=== PATIENT | male | born 1965 | race Caucasian/White ===

== ENCOUNTER 2024-11-25 12:43 | Inpatient (IN) ==
--- NOTE | 2024-11-25 13:18 | ED Triage Note ---
Date of Service November 25, 2024 Provider in Triage Author: Boni Holden History of Present Illness This patient was briefly evaluated while in triage. An abbreviated physical exam was performed. This patient is a 58-year-old Male who presents to the ED for evaluation of live r problems. The patient has had months of lower abdominal pain and leg swelling. Symptoms started 3 months ago, but getting worse. The patient is now yellow. Has not had previous workup per patient. PCP sent him for further workup. No known liver problems. Drinks 2-3 glasses of wine a day. States that he drank 3 glasses of wine today. Physical Exam GENERAL: Non-toxic and in no acute distress. SKIN: Jaundice present HEENT: Pupils equal. Positive scleral icterus. HEART: Regular rate and rhythm. LUNGS: Clear to auscultation. No accessory muscle use. ABDOMEN: Abdomen significantly distended. NEURO: Alert and oriented. No obvious neurological deficits on quick neuro exam. MUSCULOSKELETAL: 3+ pitting edema of lower extremities. Initial orders for labs and / or imaging were placed and patient was placed in the waiting area until a bed is available. Please see further documentation for the full ED course. MDM / Impression Impression Impression: Cirrhosis, Abdominal ascites, Total bilirubin, elevated, Edema, peripheral, Hyponatremia Impression: Cirrhosis Qualifiers: Hepatic cirrhosis type: alcoholic cirrhosis Ascites presence: with ascites Qualified Code(s): K70.31 - Alcoholic cirrhosis of liver with ascites
--- NOTE | 2024-11-25 14:03 | Emergency Department Note ---
Impression & Plan Cirrhosis, Abdominal ascites, Total bilirubin, elevated, Edema, peripheral, Hyponatremia ED Provider Note Provider: Boni Holden MD CHIEF COMPLAINT: Abdominal and leg swelling, referred from office HISTORY OF PRESENT ILLNESS: Patient is a 58-year-old gentleman history of hyperlipidemia hypertension, as well as neuropathy referred from primary care today due to over the past 2 to 3 months developing increasing abdominal swelling and leg swelling. Has had to get new jeans and feels significant abdominal pressure but not pain. No fevers. This is worsened his underlying hiatal hernia and dyspepsia related to this. Is a daily drinker. No significant use of [id number] Motrin or Tylenol reported. Patient states he did not really realize that he seemed a little jaundiced or yellow but primary care commented on it. Given these changes he was sent here for further evaluation today and workup. States he gets some dyspnea with exertion prickly stairs or walking more than 50 or 100 feet. No shortness of breath at rest. Last drink of alcohol earlier today. PAST MEDICAL HISTORY: As noted above MEDICATIONS: Reviewed home medications SOCIAL HISTORY: Daily drinker PHYSICAL EXAM: GENERAL: alert and oriented in no acute distress on stretcher Head: normocephalic and atraumatic EYES: No injection or discharge with mild icterus noted. NECK: Trachea midline. ENT: Mucous membranes pink and moist. LUNGS: Airway patent. No retractions or tachypnea HEART: Regular rate and rhythm. ABDOMEN: Firm moderately distended. Patient is not on tender and no guarding appreciable. SKIN: Acyanotic but mildly jaundice, warm, dry, without rashes EXTREMITIES: Without drainage but 3-4+ edema of the bilateral lower extremities. NEUROLOGICAL: Moving all extremities. No aphasia. No facial droop or slurred speech. Ambulatory. EK bpm normal sinus rhythm. No PVC or PAC. No acute ST segment elevation or depression with QTc 454. CONTINUOUS CARDIAC MONITORING: was ordered and showed a heart rate of 70s-90s bpm in normal sinus rhythm Patient's laboratory studies and imaging reviewed. Differential includes liver failure, cirrhosis, appendicitis, infections, diverticulitis, UTI, obstruction, mesenteric ischemia, aortic pathology/CHF, inflammatory bowel disease, renal colic, PUD, pancreatitis, biliary pathology, hernia, volvulus, constipation, as well as other pathologies. IMPRESSION/MEDICAL DECISION MAKING: Patient with fairly significant abdominal and lower extremity swelling. No evidence significant cellulitis. The abdominal swelling with this does make the question either liver or heart pathology. Patient is a daily drinker. EKG obtained as well as troponin and chest x-ray but LFTs INR and ammonia sent as well as alcohol level. Does not appear to be hypoxic at this time and not having significant abdominal pain or fevers and doubt SBP or infection. With the patient's regular alcohol use this may be causing an alcoholic cirrhosis to develop. Certainly any hiatal hernia he has will be exacerbated by the increased abdominal pressure and this likely causes some dyspnea on exertion. Blood work here today with mild anemia 10.6. No leukocytosis. INR mildly elevated 1.5. Significant hyponatremia 126 appears new compared to blood work from 9 months ago. Creatinine normal. Bilirubin elevated at 9 with a direct of 3.4. AST slightly but at 81. Troponin normal with BNP of 200. Alcohol level 157. CT with abdominal ascites as well as the ultrasound confirms this and cirrhotic liver changes. Will bring in for optimization given his decompensating what appears to be alcohol induced cirrhosis. Patient is amenable to working on stopping drinking. Has not had seizures or hallucinations before but some mild tremors. Does not appear in withdrawal at this time. He is agreeable to stay in the hospitalist team was contacted for further care here. Do not see evidence of active GI bleed or infection at this time. Does not seem to be significantly symptomatic from the hyponatremia like this is more chronic. Will defer any acute correction at this time. Given somewhat borderline blood pressures will leave choice of diuretics to hospitalist team and likely GI consultation. DIAGNOSIS: Alcoholic liver cirrhosis, hyponatremia DISPOSITION: Hospitalist will evaluate Patient was agreeable with this plan. Past Med/Surg History Problem List (Updated 11/25/24 @ 19:12 by Boni Holden M.D.) Hyponatremia (Acute) Edema, peripheral (Acute) Total bilirubin, elevated (Acute) Abdominal ascites (Acute) Alcohol withdrawal Alcoholic hepatitis with ascites Cirrhosis (Acute) HLD (hyperlipidemia) Hypertension Medical History (Updated 11/25/24 @ 19:12 by Boni Holden M.D.) Mild acid reflux Anxiety Surgical History (Updated 03/08/24 @ 11:07 by Reny Robles MD) H/O umbilical hernia repair [place] teeth extracted H/O oral surgery H/O inguinal hernia repair Family History (Updated 03/08/24 @ 10:32 by Tonya Rowell) Mother Alcohol abuse Depression Father Alcohol abuse Heart disease Kidney disease Myocardial infarction Uncle Myocardial infarction Denies family history of Ovarian cancer Prostate cancer Breast cancer Colorectal cancer Social History (Updated 03/08/24 @ 10:34 by Tonya Rowell) Smoking Status: Never smoker Do You Dip or Chew Tobacco: No; Hx Alcohol Use: Yes Alcohol type: beer Alcohol Intake Frequency: 4 or More x per/Week Alcohol Intake Frequency Comment: 8-15 Hx Substance Use: No marital status: Single Current Living Situation: Family Feels Safe at Home: Hesitant to [facility], Regularly: No Physical Activity Frequency: Daily Seatbelt Use: always Sunscreen Use: Yes Assistive Devices: Glasses Allergies Allergies Allergy/AdvReac Type Severity Reaction Status Date / Time No Known Allergies Allergy Verified 11/25/24 09:19 Home Meds Home Medications Medication Instructions Recorded Confirmed metoprolol tartrate 25 mg tablet 25 mg PO Q OTHER DAY 03/08/24 11/25/24 nifedipine 30 mg tablet,extended 30 mg PO Q OTHER DAY 03/08/24 11/25/24 release ibuprofen 200 mg tablet 200 mg PO Q6H PRN Pain 11/25/24 11/25/24 Previous Rx's Medication Instructions Recorded atorvastatin 40 mg tablet 40 mg PO DAILY 90 days #90 tabs 03/08/24 Results & Data (ED) Vital Signs Vital Signs - 24 hr 11/25/24 13:17 11/25/24 14:05 11/25/24 15:15 Temperature 36.6 C Temperature Source Temporal Artery Scan Pulse Rate 90 85 Pulse Rate [Apical] 87 Respiratory Rate 18 18 Respiratory Effort / Characteristics Non-Labored Spontaneous Non-Labored Spontaneous Respiratory Depth Normal Normal Respiratory Pattern Regular Regular Blood Pressure 100/64 Blood Pressure [Right Arm] 106/71 Blood Pressure Mean 76 Blood Pressure Mean [Right Arm] 82 Pulse Oximetry 99 98 Oxygen Delivery Method Room Air Room Air Sepsis Recent Fever Within 48 Hours No Sepsis New/Unexplained Change in Mental Status N/A Sepsis Action Taken by Nursing No Action Required 11/25/24 16:57 11/25/24 17:58 11/25/24 18:49 Temperature Temperature Source Pulse Rate 85 90 Pulse Rate [Apical] 93 H Respiratory Rate 20 21 Respiratory Effort / Characteristics Respiratory Depth Respiratory Pattern Blood Pressure Blood Pressure [Right Arm] 112/68 Blood Pressure Mean Blood Pressure Mean [Right Arm] 82 Pulse Oximetry 98 99 Oxygen Delivery Method Room Air Room Air Sepsis Recent Fever Within 48 Hours Sepsis New/Unexplained Change in Mental Status Sepsis Action Taken by Nursing 11/25/24 18:49 Temperature Temperature Source Pulse Rate 92 H Pulse Rate [Apical] Respiratory Rate 20 Respiratory Effort / Characteristics Respiratory Depth Respiratory Pattern Blood Pressure Blood Pressure [Right Arm] Blood Pressure Mean Blood Pressure Mean [Right Arm] Pulse Oximetry 99 Oxygen Delivery Method Room Air Sepsis Recent Fever Within 48 Hours Sepsis New/Unexplained Change in Mental Status Sepsis Action Taken by Nursing Laboratory Data 11/25/24 13:27 11/25/24 13:27 Lab Results 11/25/24 11/25/24 Range/Units 13:27 15:40 WBC 8.54 (4.8-10.8) K/ul RBC 2.84 L (4.70-6.10) M/uL Hgb 10.6 L (14.0-18.0) g/dl Hct 29.5 L (42.0-52.0) % MCV 103.9 H (80.0-100.0) fL MCH 37.3 H (25.0-34.0) pg MCHC 35.9 (32.0-36.0) g/dL RDW Std Deviation 48.6 H (36.4-46.3) fL RDW Coeff of Kylee 12.7 (11.5-14.5) % Plt Count 147 (130-400) K/uL MPV 9.4 (9.4-12.4) fL Immature Gran % (Auto) 0.4 % Neut % (Auto) 67.9 % Lymph % (Auto) 17.3 % [place] % (Auto) 11.9 % Eos % (Auto) 1.9 % Baso % (Auto) 0.6 % Neut # (Auto) 5.80 (1.40-6.50) K/uL Lymph # (Auto) 1.48 (1.20-3.40) K/uL [place] # (Auto) 1.02 H (0.11-0.59) K/uL Eos # (Auto) 0.16 (0.00-0.50) K/uL Baso # (Auto) 0.05 (0.00-0.20) K/uL Immature Gran # (Auto) 0.03 (0.01-0.20) K/uL PT 15.5 H (9.0-12.0) Seconds INR 1.5 H (0.9-1.1) APTT 30 (21-31) Seconds PTT Ratio 1.1 Sodium 126 L (136-145) mmol/L Potassium 3.7 (3.5-5.1) mmol/L Chloride 95 L (98-107) mmol/L Carbon Dioxide 24 (21-32) mmol/L Anion Gap 7 (3-11) BUN 5 L (6-23) mg/dl Creatinine 0.59 L (0.6-1.4) mg/dl Est Cr Clr Drug Dosing 147.1 ml/min eGFR 113.16 BUN/Creatinine Ratio 8.5 L (10-20) Glucose 103 H (70-99(Fasting)) mg/dl Calcium 8.5 L (8.6-10.3) mg/dl Magnesium 1.7 (1.7-2.4) mg/dl Total Bilirubin 9.0 H (0.2-1.0) mg/dl Direct Bilirubin 3.4 H (0-0.2) mg/dl AST 81 H (13-39) U/L ALT 27 (7-52) U/L Alkaline Phosphatase 84 (34-104) U/L Ammonia 53.0 (18-72) umol/L Troponin I High Sens 7.5 (0-20) pg/ml B-Natriuretic Peptide 200 H (0-100) pg/ml Total Protein 7.4 (6.0-8.3) gm/dl Albumin 3.1 L (3.4-5.0) gm/dl Globulin 4.3 H (2.5-4.0) gm/dl Albumin/Globulin Ratio 0.7 L (0.9-2) Lipase 114 H (11-82) U/L TSH 2.117 (0.300-4.500) uIu/ml Urine Color Yellow Urine Appearance Clear (Clear) Urine pH 7.5 (4.5-7.5) Ur Specific [place] 1.036 H (1.000-1.030) Urine Protein Negative (Negative) Urine Glucose (UA) Negative (Negative) Urine Ketones Negative (Negative) Urine Blood Negative (Negative) Urine Nitrite Negative (Negative) Urine Bilirubin Negative (Negative) Urine Urobilinogen Negative (Negative) Ur Leukocyte Esterase Negative (Negative) Ethyl Alcohol mg/dL 157.6 H (<10.0) mg/dl Hep Bs Antigen Negative (Negative) Hepatitis C Antibody Negative (Negative) Administered Medications Discontinued Medications Furosemide (Furosemide Inj 20 Mg/2 Ml Vial) 20 mg IV ONE STA Stop: 11/25/24 17:40 Last Admin: 11/25/24 18:52 Dose: 20 mg Documented By: AVDarcy Ioversol (Optiray 320 100ml) 94 ml IV ONCE ONE Stop: 11/25/24 14:31 Last Admin: 11/25/24 14:31 Dose: 94 ml Documented By: EDK Imaging Data Radiologist's Impression: Abdomen/Pelvis CT 11/25/24 13:20 CT OF THE ABDOMEN AND PELVIS WITH CONTRAST CLINICAL HISTORY: Abdominal distention, jaundice. COMPARISON STUDY: None. TECHNIQUE: Following IV administration of 94 mL of Optiray, axial images of the abdomen and pelvis were obtained from the lung bases to the proximal femurs. Images were reviewed in the axial, sagittal, and coronal planes. IV contrast was administered without complication. Automated exposure control was utilized for the study. A dose lowering technique was utilized adhering to the principles of ALARA. CT DOSE: 1387.88 mGy.cm FINDINGS: A moderate to large left pleural effusion is partially imaged. There is associated left lower lobe collapse. A large hiatal hernia contains ascites. Large volume abdominal and pelvic ascites is present. There is no pneumatosis, free air or portal venous gas. The major hepatic vessels are patent. The liver is cirrhotic. Several hypodense hepatic lesions measure up to 6 mm. These are indeterminate. There are gallstones within the gallbladder. The gallbladder is mildly distended. Spleen is mildly enlarged. Abdominal and pelvic varices are present. There is no evidence for a bowel obstruction. The adrenal glands, kidneys and pancreas are unremarkable. No biliary or pancreatic ductal dilatation is present. The caliber and wall thickness of small and large bowel are normal with the exception of mild right colon wall thickening. The appendix is normal. No fluid collections are present. There is ascites within the left inguinal hernia. There is no abdominal or pelvic lymphadenopathy. IMPRESSION: 1. Cirrhotic liver with manifestations of portal hypertension including large volume ascites, small varices and splenomegaly. A few subcentimeter hepatic lesions which are probably benign but indeterminate and should be assessed on follow-up exams to ensure stability. 2. Moderate to large left pleural effusion partially imaged on this exam. This is suggestive of a left-sided hepatic hydrothorax. 3. Large hiatal hernia which contains ascites. 4. No bowel obstruction. Right colon wall thickening. Although nonspecific, this may be related to portal hypertension. 5. Cholelithiasis. ACT 112: Negative or not required by law. Electronically signed by: Charan Lubin M.D. 11/25/2024 3:33 PM Liver Ultrasound 11/25/24 13:20 US liver CLINICAL HISTORY: Jaundice. Abdominal distention. COMPARISON STUDY: CT of the abdomen and pelvis performed earlier today. FINDINGS: There is coarsening of hepatic echotexture liver and nodularity of the liver surface. No hepatic lesions are identified. Large volume upper abdominal ascites is present. The pancreas is obscured. Common bile duct is partially obscured but likely normal in caliber. There are gallstones within the gallbladder. No sonographic Lopez sign was elicited. No gallbladder wall thickening. There is no right hydronephrosis. IMPRESSION: 1. Cholelithiasis. No sonographic evidence for acute cholecystitis. 2. Cirrhotic liver. Large volume ascites. ACT 112: Negative or not required by law. Electronically signed by: Charan Lubin M.D. 11/25/2024 3:49 PM Chest X-Ray 11/25/24 13:24 XR chest 1V portable CLINICAL HISTORY: Leg and abd swelling. COMPARISON STUDY: Chest radiograph March 19, 2024. FINDINGS: There is no pneumothorax. A moderate left pleural effusion is present. There is no evidence for overt pulmonary edema. A hiatal hernia is present. Cardiac size is normal. IMPRESSION: 1. Moderate left pleural effusion. Associated left basilar opacity favors atelectasis. 2. Hiatal hernia. 3. No radiographic evidence for pulmonary edema. ACT 112: Negative or not required by law. Electronically signed by: Charan Lubin M.D. 11/25/2024 2:45 PM Discharge Plan Visit Data Chief Complaint: Referred by Doctor Stated Complaint: DOC REF, LIVER ISSUE ED Provider: Boni Holden Discharge Problem: Cirrhosis, Abdominal ascites, Total bilirubin, elevated, Edema, peripheral, Hyponatremia Patient Disposition: Admitted As Inpatient Forms [facility] Prescriptions Prescriptions: No Action nifedipine 30 mg tablet extended release 30 mg PO Q OTHER DAY Rx Instructions: Pt alternates w/ Metoprolol. States that taking them both in the same day causes his BP to drop too low. metoprolol tartrate 25 mg tablet 25 mg PO Q OTHER DAY Rx Instructions: Pt alternates w/ Nifedipine. States that taking them both in the same day causes his BP to drop too low. atorvastatin 40 mg tablet 40 mg PO DAILY 90 Days Qty: 90 4RF ibuprofen 200 mg Tablet 200 mg PO Q6H PRN (Reason: Pain) Referrals Referrals: Reny Robles MD [Primary Care Provider] - Discharge Problem: Cirrhosis Qualifiers: Hepatic cirrhosis type: alcoholic cirrhosis Ascites presence: with ascites Q ualified Code(s): K70.31 - Alcoholic cirrhosis of liver with ascites
[2024-11-25 14:08] LABS: Basophils # (auto) 0.05 K/uL (0.00-0.20); Basophils % (auto) 0.6 %; Eosinophils # (auto) 0.16 K/uL (0.00-0.50); Eosinophils % (auto) 1.9 %; Hematocrit (blood only) 29.5 % (42.0-52.0); Hemoglobin 10.6 g/dl (14.0-18.0); Immature Granulocytes # (auto) 0.03 K/uL (0.01-0.20); Immature Granulocytes % (auto) 0.4 %; Lymphocytes # (auto) 1.48 K/uL (1.20-3.40); Lymphocytes % (auto) 17.3 %; Mean Corpuscular Hemoglobin 37.3 pg (25.0-34.0); Mean Corpuscular Hgb Conc 35.9 g/dL (32.0-36.0); Mean Corpuscular Volume 103.9 fL (80.0-100.0); Mean Platelet Volume 9.4 fL (9.4-12.4); Monocytes # (auto) 1.02 K/uL (0.11-0.59); Monocytes % (auto) 11.9 %; Neutrophils % (auto) 67.9 %; Platelet Count 147 K/uL (130-400); RDW Coefficient of Variation 12.7 % (11.5-14.5); RDW Standard Deviation 48.6 fL (36.4-46.3); Red Blood Count 2.84 M/uL (4.70-6.10); White Blood Count 8.54 K/ul (4.8-10.8)
[2024-11-25 14:10] LABS: Albumin Globulin Ratio 0.7 (0.9-2); Albumin Level 3.1 gm/dl (3.4-5.0); BUN Creatinine Ratio 8.5 (10-20); Bilirubin Direct 3.4 mg/dl (0-0.2); Calcium 8.5 mg/dl (8.6-10.3); Creatinine Clr Calc Pharmacy 147.1 ml/min; Globulin 4.3 gm/dl (2.5-4.0); Magnesium 1.7 mg/dl (1.7-2.4); Potassium 3.7 mmol/L (3.5-5.1); Total Protein 7.4 gm/dl (6.0-8.3)
[2024-11-25 14:15] LABS: Troponin I High Sensitivity 7.5 pg/ml (0-20)
[2024-11-25 14:17] LABS: INR 1.5 (0.9-1.1); Partial Thromboplastin Ratio 1.1; Partial Thromboplastin Time 30 Seconds (21-31); Prothrombin Time 15.5 Seconds (9.0-12.0)
[2024-11-25 14:24] LABS: Thyroid Stimulating Hormone 2.117 uIu/ml (0.300-4.500)
[2024-11-25] MEDS: OPTIRAY 320 100ml IV ONE (14:31)
[2024-11-25 14:43] LABS: Hep B Surface Ag with confirm Negative (Negative)
--- NOTE | 2024-11-25 14:46 | XRay Report ---
XR chest 1V portable CLINICAL HISTORY: Leg and abd swelling. COMPARISON STUDY: Chest radiograph March 19, 2024. FINDINGS: There is no pneumothorax. A moderate left pleural effusion is present. There is no evidence for overt pulmonary edema. A hiatal hernia is present. Cardiac size is normal. IMPRESSION: 1. Moderate left pleural effusion. Associated left basilar opacity favors atelectasis. 2. Hiatal hernia. 3. No radiographic evidence for pulmonary edema. ACT 112: Negative or not required by law. Electronically signed by: Charan Lubin M.D. 11/25/2024 2:45 PM
[2024-11-25 14:48] LABS: Hep C Ab Rflx HepCQuant RNA Negative (Negative)
--- NOTE | 2024-11-25 15:35 | CT Scan Report ---
CT OF THE ABDOMEN AND PELVIS WITH CONTRAST CLINICAL HISTORY: Abdominal distention, jaundice. COMPARISON STUDY: None. TECHNIQUE: Following IV administration of 94 mL of Optiray, axial images of the abdomen and pelvis we re obtained from the lung bases to the proximal femurs. Images were reviewed in the axial, sagittal, and coronal planes. IV contrast was administered without complication. Automated exposure control wa s utilized for the study. A dose lowering technique was utilized adhering to the principles of ALARA . CT DOSE: 1387.88 mGy.cm FINDINGS: A moderate to large left pleural effusion is partially imaged. There is associated left low er lobe collapse. A large hiatal hernia contains ascites. Large volume abdominal and pelvic ascites i s present. There is no pneumatosis, free air or portal venous gas. The major hepatic vessels are amado nt. The liver is cirrhotic. Several hypodense hepatic lesions measure up to 6 mm. These are indetermi melissa. There are gallstones within the gallbladder. The gallbladder is mildly distended. Spleen is mil dly enlarged. Abdominal and pelvic varices are present. There is no evidence for a bowel obstruction. The adrenal glands, kidneys and pancreas are unremarkable. No biliary or pancreatic ductal dilatatio n is present. The caliber and wall thickness of small and large bowel are normal with the exception o f mild right colon wall thickening. The appendix is normal. No fluid collections are present. There i s ascites within the left inguinal hernia. There is no abdominal or pelvic lymphadenopathy. IMPRESSION: 1. Cirrhotic liver with manifestations of portal hypertension including large volume ascites, small v arices and splenomegaly. A few subcentimeter hepatic lesions which are probably benign but indetermin ate and should be assessed on follow-up exams to ensure stability. 2. Moderate to large left pleural effusion partially imaged on this exam. This is suggestive of a lef t-sided hepatic hydrothorax. 3. Large hiatal hernia which contains ascites. 4. No bowel obstruction. Right colon wall thickening. Although nonspecific, this may be related to po rtal hypertension. 5. Cholelithiasis. ACT 112: Negative or not required by law. Electronically signed by: Charan Lubin M.D. 11/25/2024 3:33 PM
[2024-11-25 15:49] LABS: Appearance Urine Clear (Clear); Bilirubin Urine Negative (Negative); Blood Urine Negative (Negative); Color Urine Yellow; Glucose Urine UA Negative (Negative); Ketones Urine Negative (Negative); Leukocyte Esterase Urine Negative (Negative); Nitrite Urine Negative (Negative); Protein Urine Negative (Negative); Specific Gravity Urine 1.036 (1.000-1.030); Urobilinogen Urine Negative (Negative); pH Urine 7.5 (4.5-7.5)
--- NOTE | 2024-11-25 15:50 | Ultrasound Report ---
US liver CLINICAL HISTORY: Jaundice. Abdominal distention. COMPARISON STUDY: CT of the abdomen and pelvis performed earlier today. FINDINGS: There is coarsening of hepatic echotexture liver and nodularity of the liver surface. No he patic lesions are identified. Large volume upper abdominal ascites is present. The pancreas is obscur ed. Common bile duct is partially obscured but likely normal in caliber. There are gallstones within the gallbladder. No sonographic Lopez sign was elicited. No gallbladder wall thickening. There is no right hydronephrosis. IMPRESSION: 1. Cholelithiasis. No sonographic evidence for acute cholecystitis. 2. Cirrhotic liver. Large volume ascites. ACT 112: Negative or not required by law. Electronically signed by: Charan Lubin M.D. 11/25/2024 3:49 PM
[2024-11-25] MEDS ORDERED: LORazepam 2 MG/1 ML VIAL IV PRN ×3 (17:42)
[2024-11-25] MEDS ORDERED: Ativan IV Alcohol Withdrawal--Active Protocol IV PRN (17:42)
--- NOTE | 2024-11-25 18:08 | Electrocardiogram Report ---
Test Reason : Blood Pressure : */* mmHG Vent. Rate : 87 BPM Atrial Rate : 87 BPM P-R Int : 112 ms QRS Dur : 88 ms QT Int : 378 ms P-R-T Axes : -1 -9 40 degrees QTcB Int : 454 ms Normal sinus rhythm Normal ECG No previous ECGs available Confirmed by Jevon Yoo ([id number]) on 11/25/2024 6:08:15 PM Referred By: Reny Robles Confirmed By: Jevon Yoo
--- NOTE | 2024-11-25 18:13 | History & Physical Report ---
Date of Service November 25, 2024 Assessment & Plan (1) Cirrhosis: (2) Alcoholic hepatitis with ascites: (3) Alcohol withdrawal: (4) Hyponatremia: (5) Macrocytic anemia: Plan This is a 58 year old gentleman with past medical history hypertension and hyperlipidemia who presented to the ER for concerns of abdominal swelling and leg edema. #Cirrhosis/Alcoholic Hepatitis MELD: 27, TB 9, INR 1.5, Na 126, Creat 0.59 DF: 32.9 BNP 200, likely secondary to volume overload from liver source. CTAP: Cirrhotic liver w/ manifestations of portal HTN including lg volume ascites, small varices & splenomegaly. Few subcm hepatic lesions which are probably benign but indeterminate & should be assessed on follow up exam. Moderate to large left pleural effusion. Left sided hepatic hydrothorax. Large hiatal hernia which contains ascites. No bowel obstruction. right colon wall thickening. Cholelithiasis. Liver US: cholelithiasis. no sonographic evidence for acute cholecystitis. cirrhotic liver. lg volume ascites. Reached out to GI rehabilitation services aide on admission - deferred steroid decision to hospitalist team due to conflicting medical research on whether or not steroids are helpful w/ alcoholic hepatitis. Defer at this time given new onset of ascites and needing to rule out SBP prior to initiating. s/p 20mg IV Lasix given, await patient response and reassess BP prior to further doses. If BP stable, start Spironolactone in AM. Patient will require paracentesis, likely can't be performed until 11/28 Low concern for SBP at this time, defer abx for now. GI consulted, appreciate recommendations AM CBC, CMP, PT/INR, Folic acid, and thiamine #Alcohol use disorder Last drink 11/25 AM - averages about a bottle of wine daily. High risk for alcohol withdrawal, no signs of withdrawal thus far. Protocol ordered w/ AWSS & Ativan prn Thiamin, Folic acid supplements daily Chronic conditions: HTN: Hold Nifedipine, Continue Metoprolol HLD: statin DVT prophylaxis: encourage ambulation. hold chemical for now given low normal plt count. Code: full Case discussed w/ Dr. Koo at time of admission. History of Present Illness Primary Care Provider: Reny Robles MD This is a 58 year old gentleman with past medical history hypertension and hyperlipidemia who presented to the ER for concerns of abdominal swelling and leg edema. Patient was seen and examined at bedside. He reports that for about the last 3 months he has been experiencing worsening abdominal bloating and lower extremity edema. States he has not been seen by this in the past. He is a daily drink and has been doing this for quite some time. He reports he drinks 3-7 glasses of wine per day and he averages ~ 1 bottle of wine per day. He reports he has been working with [facility] for a referral for outpatient rehab but this has been complicated by his lack of insurance. He reports he does have social support at home. He also reports that he does want to stop drinking and is prepared to go through withdrawal. His last drink was today in which he had about ~ 1 bottle of wine. Patient also reports SOB w/ exertion but denies at rest. He reports decreased appetite because he feels full after a few bites of food. He attributes this to his hiatal hernia. While in the ED patient was found to have large volume ascites and a hepatic hydrothorax. Findings also + for cirrhosis. His TB was 9. MELD score 27 and DF 32.9. GI consulted on admission who deferred steroids for alcoholic hepatitis to the hospitalist team. Allergies Allergy/AdvReac Type Severity Reaction Status Date / Time No Known Allergies Allergy Verified 11/25/24 09:19 Home Medications Medication Instructions Recorded Confirmed Type atorvastatin 40 mg tablet 40 mg PO DAILY 90 days #90 tabs 03/08/24 11/25/24 Rx metoprolol tartrate 25 mg tablet 25 mg PO Q OTHER DAY 03/08/24 11/25/24 History nifedipine 30 mg tablet,extended 30 mg PO Q OTHER DAY 03/08/24 11/25/24 History release ibuprofen 200 mg tablet 200 mg PO Q6H PRN Pain 11/25/24 11/25/24 History Past Med/Surg History Problem List (Updated 11/26/24 @ 03:25 by Eliud Koo MD) Macrocytic anemia Hyponatremia (Acute) Edema, peripheral (Acute) Total bilirubin, elevated (Acute) Abdominal ascites (Acute) Alcohol withdrawal Alcoholic hepatitis with ascites Cirrhosis (Acute) HLD (hyperlipidemia) Hypertension Medical History (Updated 11/26/24 @ 03:25 by Eliud Koo MD) Mild acid reflux Anxiety Surgical History (Updated 03/08/24 @ 11:07 by Reny Robles MD) H/O umbilical hernia repair [place] teeth extracted H/O oral surgery H/O inguinal hernia repair Family History (Updated 03/08/24 @ 10:32 by Tonya Rowell) Mother Alcohol abuse Depression Father Alcohol abuse Heart disease Kidney disease Myocardial infarction Uncle Myocardial infarction Denies family history of Ovarian cancer Prostate cancer Breast cancer Colorectal cancer Social History (Updated 03/08/24 @ 10:34 by Tonya Rowell) Smoking Status: Never smoker Second Hand Exposure: Yes (parents growing up); Do You Dip or Chew Tobacco: No; Tobacco Cessation Education Requested by Patient: No Hx Alcohol Use: Yes Alcohol type: wine Alcohol Intake Frequency: 4 or More x per/Week Alcohol Intake Frequency Comment: 8-15 Hx Substance Use: No Preferred Language: Maori Communication Ability: Effective 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 +3 pitting edema Gastrointestinal (Abdomen): +BS, +Fluid wave. No tenderness to palpa tion Musculoskeletal: moves all extremities Psychiatric: A+Ox3, euthymic affect Results & Data Results & Data Vital Signs (Past 12 Hours) Vital Signs Temp Pulse Pulse Resp BP BP Pulse Ox 11/25/24 16:57 85 20 98 11/25/24 15:15 87 18 106/71 98 11/25/24 14:05 85 11/25/24 13:17 36.6 C 90 18 100/64 99 O2 Del Method 11/25/24 16:57 Room Air 11/25/24 15:15 Room Air 11/25/24 14:05 11/25/24 13:17 Room Air Supervising Physician Co-Signing Physician Notes I personally saw and examined the patient. I independently reviewed the labs, EKG, imaging, problem list, medication list, past medical history and family history. I verified all levy points and agree with Kia Dwyer PA-C with the following exceptions and/or additions: 58-year-old male presents to the ER on advice of his PCP due to jaundice and distended abdomen. Noted to have liver cirrhosis with significant ascites on CT. Drinks 1 bottle of wine per day with last drink today. Prior episodes of alcohol withdrawal but no prior seizures. O/E HS RRR, no murmurs, Chest CTAB, Abdo distended, very mild tenderness over left side, pedal edema 2+ equal b/l to abdomen A/P Liver cirrhosis with alcoholic hepatitis and ascites - patient is significantly volume overloaded on exam, agree with Lasix, add spironolactone tomorrow as long as blood pressure is stable and able to with electrolytes. Significant diuresis with just 20 mg IV in the emergency room. No significant abdominal pain to suggest SBP. Plan for paracentesis with IR on Thursday. Recommend holding statin for now. I am not even clear that he takes this as it is noted on external pharmacy med list. The same goes for the metoprolol which is listed as a very unusual dosing and I think he would be better off with higher doses of diuresis rather than staying on this. Agree with holding nifedipine. Agree holding steroids especially with borderline discriminant function Alcohol use disorder - anticipate withdrawal within the next 24-48 hours with lorazepam 1 to 3 mg per AWSS Elevated INR - reversed any nutritional deficit with vitamin K 10 mg IV and repeat INR with a.m. labs Hyponatremia - secondary to hypervolemic state with liver cirrhosis, should improve with diuresis Macrocytic anemia - suspected secondary to alcohol use but will get B12 and folate levels in the morning to see if it is reversible with supplementation VTE prophylaxis - platelets relatively normal, will start on Lovenox tomorrow PG Care Time/CCT Total # of Minutes Spent Total Time Spent with Patient: Total time spent is greater than 50% in coordination of care (as documented) at patient's floor/unit and/or counseling patient: Coding Level of Care Code 65883 INT INP/OBS CARE MIN Diagnoses Alcoholic cirrhosis of liver with ascites K70.31 Ascites presence: with ascites Hepatic cirrhosis type: alcoholic cirrhosis Alcoholic hepatitis with ascites K70.11 Alcohol withdrawal syndrome without complication F10.930 Complication of substance-induced condition: uncomplicated Hyponatremia E87.1 Macrocytic anemia D53.9 (1) Cirrhosis Ascites presence: with ascites Hepatic cirrhosis type: alcoholic cirrhosis Qualified Code(s): K70.31 - Alcoholic cirrhosis of liver with ascites (3) Alcohol withdrawal Complication of substance-induced condition: uncomplicated Qualified Code(s): F10.930 - Alcohol use, unspecified with withdrawal, uncomplicated
[2024-11-25] MEDS ORDERED: cefTRIAXone SODIUM 2,000 MG/50 ML BAG IV SCH (18:15)
[2024-11-25] MEDS: FUROSEMIDE INJ 20 MG/2 ML VIAL IV STA (18:52)
[2024-11-25] MEDS: PHYTONADIONE 10 MG in DEXTROSE 5% 50 ML IV ONE (23:13)
[2024-11-26] MEDS: MULTIVITAMIN TAB PO SCH (08:10)
[2024-11-26] MEDS: FOLIC ACID 1 MG TAB PO SCH (08:10)
[2024-11-26] MEDS: FUROSEMIDE INJ 20 MG/2 ML VIAL IV SCH (08:10)
[2024-11-26] MEDS: THIAMINE HCL 100 MG TAB PO SCH (08:10)
[2024-11-26] MEDS ORDERED: ATORVASTATIN 40 MG TAB PO SCH (09:00)
[2024-11-26] MEDS ORDERED: ENOXAPARIN INJ 40 MG/0.4 ML SYR SQ SCH ×2 (09:00→21:00)
[2024-11-26 09:18] LABS: Hematocrit (blood only) 25.8 % (42.0-52.0); Hemoglobin 9.2 g/dl (14.0-18.0); Mean Corpuscular Hemoglobin 36.2 pg (25.0-34.0); Mean Corpuscular Hgb Conc 35.7 g/dL (32.0-36.0); Mean Corpuscular Volume 101.6 fL (80.0-100.0); Mean Platelet Volume 9.6 fL (9.4-12.4); Platelet Count 108 K/uL (130-400); RDW Coefficient of Variation 12.9 % (11.5-14.5); Red Blood Count 2.54 M/uL (4.70-6.10); White Blood Count 6.18 K/ul (4.8-10.8)
[2024-11-26] MEDS: METOPROLOL SUCC 25MG EXT REL TAB PO SCH (09:27)
[2024-11-26 09:42] LABS: Albumin Globulin Ratio 0.7 (0.9-2); Albumin Level 2.7 gm/dl (3.4-5.0); BUN Creatinine Ratio 11.7 (10-20); Bilirubin,Total 8.7 mg/dl (0.2-1.0); Calcium 8.1 mg/dl (8.6-10.3); Creatinine Clr Calc Pharmacy 144.7 ml/min; Globulin 3.8 gm/dl (2.5-4.0); Potassium 3.7 mmol/L (3.5-5.1); Total Protein 6.5 gm/dl (6.0-8.3)
[2024-11-26 10:05] LABS: Folate (Folic Acid),Ser orPlas 9.32 ng/ml (>5.38)
--- NOTE | 2024-11-26 10:30 | Gastrointestinal Consultation ---
Date of Consultation November 26, 2024 Assessment & Plan (1) Alcoholic hepatitis with ascites: Pleasant man with alcoholic hepatitis, ascites, peripheral edema and evidence of cirrhosis. Agree that paracentesis is warranted since this is initial presentation although suspicion for SBP not very high and its fairly obvious the cause for his liver disease. I have never been one to use steroids in acute alcoholic hepatitis because the evidence in the literature has vacillated so much through the years and is not super strong to support it, however it likely won't hurt him. I think there is a good chance he will withdraw during this hospitalization. I would get him on a loop diuretic as well as spironolactone to start getting his fluids under control. 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 History of Present Illness Reason for Consultation: alcoholic hepatitis Attending Physician: Jhonatan Garber MD History of Present Illness 58 year old man who says his legs have been swelling for about three months. He has also noted abdominal swelling during that time. He was instructed to come to the hospital when he finally called his primary care physician. He was admitted with signs and symptoms of alcoholic liver disease. He admits to drinking "one bottle of wine per day" for the last six months and "about half that" prior. He does have an alcohol level on computer of over 350 last year. He has contacted a treatment center and is working on getting involved with them regarding his drinking issues. Allergies Allergy/AdvReac Type Severity Reaction Status Date / Time No Known Allergies Allergy Verified 11/25/24 09:19 Home Medications Medication Instructions Recorded Confirmed Type atorvastatin 40 mg tablet 40 mg PO DAILY 90 days #90 tabs 03/08/24 11/25/24 Rx metoprolol tartrate 25 mg tablet 25 mg PO Q OTHER DAY 03/08/24 11/25/24 History nifedipine 30 mg tablet,extended 30 mg PO Q OTHER DAY 03/08/24 11/25/24 History release ibuprofen 200 mg tablet 200 mg PO Q6H PRN Pain 11/25/24 11/25/24 History Patient History Medical History Mild acid reflux Anxiety Surgical History H/O umbilical hernia repair [place] teeth extracted H/O oral surgery H/O inguinal hernia repair Family History Mother Alcohol abuse Depression Father Alcohol abuse Heart disease Kidney disease Myocardial infarction Uncle Myocardial infarction Denies family history of Ovarian cancer Prostate cancer Breast cancer Colorectal cancer Social History Smoking Status: Never smoker Second Hand Exposure: Yes (parents growing up); Do You Dip or Chew Tobacco: No; Tobacco Cessation Education Requested by Patient: No Hx Alcohol Use: Yes Alcohol type: wine Alcohol Intake Frequency: 4 or More x per/Week Alcohol Intake Frequency Comment: 8-15 Hx Substance Use: No Preferred Language: Malay Communication Ability: Effective Family Life Counselor Required: No Beliefs That Will Affect Care: None marital status: Single Current Living Situation: Family Other Information That Helps Us Care for You: No Feels Safe at Home: Yes Safety Concerns: Feels Safe At This Time Dental Care, Regularly: No Physical Activity Frequency: Daily Seatbelt Use: always Sunscreen Use: Yes Assistive Devices: Glasses Review of Systems Review of Systems: All systems reviewed & are unremarkable except as noted in HPI & below Physical Exam Physical Exam: Ill appearing with marked jaundice Constitutional: + ill appearing Eyes: sclerae not anicteric Neck: trachea midline, no thyromegaly Respiratory: normal respiratory effort, lungs clear to auscultation Cardiovascular: RRR, no murmur, no edema Gastrointestinal (Abdomen): Inspection/Auscultation: + abdomen distended and normal bowel sounds Percussion/Palpation: + ascites; abdomen nontender Musculoskeletal: marked lower extremity edema Results & Data Vital Signs (Past 12 Hours) Vital Signs Temp Pulse Resp BP Pulse Ox O2 Del Method 11/26/24 08:45 37.3 C 108 H 18 154/79 H 96 Room Air 11/26/24 04:06 36.9 C 104 H 18 102/64 93 Room Air Laboratory Results 11/26/24 11/26/24 11/25/24 Range/Units 08:30 08:28 15:40 WBC 6.18 (4.8-10.8) K/ul RBC 2.54 L (4.70-6.10) M/uL Hgb 9.2 L (14.0-18.0) g/dl Hct 25.8 L (42.0-52.0) % MCV 101.6 H (80.0-100.0) fL MCH 36.2 H (25.0-34.0) pg MCHC 35.7 (32.0-36.0) g/dL RDW Std Deviation 48.0 H (36.4-46.3) fL RDW Coeff of Kylee 12.9 (11.5-14.5) % Plt Count 108 L (130-400) K/uL MPV 9.6 (9.4-12.4) fL Immature Gran % (Auto) % Neut % (Auto) % Lymph % (Auto) % [place] % (Auto) % Eos % (Auto) % Baso % (Auto) % Neut # (Auto) (1.40-6.50) K/uL Lymph # (Auto) (1.20-3.40) K/uL [place] # (Auto) (0.11-0.59) K/uL Eos # (Auto) (0.00-0.50) K/uL Baso # (Auto) (0.00-0.20) K/uL Immature Gran # (Auto) (0.01-0.20) K/uL PT (9.0-12.0) Seconds INR (0.9-1.1) APTT (21-31) Seconds PTT Ratio Sodium 127 L (136-145) mmol/L Potassium 3.7 (3.5-5.1) mmol/L Chloride 96 L (98-107) mmol/L Carbon Dioxide 25 (21-32) mmol/L Anion Gap 6 (3-11) BUN 7 (6-23) mg/dl Creatinine 0.60 (0.6-1.4) mg/dl Est Cr Clr Drug Dosing 144.7 ml/min eGFR 112.59 BUN/Creatinine Ratio 11.7 (10-20) Glucose 121 H (70-99(Fasting)) mg/dl Osmolality 266 L (280-300) mOsm/kg Calcium 8.1 L (8.6-10.3) mg/dl Magnesium (1.7-2.4) mg/dl Total Bilirubin 8.7 H (0.2-1.0) mg/dl Direct Bilirubin (0-0.2) mg/dl AST 67 H (13-39) U/L ALT 21 (7-52) U/L Alkaline Phosphatase 69 (34-104) U/L Ammonia (18-72) umol/L Troponin I High Sens (0-20) pg/ml B-Natriuretic Peptide (0-100) pg/ml Total Protein 6.5 (6.0-8.3) gm/dl Albumin 2.7 L (3.4-5.0) gm/dl Globulin 3.8 (2.5-4.0) gm/dl Albumin/Globulin Ratio 0.7 L (0.9-2) Lipase (11-82) U/L Whole Bld Vitamin B1 Pending Vitamin B12 1322 H (180-914) pg/ml Folate 9.32 (>5.38) ng/ml TSH (0.300-4.500) uIu/ml Urine Color Yellow Urine Appearance Clear (Clear) Urine pH 7.5 (4.5-7.5) Ur Specific [place] 1.036 H (1.000-1.030) Urine Protein Negative (Negative) Urine Glucose (UA) Negative (Negative) Urine Ketones Negative (Negative) Urine Blood Negative (Negative) Urine Nitrite Negative (Negative) Urine Bilirubin Negative (Negative) Urine Urobilinogen Negative (Negative) Ur Leukocyte Esterase Negative (Negative) Ethyl Alcohol mg/dL (<10.0) mg/dl Hepatitis A IgM Ab Hep Bs Antigen (Negative) Hep B Core IgM Ab Hepatitis C Antibody (Negative) 11/25/24 Range/Units 13:27 WBC 8.54 (4.8-10.8) K/ul RBC 2.84 L (4.70-6.10) M/uL Hgb 10.6 L (14.0-18.0) g/dl Hct 29.5 L (42.0-52.0) % MCV 103.9 H (80.0-100.0) fL MCH 37.3 H (25.0-34.0) pg MCHC 35.9 (32.0-36.0) g/dL RDW Std Deviation 48.6 H (36.4-46.3) fL RDW Coeff of Kylee 12.7 (11.5-14.5) % Plt Count 147 (130-400) K/uL MPV 9.4 (9.4-12.4) fL Immature Gran % (Auto) 0.4 % Neut % (Auto) 67.9 % Lymph % (Auto) 17.3 % [place] % (Auto) 11.9 % Eos % (Auto) 1.9 % Baso % (Auto) 0.6 % Neut # (Auto) 5.80 (1.40-6.50) K/uL Lymph # (Auto) 1.48 (1.20-3.40) K/uL [place] # (Auto) 1.02 H (0.11-0.59) K/uL Eos # (Auto) 0.16 (0.00-0.50) K/uL Baso # (Auto) 0.05 (0.00-0.20) K/uL Immature Gran # (Auto) 0.03 (0.01-0.20) K/uL PT 15.5 H (9.0-12.0) Seconds INR 1.5 H (0.9-1.1) APTT 30 (21-31) Seconds PTT Ratio 1.1 Sodium 126 L (136-145) mmol/L Potassium 3.7 (3.5-5.1) mmol/L Chloride 95 L (98-107) mmol/L Carbon Dioxide 24 (21-32) mmol/L Anion Gap 7 (3-11) BUN 5 L (6-23) mg/dl Creatinine 0.59 L (0.6-1.4) mg/dl Est Cr Clr Drug Dosing 147.1 ml/min eGFR 113.16 BUN/Creatinine Ratio 8.5 L (10-20) Glucose 103 H (70-99(Fasting)) mg/dl Osmolality (280-300) mOsm/kg Calcium 8.5 L (8.6-10.3) mg/dl Magnesium 1.7 (1.7-2.4) mg/dl Total Bilirubin 9.0 H (0.2-1.0) mg/dl Direct Bilirubin 3.4 H (0-0.2) mg/dl AST 81 H (13-39) U/L ALT 27 (7-52) U/L Alkaline Phosphatase 84 (34-104) U/L Ammonia 53.0 (18-72) umol/L Troponin I High Sens 7.5 (0-20) pg/ml B-Natriuretic Peptide 200 H (0-100) pg/ml Total Protein 7.4 (6.0-8.3) gm/dl Albumin 3.1 L (3.4-5.0) gm/dl Globulin 4.3 H (2.5-4.0) gm/dl Albumin/Globulin Ratio 0.7 L (0.9-2) Lipase 114 H (11-82) U/L Whole Bld Vitamin B1 Vitamin B12 (180-914) pg/ml Folate (>5.38) ng/ml TSH 2.117 (0.300-4.500) uIu/ml Urine Color Urine Appearance (Clear) Urine pH (4.5-7.5) Ur Specific [place] (1.000-1.030) Urine Protein (Negative) Urine Glucose (UA) (Negative) Urine Ketones (Negative) Urine Blood (Negative) Urine Nitrite (Negative) Urine Bilirubin (Negative) Urine Urobilinogen (Negative) Ur Leukocyte Esterase (Negative) Ethyl Alcohol mg/dL 157.6 H (<10.0) mg/dl Hepatitis A IgM Ab Pending Hep Bs Antigen Negative (Negative) Hep B Core IgM Ab Pending Hepatitis C Antibody Negative (Negative) Diagnostic Findings Abdomen/Pelvis CT 11/25/24 13:20 CT OF THE ABDOMEN AND PELVIS WITH CONTRAST CLINICAL HISTORY: Abdominal distention, jaundice. COMPARISON STUDY: None. TECHNIQUE: Following IV administration of 94 mL of Optiray, axial images of the abdomen and pelvis were obtained from the lung bases to the proximal femurs. Images were reviewed in the axial, sagittal, and coronal planes. IV contrast was administered without complication. Automated exposure control was utilized for the study. A dose lowering technique was utilized adhering to the principles of ALARA. CT DOSE: 1387.88 mGy.cm FINDINGS: A moderate to large left pleural effusion is partially imaged. There is associated left lower lobe collapse. A large hiatal hernia contains ascites. Large volume abdominal and pelvic ascites is present. There is no pneumatosis, free air or portal venous gas. The major hepatic vessels are patent. The liver is cirrhotic. Several hypodense hepatic lesions measure up to 6 mm. These are indeterminate. There are gallstones within the gallbladder. The gallbladder is mildly distended. Spleen is mildly enlarged. Abdominal and pelvic varices are present. There is no evidence for a bowel obstruction. The adrenal glands, kidneys and pancreas are unremarkable. No biliary or pancreatic ductal dilatation is present. The caliber and wall thickness of small and large bowel are normal with the exception of mild right colon wall thickening. The appendix is normal. No fluid collections are present. There is ascites within the left inguinal hernia. There is no abdominal or pelvic lymphadenopathy. IMPRESSION: 1. Cirrhotic liver with manifestations of portal hypertension including large volume ascites, small varices and splenomegaly. A few subcentimeter hepatic lesions which are probably benign but indeterminate and should be assessed on follow-up exams to ensure stability. 2. Moderate to large left pleural effusion partially imaged on this exam. This is suggestive of a left-sided hepatic hydrothorax. 3. Large hiatal hernia which contains ascites. 4. No bowel obstruction. Right colon wall thickening. Although nonspecific, this may be related to portal hypertension. 5. Cholelithiasis. ACT 112: Negative or not required by law. Electronically signed by: Charan Lubin M.D. 11/25/2024 3:33 PM Liver Ultrasound 11/25/24 13:20 US liver CLINICAL HISTORY: Jaundice. Abdominal distention. COMPARISON STUDY: CT of the abdomen and pelvis performed earlier today. FINDINGS: There is coarsening of hepatic echotexture liver and nodularity of the liver surface. No hepatic lesions are identified. Large volume upper abdominal ascites is present. The pancreas is obscured. Common bile duct is partially obscured but likely normal in caliber. There are gallstones within the gallbladder. No sonographic Lopez sign was elicited. No gallbladder wall thickening. There is no right hydronephrosis. IMPRESSION: 1. Cholelithiasis. No sonographic evidence for acute cholecystitis. 2. Cirrhotic liver. Large volume ascites. ACT 112: Negative or not required by law. Electronically signed by: Charan Lubin M.D. 11/25/2024 3:49 PM Chest X-Ray 11/25/24 13:24 XR chest 1V portable CLINICAL HISTORY: Leg and abd swelling. COMPARISON STUDY: Chest radiograph March 19, 2024. FINDINGS: There is no pneumothorax. A moderate left pleural effusion is present. There is no evidence for overt pulmonary edema. A hiatal hernia is present. Cardiac size is normal. IMPRESSION: 1. Moderate left pleural effusion. Associated left basilar opacity favors atelectasis. 2. Hiatal hernia. 3. No radiographic evidence for pulmonary edema. ACT 112: Negative or not required by law. Electronically signed by: Charan Lubin M.D. 11/25/2024 2:45 PM
--- NOTE | 2024-11-26 12:11 | XCELERA ---
[id number] \\[id number]
[2024-11-26] MEDS: SPIRONOLACTONE 25 MG TAB PO SCH (13:05)
--- NOTE | 2024-11-26 13:24 | Hospitalist Progress Note ---
Date of Service November 26, 2024 Assessment & Plan (1) Cirrhosis: Plan: This appears to be due to alcohol intake. There may be an element of acute alcoholic hepatitis. GI consult and recommendations noted. Statin therapy has been discontinued. He is now on spironolactone and oral Lasix. (2) Alcoholic hepatitis with ascites: Plan: Appreciate gastroenterology consultation and recommendations. Parenteral steroid therapy started (3) Alcohol withdrawal: Plan: Possibility of alcohol withdrawal symptoms developing. COLLEEN S protocol ordered (4) Hyponatremia: Plan: Mild on admission. Will follow. Serial labs (5) Macrocytic anemia: Plan: Apparently due to underlying liver disease. Serial labs (6) Hypertension: Plan: Nifedipine has been discontinued. Continue metoprolol. Plan Anticipate eventual discharge back to his home early next week. Admission and Anticipated Discharge Date Admission Date: November 25, 2024 Subjective Alert and oriented. No distress. Unfortunately it appears the paracentesis cannot be accomplished until November 28. Gastroenterology consultation noted. Spironolactone has been started. Statin has been discontinued. Cardiac echo reveals normal left ventricular ejection fraction. Review of Systems 2 Review of Systems: Constitutionalno fever or chills ENTno blurred vision, no double vision, no epistaxis, no sore throat Respiratoryno cough, no wheezing, no shortness of breath Cardiacno palpitations, no chest pain, no syncope Nikhil nausea, vomiting, diarrhea, melena, hematochezia. Gradual onset of abdominal distention over the past several weeks GUno urinary retention, no urinary incontinence, no dysuria, no hematuria Musculoskeletalno joint pain, no muscle tenderness. Gradual onset of bilateral lower extremity edema over the past several weeks Skinno bruising, no rashes, no pruritus Neurono isolated weakness, no paresthesia Psychno depression, no anxiety Physical Exam 2 Physical Exam: General-alert and oriented x3, no fever, no chills HEENT-head atraumatic and normocephalic, pupils equal and reactive to light, extraocular muscles intact Neck-no lymphadenopathy or thyromegaly, trachea midline Chest-clear to auscultation. No rales, wheezing or rhonchi Cardiac-regular rate and rhythm, normal S1 and S2 Abdomen-normal bowel sounds, no hepatosplenomegaly. Distended and somewhat firm Extremities-no cyanosis, clubbing. 1-2+ pitting edema bilateral lower extremities below the knees Neuro-cranial nerves II through XII intact, motor and sensory function within normal limits, strength symmetrical, no focal deficits Psych-normal affect, normal mood Results & Data Results & Data Vital Signs (Past 12 Hours) Vital Signs Temp Pulse Pulse Resp BP Pulse Ox Pulse Ox 11/26/24 11:56 37.3 C 96 H 16 115/70 96 11/26/24 08:45 37.3 C 108 H 18 154/79 H 96 11/26/24 08:30 104 H 11/26/24 08:00 95 11/26/24 04:06 36.9 C 104 H 18 102/64 93 O2 Del Method O2 Del Method 11/26/24 11:56 Room Air 11/26/24 08:45 Room Air 11/26/24 08:30 11/26/24 08:00 Room Air 11/26/24 04:06 Room Air Laboratory Results 11/26/24 08:28 11/26/24 08:28 PG Care Time/CCT Total # of Minutes Spent Total Time Spent with Patient: Total time spent is greater than 50% in coordination of care (as documented) at patient's floor/unit and/or counseling patient: Coding Level of Care Code 49543 SUB INP/OBS CARE 3/50MIN Diagnoses Alcoholic cirrhosis of liver with ascites K70.31 Hepatic cirrhosis type: alcoholic cirrhosis Ascites presence: with ascites Alcoholic hepatitis with ascites K70.11 Alcohol withdrawal syndrome without complication F10.930 Complication of substance-induced condition: uncomplicated Hyponatremia E87.1 Macrocytic anemia D53.9 Hypertension I10 (1) Cirrhosis Hepatic cirrhosis type: alcoholic cirrhosis Ascites presence: with ascites Qualified Code(s): K70.31 - Alcoholic cirrhosis of liver with ascites (3) Alcohol withdrawal Complication of substance-induced condition: uncomplicated Qualified Code(s): F10.930 - Alcohol use, unspecified with withdrawal, uncomplicated
[2024-11-26] MEDS ORDERED: ALUMINUM/MAGNESIUM SUSP 30 ML UDC PO PRN (15:13)
[2024-11-26] MEDS: PANTOprazole 40 MG TAB PO SCH (15:49)
[2024-11-27 06:29] LABS: Basophils # (auto) 0.03 K/uL (0.00-0.20); Basophils % (auto) 0.7 %; Eosinophils # (auto) 0.12 K/uL (0.00-0.50); Eosinophils % (auto) 2.6 %; Hematocrit (blood only) 23.3 % (42.0-52.0); Hemoglobin 8.7 g/dl (14.0-18.0); Immature Granulocytes # (auto) 0.01 K/uL (0.01-0.20); Immature Granulocytes % (auto) 0.2 %; Lymphocytes # (auto) 1.04 K/uL (1.20-3.40); Lymphocytes % (auto) 22.6 %; Mean Corpuscular Hemoglobin 37.7 pg (25.0-34.0); Mean Corpuscular Hgb Conc 37.3 g/dL (32.0-36.0); Mean Corpuscular Volume 100.9 fL (80.0-100.0); Mean Platelet Volume 9.5 fL (9.4-12.4); Monocytes # (auto) 0.76 K/uL (0.11-0.59); Monocytes % (auto) 16.5 %; Neutrophils # (auto) 2.65 K/uL (1.40-6.50); Neutrophils % (auto) 57.4 %; Platelet Count 101 K/uL (130-400); RDW Coefficient of Variation 12.8 % (11.5-14.5); RDW Standard Deviation 47.6 fL (36.4-46.3); Red Blood Count 2.31 M/uL (4.70-6.10); White Blood Count 4.61 K/ul (4.8-10.8)
[2024-11-27 06:54] LABS: Albumin Globulin Ratio 0.7 (0.9-2); Albumin Level 2.4 gm/dl (3.4-5.0); BUN Creatinine Ratio 15.7 (10-20); Bilirubin,Total 8.7 mg/dl (0.2-1.0); Calcium 7.8 mg/dl (8.6-10.3); Creatinine Clr Calc Pharmacy 170.2 ml/min; Globulin 3.5 gm/dl (2.5-4.0); Potassium 3.5 mmol/L (3.5-5.1); Total Protein 5.9 gm/dl (6.0-8.3)
[2024-11-27] MEDS: FUROSEMIDE 40 MG TAB PO SCH (08:19)
[2024-11-27] MEDS ORDERED: METOPROLOL TARTRATE 25 MG TAB PO SCH (09:00)
[2024-11-27 09:12] LABS: Hepatitis A Antibody IgM NON-REACTIVE (NON-REACTIVE); Hepatitis B Core Antibody IgM NON-REACTIVE (NON-REACTIVE)
--- NOTE | 2024-11-27 10:23 | Gastroenterology Progress Note ---
Date of Service November 27, 2024 Assessment & Plan (1) Alcoholic hepatitis with ascites: Plan: Seems to be doing well. Suspect hyperbilirubinemia related to alcoholic hepatitis. Getting paracentesis tomorrow Admission and Anticipated Discharge Date Admission Date: November 25, 2024 Subjective Seems a little slower to respond today although he says he feels well. Having MRCP today for hyperbilirubinemia Physical Exam Physical Exam: no complaints Constitutional: + ill appearing Results & Data Vital Signs (Past 12 Hours) Vital Signs Temp Pulse Pulse Resp BP Pulse Ox O2 Del Method 11/27/24 07:51 36.7 C 89 20 103/63 95 Room Air 11/27/24 04:00 36.9 C 86 18 111/68 94 Room Air 11/27/24 00:00 37.0 C 90 18 121/72 94 Room Air 11/26/24 23:00 101 H
--- NOTE | 2024-11-27 13:03 | Hospitalist Progress Note ---
Date of Service November 27, 2024 Assessment & Plan (1) Cirrhosis: Plan: This appears to be due to alcohol intake. There may be an element of acute alcoholic hepatitis. GI consult and recommendations noted. Statin therapy has been discontinued. He is now on spironolactone and oral Lasix. (2) Alcoholic hepatitis with ascites: Plan: Appreciate gastroenterology consultation and recommendations. Markedly elevated total bilirubin level may be out of proportion to remainder of abnormal liver enzymes. He does have cholelithiasis. MRCP ordered and pending to rule out obstructive choledocholithiasis although this was not seen on admission CT scan. (3) Alcohol withdrawal: Plan: Possibility of alcohol withdrawal symptoms developing. AWSS protocol ordered. Currently no withdrawal (4) Hyponatremia: Plan: Mild on admission. Stable and appears chronic. Asymptomatic. Will follow. Serial labs (5) Macrocytic anemia: Plan: Apparently due to underlying liver disease. Serial labs (6) Hypertension: Plan: Nifedipine has been discontinued. Continue metoprolol. Plan Anticipate eventual discharge back to his home early next week. Admission and Anticipated Discharge Date Admission Date: November 25, 2024 Subjective Alert and oriented. No new problems. GI entry noted. Statin has been discontinued. Metoprolol tartrate has been switched to metoprolol succinate. Elevated total bilirubin appears to be out of proportion to remainder of liver enzymes. He does have cholelithiasis. MRCP ordered and pending to rule out obstructive choledocholithiasis although this was not seen on CT scan on admission. No current evidence of alcohol withdrawal. Sodium remains chronically low Review of Systems 2 Review of Systems: Constitutionalno fever or chills ENTno blurred vision, no double vision, no epistaxis, no sore throat Respiratoryno cough, no wheezing, no shortness of breath Cardiacno palpitations, no chest pain, no syncope Nikhil nausea, vomiting, diarrhea, melena, hematochezia. Gradual onset of abdominal distention over the past several weeks GUno urinary retention, no urinary incontinence, no dysuria, no hematuria Musculoskeletalno joint pain, no muscle tenderness. Gradual onset of bilateral lower extremity edema over the past several weeks Skinno bruising, no rashes, no pruritus Neurono isolated weakness, no paresthesia Psychno depression, no anxiety Physical Exam 2 Physical Exam: General-alert and oriented x3, no fever, no chills HEENT-head atraumatic and normocephalic, pupils equal and reactive to light, extraocular muscles intact Neck-no lymphadenopathy or thyromegaly, trachea midline Chest-clear to auscultation. No rales, wheezing or rhonchi Cardiac-regular rate and rhythm, normal S1 and S2 Abdomen-normal bowel sounds, no hepatosplenomegaly. Distended and somewhat firm Extremities-no cyanosis, clubbing. 1-2+ pitting edema bilateral lower extremities below the knees Neuro-cranial nerves II through XII intact, motor and sensory function within normal limits, strength symmetrical, no focal deficits Psych-normal affect, normal mood Results & Data Results & Data Vital Signs (Past 12 Hours) Vital Signs Temp Pulse Resp BP Pulse Ox O2 Del Method 11/27/24 07:51 36.7 C 89 20 103/63 95 Room Air 11/27/24 04:00 36.9 C 86 18 111/68 94 Room Air Laboratory Results 11/27/24 05:51 11/27/24 05:51 PG Care Time/CCT Total # of Minutes Spent Total Time Spent with Patient: Total time spent is greater than 50% in coordination of care (as documented) at patient's floor/unit and/or counseling patient: Coding Level of Care Code 40900 SUB INP/OBS CARE 2/35MIN Diagnoses Alcoholic cirrhosis of liver with ascites K70.31 Hepatic cirrhosis type: alcoholic cirrhosis Ascites presence: with ascites Alcoholic hepatitis with ascites K70.11 Alcohol withdrawal syndrome without complication F10.930 Complication of substance-induced condition: uncomplicated Hyponatremia E87.1 Macrocytic anemia D53.9 Hypertension I10 (1) Cirrhosis Hepatic cirrhosis type: alcoholic cirrhosis Ascites presence: with ascites Qualified Code(s): K70.31 - Alcoholic cirrhosis of liver with ascites (3) Alcohol withdrawal Complication of substance-induced condition: uncomplicated Qualified Code(s): F10.930 - Alcohol use, unspecified with withdrawal, uncomplicated
--- NOTE | 2024-11-27 14:35 | Magnetic Resonance Report ---
MRCP Without Contrast CLINICAL HISTORY: Cirrhosis. Jaundice TECHNIQUE: Images were acquired without intravenous gadolinium contrast through the upper abdomen. The following MR images were acquired without intravenous contrast: TrueFISP, multiplanar T2-weighted, axial T1 in/out of phase, T2-weighted MRCP images, axial diffusion-weighted and axial apparent diffusion coefficient. T1-weighted images were obtained without contrast. Comparison study: CT and ultrasound from 11/25/2024 FINDINGS: Biliary Tree: No biliary ductal dilatation. Pancreas: No pancreatic duct dilatation. No visualized cyst. Liver: Nodular contour due to cirrhosis, and mildly enlarged measuring 18 cm craniocaudal. No obvious mass, considering noncontrast technique. Gallbladder: Small volume tiny gallstones seen near the gallbladder neck. The gallbladder is distended, having a transverse diameter of up to 4.0 cm near the fundus. No significant wall thickening appreciated. Spleen: Enlarged due to portal hypertension measuring 15.4 cm Kidneys: Normal Adrenal glands: Normal Bowel: No normally dilated bowel. Lymph nodes: No pathologic lymph adenopathy. Blood vessels: No aortic aneurysm. Lung bases: Left pleural effusion appears moderate or large. Trace right pleural effusion. Hiatal hernia appears moderate in size. Bones and soft tissues: Unremarkable Mesentery and abdominal wall: Unremarkable Ascites: Large volume IMPRESSION: Cirrhotic morphology of the liver, with evidence of portal hypertension, including large volume ascites, pleural effusions, and splenomegaly. No biliary ductal dilatation. Cholelithiasis. Electronically signed by Jevon Vargas 11-27-2024 2:35 PM
[2024-11-28 08:09] LABS: Basophils # (auto) 0.02 K/uL (0.00-0.20); Basophils % (auto) 0.4 %; Eosinophils # (auto) 0.05 K/uL (0.00-0.50); Eosinophils % (auto) 0.9 %; Hematocrit (blood only) 24.7 % (42.0-52.0); Hemoglobin 8.7 g/dl (14.0-18.0); Immature Granulocytes # (auto) 0.01 K/uL (0.01-0.20); Immature Granulocytes % (auto) 0.2 %; Lymphocytes # (auto) 0.88 K/uL (1.20-3.40); Lymphocytes % (auto) 16.1 %; Mean Corpuscular Hemoglobin 36.3 pg (25.0-34.0); Mean Corpuscular Hgb Conc 35.2 g/dL (32.0-36.0); Mean Corpuscular Volume 102.9 fL (80.0-100.0); Mean Platelet Volume 9.7 fL (9.4-12.4); Monocytes # (auto) 0.76 K/uL (0.11-0.59); Monocytes % (auto) 13.9 %; Neutrophils # (auto) 3.73 K/uL (1.40-6.50); Neutrophils % (auto) 68.5 %; Platelet Count 102 K/uL (130-400); RDW Coefficient of Variation 12.7 % (11.5-14.5); RDW Standard Deviation 48.2 fL (36.4-46.3); White Blood Count 5.45 K/ul (4.8-10.8)
[2024-11-28 09:17] LABS: Albumin Globulin Ratio 0.7 (0.9-2); Albumin Level 2.5 gm/dl (3.4-5.0); BUN Creatinine Ratio 14.1 (10-20); Bilirubin,Total 8.6 mg/dl (0.2-1.0); Creatinine Clr Calc Pharmacy 122.3 ml/min; Globulin 3.7 gm/dl (2.5-4.0); Potassium 3.6 mmol/L (3.5-5.1); Total Protein 6.2 gm/dl (6.0-8.3)
--- NOTE | 2024-11-28 12:08 | Hospitalist Progress Note ---
Date of Service November 28, 2024 Assessment & Plan (1) Cirrhosis: (2) Alcoholic hepatitis with ascites: (3) Total bilirubin, elevated: (4) Alcohol withdrawal: (5) Hyponatremia: (6) Macrocytic anemia: (7) Hypertension: (8) HLD (hyperlipidemia): Plan Patient is a 58 year old male with PMHx significant for HTN and hyperlipidemia presented to ED on 11/25/24 after being referred from PCP for jaundice and increasing abdominal and leg swelling over the past 2-3 months. He is a daily drinker, about 1 bottle of wine daily. Patient was found to have large volume ascites and a hepatic hydrothorax, along with evidence of cirrhosis upon admission. Cirrhosis -His TB was 9. MELD score 27 and DF 32.9. -MRCP showing cirrhosis with evidence of portal HTN, ascites, pleural effusions, splenomegaly, along with cholelithiasis. No biliary duct dilation. - paracentesis performed 11/28/24. 3L drained and 1L sent to lab for analysis - continue spironolactone and lasix Alcohol induced hepatitis/Alcohol use disorder - thought to be cause for hyperbilirubinemia - parenteral steroids - continue to monitor for signs of withdrawal. Elevated bilirubin - 8.6 today from 9/0 on admission -continue to monitor Macrocytic anemia - malnutrition vs portal HTN/splenomegaly -continue to monitor Hyponatremia - likely from liver disease - sodium level 128 - moderate -continue to monitor Hypertension - nifedipine discontinued - metoprolol tartrate has been switched to metoprolol succinate Hyperlipidemia - statin discontinued Paracentesis labs ordered. Anticipate eventual discharge back to his home early next week. Admission and Anticipated Discharge Date Admission Date: November 25, 2024 Subjective Patient states he is feeling okay, has no complaints. He had paracentesis performed today, reports that 3L of fluid was drained. He states that he feels like there is less pressure in abdomen and is able to take deeper breaths since procedure. He reports that his appetite has improved since starting PPI therapy for hiatal hernia, and that he is able to eat more solid food at a time, where previously he was only able to consume a few bites of food at a time. He states Lasix is causing him to have urge to urinate, but not urinating much at a time. He states abdomen feels somewhat sore when he is getting out of bed, otherwise no abdominal pain, N/V/D/C, hematocheizia, melena, hematemesis, hematuria. He reports chronic fatigue, bilateral LE edema, SOB with exertion, weakness. He denies headache, vision changes, chest pain, cough, sob at rest, numbness/tingling, tremor, anxiety, dizziness. He is ambulating with walker for support. He denies any questions/concerns at this time. Review of Systems Review of Systems: as noted in subjective Physical Exam Constitutional: Pleasant, cooperative (+) ill appearing. Respiratory: diminished breath sounds left lower lung base. no wheezing, rales, rhonchi present. Cardiovascular: RRR without murmur, rub, gallop. Gastrointestinal (Abdomen): Distention present. Umbilical hernia present. Bowel sounds present in all four quadrants. Nontender to palpation. Skin: bilateral 2+ pitting edema of lower extremities Neurologic: Normal speech. No tremor noted. Psychiatric: A&O x 3. Normal mood/affect. Results & Data Results & Data Vital Signs (Past 12 Hours) Vital Signs Temp Pulse Pulse Pulse Resp BP BP 11/28/24 11:20 36.7 C 90 20 95/57 L 11/28/24 11:13 36.9 C 89 17 99/70 L 11/28/24 09:58 36.2 C L 90 18 98/62 L 11/28/24 08:00 11/28/24 07:27 36.9 C 93 H 20 102/65 11/28/24 07:00 91 H 11/28/24 03:48 37.2 C 93 H 18 106/66 11/28/24 00:00 91 H Pulse Ox Pulse Ox O2 Del Method O2 Del Method 11/28/24 11:20 95 Room Air 11/28/24 11:13 96 Room Air 11/28/24 09:58 95 Room Air 11/28/24 08:00 95 Room Air 11/28/24 07:27 97 Room Air 11/28/24 07:00 11/28/24 03:48 95 Room Air 11/28/24 00:00 Laboratory Results Lab results remaining relatively unchanged since admission. Bilirubin at 8.6. Diagnostic Findings Diagnostics reviewed. MRCP showing cirrhosis with evidence of portal HTN, ascites, pleural effusions, splenomegaly. Cholelithiasis noted. Echocardiogram showing hyperdynamic left ventricle with EF >70% ECG Additional Comments: NSR PG Care Time/CCT Total # of Minutes Spent Total Time Spent with Patient: Total time spent is greater than 50% in coordination of care (as documented) at patient's floor/unit and/or counseling patient: Coding Level of Care Code None Diagnoses Alcoholic cirrhosis of liver with ascites K70.31 Ascites presence: with ascites Hepatic cirrhosis type: alcoholic cirrhosis Alcoholic hepatitis with ascites K70.11 Total bilirubin, elevated R17 Alcohol withdrawal syndrome without complication F10.930 Complication of substance-induced condition: uncomplicated Hyponatremia E87.1 Macrocytic anemia D53.9 Hypertension I10 HLD (hyperlipidemia) E78.5 (1) Cirrhosis Ascites presence: with ascites Hepatic cirrhosis type: alcoholic cirrhosis Qualified Code(s): K70.31 - Alcoholic cirrhosis of liver with ascites (4) Alcohol withdrawal Complication of substance-induced condition: uncomplicated Qualified Code(s): F10.930 - Alcohol use, unspecified with withdrawal, uncomplicated
--- NOTE | 2024-11-28 14:44 | Ultrasound Report ---
ULTRASOUND-GUIDED PARACENTESIS CLINICAL HISTORY: Ascites PROCEDURE: Procedure and risks were explained. Informed consent was obtained. A final timeout was com pleted. The abdomen was prepped and draped in sterile fashion. 1% lidocaine was utilized for skin ane sthesia. Utilizing ultrasound guidance, a 5 [place]ian safety centesis catheter was advanced into the left lower q uadrant pocket of ascites. Ultrasound images were obtained. A total of 3 L of ascites fluid was remov ed with 1 L sent to lab for analysis. The catheter was removed and Band-Aid applied. The patient ileana rated the procedure well. Vital signs will be monitored postprocedure. IMPRESSION: Ultrasound-guided paracentesis as above. Performed, dictated, and signed by Manolo Srinivasan PA-C; to be co-signed by Dr. Nawaf Kay. Electronically signed by: Nawaf Kay M.D. 11/28/2024 4:02 PM
--- NOTE | 2024-11-28 18:46 | Billing Data ---
Date of Service November 28, 2024 Coding Level of Care Code 75097 SUB INP/OBS CARE MIN
[2024-11-29 06:45] LABS: Basophils # (auto) 0.02 K/uL (0.00-0.20); Basophils % (auto) 0.5 %; Eosinophils # (auto) 0.07 K/uL (0.00-0.50); Eosinophils % (auto) 1.8 %; Hematocrit (blood only) 24.8 % (42.0-52.0); Immature Granulocytes # (auto) 0.05 K/uL (0.01-0.20); Immature Granulocytes % (auto) 1.3 %; Lymphocytes # (auto) 0.78 K/uL (1.20-3.40); Lymphocytes % (auto) 19.7 %; Mean Corpuscular Hemoglobin 37.2 pg (25.0-34.0); Mean Corpuscular Hgb Conc 36.3 g/dL (32.0-36.0); Mean Corpuscular Volume 102.5 fL (80.0-100.0); Mean Platelet Volume 9.8 fL (9.4-12.4); Monocytes # (auto) 0.58 K/uL (0.11-0.59); Monocytes % (auto) 14.6 %; Neutrophils # (auto) 2.46 K/uL (1.40-6.50); Neutrophils % (auto) 62.1 %; Platelet Count 105 K/uL (130-400); RDW Coefficient of Variation 12.4 % (11.5-14.5); RDW Standard Deviation 47.2 fL (36.4-46.3); Red Blood Count 2.42 M/uL (4.70-6.10); White Blood Count 3.96 K/ul (4.8-10.8)
[2024-11-29 06:56] LABS: Albumin Globulin Ratio 0.6 (0.9-2); Albumin Level 2.4 gm/dl (3.4-5.0); BUN Creatinine Ratio 17.7 (10-20); Bilirubin,Total 8.1 mg/dl (0.2-1.0); Calcium 7.7 mg/dl (8.6-10.3); Globulin 3.7 gm/dl (2.5-4.0); Potassium 3.6 mmol/L (3.5-5.1); Total Protein 6.1 gm/dl (6.0-8.3)
--- NOTE | 2024-11-29 13:14 | Hospitalist Progress Note ---
Date of Service November 29, 2024 Assessment & Plan (1) Cirrhosis: (2) Alcoholic hepatitis with ascites: (3) Total bilirubin, elevated: (4) Alcohol withdrawal: (5) Hyponatremia: (6) Macrocytic anemia: (7) Hypertension: (8) HLD (hyperlipidemia): Plan Patient is a 58 year old male with PMHx significant for HTN and hyperlipidemia presented to ED on 11/25/24 after being referred from PCP for jaundice and increasing abdominal and leg swelling over the past 2-3 months. He is a daily drinker, about 1 bottle of wine daily. Patient was found to have large volume ascites and a hepatic hydrothorax, along with evidence of cirrhosis upon admission. Cirrhosis -His TB was 9. MELD score 27 and DF 32.9. -MRCP showing cirrhosis with evidence of portal HTN, ascites, pleural effusions, splenomegaly, along with cholelithiasis. No biliary duct dilation. - paracentesis performed 11/28/24. 3L drained and 1L sent to lab for analysis, orders placed. - continue spironolactone and lasix Alcohol induced hepatitis/Alcohol use disorder - thought to be cause for hyperbilirubinemia - parenteral steroids were not ordered - has not required treatment for withdrawal. - had plans to follow up with [facility] outpatient for alcohol rehabilitation/counseling Elevated bilirubin - 8.1 today from 9.0 on admission Macrocytic anemia - malnutrition vs portal HTN/splenomegaly Hyponatremia - likely from liver disease - sodium level 130 - mild Hypertension - nifedipine discontinued - metoprolol tartrate has been switched to metoprolol succinate Hyperlipidemia - statin discontinued Patient will need close follow up with PCP/GI/Rehabilitation services following discharge. He is currently without insurance, case management has made referral to [facility]. Patient was also given information for [facility]. At this time, patient is medically stable for discharge. Plan for early discharge tomorrow. Admission and Anticipated Discharge Date Admission Date: November 25, 2024 Supervising Physician Co-Signing Physician Notes Patient was seen and examined independently I discussed the case with Radha DAI I reviewed pertinent past medical social family history and also the plan of care and agree with the plan of care Patient has persistent jaundice has improved abdominal pain but still distended need education once again about dietary striction's alcohol cessation Examination shows abdomen to be protuberant but nontender Acute alcoholic hepatitis patient did not receive steroid therapy during his hospital stay is on diuretic therapy and had improvement in his hyponatremia we will continue to follow. 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 Patient is eating and drinking well. Patient continues to report that breathing is better since paracentesis. He he is ambulating independently, wishes to do some walking today. He does report some abdominal soreness that is unchanged. He denies fever/chills, headache, chest pain, shortness of breath at rest, nausea, vomiting, diarrhea, constipation. He is motivated to stop drinking. He is previously established with [facility] outpatient for alcohol rehabilitation, counseling. He has been unable to attend prior to admission due to lack of insurance. He is retired, lives with his brother and [id number]. He states he has strong support system at home. He has PCP, not established with GI. He wishes to go home sometime tomorrow. Review of Systems Review of Systems: As noted in subjective. Physical Exam Physical Exam: Resting comfortably, eating lunch. Patient's general appearance has improved, less pallor. Results & Data Results & Data Vital Signs (Past 12 Hours) Vital Signs Temp Pulse Pulse Resp BP BP Pulse Ox 11/29/24 11:30 98.2 F 82 18 96/60 L 95 11/29/24 08:16 84 104/67 11/29/24 07:22 11/29/24 07:19 98.4 F 79 18 98/60 L 94 11/29/24 06:02 82 11/29/24 03:50 98.4 F 79 20 101/63 95 O2 Del Method 11/29/24 11:30 Room Air 11/29/24 08:16 11/29/24 07:22 Room Air 11/29/24 07:19 Room Air 11/29/24 06:02 11/29/24 03:50 Room Air PG Care Time/CCT Total # of Minutes Spent Total Time Spent with Patient: Total time spent is greater than 50% in coordination of care (as documented) at patient's floor/unit and/or counseling patient: Coding Level of Care Code None Diagnoses Alcoholic cirrhosis of liver with ascites K70.31 Ascites presence: with ascites Hepatic cirrhosis type: alcoholic cirrhosis Alcoholic hepatitis with ascites K70.11 Total bilirubin, elevated R17 Alcohol withdrawal syndrome without complication F10.930 Complication of substance-induced condition: uncomplicated Hyponatremia E87.1 Macrocytic anemia D53.9 Hypertension I10 HLD (hyperlipidemia) E78.5 (1) Cirrhosis Ascites presence: with ascites Hepatic cirrhosis type: alcoholic cirrhosis Qualified Code(s): K70.31 - Alcoholic cirrhosis of liver with ascites (4) Alcohol withdrawal Complication of substance-induced condition: uncomplicated Qualified Code(s): F10.930 - Alcohol use, unspecified with withdrawal, uncomplicated
[2024-11-30 10:09] LABS: Basophils # (auto) 0.04 K/uL (0.00-0.20); Basophils % (auto) 0.8 %; Eosinophils # (auto) 0.08 K/uL (0.00-0.50); Eosinophils % (auto) 1.6 %; Hematocrit (blood only) 26.5 % (42.0-52.0); Hemoglobin 9.5 g/dl (14.0-18.0); Immature Granulocytes # (auto) 0.02 K/uL (0.01-0.20); Immature Granulocytes % (auto) 0.4 %; Lymphocytes % (auto) 17.9 %; Mean Corpuscular Hemoglobin 36.8 pg (25.0-34.0); Mean Corpuscular Hgb Conc 35.8 g/dL (32.0-36.0); Mean Corpuscular Volume 102.7 fL (80.0-100.0); Mean Platelet Volume 9.9 fL (9.4-12.4); Monocytes # (auto) 0.65 K/uL (0.11-0.59); Monocytes % (auto) 12.9 %; Neutrophils # (auto) 3.35 K/uL (1.40-6.50); Neutrophils % (auto) 66.4 %; Platelet Count 107 K/uL (130-400); RDW Coefficient of Variation 12.8 % (11.5-14.5); Red Blood Count 2.58 M/uL (4.70-6.10); White Blood Count 5.04 K/ul (4.8-10.8)
[2024-11-30 10:26] LABS: Albumin Globulin Ratio 0.8 (0.9-2); Albumin Level 2.7 gm/dl (3.4-5.0); BUN Creatinine Ratio 18.5 (10-20); Bilirubin,Total 7.9 mg/dl (0.2-1.0); Calcium 7.9 mg/dl (8.6-10.3); Creatinine Clr Calc Pharmacy 133.5 ml/min; Globulin 3.6 gm/dl (2.5-4.0); Potassium 3.2 mmol/L (3.5-5.1); Total Protein 6.3 gm/dl (6.0-8.3)
[2024-11-30] MEDS: POTASSIUM CHLORIDE CRTAB 20 MEQ TABCR PO STA (12:13)
--- NOTE | 2024-11-30 12:56 | Hospitalist Progress Note ---
Date of Service November 30, 2024 Assessment & Plan (1) Cirrhosis: (2) Alcoholic hepatitis with ascites: (3) Alcohol withdrawal: (4) Hypokalemia: (5) Hyponatremia: (6) Total bilirubin, elevated: (7) Macrocytic anemia: (8) Hypertension: (9) HLD (hyperlipidemia): Plan Patient is a 58 year old male with PMHx significant for HTN and hyperlipidemia presented to ED on 11/25/24 after being referred from PCP for jaundice and increasing abdominal and leg swelling over the past 2-3 months. He is a daily drinker, about 1 bottle of wine daily. Patient was found to have large volume ascites and a hepatic hydrothorax, along with evidence of cirrhosis upon admission. Cirrhosis -His TB was 9. MELD score 27 and DF 32.9. -MRCP showing cirrhosis with evidence of portal HTN, ascites, pleural effusions, splenomegaly, along with cholelithiasis. No biliary duct dilation. -paracentesis performed 11/28/24. 3L drained and 1L sent to lab for analysis. Orders were not placed at time of paracentesis, so orders were placed the following day. Called lab to discuss order collection. IR believed fluid removal was for therapeutic reasons and the sample was discarded. Repeat analysis not needed at this time due to improving liver function and no concern for active infection. No suggestion of masses on imaging. - continue spironolactone and lasix Alcohol induced hepatitis/Alcohol use disorder - thought to be cause for hyperbilirubinemia - parenteral steroids were not ordered - has not required treatment for withdrawal. - had plans to follow up with [facility] outpatient for alcohol rehabilitation/counseling Hyponatremia stuborn issue -Sodium level 128 today from 130 yesterday -Fluid restrictions in place at 1500 mL -Goal of sodium level above 130 for discharge Hypokalemia -Potassium chloride 40 MEQ given Elevated bilirubin improving - 7.9 today from 9.0 on admission Macrocytic anemia - malnutrition vs portal HTN/splenomegaly - Hemoglobin at 9.5 today Hypertension - nifedipine discontinued - metoprolol tartrate has been switched to metoprolol succinate Hyperlipidemia - statin discontinued Plan for discharge tomorrow pending AM labs. Admission and Anticipated Discharge Date Admission Date: November 25, 2024 Supervising Physician Co-Signing Physician Notes Patient was seen and examined independently I discussed the case with Radha DAI I reviewed pertinent past medical social family history and also the plan of care and agree with the plan of care Patient has persistent jaundice has improved abdominal pain but still distended need education once again about dietary striction's alcohol cessation Examination shows abdomen to be protuberant but nontender Acute alcoholic hepatitis patient did not receive steroid therapy during his hospital stay is on diuretic therapy and had improvement in his hyponatremia we will continue to follow. Patient retained an additional day due to hyponatremia Any exceptions will be noted below Subjective Patient patient reports that he is feeling well, no complaints or concerns today. Patient is attempting to schedule his appointments for outpatient care with information that was given to him by case management. He reports mild soreness in the abdomen that is unchanged. He is ambulating on his own without assistance. He is eating well, states he has been trying to restrict his fluids. He specifically denies any fevers/chills, headache, dizziness, vision change, chest pain, shortness of breath at rest, nausea, vomiting, diarrhea, constipation, blood in stool or urine, increased urinary frequency. He reports chronic leg edema that is unchanged. He is prepared to go home. He is willing to stop drinking alcohol, planning to [facility]-up [facility] for [facility]/rehabilitation. He also lives with his brother and [id number], also reports that he has many friends for support. Review of Systems Review of Systems: As noted in subjective Physical Exam Physical Exam: General: no acute distress; cooperative HEENT: normocephalic, atraumatic; no scleral icterus; PERRLA w/ EOMs intact; vision and hearing grossly intact Neck: supple; no lymphadenopathy; trachea midline Skin: warm, dry without signs of tenting; no cyanosis; no rashes, bruising, l esions, or erythema noted CV: chest wall NTP; RRR; S1/S2 normal; no murmurs/rubs/gallops; pulses intact and symmetric at radial, DP, and PT Lungs: no acute respiratory distress; symmetrical chest wall expansion; clear breath sounds across all lung escobar w/o adventitious sounds; no wheezing ABD: Abdomen distended; umbilical hernia present; normoactive bowel sounds present in all 4 quadrants; abdomen nontender to palpation in all 4 quadrants; no fluid wave present. MSK: no tics or fasciculations; nonerythematous; 2+ bilateral pitting edema Neuro: A&Ox3; normal mood and affect; fluent speech; no focal deficits; sensation grossly intact in the LEs b/l Results & Data Results & Data Vital Signs (Past 12 Hours) Vital Signs Temp Pulse Pulse Resp BP Pulse Ox O2 Del Method 11/30/24 11:38 98.1 F 86 18 102/67 100 Room Air 11/30/24 08:00 83 11/30/24 07:52 98.1 F 82 18 105/63 97 Room Air 11/30/24 04:15 98.2 F 87 20 103/64 95 Room Air Laboratory Results Labs reviewed Blood counts have been steadily improving; hemoglobin currently at 9.5, platelets at 107. Sodium level has dropped to 128 from 130, potassium level low at 3.2 Urine random sodium drawn yesterday was less than 10 Bilirubin has continued to trend down currently at 7.9, was 9.0 on admission PG Care Time/CCT Total # of Minutes Spent Total Time Spent with Patient: Total time spent is greater than 50% in coordination of care (as documented) at patient's floor/unit and/or counseling patient: Coding Level of Care Code None Diagnoses Alcoholic cirrhosis of liver with ascites K70.31 Ascites presence: with ascites Hepatic cirrhosis type: alcoholic cirrhosis Alcoholic hepatitis with ascites K70.11 Alcohol withdrawal syndrome without complication F10.930 Complication of substance-induced condition: uncomplicated Hypokalemia E87.6 Hyponatremia E87.1 Total bilirubin, elevated R17 Macrocytic anemia D53.9 Hypertension I10 HLD (hyperlipidemia) E78.5 (1) Cirrhosis Ascites presence: with ascites Hepatic cirrhosis type: alcoholic cirrhosis Qualified Code(s): K70.31 - Alcoholic cirrhosis of liver with ascites (3) Alcohol withdrawal Complication of substance-induced condition: uncomplicated Qualified Code(s): F10.930 - Alcohol use, unspecified with withdrawal, uncomplicated
--- NOTE | 2024-11-30 20:30 | Billing Data ---
Date of Service November 30, 2024 Coding Level of Care Code 13538 SUB INP/OBS CARE MIN
[2024-12-01 03:43] VITALS: TEMP 98.1
[2024-12-01 06:59] LABS: Albumin Level 2.2 gm/dl (3.4-5.0); Bilirubin,Total 6.4 mg/dl (0.2-1.0); Calcium 7.5 mg/dl (8.6-10.3); Potassium 3.8 mmol/L (3.5-5.1)
[2024-12-01 07:05] LABS: Albumin Globulin Ratio 0.6 (0.9-2); BUN Creatinine Ratio 18.2 (10-20); Creatinine Clr Calc Pharmacy 131.5 ml/min; Globulin 3.7 gm/dl (2.5-4.0); Total Protein 5.9 gm/dl (6.0-8.3)
[2024-12-01 07:28] LABS: Hematocrit (blood only) 24.8 % (42.0-52.0); Hemoglobin 8.8 g/dl (14.0-18.0); Mean Corpuscular Hemoglobin 36.1 pg (25.0-34.0); Mean Corpuscular Hgb Conc 35.5 g/dL (32.0-36.0); Mean Corpuscular Volume 101.6 fL (80.0-100.0); Platelet Count 97 K/uL (130-400); RDW Coefficient of Variation 12.7 % (11.5-14.5); Red Blood Count 2.44 M/uL (4.70-6.10); White Blood Count 4.97 K/ul (4.8-10.8)
[2024-12-01 07:29] LABS: Basophils # (auto) 0.03 K/uL (0.00-0.20); Basophils % (auto) 0.6 %; Eosinophils # (auto) 0.11 K/uL (0.00-0.50); Eosinophils % (auto) 2.2 %; Immature Granulocytes # (auto) 0.01 K/uL (0.01-0.20); Immature Granulocytes % (auto) 0.2 %; Lymphocytes # (auto) 1.06 K/uL (1.20-3.40); Lymphocytes % (auto) 21.3 %; Monocytes # (auto) 0.79 K/uL (0.11-0.59); Monocytes % (auto) 15.9 %; Neutrophils # (auto) 2.97 K/uL (1.40-6.50); Neutrophils % (auto) 59.8 %; Platelet Estimate Decreased (Normal)
[2024-12-01 07:59] VITALS: RESP 19; O2SAT 97
[2024-12-01 09:49] LABS: INR 1.5 (0.9-1.1); Prothrombin Time 15.7 Seconds (9.0-12.0)
--- NOTE | 2024-12-01 11:25 | Discharge Summary ---
Discharge Summary Date of Service December 01, 2024 Principal Dx & Hospital Course #1 = Principal Diagnosis (1) Cirrhosis: (2) Alcoholic hepatitis with ascites: (3) Alcohol withdrawal: (4) Hyponatremia: (5) Total bilirubin, elevated: (6) Macrocytic anemia: (7) Hypertension: (8) HLD (hyperlipidemia): Plan Patient is a 58 year old male with PMHx significant for HTN and hyperlipidemia presented to ED on 11/25/24 after being referred from PCP for jaundice and increasing abdominal and leg swelling over the past 2-3 months. He is a daily drinker, about 1 bottle of wine daily. Patient was found to have large volume ascites and a hepatic hydrothorax, along with evidence of cirrhosis upon admission. Cirrhosis -His TB was 9. MELD score 27 and DF 32.9. -MRCP showing cirrhosis with evidence of portal HTN, ascites, pleural effusions, splenomegaly, along with cholelithiasis. No biliary duct dilation. -paracentesis performed 11/28/24. 3L drained and 1L sent to lab for analysis. Orders were not placed at time of paracentesis, so orders were placed the following day. Called lab to discuss order collection. IR believed fluid removal was for therapeutic reasons and the sample was discarded. Repeat analysis not needed at this time due to improving liver function and no concern for active infection. No suggestion of masses on imaging. - continue spironolactone and lasix Alcohol induced hepatitis/Alcohol use disorder - thought to be cause for hyperbilirubinemia - parenteral steroids were not ordered - has not required treatment for withdrawal. - has plans to follow up with [facility] outpatient for alcohol anuradha abilitation/counseling - continue multivitamin, thiamine, folic acid Hyponatremia -Sodium level improved to 130 today Hypokalemia -resolved -Potassium level 3.8 today Elevated bilirubin improving - 6.4 today from 9.0 on admission Macrocytic anemia - malnutrition vs portal HTN/splenomegaly - Hemoglobin at 8.8 today Hypertension - nifedipine discontinued - metoprolol tartrate has been switched to metoprolol succinate Hyperlipidemia - resume lipitor Follow up with PCP within 1 week. Recommend recheck CBC/CMP within 1 week. Notes For Next Care Provider Would recommend repeat CBC/CMP Medication Changes From Visit Nifedipine and Metoprolol Tartrate discontinued. Metoprolol succinate, Furosemide, and Sprinolactone started during admission. Multivitamin, Thiamine, Folic Acid started during admission. Admission HPI Per Admitting Provider This is a 58 year old gentleman with past medical history hypertension and hyperlipidemia who presented to the ER for concerns of abdominal swelling and leg edema. Patient was seen and examined at bedside. He reports that for about the last 3 months he has been experiencing worsening abdominal bloating and lower extremity edema. States he has not been seen by this in the past. He is a daily drink and has been doing this for quite some time. He reports he drinks 3-7 glasses of wine per day and he averages ~ 1 bottle of wine per day. He reports he has been working with [email or web address] outpatient for a referral for outpatient rehab but this has been complicated by his lack of insurance. He reports he does have social support at home. He also reports that he does want to stop drinking and is prepared to go through withdrawal. His last drink was today in which he had about ~ 1 bottle of wine. Patient also reports SOB w/ exertion but denies at rest. He reports decreased appetite because he feels full after a few bites of food. He attributes this to his hiatal hernia. While in the ED patient was found to have large volume ascites and a hepatic hy drothorax. Findings also + for cirrhosis. His TB was 9. MELD score 27 and DF 32.9. GI consulted on admission who deferred steroids for alcoholic hepatitis to the hospitalist team. Discharge Exam General: no acute distress; cooperative HEENT: normocephalic, atraumatic; no scleral icterus; PERRLA w/ EOMs intact; vision and hearing grossly intact Neck: supple; no lymphadenopathy; trachea midline Skin: warm, dry without signs of tenting; no cyanosis; no rashes, bruising, lesions, or erythema noted CV: chest wall NTP; RRR; S1/S2 normal; no murmurs/rubs/gallops; pulses intact and symmetric at radial, DP, and PT Lungs: no acute respiratory distress; symmetrical chest wall expansion; clear breath sounds across all lung escobar w/o adventitious sounds; no wheezing ABD: Abdomen distended; umbilical hernia present; normoactive bowel sounds present in all 4 quadrants; abdomen nontender to palpation in all 4 quadrants; no fluid wave present. MSK: no tics or fasciculations; nonerythematous; 2+ bilateral pitting edema Neuro: A&Ox3; normal mood and affect; fluent speech; no focal deficits; sensation grossly intact in the LEs b/l Discharge Plan Discharge Items Patient Disposition: Home - Self-Care Reason For Visit: ABDOMINAL PAIN, LEG EDEMA Discharge Diagnosis: Cirrhosis, Alcoholic hepatitis with ascites, Hyponatremia, Elevated bilirubin, Macrocytic anemia Activity: Resume your previous activity Non-emergency contact: Primary Care Provider Call non-emergency contact if: you have any medication questions, your symptoms worsen and your rectal temperature is above 100.4 Follow-up/Referrals: Reny Robles MD [Primary Care Provider] - 12/09/24 1:00 pm Diet: Heart Healthy Addtl Attending Provider Instructions: Follow up with PCP within 1 week. Recommend having repeat blood work in 1 week. Pending Studies at Discharge: No Stand-Alone Forms: My [facility] Medications and DC Order Prescriptions: New furosemide 40 mg Tablet 40 mg PO QAM 30 Days Qty: 30 0RF thiamine HCl (vitamin B1) 100 mg Tablet 100 mg PO QAM 30 Days Qty: 30 0RF spironolactone 25 mg Tablet 25 mg PO QAM 30 Days Qty: 30 0RF pantoprazole 40 mg Tablet,Delayed Release (Dr/Ec) 40 mg PO QAM 30 Days Qty: 30 0RF folic acid 1 mg Tablet 1 mg PO QAM 30 Days Qty: 30 0RF metoprolol succinate 25 mg Tablet Extended Release 24 Hr 25 mg PO QAM 30 Days Qty: 30 0RF multivitamin with folic acid [Daily-Shannon (with folic acid)] 400 mcg Tablet 1 tab PO QAM 30 Days Qty: 30 0RF Continued atorvastatin 40 mg tablet 40 mg PO DAILY 90 Days Qty: 90 4RF Discontinued nifedipine 30 mg tablet extended release 30 mg PO Q OTHER DAY Rx Instructions: Pt alternates w/ Metoprolol. States that taking them both in the same day causes his BP to drop too low. metoprolol tartrate 25 mg tablet 25 mg PO Q OTHER DAY Rx Instructions: Pt alternates w/ Nifedipine. States that taking them both in the same day causes his BP to drop too low. ibuprofen 200 mg Tablet 200 mg PO Q6H PRN (Reason: Pain) Discharge Orders: Discharge Order (Routine); Ordered 12/01/24 Ordered By: Radha Velásquez/Other Patient Handouts: Journaling for Emotional Wellness, Treating Cirrhosis, Understanding Cirrhosis, Stress Relief: Activities, Hyponatremia Dc Admission Data Admit Date/Time: 11/25/24 17:40 Attending Provider: Galo Holder Admit Provider: Eliud Koo Primary Care Provider: Reny Robles Other Providers: Eliud Koo; Troy Aguirre Jr Other Interventions: Discharge Summary Assessment (RN) Last Done: 12/01/24 11:28 Hospital Stay Data Consultations 11/25/24 16:50 ED Decision to Admit Stat 11/25/24 17:40 Consult Gastroenterology Routine Diagnostic Imagining Performed 11/25/24 13:20 CT abd pelvis IV con only Stat US liver Stat 11/27/24 08:56 MR MRCP Urgent 11/28/24 11:54 IR paracentesis abd w/img US Urgent Pending Results Patient Have Any Pending Studies at Discharge: No Discharge Instructions Given to Patient (Per Discharging Provider) Follow up with PCP within 1 week. Recommend having repeat blood work in 1 week. Supervising Physician Co-Signing Physician Notes I personally examined the patient and verified all levy points of history and exam, discussed case, and agree with decision making with Joe Olmstead PA-C eating ok feels up to going home discussed follw up vitals noted nad heent nc at mmm breathing unlabored no accessory muscles good effort labs noted and bili improving Acute alcoholic hepatitis patient did not receive steroid therapy during his hospital stay is on diuretic therapy and had improvement in his hyponatremia -set up for assistive services -case management trying to help w insurance coverage -should have close and ongoing PCP f/u -safe/stable for home Total Time Total Time Spent Total Time Spent (In Minutes): >30 Coding Level of Care Code None Diagnoses Alcoholic cirrhosis of liver with ascites K70.31 Ascites presence: with ascites Hepatic cirrhosis type: alcoholic cirrhosis Alcoholic hepatitis with ascites K70.11 Alcohol withdrawal syndrome without complication F10.930 Complication of substance-induced condition: uncomplicated Hyponatremia E87.1 Total bilirubin, elevated R17 Macrocytic anemia D53.9 Hypertension I10 HLD (hyperlipidemia) E78.5
[2024-12-01 11:30] VITALS: PULSE 85
[2024-12-01 11:31] VITALS: BP 96/60
--- NOTE | 2024-12-01 18:27 | Billing Data ---
Date of Service December 01, 2024 Coding Level of Care Code 88394 INP/OBS DISCH >30 MIN
[2024-12-02 08:49] LABS: Hypersegmented Neutrophils 1+
== END 2024-12-01 14:39 | disposition home or self-care (01) | DRG 433 ==
LOC: ED 12:43 → SUATTDRO 17:40 → EDINP 17:40 → 2W 20:29

== ENCOUNTER 2024-12-15 08:42 | Inpatient (IN) ==
[2024-12-15 09:39] LABS: Basophils # (auto) 0.03 K/uL (0.00-0.20); Basophils % (auto) 0.7 %; Eosinophils # (auto) 0.01 K/uL (0.00-0.50); Eosinophils % (auto) 0.2 %; Hematocrit (blood only) 30.1 % (42.0-52.0); Hemoglobin 10.7 g/dl (14.0-18.0); Immature Granulocytes # (auto) 0.01 K/uL (0.01-0.20); Immature Granulocytes % (auto) 0.2 %; Lymphocytes # (auto) 0.78 K/uL (1.20-3.40); Lymphocytes % (auto) 18.1 %; Mean Corpuscular Hemoglobin 36.5 pg (25.0-34.0); Mean Corpuscular Hgb Conc 35.5 g/dL (32.0-36.0); Mean Corpuscular Volume 102.7 fL (80.0-100.0); Mean Platelet Volume 9.7 fL (9.4-12.4); Monocytes # (auto) 0.78 K/uL (0.11-0.59); Monocytes % (auto) 18.1 %; Neutrophils # (auto) 2.71 K/uL (1.40-6.50); Neutrophils % (auto) 62.7 %; Platelet Count 106 K/uL (130-400); RDW Coefficient of Variation 12.2 % (11.5-14.5); RDW Standard Deviation 46.1 fL (36.4-46.3); Red Blood Count 2.93 M/uL (4.70-6.10); White Blood Count 4.32 K/ul (4.8-10.8)
[2024-12-15 09:56] LABS: Albumin Globulin Ratio 0.7 (0.9-2); BUN Creatinine Ratio 14.9 (10-20); Calcium 8.5 mg/dl (8.6-10.3); Creatinine Clr Calc Pharmacy 133.5 ml/min; Globulin 4.3 gm/dl (2.5-4.0); Magnesium 1.5 mg/dl (1.7-2.4); Potassium 3.5 mmol/L (3.5-5.1); Total Protein 7.3 gm/dl (6.0-8.3)
[2024-12-15 10:02] LABS: INR 1.5 (0.9-1.1); Partial Thromboplastin Ratio 1.2; Partial Thromboplastin Time 31 Seconds (21-31); Prothrombin Time 16.1 Seconds (9.0-12.0); Troponin I High Sensitivity 4.3 pg/ml (0-20)
--- NOTE | 2024-12-15 10:26 | XRay Report ---
XR chest 1V portable CLINICAL HISTORY: Dyspnea COMPARISON STUDY: 11/25/2024 and 03/19/2024 FINDINGS: There is been no significant interval change since the most recent study. There continues t o be a left pleural effusion and left basilar infiltrate/atelectasis. Considering the chronicity of t hese findings and the lack of right-sided involvement, it may be advisable to consider a chest CT to further evaluate the chronic left basilar findings. No new lesions have developed elsewhere. The right lung remains clear. There is no pneumothorax. The heart and pulmonary vascularity are unremarkable. IMPRESSION: Persisting unilateral left basilar pleural effusion and adjacent airspace opacity. While this may be associated with the patient's liver disease, I would consider a chest CT with contrast e nhancement to evaluate the radiographic findings. ACT 112: Negative or not required by law. Electronically signed by: Isatu Hernandez M.D. 12/15/2024 10:23 AM
--- NOTE | 2024-12-15 11:12 | Emergency Department Note ---
Impression & Plan Cirrhosis, Edema, peripheral, Hyponatremia, Influenza A ED Provider Note Provider: Boni Holden MD CHIEF COMPLAINT: Swelling, breathing issues, cirrhosis HISTORY OF PRESENT ILLNESS: Patient is a 58-year-old gentleman history of alcoholic cirrhosis recently hospitalized here presenting today stating over the last 2 days his significant recent swelling of his legs abdomen and now having difficulty ambulating due to swelling as well as some shortness of breath with exertion. Bit of a cough occasionally productive. No significant abdominal pain. Not having severe pain in the legs. No falls but has been try to take care as he is unsteady on his feet. States has been compliant with his home medication including recently had potassium on top of his diuretics. Has not yet taken his medicines today however. No fevers reported. No redness of alcohol. Has been eating and drinking and try to watch fluid restrictions and salt restriction. PAST MEDICAL HISTORY: As noted above MEDICATIONS: Reviewed home medications SOCIAL HISTORY: History of alcohol abuse PHYSICAL EXAM: GENERAL: alert and oriented in no acute distress on stretcher Head: normocephalic and atraumatic EYES: No injection or discharge with some mild icterus appreciable. NECK: Trachea midline. Supple. ENT: Mucous membranes pink and moist. LUNGS: Airway patent. No retractions. Breath sounds diminished left greater than right with fine crackles in the bases. HEART: Regular rate and rhythm. No chest wall tenderness ABDOMEN: Soft nontender but moderately distended. No guarding. SKIN: Acyanotic, warm, dry, without rashes EXTREMITIES: Without tenderness with 3-4+ edema of the lower extremities. No weeping noted. NEUROLOGICAL: No focal deficits. No aphasia. No facial droop or slurred speech. EK bpm. Normal sinus rhythm. No PVC or PAC. Some nonspecific T wave flattening with QTc of 469. CONTINUOUS CARDIAC MONITORING: was ordered and showed a heart rate of 60s-90s bpm in normal sinus rhythm Patient's laboratory studies and imaging reviewed. Differential includes Reactive airway disease, pneumonia, pneumothorax, COPD, CHF, infections, cardiac ischemia, pulmonary embolism, musculoskeletal, gastrointestinal, cirrhosis, fluid overload, sepsis, SBP, DVT, PE, as well as other pathologies. IMPRESSION/MEDICAL DECISION MAKING: Patient with significant liver dysfunction due to significant swelling of the lower extremities. States compliant his home diuretics. Has had potassium out of the outpatient send this is improving his hyponatremia for outpatient labs last week. Stable mild anemia. Not significant elevated with stable MELD score today 23 compared to MELD at beginning of last admission was 29. Denies any recent alcohol use. No fevers reported. Some generalized weakness and shortness of breath. Some component of this particularly from the fluid swelling and abdominal ascites. Not in respiratory stress however. Does incidentally test positive for influenza A that may be contributing. Some hyponatremia but states he has been compliant with his diet. Likely a mix of his liver disease with his diuretics. Given additional IV Lasix today try to affect some diuresis with findings of fluid overload. Do not believe he is suffering from sepsis or SBP at this time. In no distress at this time but states he cannot function at home with significant swelling and ambulatory dysfunction he has.. Will bring in for further care and optimization of the hospitalist team was consulted. Patient agreeable with this plan. DIAGNOSIS: Alcoholic cirrhosis with ascites, peripheral edema, influenza A, hyponatremia DISPOSITION: Hospitalist will evaluate Patient was agreeable with this plan. Past Med/Surg History Problem List (Updated 12/15/24 @ 13:37 by Boni Holden M.D.) Influenza A (Acute) Hypokalemia Macrocytic anemia Hyponatremia (Acute) Edema, peripheral (Acute) Total bilirubin, elevated (Acute) Abdominal ascites (Acute) Alcohol withdrawal Alcoholic hepatitis with ascites Cirrhosis (Acute) HLD (hyperlipidemia) Hypertension Medical History Mild acid reflux Anxiety Surgical History H/O umbilical hernia repair [place] teeth extracted H/O oral surgery H/O inguinal hernia repair Family History Mother Alcohol abuse Depression Father Alcohol abuse Heart disease Kidney disease Myocardial infarction Uncle Myocardial infarction Denies family history of Ovarian cancer Prostate cancer Breast cancer Colorectal cancer Social History (Updated 12/09/24 @ 13:12 by SAMI Barboza) Smoking Status: Never smoker Second Hand Exposure: Yes (parents growing up); Do You Dip or Chew Tobacco: No; Hx Alcohol Use: Yes Alcohol type: wine Alcohol Intake Frequency: 4 or More x per/Week Alcohol Intake Frequency Comment: 8-15 Hx Substance Use: No Preferred Language: Nigerien Communication Ability: Effective 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 Required: No Beliefs That Will Affect Care: None marital status: Single Current Living Situation: Family Feels Safe at Home: Yes Dental Care, Regularly: No Physical Activity Frequency: Daily Seatbelt Use: always Sunscreen Use: Yes Assistive Devices: Glasses Allergies Allergies Allergy/AdvReac Type Severity Reaction Status Date / Time No Known Allergies Allergy Verified 12/09/24 13:09 Home Meds Previous Rx's Medication Instructions Recorded folic acid 1 mg tablet 1 mg PO QAM #30 tabs 12/09/24 furosemide 40 mg tablet 40 mg PO QAM #30 tabs 12/09/24 metoprolol succinate 25 mg 25 mg PO QAM #30 tabs 12/09/24 tablet,extended release 24 hr multivitamin with folic acid 400 1 tab PO QAM #30 tabs 12/09/24 mcg tablet (Daily-Shannon (with folic acid)) pantoprazole 40 mg tablet,delayed 40 mg PO QAM 30 days #30 tabs 12/09/24 release potassium chloride 20 mEq 20 meq PO DAILY #30 tabs 12/09/24 tablet,extended release spironolactone 25 mg tablet 25 mg PO QAM #30 tabs 12/09/24 thiamine HCl (vitamin B1) 100 mg 100 mg PO QAM #30 tabs 12/09/24 tablet Results & Data (ED) Vital Signs Vital Signs - 24 hr 12/15/24 09:00 12/15/24 09:12 12/15/24 09:14 Temperature 36.5 C Temperature Source Skin Pulse Rate 95 H 90 90 Pulse Rate from SpO2 Sensor Respiratory Rate 17 16 Respiratory Effort / Characteristics Non-Labored Spontaneous Respiratory Depth Normal Respiratory Pattern Regular Blood Pressure 123/77 127/83 Blood Pressure Mean 92 97 Pulse Oximetry 97 97 Oxygen Delivery Method Room Air Room Air Sepsis Recent Fever Within 48 Hours No Sepsis New/Unexplained Change in Mental Status N/A Sepsis Action Taken by Nursing No Action Required 12/15/24 09:54 12/15/24 10:36 12/15/24 10:42 Temperature Temperature Source Pulse Rate 85 84 Pulse Rate from SpO2 Sensor 85 84 84 Respiratory Rate 20 20 19 Respiratory Effort / Characteristics Respiratory Depth Respiratory Pattern Blood Pressure 123/73 132/80 134/86 Blood Pressure Mean 89 97 102 Pulse Oximetry 98 96 97 Oxygen Delivery Method Room Air Room Air Room Air Sepsis Recent Fever Within 48 Hours Sepsis New/Unexplained Change in Mental Status Sepsis Action Taken by Nursing 12/15/24 11:21 12/15/24 11:54 12/15/24 12:21 Temperature Temperature Source Pulse Rate 86 68 Pulse Rate from SpO2 Sensor 86 93 H Respiratory Rate 19 19 22 Respiratory Effort / Characteristics Respiratory Depth Respiratory Pattern Blood Pressure 115/80 134/89 126/94 Blood Pressure Mean 91 104 104 Pulse Oximetry 96 95 95 Oxygen Delivery Method Room Air Room Air Sepsis Recent Fever Within 48 Hours Sepsis New/Unexplained Change in Mental Status Sepsis Action Taken by Nursing Laboratory Data 12/15/24 09:10 12/15/24 09:10 Lab Results 12/15/24 12/15/24 12/15/24 Range/Units 09:10 09:27 09:54 WBC 4.32 L (4.8-10.8) K/ul RBC 2.93 L (4.70-6.10) M/uL Hgb 10.7 L (14.0-18.0) g/dl Hct 30.1 L (42.0-52.0) % MCV 102.7 H (80.0-100.0) fL MCH 36.5 H (25.0-34.0) pg MCHC 35.5 (32.0-36.0) g/dL RDW Std Deviation 46.1 (36.4-46.3) fL RDW Coeff of Kylee 12.2 (11.5-14.5) % Plt Count 106 L (130-400) K/uL MPV 9.7 (9.4-12.4) fL Immature Gran % (Auto) 0.2 % Neut % (Auto) 62.7 % Lymph % (Auto) 18.1 % Bertie % (Auto) 18.1 % Eos % (Auto) 0.2 % Baso % (Auto) 0.7 % Neut # (Auto) 2.71 (1.40-6.50) K/uL Lymph # (Auto) 0.78 L (1.20-3.40) K/uL Bertie # (Auto) 0.78 H (0.11-0.59) K/uL Eos # (Auto) 0.01 (0.00-0.50) K/uL Baso # (Auto) 0.03 (0.00-0.20) K/uL Immature Gran # (Auto) 0.01 (0.01-0.20) K/uL PT 16.1 H (9.0-12.0) Seconds INR 1.5 H (0.9-1.1) APTT 31 (21-31) Seconds PTT Ratio 1.2 Sodium 126 L (136-145) mmol/L Potassium 3.5 (3.5-5.1) mmol/L Chloride 94 L (98-107) mmol/L Carbon Dioxide 26 (21-32) mmol/L Anion Gap 6 (3-11) BUN 10 (6-23) mg/dl Creatinine 0.67 (0.6-1.4) mg/dl Est Cr Clr Drug Dosing 133.5 ml/min eGFR 108.90 BUN/Creatinine Ratio 14.9 (10-20) Glucose 111 H (70-99(Fasting)) mg/dl Osmolality 267 L (280-300) mOsm/kg Calcium 8.5 L (8.6-10.3) mg/dl Magnesium 1.5 L (1.7-2.4) mg/dl Total Bilirubin 7.0 H (0.2-1.0) mg/dl AST 105 H (13-39) U/L ALT 35 (7-52) U/L Alkaline Phosphatase 58 (34-104) U/L Ammonia 26.0 (18-72) umol/L Troponin I High Sens 4.3 (0-20) pg/ml B-Natriuretic Peptide 205 H (0-100) pg/ml Total Protein 7.3 (6.0-8.3) gm/dl Albumin 3.0 L (3.4-5.0) gm/dl Globulin 4.3 H (2.5-4.0) gm/dl Albumin/Globulin Ratio 0.7 L (0.9-2) Urine Color Urine Appearance (Clear) Urine pH (4.5-7.5) Ur Specific Gregory (1.000-1.030) Urine Protein (Negative) Urine Glucose (UA) (Negative) Urine Ketones (Negative) Urine Blood (Negative) Urine Nitrite (Negative) Urine Bilirubin (Negative) Urine Urobilinogen (Negative) Ur Leukocyte Esterase (Negative) Urine WBC (Auto) (0-5) /hpf Urine RBC (Auto) (0-2) /hpf U Hyaline Cast (Auto) (0-2) /lpf U Epithel Cells (Auto) (0-2) /hpf Urine Bacteria (Auto) (None Seen) Urine Mucus (None Prsent) Urine Osmolality (500-800) mOsm/kg Adenovirus (PCR) Not Detected (NotDetected) B. pertussis DNA (PCR) Not Detected (NotDetected) B.parapertussis DNA PCR Not Detected (NotDetected) C. pneumoniae DNA (PCR) Not Detected (NotDetected) Coronavirus OC43 (PCR) Not Detected (NotDetected) Coronavirus HKU1 (PCR) Not Detected (NotDetected) Coronavirus 229E (PCR) Not Detected (NotDetected) SARS-CoV-2 (PCR) Not Detected (NotDetected) Coronavirus NL63 (PCR) Not Detected (NotDetected) Human Metapneumovir PCR Not Detected (NotDetected) Influenza A (H3) PCR DETECTED A (NotDetected) Influenza Type B (PCR) Not Detected (NotDetected) M. pneumoniae (PCR) Not Detected (NotDetected) Parainfluenza 1 (PCR) Not Detected (NotDetected) Parainfluenza 2 (PCR) Not Detected (NotDetected) Parainfluenza 3 (PCR) Not Detected (NotDetected) Parainfluenza 4 (PCR) Not Detected (NotDetected) RSV (PCR) Not Detected (NotDetected) Entero/Rhino (PCR) Not Detected (NotDetected) 12/15/24 Range/Units 11:45 WBC (4.8-10.8) K/ul RBC (4.70-6.10) M/uL Hgb (14.0-18.0) g/dl Hct (42.0-52.0) % MCV (80.0-100.0) fL MCH (25.0-34.0) pg MCHC (32.0-36.0) g/dL RDW Std Deviation (36.4-46.3) fL RDW Coeff of Kylee (11.5-14.5) % Plt Count (130-400) K/uL MPV (9.4-12.4) fL Immature Gran % (Auto) % Neut % (Auto) % Lymph % (Auto) % Bertie % (Auto) % Eos % (Auto) % Baso % (Auto) % Neut # (Auto) (1.40-6.50) K/uL Lymph # (Auto) (1.20-3.40) K/uL Bertie # (Auto) (0.11-0.59) K/uL Eos # (Auto) (0.00-0.50) K/uL Baso # (Auto) (0.00-0.20) K/uL Immature Gran # (Auto) (0.01-0.20) K/uL PT (9.0-12.0) Seconds INR (0.9-1.1) APTT (21-31) Seconds PTT Ratio Sodium (136-145) mmol/L Potassium (3.5-5.1) mmol/L Chloride (98-107) mmol/L Carbon Dioxide (21-32) mmol/L Anion Gap (3-11) BUN (6-23) mg/dl Creatinine (0.6-1.4) mg/dl Est Cr Clr Drug Dosing ml/min eGFR BUN/Creatinine Ratio (10-20) Glucose (70-99(Fasting)) mg/dl Osmolality (280-300) mOsm/kg Calcium (8.6-10.3) mg/dl Magnesium (1.7-2.4) mg/dl Total Bilirubin (0.2-1.0) mg/dl AST (13-39) U/L ALT (7-52) U/L Alkaline Phosphatase (34-104) U/L Ammonia (18-72) umol/L Troponin I High Sens (0-20) pg/ml B-Natriuretic Peptide (0-100) pg/ml Total Protein (6.0-8.3) gm/dl Albumin (3.4-5.0) gm/dl Globulin (2.5-4.0) gm/dl Albumin/Globulin Ratio (0.9-2) Urine Color Dark Yellow Urine Appearance Cloudy A (Clear) Urine pH 6.0 (4.5-7.5) Ur Specific Gregory 1.027 (1.000-1.030) Urine Protein Negative (Negative) Urine Glucose (UA) Negative (Negative) Urine Ketones Trace H (Negative) Urine Blood Negative (Negative) Urine Nitrite Positive A (Negative) Urine Bilirubin 1+ H (Negative) Urine Urobilinogen Positive H (Negative) Ur Leukocyte Esterase Trace H (Negative) Urine WBC (Auto) 0-5 (0-5) /hpf Urine RBC (Auto) 0-2 (0-2) /hpf U Hyaline Cast (Auto) 3-5 H (0-2) /lpf U Epithel Cells (Auto) 0-2 (0-2) /hpf Urine Bacteria (Auto) None Seen (None Seen) Urine Mucus Present A (None Prsent) Urine Osmolality 779 (500-800) mOsm/kg Adenovirus (PCR) (NotDetected) B. pertussis DNA (PCR) (NotDetected) B.parapertussis DNA PCR (NotDetected) C. pneumoniae DNA (PCR) (NotDetected) Coronavirus OC43 (PCR) (NotDetected) Coronavirus HKU1 (PCR) (NotDetected) Coronavirus 229E (PCR) (NotDetected) SARS-CoV-2 (PCR) (NotDetected) Coronavirus NL63 (PCR) (NotDetected) Human Metapneumovir PCR (NotDetected) Influenza A (H3) PCR (NotDetected) Influenza Type B (PCR) (NotDetected) M. pneumoniae (PCR) (NotDetected) Parainfluenza 1 (PCR) (NotDetected) Parainfluenza 2 (PCR) (NotDetected) Parainfluenza 3 (PCR) (NotDetected) Parainfluenza 4 (PCR) (NotDetected) RSV (PCR) (NotDetected) Entero/Rhino (PCR) (NotDetected) Administered Medications Discontinued Medications Furosemide (Furosemide 40 Mg/4 Ml Vial) 40 mg IV ONE ONE Stop: 12/15/24 11:01 Last Admin: 12/15/24 11:27 Dose: 40 mg Documented By: KM Ioversol (Optiray 320 100ml) 94 ml IV ONCE ONE Stop: 12/15/24 13:22 Last Admin: 12/15/24 13:22 Dose: 94 ml Documented By: VALERY Imaging Data Radiologist's Impression: Chest X-Ray 12/15/24 09:21 XR chest 1V portable CLINICAL HISTORY: Dyspnea COMPARISON STUDY: 11/25/2024 and 03/19/2024 FINDINGS: There is been no significant interval change since the most recent study. There continues to be a left pleural effusion and left basilar infiltrate/atelectasis. Considering the chronicity of these findings and the lack of right-sided involvement, it may be advisable to consider a chest CT to further evaluate the chronic left basilar findings. No new lesions have developed elsewhere. The right lung remains clear. There is no pneumothorax. The heart and pulmonary vascularity are unremarkable. IMPRESSION: Persisting unilateral left basilar pleural effusion and adjacent airspace opacity. While this may be associated with the patient's liver disease, I would consider a chest CT with contrast enhancement to evaluate the radiographic findings. ACT 112: Negative or not required by law. Electronically signed by: Isatu Hernandez M.D. 12/15/2024 10:23 AM Paracentesis Ultrasound 12/15/24 11:25 ULTRASOUND-GUIDED PARACENTESIS CLINICAL HISTORY: Ascites PROCEDURE: Procedure and risks were explained. Informed consent was obtained. A final timeout was completed. The abdomen was prepped and draped in sterile fashion. 1% lidocaine was utilized for skin anesthesia. Utilizing ultrasound guidance, a 5 Faroese safety centesis catheter was advanced into the left lower quadrant pocket of ascites. Ultrasound images were obtained. A total of 5.1 L of ascites fluid was removed with 1 L sent to lab for analysis. The catheter was removed and Band-Aid applied. The patient tolerated the procedure well. Vital signs will be monitored postprocedure. IMPRESSION: Ultrasound-guided paracentesis as above. Performed, dictated, and signed by Manolo Srinivasan PA-C; to be co-signed by Dr. Charan Lubin. Discharge Plan Visit Data Chief Complaint: Swelling/Edema to Extremity Stated Complaint: SWOLLEN ABD, EDEMA ED Provider: Boni Holden Discharge Problem: Cirrhosis, Edema, peripheral, Hyponatremia, Influenza A Patient Disposition: Being Evaluated by Hospitalist Discharge Instructions Interventions: ED Discharge Assessment Last Done: 12/15/24 12:57 Forms Stand Alone Forms: My [employer] Prescriptions Prescriptions: No Action potassium chloride 20 mEq tablet extended release 20 meq PO DAILY Qty: 30 3RF pantoprazole 40 mg tablet,delayed release (DR/EC) 40 mg PO QAM 30 Days Qty: 30 3RF multivitamin with folic acid [Daily-Shannon (with folic acid)] 400 mcg tablet 1 tab PO QAM Qty: 30 3RF furosemide 40 mg tablet 40 mg PO QAM Qty: 30 3RF folic acid 1 mg tablet 1 mg PO QAM Qty: 30 3RF metoprolol succinate 25 mg tablet extended release 24 hr 25 mg PO QAM Qty: 30 3RF spironolactone 25 mg tablet 25 mg PO QAM Qty: 30 3RF thiamine HCl (vitamin B1) 100 mg tablet 100 mg PO QAM Qty: 30 3RF Referrals Referrals: Reny Robles MD [Primary Care Provider] -
[2024-12-15 11:15] LABS: Adenovirus PCR Not Detected (NotDetected); Bordetella parapertussis PCR Not Detected (NotDetected); Bordetella pertussis PCR Not Detected (NotDetected); Chlamydia pneumoniae PCR Not Detected (NotDetected); Coronavirus 229E PCR Not Detected (NotDetected); Coronavirus CoV-2 (COVID19)PCR Not Detected (NotDetected); Coronavirus HKU1 PCR Not Detected (NotDetected); Coronavirus NL63 PCR Not Detected (NotDetected); Coronavirus OC43PCR Not Detected (NotDetected); Human Metapneumovirus PCR Not Detected (NotDetected); Influenza A (H3) PCR DETECTED (NotDetected); Influenza B PCR Not Detected (NotDetected); Mycoplasma pneumoniae PCR Not Detected (NotDetected); Parainfluenza Virus 1 PCR Not Detected (NotDetected); Parainfluenza Virus 2 PCR Not Detected (NotDetected); Parainfluenza Virus 3 PCR Not Detected (NotDetected); Parainfluenza Virus 4 PCR Not Detected (NotDetected); Respiratory Syncytial VirusPCR Not Detected (NotDetected); Rhinovirus/Enterovirus PCR Not Detected (NotDetected)
[2024-12-15] MEDS: FUROSEMIDE 40 MG/4 ML VIAL IV ONE (11:27)
[2024-12-15] MEDS ORDERED: ONDANSETRON INJ 2 MG/ML 2 ML VIAL IV PRN (11:30)
--- NOTE | 2024-12-15 11:40 | History & Physical Report ---
Date of Service December 15, 2024 Assessment & Plan (1) Abdominal ascites: Plan: Assessment: 1. Taunt abdominal ascites. IR consulted for therapeutic paracentesis. 2. Peripheral lower extremity edema. 3-4+. As described above. Lasix 40 mg IV twice daily. Fluid restriction. 3. Alcoholic cirrhosis. His laboratory indices are stable with pancytopenia as well as hyperbilirubinemia as well as auto coagulopathy with an INR of 1.5. Troll monitor labs. 4. History of injuries to this alcoholism. He has not had any alcohol/regurgitation of IV iron, 25 admission 1. Continue vitamin replacement folic acid/thiamine. 5. Borderline hyponatremia. Increase baseline potassium from 20 mEq daily to 20 meq BID 6. Hypomagnesemia. Will replace orally and recheck 400 BID x 2 doses. 7. GERD. Continue PPI. 8. Hyponatremia. Chronic. Mild acute on chronic 126. Baseline is 1 29-1 30. Diurese and monitor. 9. Influenza A. The patient is relatively asymptomatic. His shortness of breath has been progressive over the last 2 weeks associated with his edema and ascites. He is on room air 96%. Supportive care at this time. Isolate appropriately. With a left-sided pleural effusion we will obtain a sputum culture. If positive for bacteria we will treat. However my clinical suspicion of an occult bacterial pneumonia is extraordinarily low. 10. Left-sided pleural effusion. Radiology recommending CT of the chest with contrast to further characterize. Discussed CAT scan department we will do this after the abdominal paracentesis to offload the diaphragm. Plan: As described above. Please refer to orders for further planning. History of Present Illness Chief Complaint: Increasing lower extremity edema and abdominal ascites. Primary Care Provider: Reny Robles MD Pleasant 58-year-old male with a history of alcoholism. He was admitted in November 2024 with volume overload with significant ascites and peripheral edema. The patient received a therapeutic paracentesis at that time was IV diuresed. He has been following his fluid restriction and he has been following his diuretic regimen. He has had no alcohol since his prior admission in November. Despite this, he has had increasing lower extremity edema and abdominal ascites to the point where he cannot bend over to tie his shoes in fact he cannot even get his shoes on due to the pedal edema he presented to the ER today for further evaluation and treatment of his decompensated liver cirrhosis, peripheral edema and ascites. Laboratory studies in the ER demonstrated his baseline cirrhosis with pancytopenia but stable, hyper bilirubinemia but is stable. Transaminitis stable. Mild hypomagnesemia at 1.5. Auto coagulopathy with a baseline INR 1.5- stable. Hyponatremia at 126 with a baseline of approximately 130. Potassium low normal at 3.5. Patient had a BioFire done which did come back positive for influenza A. The patient's shortness of breath has been ongoing for a couple weeks. There has been no change in this except the progression associated with his increasing ascites/abdominal girth and peripheral edema. The patient is on room air therefore we will just do supportive care at this point. CT of the chest showed a persistent left radiology is recommended an enhanced CT of the chest for further delineation. I suspect this is secondary to the patient's decompensated cirrhosis and significant ascites. Will do a CT of the chest after abdominal paracentesis for further evaluation. Allergies Allergy/AdvReac Type Severity Reaction Status Date / Time No Known Allergies Allergy Verified 12/09/24 13:09 Home Medications Medication Instructions Recorded Confirmed Type folic acid 1 mg tablet 1 mg PO QAM #30 tabs 12/09/24 12/15/24 Rx furosemide 40 mg tablet 40 mg PO QAM #30 tabs 12/09/24 12/15/24 Rx metoprolol succinate 25 mg 25 mg PO QAM #30 tabs 12/09/24 12/15/24 Rx tablet,extended release 24 hr multivitamin with folic acid 400 1 tab PO QAM #30 tabs 12/09/24 12/15/24 Rx mcg tablet (Daily-Shannon (with folic acid)) pantoprazole 40 mg tablet,delayed 40 mg PO QAM 30 days #30 tabs 12/09/24 12/15/24 Rx release potassium chloride 20 mEq 20 meq PO DAILY #30 tabs 12/09/24 12/15/24 Rx tablet,extended release spironolactone 25 mg tablet 25 mg PO QAM #30 tabs 12/09/24 12/15/24 Rx thiamine HCl (vitamin B1) 100 mg 100 mg PO QAM #30 tabs 12/09/24 12/15/24 Rx tablet Past Med/Surg History Problem List (Updated 11/30/24 @ 14:52 by Radha Olmstead PA-C) Hypokalemia Macrocytic anemia Hyponatremia (Acute) Edema, peripheral (Acute) Total bilirubin, elevated (Acute) Abdominal ascites (Acute) Alcohol withdrawal Alcoholic hepatitis with ascites Cirrhosis (Acute) HLD (hyperlipidemia) Hypertension Medical History Mild acid reflux Anxiety Surgical History H/O umbilical hernia repair [place] teeth extracted H/O oral surgery H/O inguinal hernia repair Family History Mother Alcohol abuse Depression Father Alcohol abuse Heart disease Kidney disease Myocardial infarction Uncle Myocardial infarction Denies family history of Ovarian cancer Prostate cancer Breast cancer Colorectal cancer Social History (Updated 12/09/24 @ 13:12 by SAMI Barboza) Smoking Status: Never smoker Second Hand Exposure: Yes (parents growing up); Do You Dip or Chew Tobacco: No; Hx Alcohol Use: Yes Alcohol type: wine Alcohol Intake Frequency: 4 or More x per/Week Alcohol Intake Frequency Comment: 8-15 Hx Substance Use: No Preferred Language: Panamanian Communication Ability: Effective 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 Physical Exam Physical Exam: In General: In general very pleasant 58-year-old male who is alert and oriented x 3 at the time of my exam. He is in no acute respiratory distress whatsoever at rest. But he does say he gets fairly short of breath with exertion given his edema and abdominal girth/ascites. HEENT: Normocephalic atraumatic pupils are equal round and reactive to light bilaterally. No scleral icterus no conjunctival injection external auditory canals are patent septum is in the midline nose is without discharge oral mucosa is pink and moist without lesion. NECK: Supple no rigidity no lymphadenopathy no thyromegaly no carotid bruits no JVD no masses. HEART: Regular rate and rhythm I do not appreciate any ectopy or rub. No murmur. LUNGS: Diminished bilaterally. No wheezes rales or rhonchi. ABDOMEN: Taut abdominal ascites. Nontender. No rebound. No peritoneal sign. Remaining abdominal exam equivocal due to his taut ascites. EXTREMITIES: Intact, no peripheral cyanosis, clubbing. The patient has 3-4+ pitting edema pretibial and a significant edema extending into the thighs as well. With significant pedal edema as well. Strength is 5 out of 5 in extremities x4, no pathological reflexes. NEUROLOGICAL: Cranial nerves II through XII are grossly intact with no focal deficit elicited upon examination. Results & Data Results & Data Vital Signs (Past 12 Hours) Vital Signs Temp Pulse Resp BP Pulse Ox O2 Del Method 12/15/24 10:36 20 132/80 96 Room Air 12/15/24 09:54 85 20 123/73 98 Room Air 12/15/24 09:14 90 12/15/24 09:12 90 16 127/83 97 Room Air 12/15/24 09:00 36.5 C 95 H 17 123/77 97 Room Air Code Status & VTE Plan Code Status CODE STATUS: Full code. I personally discussed with patient at bedside today. VTE Prophylaxis Plan VTE Prophylaxis will be ordered: Yes PG Care Time/CCT Total # of Minutes Spent Total Time Spent with Patient: Total time spent is greater than 50% in coordination of care (as documented) at patient's floor/unit and/or counseling patient: Coding Level of Care Code 89870 INT INP/OBS CARE 3/75MIN Diagnoses Abdominal ascites R18.8
[2024-12-15 12:19] LABS: Appearance Urine Cloudy (Clear); Bacteria Urine Automated None Seen (None Seen); Bilirubin Urine 1+ (Negative); Blood Urine Negative (Negative); Color Urine Dark Yellow; Epithelial Cell Urine Auto 0-2 /hpf (0-2); Glucose Urine UA Negative (Negative); Ketones Urine Trace (Negative); Leukocyte Esterase Urine Trace (Negative); Mucus Urine Present (None Prsent); Nitrite Urine Positive (Negative); Protein Urine Negative (Negative); RBC Urine Automated 0-2 /hpf (0-2); Specific Gravity Urine 1.027 (1.000-1.030); Urobilinogen Urine Positive (Negative); WBC Urine Automated 0-5 /hpf (0-5)
--- NOTE | 2024-12-15 13:16 | Ultrasound Report ---
ULTRASOUND-GUIDED PARACENTESIS CLINICAL HISTORY: Ascites PROCEDURE: Procedure and risks were explained. Informed consent was obtained. A final timeout was com pleted. The abdomen was prepped and draped in sterile fashion. 1% lidocaine was utilized for skin ane sthesia. Utilizing ultrasound guidance, a 5 [place] safety centesis catheter was advanced into the left lower q uadrant pocket of ascites. Ultrasound images were obtained. A total of 5.1 L of ascites fluid was rem yovany with 1 L sent to lab for analysis. The catheter was removed and Band-Aid applied. The patient to lerated the procedure well. Vital signs will be monitored postprocedure. IMPRESSION: Ultrasound-guided paracentesis as above. Performed, dictated, and signed by Manolo Srinivasan PA-C; to be co-signed by Dr. Charan Lubin. Electronically signed by: Charan Lubin M.D. 12/15/2024 1:31 PM
[2024-12-15] MEDS: OPTIRAY 320 100ml IV ONE (13:22)
--- NOTE | 2024-12-15 13:47 | CT Scan Report ---
CHEST CT WITH CONTRAST CT DOSE: 665.36 mGy.cm HISTORY: Persistent left pleural effusion and left basilar atelectasis DO NOT DO TILL AFTER abdomina l paracenteses. TECHNIQUE: Multiaxial CT images of the chest were performed following the IV administration of 94 cc of Optiray. Sagittal and coronal reconstructions were done. A dose lowering technique was utilized a dhering to the principles of ALARA. COMPARISON STUDY: None FINDINGS: There is no evidence of an underlying mass or endobronchial obstruction in the left lung ba se. There is a large left pleural effusion resulting in compressive atelectasis of the left lower lob e. There is a large hiatal hernia containing a folded loop of the gastric fundus and body as well as intraperitoneal fat. 2 small fluid collections are also identified in a right paraesophageal region. There are some gastric varices identified surrounding the herniated portion of the stomach. The lung escobar are otherwise clear. There is no adenopathy identified. No aortic aneurysm. There is no pericardial effusion. The upper abdominal images demonstrate ascites and cirrhosis. IMPRESSION: Large left pleural effusion and left lung basilar opacity best explained on the basis of a large hiatal hernia and a sympathetic left effusion associated with the patient's ascites and liver disease. No evidence of an underlying malignancy. ACT 112: Negative or not required by law. Electronically signed by: Isatu Hernandez M.D. 12/15/2024 1:46 PM
[2024-12-15] MEDS ORDERED: Nursing to Pharmacy Communication SCH (14:45)
[2024-12-15] MEDS: FOLIC ACID 1 MG TAB PO ONE (15:10)
[2024-12-15] MEDS: PANTOprazole 40 MG TAB PO ONE (15:11)
[2024-12-15] MEDS: MULTIVITAMIN TAB PO ONE (15:11)
[2024-12-15] MEDS: THIAMINE HCL 100 MG TAB PO ONE (15:11)
[2024-12-15] MEDS: METOPROLOL SUCC 25MG EXT REL TAB PO ONE (15:11)
[2024-12-15] MEDS: MAGNESIUM OXIDE 400 MG TAB PO ONE (15:11)
[2024-12-15] MEDS: SPIRONOLACTONE 25 MG TAB PO ONE (15:11)
[2024-12-15] MEDS: POTASSIUM CHLORIDE CRTAB 20 MEQ TABCR PO ONE (15:14)
[2024-12-15] MEDS: FUROSEMIDE 40 MG/4 ML VIAL IV SCH (17:13)
[2024-12-15] MEDS: POTASSIUM CHLORIDE CRTAB 20 MEQ TABCR PO SCH (20:22)
[2024-12-15] MEDS: MAGNESIUM OXIDE 400 MG TAB PO SCH (20:22)
--- NOTE | 2024-12-15 22:51 | Electrocardiogram Report ---
Test Reason : Blood Pressure : */* mmHG Vent. Rate : 89 BPM Atrial Rate : 89 BPM P-R Int : 138 ms QRS Dur : 80 ms QT Int : 386 ms P-R-T Axes : 90 -7 28 degrees QTcB Int : 469 ms Normal sinus rhythm Possible Anterior infarct , age undetermined Nonspecific T wave abnormality Abnormal ECG When compared with ECG of 25-Nov-2024 13:30, Borderline criteria for Anterior infarct are now Present Confirmed by Tristian Clark ([id number]) on 12/15/2024 10:51:21 PM Referred By: Confirmed By: Tristian Clark
[2024-12-16] MEDS: ACETAMINOPHEN 325 MG TAB PO PRN (02:55)
[2024-12-16 06:19] LABS: Basophils # (auto) 0.02 K/uL (0.00-0.20); Basophils % (auto) 0.7 %; Eosinophils # (auto) 0.01 K/uL (0.00-0.50); Eosinophils % (auto) 0.3 %; Hematocrit (blood only) 25.2 % (42.0-52.0); Hemoglobin 9.1 g/dl (14.0-18.0); Immature Granulocytes # (auto) 0.01 K/uL (0.01-0.20); Immature Granulocytes % (auto) 0.3 %; Lymphocytes # (auto) 0.71 K/uL (1.20-3.40); Lymphocytes % (auto) 23.4 %; Mean Corpuscular Hemoglobin 36.1 pg (25.0-34.0); Mean Corpuscular Hgb Conc 36.1 g/dL (32.0-36.0); Mean Platelet Volume 9.7 fL (9.4-12.4); Monocytes # (auto) 0.57 K/uL (0.11-0.59); Monocytes % (auto) 18.8 %; Neutrophils # (auto) 1.72 K/uL (1.40-6.50); Neutrophils % (auto) 56.5 %; Platelet Count 79 K/uL (130-400); RDW Coefficient of Variation 11.8 % (11.5-14.5); RDW Standard Deviation 43.5 fL (36.4-46.3); Red Blood Count 2.52 M/uL (4.70-6.10); White Blood Count 3.04 K/ul (4.8-10.8)
[2024-12-16 06:41] LABS: INR 1.7 (0.9-1.1); Prothrombin Time 17.2 Seconds (9.0-12.0)
[2024-12-16 06:57] LABS: Albumin Globulin Ratio 0.7 (0.9-2); Albumin Level 2.4 gm/dl (3.4-5.0); BUN Creatinine Ratio 18.6 (10-20); Bilirubin,Total 5.3 mg/dl (0.2-1.0); Calcium 7.8 mg/dl (8.6-10.3); Chol HDL Ratio 5.2 (0-5); Creatinine Clr Calc Pharmacy 127.8 ml/min; Globulin 3.4 gm/dl (2.5-4.0); Magnesium 1.5 mg/dl (1.7-2.4); Potassium 3.4 mmol/L (3.5-5.1); Total Protein 5.8 gm/dl (6.0-8.3)
[2024-12-16 06:59] LABS: Thyroid Stimulating Hormone 1.001 uIu/ml (0.300-4.500)
--- NOTE | 2024-12-16 07:19 | Hospitalist Progress Note ---
Date of Service December 16, 2024 Assessment & Plan (1) Abdominal ascites: (2) Hyponatremia: (3) Macrocytic anemia: (4) Influenza A: (5) Alcoholic hepatitis with ascites: Plan Momo, 58yo M w/PMH of cirrhosis secondary to alcohol use disorder, hypertension, anemia, GERD, and refractory ascites. Last drink prior to admission was 11/24/2024. He is presenting with ascites and left sided pleural effusion. He is s/p thoracentesis (1L removed) and paracentesis (1.5L removed). He is feeling better today with less SOB, pain, and functional impairment due to fluid buildup #Alcohol-Associated Cirrhosis with ascites - s/p paracentesis 12/15 removed 5.1L - His laboratory indices are stable with pancytopenia as well as hyperbilirubinemia as well as auto coagulopathy with an INR of 1.5. [facility] monitor labs. - Changing home medications to spironolactone 100mg and furosemide 40mg due to spironolactone providing better therapeutic management for ascites - Maddrey score is 29; <32, so no indication for steroid treatment at this time #Spontaneous bacterial peritonitis - Concern for spontaneous bacterial peritonitis due to tenderness with palpitation and risk from ascites, unable to get fluid analysis so nonconfirmatory lab results, but due to symptoms of abdominal tender and being febrile start IV ceftriaxone - also possible symptoms could be flu related- so likely not chronic suppression for SBP- but will continue to monitor #Peripheral lower extremity edema - Lasix 40 mg IV twice daily-> held due to hypotension post paracentesis, BP currently in the 100s/60s, start spironolactone- increase to 50mg daily - Fluid restriction. #Left-sided pleural effusion - Pulm recs appreciated - Sputum cultures and pleural sample cultures sent, awaiting results - Thoracentesis done by pulm, removed 1L #Influenza A - 98% O2 on room air - Supportive care and droplet precautions Continue: - vitamin replacement folic acid/thiamine - potassium 20 meq BID - still has low Mg, continue replacing magnesium orally 400 BID x 2 doses Chronic conditions: - GERD - continue PPI Admission and Anticipated Discharge Date Admission Date: December 15, 2024 Supervising Physician Co-Signing Physician Notes I personally examined the patient and verified all levy points of history and exam, discussed case, and agree with decision making with Dr Leblanc and Joe Bryant MS2 feeling better since para, thora. wants to walk around more. feels like he tolerates diuretics well vitals noted nad heent nc at mmm breathing unlabored no acccessory muscles good effort skin no rashes no pallor or icterus cirrhosis/ascites - s/p para and thora. suspect fever from flu but can't r/o SBP - para was therapeutic but tried to add studies - unable to - rocephin empirically but also since not clearly SBP would hold on proph after for now until/unless situation proves to be SBP. sober - applauded. will need hepatology. otherwise as above Subjective Patient reports feeling significantly better today s/p paracentesis. He still endorses feeling short of breath and having a lot of edema in his feet. He also mentions increase in productive coughing over the last two weeks with clear/yellow sputum. He does endorse his sputum being pink once over this time course. He does not endorse any fevers, chills, night sweats. He mentions abdominal pain right above his umbilicus, but no nausea/vomiting. He says he's had a better appetite here in the hospital than he has had in the past few weeks. He does endorse feeling more fatigued today. He's had bowel movements that have been more watery recently, but he mentions this has been getting better, no melena or anatoliy-colored stools. No issues with urinary frequency or urgency, hasn't noticed urine being darker than usual. No unusual bruising or bleeding. Review of Systems 2 Review of Systems: as per HPI Physical Exam Constitutional: WD/WN, vitals as above conversational and attentive Eyes: PERRLA, conjuctiva normal, mild icterus Respiratory: normal respiratory effort Auscultation: + diminished lung sounds (more pronounced on left side than right side ) no crackles, rales, or rhonchi Cardiovascular: Rate/Rhythm: regular rate and regular rhythm Extremities: + edema (+3-4) Musculoskeletal: no cyanosis or clubbing, extremities motor strength 5/5 Neurologic: AO x 3, normal speech. cognition intact, no asterixis Psychiatric: Appropriate mood and affect Results & Data Results & Data Vital Signs (Past 12 Hours) Vital Signs Temp Pulse Pulse Resp BP BP Pulse Ox 12/16/24 03:04 100/62 12/16/24 02:45 37.8 C H 90 17 92/57 L 94 12/16/24 00:00 87 12/15/24 22:39 37.6 C H 85 17 92/49 L 95 12/15/24 20:33 12/15/24 20:08 37.3 C 90 18 104/65 97 O2 Del Method 12/16/24 03:04 12/16/24 02:45 Room Air 12/16/24 00:00 12/15/24 22:39 Room Air 12/15/24 20:33 Room Air 12/15/24 20:08 Room Air Laboratory Results Laboratory Results - last 24 hr 12/15/24 12/15/24 12/15/24 09:10 09:27 09:54 WBC RBC Hgb Hct MCV MCH MCHC RDW Std Deviation RDW Coeff of Kylee Plt Count MPV Immature Gran % (Auto) Neut % (Auto) Lymph % (Auto) Schoolcraft % (Auto) Eos % (Auto) Baso % (Auto) Neut # (Auto) Lymph # (Auto) School[place] # (Auto) Eos # (Auto) Baso # (Auto) Immature Gran # (Auto) PT 16.1 H INR 1.5 H APTT 31 PTT Ratio 1.2 Sodium 126 L Potassium 3.5 Chloride 94 L Carbon Dioxide 26 Anion Gap 6 BUN 10 Creatinine 0.67 Est Cr Clr Drug Dosing 133.5 eGFR 108.90 BUN/Creatinine Ratio 14.9 Glucose 111 H Osmolality 267 L Calcium 8.5 L Magnesium 1.5 L Total Bilirubin 7.0 H AST 105 H ALT 35 Alkaline Phosphatase 58 Ammonia 26.0 Troponin I High Sens 4.3 B-Natriuretic Peptide 205 H Total Protein 7.3 Albumin 3.0 L Globulin 4.3 H Albumin/Globulin Ratio 0.7 L Triglycerides Cholesterol LDL Cholesterol, Calc VLDL Cholesterol, Calc HDL Cholesterol Cholesterol/HDL Ratio TSH Urine Color Urine Appearance Urine pH Ur Specific Clyde Urine Protein Urine Glucose (UA) Urine Ketones Urine Blood Urine Nitrite Urine Bilirubin Urine Urobilinogen Ur Leukocyte Esterase Urine WBC (Auto) Urine RBC (Auto) U Hyaline Cast (Auto) U Epithel Cells (Auto) Urine Bacteria (Auto) Urine Mucus Urine Osmolality Adenovirus (PCR) Not Detected B. pertussis DNA (PCR) Not Detected B.parapertussis DNA PCR Not Detected C. pneumoniae DNA (PCR) Not Detected Coronavirus OC43 (PCR) Not Detected Coronavirus HKU1 (PCR) Not Detected Coronavirus 229E (PCR) Not Detected SARS-CoV-2 (PCR) Not Detected Coronavirus NL63 (PCR) Not Detected Human Metapneumovir PCR Not Detected Influenza A (H3) PCR DETECTED A Influenza Type B (PCR) Not Detected M. pneumoniae (PCR) Not Detected Parainfluenza 1 (PCR) Not Detected Parainfluenza 2 (PCR) Not Detected Parainfluenza 3 (PCR) Not Detected Parainfluenza 4 (PCR) Not Detected RSV (PCR) Not Detected Entero/Rhino (PCR) Not Detected 12/15/24 12/16/24 11:45 05:53 WBC 3.04 L RBC 2.52 L Hgb 9.1 L Hct 25.2 L MCV 100.0 MCH 36.1 H MCHC 36.1 H RDW Std Deviation 43.5 RDW Coeff of Kylee 11.8 Plt Count 79 L MPV 9.7 Immature Gran % (Auto) 0.3 Neut % (Auto) 56.5 Lymph % (Auto) 23.4 Schoolcraft % (Auto) 18.8 Eos % (Auto) 0.3 Baso % (Auto) 0.7 Neut # (Auto) 1.72 Lymph # (Auto) 0.71 L Schoolcraft # (Auto) 0.57 Eos # (Auto) 0.01 Baso # (Auto) 0.02 Immature Gran # (Auto) 0.01 PT 17.2 H INR 1.7 H APTT PTT Ratio Sodium 127 L Potassium 3.4 L Chloride 96 L Carbon Dioxide 25 Anion Gap 6 BUN 13 Creatinine 0.70 Est Cr Clr Drug Dosing 127.8 eGFR 107.47 BUN/Creatinine Ratio 18.6 Glucose 105 H Osmolality Calcium 7.8 L Magnesium 1.5 L Total Bilirubin 5.3 H AST 80 H ALT 26 Alkaline Phosphatase 55 Ammonia Troponin I High Sens B-Natriuretic Peptide Total Protein 5.8 L D Albumin 2.4 L Globulin 3.4 Albumin/Globulin Ratio 0.7 L Triglycerides 84 Cholesterol 135 LDL Cholesterol, Calc 92 VLDL Cholesterol, Calc 17 HDL Cholesterol 26 Cholesterol/HDL Ratio 5.2 H TSH 1.001 Urine Color Dark Yellow Urine Appearance Cloudy A Urine pH 6.0 Ur Specific Clyde 1.027 Urine Protein Negative Urine Glucose (UA) Negative Urine Ketones Trace H Urine Blood Negative Urine Nitrite Positive A Urine Bilirubin 1+ H Urine Urobilinogen Positive H Ur Leukocyte Esterase Trace H Urine WBC (Auto) 0-5 Urine RBC (Auto) 0-2 U Hyaline Cast (Auto) 3-5 H U Epithel Cells (Auto) 0-2 Urine Bacteria (Auto) None Seen Urine Mucus Present A Urine Osmolality 779 Adenovirus (PCR) B. pertussis DNA (PCR) B.parapertussis DNA PCR C. pneumoniae DNA (PCR) Coronavirus OC43 (PCR) Coronavirus HKU1 (PCR) Coronavirus 229E (PCR) SARS-CoV-2 (PCR) Coronavirus NL63 (PCR) Human Metapneumovir PCR Influenza A (H3) PCR Influenza Type B (PCR) M. pneumoniae (PCR) Parainfluenza 1 (PCR) Parainfluenza 2 (PCR) Parainfluenza 3 (PCR) Parainfluenza 4 (PCR) RSV (PCR) Entero/Rhino (PCR) Diagnostic Findings MELD: 26 Maddrey: 29.2 Chest X-Ray 12/15/24 09:21 XR chest 1V portable CLINICAL HISTORY: Dyspnea COMPARISON STUDY: 11/25/2024 and 03/19/2024 FINDINGS: There is been no significant interval change since the most recent study. There continues to be a left pleural effusion and left basilar infiltrate/atelectasis. Considering the chronicity of these findings and the lack of right-sided involvement, it may be advisable to consider a chest CT to further evaluate the chronic left basilar findings. No new lesions have developed elsewhere. The right lung remains clear. There is no pneumothorax. The heart and pulmonary vascularity are unremarkable. IMPRESSION: Persisting unilateral left basilar pleural effusion and adjacent airspace opacity. While this may be associated with the patient's liver disease, I would consider a chest CT with contrast enhancement to evaluate the radiographic findings. ACT 112: Negative or not required by law. Electronically signed by: Isatu Hernandez M.D. 12/15/2024 10:23 AM Paracentesis Ultrasound 12/15/24 11:25 ULTRASOUND-GUIDED PARACENTESIS CLINICAL HISTORY: Ascites PROCEDURE: Procedure and risks were explained. Informed consent was obtained. A final timeout was completed. The abdomen was prepped and draped in sterile fashion. 1% lidocaine was utilized for skin anesthesia. Utilizing ultrasound guidance, a 5 Ivorian safety centesis catheter was advanced into the left lower quadrant pocket of ascites. Ultrasound images were obtained. A total of 5.1 L of ascites fluid was removed with 1 L sent to lab for analysis. The catheter was removed and Band-Aid applied. The patient tolerated the procedure well. Vital signs will be monitored postprocedure. IMPRESSION: Ultrasound-guided paracentesis as above. Performed, dictated, and signed by Manolo Srinivasan PA-C; to be co-signed by Dr. Charan Lubin. Electronically signed by: Charan Lubin M.D. 12/15/2024 1:[address] 12/15/24 11:[address] WITH CONTRAST CT DOSE: 665.36 mGy.cm HISTORY: Persistent left pleural effusion and left basilar atelectasis DO NOT DO TILL AFTER abdominal paracenteses. TECHNIQUE: Multiaxial CT images of the chest were performed following the IV administration of 94 cc of Optiray. Sagittal and coronal reconstructions were done. A dose lowering technique was utilized adhering to the principles of ALARA. COMPARISON STUDY: None FINDINGS: There is no evidence of an underlying mass or endobronchial obstruction in the left lung base. There is a large left pleural effusion resulting in compressive atelectasis of the left lower lobe. There is a large hiatal hernia containing a folded loop of the gastric fundus and body as well as intraperitoneal fat. 2 small fluid collections are also identified in a right paraesophageal region. There are some gastric varices identified surrounding the herniated portion of the stomach. The lung escobar are otherwise clear. There is no adenopathy identified. No aortic aneurysm. There is no pericardial effusion. The upper abdominal images demonstrate ascites and cirrhosis. IMPRESSION: Large left pleural effusion and left lung basilar opacity best explained on the basis of a large hiatal hernia and a sympathetic left effusion associated with the patient's ascites and liver disease. No evidence of an underlying malignancy. ACT 112: Negative or not required by law. Electronically signed by: Isatu Hernandez M.D. 12/15/2024 1:46 PM Thoracentesis/Paracentesis US 12/16/24 00:00 ULTRASOUND-GUIDED LEFT THORACENTESIS CLINICAL HISTORY: Left pleural effusion PROCEDURE: Procedure and risks were explained. Informed consent was obtained. A final timeout was completed. The left posterior thorax was prepped and draped in sterile fashion. 1% lidocaine was utilized for skin anesthesia. Utilizing ultrasound guidance, a 5 Ivorian safety centesis catheter was advanced into the left pleural effusion. Ultrasound images were obtained. A total of 1150 mL of angelic-colored pleural fluid was removed and sent to the lab. The catheter was removed and Band-Aid applied. The patient tolerated the procedure well. A chest x-ray will be obtained post procedure. Vital signs will be monitored on the floor. IMPRESSION: Ultrasound-guided left thoracentesis as above. Performed, dictated, and signed by Manolo Srinivasan PA-C; to be co-signed by Dr. Charan Lubin. Electronically signed by: Charan Lubin M.D. 12/16/2024 12:08 PM Chest X-Ray 12/16/24 10:48 XR chest 1V not portable CLINICAL HISTORY: Status post left thoracentesis COMPARISON STUDY: Chest CT dated 12/15/2024 FINDINGS: Single view chest demonstrates the virtually all of the left pleural fluid has been removed. There is no pneumothorax. Large hiatal hernia is present. The lung escobar are clear. IMPRESSION: No pneumothorax ACT 112: Negative or not required by law. Electronically signed by: Isatu Hernandez M.D. 12/16/2024 11:24 AM
[2024-12-16] MEDS: MULTIVITAMIN TAB PO SCH (08:20)
[2024-12-16] MEDS: PANTOprazole 40 MG TAB PO SCH (08:20)
[2024-12-16] MEDS: FOLIC ACID 1 MG TAB PO SCH (08:20)
[2024-12-16] MEDS: THIAMINE HCL 100 MG TAB PO SCH (08:20)
[2024-12-16] MEDS: METOPROLOL SUCC 25MG EXT REL TAB PO SCH (08:21)
[2024-12-16] MEDS: PHYTONADIONE 5 MG TAB PO STA (08:52)
[2024-12-16] MEDS ORDERED: SPIRONOLACTONE 25 MG TAB PO SCH (09:00)
--- NOTE | 2024-12-16 10:21 | Pulmonary Consultation ---
Date of Consultation December 16, 2024 Assessment & Plan (1) Pleural effusion: LEFT-sided effusion appreciated on CT imaging. Likely second to the patient's underlying cirrhosis with large volume abdominal ascites. Underwent successful thoracentesis with 1 L removal. Fluid sent for evaluation. Continue with m anagement of his ascites with hopes for preventing reaccumulation. (2) Influenza A: Symptomatic management as you are. (3) Alcoholic hepatitis with ascites: Per service and GI management. Plan Thank you for allowing us participate in the care of this pleasant patient. History of Present Illness Reason for Consultation: Left-sided pleural effusion Requesting Physician: Dr. Pacheco, PhD, DO Attending Physician: Galo Holder DO History of Present Illness Patient is a 58-year-old male with a significant past medical history of cirrhosis secondary to alcoholism, hyperlipidemia, hypertension, anemia, GERD, and refractory ascites who presented in the setting of ascites with dyspnea. He underwent paracentesis yesterday with 1.[address] demonstrated moderate LEFT- sided effusion with recommendation for dedicated CT. CT demonstrates effusion. Pulmonary medicine consulted for thoracentesis for characterization of fluid. I had attempted to see the patient earlier in the morning, however he was being rounded on by resident service. Eventually, after he had undergone thoracentesis, I was able to speak to the patient. He has mild discomfort at the site of insertion. Otherwise, he does feel as though he can take a deeper breath. He has no chest pain or palpitations. No hemoptysis. He denies any past medical history of pulmonary disease. He is a lifelong non-smoker. 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 Allergies Allergy/AdvReac Type Severity Reaction Status Date / Time No Known Allergies Allergy Verified 12/09/24 13:09 Home Medications Medication Instructions Recorded Confirmed Type folic acid 1 mg tablet 1 mg PO QAM #30 tabs 12/09/24 12/15/24 Rx furosemide 40 mg tablet 40 mg PO QAM #30 tabs 12/09/24 12/15/24 Rx metoprolol succinate 25 mg 25 mg PO QAM #30 tabs 12/09/24 12/15/24 Rx tablet,extended release 24 hr multivitamin with folic acid 400 1 tab PO QAM #30 tabs 12/09/24 12/15/24 Rx mcg tablet (Daily-Shannon (with folic acid)) pantoprazole 40 mg tablet,delayed 40 mg PO QAM 30 days #30 tabs 12/09/24 12/15/24 Rx release potassium chloride 20 mEq 20 meq PO DAILY #30 tabs 12/09/24 12/15/24 Rx tablet,extended release spironolactone 25 mg tablet 25 mg PO QAM #30 tabs 12/09/24 12/15/24 Rx thiamine HCl (vitamin B1) 100 mg 100 mg PO QAM #30 tabs 12/09/24 12/15/24 Rx tablet Patient History Medical History Mild acid reflux Anxiety Surgical History H/O umbilical hernia repair [place] teeth extracted H/O oral surgery H/O inguinal hernia repair Family History Mother Alcohol abuse Depression Father Alcohol abuse Heart disease Kidney disease Myocardial infarction Uncle Myocardial infarction Denies family history of Ovarian cancer Prostate cancer Breast cancer Colorectal cancer Social History (Updated 12/09/24 @ 13:12 by SAMI Barboza) Smoking Status: Never smoker Second Hand Exposure: Yes (parents growing up); Do You Dip or Chew Tobacco: No; Hx Alcohol Use: Yes Alcohol type: wine Alcohol Intake Frequency: 4 or More x per/Week Alcohol Intake Frequency Comment: 8-15 Hx Substance Use: No Preferred Language: Kosovan Communication Ability: Effective Ethylbenzene Converter Helper Required: No Beliefs That Will Affect Care: None marital status: Single Current Living Situation: Family Feels Safe at Home: Yes Dental Care, Regularly: No Physical Activity Frequency: Daily Seatbelt Use: always Sunscreen Use: Yes Assistive Devices: Glasses Review of Systems Review of Systems: A complete 10 point review of systems was reviewed with the patient with pertinent positives and negatives as per history of present illness. All else were negative. Physical Exam Physical Exam: VITAL SIGNS Vital signs and nursing notes were reviewed. GENERAL 58-year-old male appearing his stated age who is in no acute distress. Communicates well with provider and answers questions appropriately. SKIN Without rashes or lesions. NOSE Midline and without cyanosis. MOUTH/OROPHARYNX Without perioral cyanosis. NECK Neck with FROM. LUNGS Chest wall evaluation demonstrates a normal chest wall A:P diameter. Auscultation reveals clear breath sounds bilaterally. CARDIAC RRR with S1/S2. No murmur, rubs, or gallops appreciated. ABDOMEN Abdominal inspection demonstrates a protuberant abdomen. No TTP. EXTREMITIES Nail clubbing not present. No peripheral cyanosis. No pretibial edema present. +3/5 radial palpated throughout. PSYCH A&Ox3 and cooperates fully with examiner. Pt is very pleasant and interacts well with examiner. Results & Data Results & Data Vital Signs (Past 12 Hours) Vital Signs Temp Pulse Pulse Resp BP BP Pulse Ox 12/16/24 07:12 36.4 C L 80 18 89/46 L 98 12/16/24 03:04 100/62 12/16/24 02:45 37.8 C H 90 17 92/57 L 94 12/16/24 00:00 87 12/15/24 22:39 37.6 C H 85 17 92/49 L 95 O2 Del Method 12/16/24 07:12 Room Air 12/16/24 03:04 12/16/24 02:45 Room Air 12/16/24 00:00 12/15/24 22:39 Room Air PG Care Time/CCT Total # of Minutes Spent Total Time Spent with Patient: Total time spent is greater than 50% in coordination of care (as documented) at patient's floor/unit and/or counseling patient: Coding Level of Care Code 42000 IN/OBS CONSULT LVL 3,45M Diagnoses Pleural effusion J90 Influenza A J10.1 Alcoholic hepatitis with ascites K70.11
--- NOTE | 2024-12-16 11:25 | XRay Report ---
XR chest 1V not portable CLINICAL HISTORY: Status post left thoracentesis COMPARISON STUDY: Chest CT dated 12/15/2024 FINDINGS: Single view chest demonstrates the virtually all of the left pleural fluid has been removed . There is no pneumothorax. Large hiatal hernia is present. The lung escobar are clear. IMPRESSION: No pneumothorax ACT 112: Negative or not required by law. Electronically signed by: Isatu Hernandez M.D. 12/16/2024 11:24 AM
--- NOTE | 2024-12-16 11:53 | Ultrasound Report ---
ULTRASOUND-GUIDED LEFT THORACENTESIS CLINICAL HISTORY: Left pleural effusion PROCEDURE: Procedure and risks were explained. Informed consent was obtained. A final timeout was com pleted. The left posterior thorax was prepped and draped in sterile fashion. 1% lidocaine was utilize d for skin anesthesia. Utilizing ultrasound guidance, a 5 Maltese safety centesis catheter was advanced into the left pleural effusion. Ultrasound images were obtained. A total of 1150 mL of angelic-colored pleural fluid was rem yovany and sent to the lab. The catheter was removed and Band-Aid applied. The patient tolerated the pr ocedure well. A chest x-ray will be obtained post procedure. Vital signs will be monitored on the zelalem or. IMPRESSION: Ultrasound-guided left thoracentesis as above. Performed, dictated, and signed by Manolo Srinivasan PA-C; to be co-signed by Dr. Charan Lubin. Electronically signed by: Charan Lubin M.D. 12/16/2024 12:08 PM
[2024-12-16 12:00] LABS: Amylase Pleural Fluid 27 U/L; Glucose Pleural Fluid 120 mg/dl; LDH Pleural Fluid 73 U/L; Total Protein Pleural Fluid < 3.0 gm/dl
[2024-12-16 12:35] LABS: Appearance Pleural Fluid Bloody; Color Pleural Fluid Amber; Lymphocytes, Fluid 11 %; Mono,Macrophage,Mesothelial 86 %; Neutrophils, Fluid 3 %; RBC Pleural Fluid Auto 31000 /uL; Source Pleural Fluid Left Lung; WBC Pleural Fluid Auto 598 /uL
[2024-12-16] MEDS: SPIRONOLACTONE 25 MG TAB PO SCH (15:29)
[2024-12-16] MEDS: cefTRIAXone SODIUM 2,000 MG/50 ML BAG IV SCH (15:29)
--- NOTE | 2024-12-16 18:29 | Billing Data ---
Date of Service December 16, 2024 Coding Level of Care Code 87636 SUB INP/OBS CARE MIN
[2024-12-17 05:56] LABS: Basophils # (auto) 0.01 K/uL (0.00-0.20); Basophils % (auto) 0.4 %; Eosinophils # (auto) 0.02 K/uL (0.00-0.50); Eosinophils % (auto) 0.7 %; Hematocrit (blood only) 25.9 % (42.0-52.0); Hemoglobin 9.1 g/dl (14.0-18.0); Lymphocytes # (auto) 0.95 K/uL (1.20-3.40); Lymphocytes % (auto) 34.8 %; Mean Corpuscular Hemoglobin 35.1 pg (25.0-34.0); Mean Corpuscular Hgb Conc 35.1 g/dL (32.0-36.0); Mean Platelet Volume 10.1 fL (9.4-12.4); Monocytes # (auto) 0.52 K/uL (0.11-0.59); Neutrophils # (auto) 1.23 K/uL (1.40-6.50); Neutrophils % (auto) 45.1 %; Platelet Count 70 K/uL (130-400); RDW Coefficient of Variation 11.9 % (11.5-14.5); RDW Standard Deviation 43.5 fL (36.4-46.3); Red Blood Count 2.59 M/uL (4.70-6.10); White Blood Count 2.73 K/ul (4.8-10.8)
[2024-12-17 06:12] LABS: Albumin Globulin Ratio 0.7 (0.9-2); Albumin Level 2.3 gm/dl (3.4-5.0); BUN Creatinine Ratio 16.9 (10-20); Bilirubin,Total 5.1 mg/dl (0.2-1.0); Calcium 7.7 mg/dl (8.6-10.3); Globulin 3.4 gm/dl (2.5-4.0); Potassium 3.6 mmol/L (3.5-5.1); Total Protein 5.7 gm/dl (6.0-8.3)
[2024-12-17 06:21] LABS: INR 1.5 (0.9-1.1); Prothrombin Time 15.7 Seconds (9.0-12.0)
--- NOTE | 2024-12-17 09:01 | Hospitalist Progress Note ---
Date of Service December 17, 2024 Assessment & Plan (1) Abdominal ascites: (2) Hyponatremia: (3) Macrocytic anemia: (4) Influenza A: (5) Alcoholic hepatitis with ascites: Plan Momo, 58 y/o with a PMHx of alcoholic cirrhosis c/b ascites/pleural effusion, anemia, GERD, HTN presented with worsening ascites and BLE swelling admitting for management of decompensated cirrhosis. #Decompensated alcoholic cirrhosis with ascites and pleural effusion Paracentesis 5.1L - therapeutic only. Thoracentesis 1L. MELD 25. Maddrey 29, no steroids indicated. On CTX as there was c/f SBP and fluid studies unavailable. Light's criteria transudative process. continue CTX continue spironolactone 50 mg - increase as BP tolerates, resume Lasix at 20 mg daily MELD labs f/u sputum culture continue folic acid/thiamine, replete K/Mg as indicated #Alcohol use disorder Commend sobriety. Last drink prior to admission 11/24/2024. If difficulty with cravings could add naltrexone. #Influenza A Relatively asymptomatic. Droplet precautions Chronic conditions: GERD - continue PPI Code status: full DVT ppx: SCDs FENGI: HH, fluid restriction 1500 mL Dispo: PCU/Tele, needs hepatology follow up outpatient Admission and Anticipated Discharge Date Admission Date: December 15, 2024 Supervising Physician Co-Signing Physician Notes I personally examined the patient and verified all levy points of history and exam, discussed case, and agree with decision making with Dr Bauman seen multiple times today - sleeping each time. in d/w dr bauman pt stable/overall better but doesn't quite feel up to going home yet - because of this allowed pt to rest vitals noted nad heent nc at mmm breathing unlabored no accessory muscles good effort skin no rashes no pallor or icterus cirrhosis/ascites - s/p para and thora. suspect fever from flu but can't r/o SBP - para was therapeutic but tried to add studies - unable to -using rocephin empirically but also since not clearly SBP would hold on prophylaxis after for now until/unless situation proves to be SBP. currently sober x almost a month. will need hepatology as outpt. titrate diuretics, hopefully home tomorrow otherwise as above Subjective Patient doing well today. Has some pain at the needle sites otherwise breathing and abdominal pain much better. No fevers or chills. Does not feel up to going home today. Review of Systems 2 Review of Systems: See HPI Physical Exam 2 Physical Exam: Gen: older than stated age, NAD HEENT: AT NC MMM Resp: CTAB no wheezing no increased work of breathing CV: RRR no m/r/g clinically well perfused Abd: +BS soft, non-tender, distended MSK: no obvious deformities Skin: no rashes or bruising Neuro: alert and oriented Psych: appropriate mood and affect Results & Data Results & Data Vital Signs (Past 12 Hours) Vital Signs Temp Pulse Pulse Resp BP Pulse Ox O2 Del Method 12/17/24 07:29 37.2 C 83 19 111/70 95 Room Air 12/17/24 03:15 36.7 C 88 17 104/71 98 Room Air 12/16/24 22:56 36.9 C 72 17 108/66 95 Room Air 12/16/24 21:58 82 Laboratory Results 12/17/24 05:30 12/17/24 05:30 Resident Activity Tracking Resident Involvement: Resident Care Provided Care Provided: Adult Hospital Medicine
[2024-12-17] MEDS: FUROSEMIDE 20 MG TAB PO ONE (12:08)
--- NOTE | 2024-12-17 14:48 | Billing Data ---
Date of Service December 17, 2024 Coding Level of Care Code 41960 SUB INP/OBS CARE
[2024-12-18 07:20] LABS: Hematocrit (blood only) 27.2 % (42.0-52.0); Hemoglobin 9.9 g/dl (14.0-18.0); Mean Corpuscular Hemoglobin 36.5 pg (25.0-34.0); Mean Corpuscular Hgb Conc 36.4 g/dL (32.0-36.0); Mean Corpuscular Volume 100.4 fL (80.0-100.0); Mean Platelet Volume 10.4 fL (9.4-12.4); Platelet Count 78 K/uL (130-400); RDW Coefficient of Variation 11.8 % (11.5-14.5); Red Blood Count 2.71 M/uL (4.70-6.10); White Blood Count 3.46 K/ul (4.8-10.8)
[2024-12-18 07:36] LABS: Albumin Globulin Ratio 0.6 (0.9-2); Albumin Level 2.4 gm/dl (3.4-5.0); BUN Creatinine Ratio 19.6 (10-20); Bilirubin,Total 4.5 mg/dl (0.2-1.0); Calcium 7.8 mg/dl (8.6-10.3); Creatinine Clr Calc Pharmacy 157.8 ml/min; Globulin 3.7 gm/dl (2.5-4.0); Potassium 3.6 mmol/L (3.5-5.1); Total Protein 6.1 gm/dl (6.0-8.3)
[2024-12-18 07:42] LABS: INR 1.4 (0.9-1.1); Prothrombin Time 14.9 Seconds (9.0-12.0)
[2024-12-18] MEDS: FUROSEMIDE 20 MG TAB PO SCH (08:33)
--- NOTE | 2024-12-18 12:26 | Hospitalist Progress Note ---
Date of Service December 18, 2024 Assessment & Plan (1) Abdominal ascites: (2) Hyponatremia: (3) Macrocytic anemia: (4) Influenza A: (5) Alcoholic hepatitis with ascites: Plan Momo, 58 y/o with a PMHx of alcoholic cirrhosis c/b ascites/pleural effusion, anemia, GERD, HTN presented with worsening ascites and BLE swelling admitting for management of decompensated cirrhosis. #Decompensated alcoholic cirrhosis with pancytopenia, ascites, and transudative pleural effusion Paracentesis 5.1L - therapeutic only. Thoracentesis 1L - Sputum culture - normal patricia. Pleural fluid - NGTD. MELD 26. Maddrey 29, no steroids indicated. On CTX as there was c/f SBP and fluid studies unavailable - will switch to PO abx and complete 5 day course. I do not think this was truly SBP as fever explainable by positive flu test. Subsequently, I do not think requires detention ppx. Up- titrate spironolactone-Lasix as BP tolerates: 25mg / 0mg --> 50mg /20mg --> 100mg / 40mg. Currently on spironolactone 50 mg/Lasix 20mg. Would not do salt tabs as it can lead to fluid retention. H&H stable. Recheck CBC/CMP outpatient. #Alcohol use disorder Commend sobriety. Last drink prior to admission 11/24/2024. If difficulty with cravings could add naltrexone. #Influenza A Relatively asymptomatic. Droplet precautions Chronic conditions: GERD - continue PPI Code status: full DVT ppx: SCDs FENGI: HH, fluid restriction 1500 mL Dispo: PCU/Tele, needs hepatology follow up outpatient Admission and Anticipated Discharge Date Admission Date: December 15, 2024 Supervising Physician Co-Signing Physician Notes I personally examined the patient and verified all levy points of history and exam, discussed case, and agree with decision making with Dr Bauman feeling better walking well discussed Na being more of a water retention issue discussed spironolactone discussed not adding salt. support better for him starting tomorrow. vitals noted nad heent nc at mmm breathing unlabored no accessory muscles good effort skin no rashes no pallor or icterus cirrhosis/ascites - s/p para and thora. suspect fever from flu but can't r/o SBP - para was therapeutic but tried to add studies - unable to -using rocephin empirically but also since not clearly SBP would hold on prophylaxis after for now until/unless situation proves to be SBP. currently sober x almost a month. will need hepatology as outpt. titrate diuretics, hopefully home tomorrow (thought today - but family support better tomorrow) otherwise as above Subjective Patient doing well today. Has a few questions - wondering about salt tabs, pleural fluid results. Can have family pick him up tomorrow morning. Review of Systems 2 Review of Systems: See HPI Physical Exam 2 Physical Exam: Gen: older than stated age, NAD HEENT: AT NC MMM Resp: CTAB no wheezing no increased work of breathing CV: RRR no m/r/g clinically well perfused Abd: +BS soft, non-tender, distended MSK: no obvious deformities Skin: no rashes or bruising Neuro: alert and oriented Psych: appropriate mood and affect Results & Data Results & Data Laboratory Results 12/18/24 06:06 12/18/24 06:06 Resident Activity Tracking Resident Involvement: Resident Care Provided Care Provided: Adult Hospital Medicine
--- NOTE | 2024-12-18 18:19 | Billing Data ---
Date of Service December 18, 2024 Coding Level of Care Code 81989 SUB INP/OBS CARE
--- NOTE | 2024-12-19 09:51 | Discharge Summary ---
Date of Service December 19, 2024 Admission HPI Per Admitting Provider Pleasant 58-year-old male with a history of alcoholism. He was admitted in November 2024 with volume overload with significant ascites and peripheral edema. The patient received a therapeutic paracentesis at that time was IV diuresed. He has been following his fluid restriction and he has been following his diuretic regimen. He has had no alcohol since his prior admission in November. Despite this, he has had increasing lower extremity edema and abdominal ascites to the point where he cannot bend over to tie his shoes in fact he cannot even get his shoes on due to the pedal edema he presented to the ER today for further evaluation and treatment of his decompensated liver cirrhosis, peripheral edema and ascites. Laboratory studies in the ER demonstrated his baseline cirrhosis with pancytopenia but stable, hyper bilirubinemia but is stable. Transaminitis stable. Mild hypomagnesemia at 1.5. Auto coagulopathy with a baseline INR 1.5- stable. Hyponatremia at 126 with a baseline of approximately 130. Potassium low normal at 3.5. Patient had a BioFire done which did come back positive for influenza A. The patient's shortness of breath has been ongoing for a couple weeks. There has been no change in this except the progression associated with his increasing ascites/abdominal girth and peripheral edema. The patient is on room air therefore we will just do supportive care at this point. CT of the chest showed a persistent left radiology is recommended an enhanced CT of the chest for further delineation. I suspect this is secondary to the patient's decompensated cirrhosis and significant ascites. Will do a CT of the chest after abdominal paracentesis for further evaluation. Admission Exam Per Admitting Provider In General: In general very pleasant 58-year-old male who is alert and oriented x 3 at the time of my exam. He is in no acute respiratory distress whatsoever at rest. But he does say he gets fairly short of breath with exertion given his edema and abdominal girth/ascites. HEENT: Normocephalic atraumatic pupils are equal round and reactive to light bilaterally. No scleral icterus no conjunctival injection external auditory canals are patent septum is in the midline nose is without discharge oral mucosa is pink and moist without lesion. NECK: Supple no rigidity no lymphadenopathy no thyromegaly no carotid bruits no JVD no masses. HEART: Regular rate and rhythm I do not appreciate any ectopy or rub. No murmur. LUNGS: Diminished bilaterally. No wheezes rales or rhonchi. ABDOMEN: Taut abdominal ascites. Nontender. No rebound. No peritoneal sign. Remaining abdominal exam equivocal due to his taut ascites. EXTREMITIES: Intact, no peripheral cyanosis, clubbing. The patient has 3-4+ pitting edema pretibial and a significant edema extending into the thighs as well. With significant pedal edema as well. Strength is 5 out of 5 in extremities x4, no pathological reflexes. NEUROLOGICAL: Cranial nerves II through XII are grossly intact with no focal deficit elicited upon examination. Principal Diagnosis Decompensated alcoholic cirrhosis with pancytopenia, ascites, and transudative pleural effusion Discharge Exam Gen: older than stated age, NAD HEENT: AT NC MMM Resp: CTAB no wheezing no increased work of breathing CV: RRR no m/r/g clinically well perfused Abd: +BS soft, non-tender, distended MSK: no obvious deformities Skin: no rashes or bruising Neuro: alert and oriented Psych: appropriate mood and affect Discharge Data Allergies Allergy/AdvReac Type Severity Reaction Status Date / Time No Known Allergies Allergy Verified 12/09/24 13:09 Consultations 12/15/24 11:11 ED Decision to Admit Stat 12/15/24 16:25 Consult Pulmonology Routine Ordered Studies 12/15/24 11:25 IR paracentesis abd w/img US Urgent 12/15/24 11:38 CT chest diagnostic w con Routine 12/16/24 00:00 IR thoracentesis wo tube US Routine Hospital Course (1) Abdominal ascites: (2) Hyponatremia: (3) Macrocytic anemia: (4) Influenza A: (5) Alcoholic hepatitis with ascites: Plan Momo, 58 y/o with a PMHx of alcoholic cirrhosis c/b ascites/pleural effusion, anemia, GERD, HTN presented with worsening ascites and BLE swelling admitting for management of decompensated cirrhosis. #Decompensated alcoholic cirrhosis with pancytopenia, ascites, and transudative pleural effusion Paracentesis 5.1L - therapeutic only. Thoracentesis 1L - Sputum culture - normal patricia. Pleural fluid - NGTD. MELD 26. Maddrey 29, no steroids indicated. On CTX as there was c/f SBP and fluid studies unavailable - will switch to PO Cefpodoxime and complete 5 day course. I do not think this was truly SBP as fever explainable by positive flu test. Subsequently, I do not think requires termite treater helper ppx. Up-titrate spironolactone-Lasix as BP tolerates. Currently on spironolactone 50 mg/Lasix 20mg due to soft BP noted on VS. Would not do salt tabs as it can lead to fluid retention. H&H stable. Advised outpatient f/u with unix architect given risk of fluid reaccumulation, and with PCP. Recheck CBC/CMP outpatient. #Alcohol use disorder Commend sobriety. Last drink prior to admission 11/24/2024. If difficulty with cravings could add naltrexone. #Influenza A Relatively asymptomatic. Supportive treatment Chronic conditions: GERD - continue PPI Will discharge home today. Total Time Total Time Spent Total Time Spent (In Minutes): Alphonse Garcia DO, attending physician, spent 25 minutes myself seeing the patient, reviewing the chart, and documenting today. Discharge Plan Discharge Items Patient Disposition: Home - Self-Care Reason For Visit: ASCITES Discharge Diagnosis: decompensated cirrhosis with ascites and pleural effusion Activity: Per Instructions section Non-emergency contact: Primary Care Provider and Engine Buildup Mechanic Call non-emergency contact if: your pain is not controlled and your temperature is above 101 Follow-up/Referrals: Reny Robles MD [Primary Care Provider] - (Follow up within 1 week) Diet: Heart Healthy Fluids: 1500ml (6 cups) Addtl Attending Provider Instructions: You were seen in the hospital for symptomatic ascites. This can happen when your liver is not functioning properly. We removed the fluid from your abdomen and from your lungs. This helped with your breathing as well as your pain. The fluid may build up again over time. You will need to establish with a unix architect (liver doctor) to come up with a plan for if the fluid reaccumulates. You have significant liver disease and may end up needing a liver transplant. It will be important to set up with a transplant team as well. I would recommend discussing the timing of this with your unix architect. We will be discharging you today with an increased dose of your Spironolactone (take 50 mg daily) and Lasix (Furosemide) 20 mg daily. It is important to also follow up with your primary care provider within 1 week from time of discharge. When you have fluid sitting it can grow bacteria. This is called spontaneous bacterial peritonitis (SBP) and it can happen in patients with ascites. This typically presents with fever, chills, abdominal pain, and abdominal tenderness. You did have a fever while you were here, which was likely from the flu. Out of an abundance of caution we did elect to treat empirically with antibiotics. We will be sending a script for an antibiotic called Cefpodoxime 200 mg, which you should take by mouth two times a day (morning and night) for 3 more days to complete a total of 5 days of therapy. We advise you to take this with food and water to try and limit the potential gastrointestinal side effects. A discharge summary will be sent to your primary care physician to ensure continuity of care. Please bring this discharge summary with you to your next office appointment so that your provider can review it at that time. Medications: Your medication list has been reviewed and reconciled upon discharge to ensure accuracy and continuity of care. An updated list of all your medications is included with your hospital discharge paperwork. Please review this list closely, and make note of any changes. CONTACT YOUR PRIMARY CARE PROVIDER if you experience any of the following: Worsening of symptoms Fever, chills, or fatigue Difficulty following your treatment plan, or difficulty taking medications CALL 911 OR GO TO THE EMERGENCY DEPARTMENT if you experience any of the following: Sudden, severe abdominal pain or nausea/vomiting Severe chest pain, or chest pain that radiates (moves) to your jaw or arm Sudden, severe shortness of breath or difficulty breathing Thank you for allowing us to participate in your care. Pending Studies at Discharge: Yes Studies:: sputum culture Stand-Alone Forms: My [facility], Smoking Cessation Medications and DC Order Prescriptions: New spironolactone 25 mg Tablet 50 mg PO QAM Qty: 30 0RF furosemide 20 mg Tablet 20 mg PO QAM Qty: 30 0RF cefpodoxime 200 mg tablet 200 mg PO Q12H 3 Days Qty: 6 0RF Rx Instructions: must administer with a meal/food Continued potassium chloride 20 mEq tablet extended release 20 meq PO DAILY Qty: 30 3RF pantoprazole 40 mg tablet,delayed release (DR/EC) 40 mg PO QAM 30 Days Qty: 30 3RF multivitamin with folic acid [Daily-Shannon (with folic acid)] 400 mcg tablet 1 tab PO QAM Qty: 30 3RF folic acid 1 mg tablet 1 mg PO QAM Qty: 30 3RF metoprolol succinate 25 mg tablet extended release 24 hr 25 mg PO QAM Qty: 30 3RF thiamine HCl (vitamin B1) 100 mg tablet 100 mg PO QAM Qty: 30 3RF Discontinued furosemide 40 mg tablet 40 mg PO QAM Qty: 30 3RF spironolactone 25 mg tablet 25 mg PO QAM Qty: 30 3RF Discharge Orders: Discharge Order (Routine); Ordered 12/19/24 Ordered By: Hedy Duvall Admission Data Admit Date/Time: 12/15/24 11:31 Attending Provider: Alphonse Mora Admit Provider: Delio Pacheco Primary Care Provider: Reny Robles Other Providers: Delio Pacheco; Tung Butler Other Interventions: Discharge Summary Assessment (RN) Last Done: 12/19/24 12:54 Supervising Physician Co-Signing Physician Notes ATTESTATION I also saw the patient and confirmed levy portions of the history and exam. I agree with the impression and plan in the resident documentation, and as summarized below. Patient without new complaints this morning. He is hoping for discharge. EXAM 98/62, 83, 20, 36.8, 93% room air alert and oriented. No distress appreciated. Heart regular rate and rhythm lungs clear with nonlabored respirations abdomen is distended but nontender DATA Labs no new lab work on day of discharge Micro pleural fluid collected 12/16/2024 acid-fast bacilli smear negative, culture pending pleural fluid collected 12/16/2024 Gram stain negative, culture showing no growth to date. Sputum collected 12/15/2024 Gram stain negative, culture demonstrating heavy normal patricia growth. IMPRESSION & PLAN Decompensated alcoholic cirrhosis with pancytopenia, ascites, and transudative pleural effusion alcohol use disorder influenza A patient has support needed help for discharge today titration of diuretics limited due to relatively low blood pressures; may be able to increase as outpatient discussed need for continued outpatient follow-up and alcohol abstinence Additional per resident documentation Resident Activity Tracking Resident Involvement: Resident Care Provided Care Provided: Adult Hospital Medicine
[2024-12-19 10:40] VITALS: RESP 20; TEMP 98.2; O2SAT 93
[2024-12-19 12:55] VITALS: BP 92/57; PULSE 83
--- NOTE | 2024-12-20 08:45 | Coding Query ---
To promote full compliance with coding requirements relating to patient care, provider participation is requested in all cases of group captain uncertainty. Please assist us with the question(s) below: Coding Question(s): The diagnosis below was documented in the hospitalist progress note from 12/16/24 then subsequently fell off all further documentation. Please indicate if it is still a possible diagnosis or ruled out. Physician's Response(s): Spontaneous Bacterial Peritonitis ( ) Diagnosed and POA ( ) Diagnosed and not POA ( X ) Ruled out ( ) Other (please specify) MTDD
== END 2024-12-19 14:15 | disposition home or self-care (01) | DRG 433 ==
LOC: ED 08:42 → SUATTDRO 11:31 → 2S 11:31

== ENCOUNTER 2025-01-17 14:38 | Inpatient (IN) ==
[2025-01-17 15:23] LABS: Basophils # (auto) 0.02 K/uL (0.00-0.20); Basophils % (auto) 0.2 %; Eosinophils # (auto) 0.03 K/uL (0.00-0.50); Eosinophils % (auto) 0.3 %; Hematocrit (blood only) 28.4 % (42.0-52.0); Hemoglobin 10.1 g/dl (14.0-18.0); Immature Granulocytes # (auto) 0.04 K/uL (0.01-0.20); Immature Granulocytes % (auto) 0.4 %; Lymphocytes # (auto) 0.81 K/uL (1.20-3.40); Lymphocytes % (auto) 8.1 %; Mean Corpuscular Hemoglobin 35.4 pg (25.0-34.0); Mean Corpuscular Hgb Conc 35.6 g/dL (32.0-36.0); Mean Corpuscular Volume 99.6 fL (80.0-100.0); Mean Platelet Volume 8.9 fL (9.4-12.4); Monocytes # (auto) 1.21 K/uL (0.11-0.59); Monocytes % (auto) 12.1 %; Neutrophils # (auto) 7.91 K/uL (1.40-6.50); Neutrophils % (auto) 78.9 %; Platelet Count 167 K/uL (130-400); RDW Coefficient of Variation 13.2 % (11.5-14.5); RDW Standard Deviation 48.5 fL (36.4-46.3); Red Blood Count 2.85 M/uL (4.70-6.10); White Blood Count 10.02 K/ul (4.8-10.8)
[2025-01-17 15:42] LABS: Albumin Level 3.1 gm/dl (3.4-5.0); Anion Gap 7 (3-11); Bilirubin,Total 9.8 mg/dl (0.2-1.0); Carbon Dioxide 24 mmol/L (21-32); Chloride 92 mmol/L (98-107); Potassium 4.7 mmol/L (3.5-5.1); Sodium 123 mmol/L (136-145)
[2025-01-17 15:48] LABS: Alanine Aminotransferase 30 U/L (7-52); Albumin Globulin Ratio 0.6 (0.9-2); Alkaline Phosphatase 66 U/L (34-104); Aspartate Aminotransferase 87 U/L (13-39); BUN Creatinine Ratio 19.5 (10-20); Blood Urea Nitrogen 15 mg/dl (6-23); Glucose 114 mg/dl (70-99(Fasting)); Lipase 87 U/L (11-82); Total Protein 8.1 gm/dl (6.0-8.3)
[2025-01-17 15:53] LABS: Appearance Urine Clear (Clear); Bacteria Urine Automated None Seen (None Seen); Bilirubin Urine 1+ (Negative); Blood Urine Negative (Negative); Color Urine Dark Yellow; Epithelial Cell Urine Auto 0-2 /hpf (0-2); Glucose Urine UA Negative (Negative); Ketones Urine Trace (Negative); Leukocyte Esterase Urine Trace (Negative); Nitrite Urine Negative (Negative); Protein Urine Negative (Negative); RBC Urine Automated 0-2 /hpf (0-2); Specific Gravity Urine 1.015 (1.000-1.030); Urobilinogen Urine Positive (Negative); WBC Urine Automated 0-5 /hpf (0-5)
[2025-01-17] MEDS: OPTIRAY 320 100ml IV ONE (17:21)
--- NOTE | 2025-01-17 17:30 | Emergency Department Note ---
Impression & Plan Acute liver failure, Alcoholic hepatitis with ascites, Ascites, Jaundice, Edema, Anemia ED Provider Note NAME: MICHAEL DE LA CRUZ AGE: 59 SEX: M : 1965 ARRIVES VIA: Ambulance INFORMANT: [Patient] ED PROVIDER(S): [Meir Mendes MD] CHIEF COMPLAINT: Abdominal pain HISTORY OF PRESENT ILLNESS: The patient is a 59-year-old male who was sent by the GI clinic to our ER for admission. He had presented to their facility and was found to be quite jaundiced with a bilirubin around 10. He was suffering from ascites with a distended abdomen. He had edema of his lower extremities. He seemed weak and washed out and they felt hospitalization, workup and paracentesis would be warranted. The patient states he is unsure the last time he did have a paracentesis. He does have alcoholic liver disease but has not had any alcohol for a few months. He complains of diffuse abdominal pain, no fever, no cough or cold. No urinary complaints. He does have pedal edema right now and it is above his typical baseline. PMHx/PSHx/Social Hx: See Below PHYSICAL EXAM: GENERAL: Patient is in no acute distress. Thin and frail appearing. HEENT: No acute trauma, normocephalic atraumatic, mucous membranes moist, no nasal congestion. NECK: No stridor, no adenopathy, no meningismus, trachea is midline. LUNGS: Clear to auscultation bilaterally, no wheeze, no rhonchi, breath sounds equal. HEART: Mildly tachycardic with a regular rhythm. No murmurs. ABDOMEN: Firm, quite distended. No real discomfort with palpation. EXTREMITIES: No cyanosis, full range of motion of all the joints without pain or difficulty. Significant bilateral pedal edema. NEUROLOGIC: Oriented x 3, no acute motor or sensory deficits, no focal weakness. SKIN: Moderate jaundice, no diaphoresis. DIFFERENTIAL DIAGNOSIS: Ascites, liver or renal failure, electrolyte imbalance, UTI, among others. EMERGENCY DEPARTMENT PROCEDURES: MEDICAL DECISION MAKING: There is no leukocytosis. The patient is anemic however, this appears to be a chronic issue. There is a normal platelet count. INR was elevated, likely from his liver disease. The patient's sodium was low at 123 however, this is a chronic issue. There was no renal failure. Lactic acid level was elevated, likely consistent with dehydration and his liver disease, I doubt the lactate was elevated due to sepsis. Bilirubin was quite high at nearly 10. Lipase was mildly elevated but not high enough to diagnose pancreatitis. Urinalysis did not show infection. Alcohol level was undetectable. Abdominal and pelvis CT shows ascites, no bowel obstruction. On exam, the patient was jaundiced, thin and frail, he had obvious ascites as well as pedal edema. The patient was given a 500 cc saline bolus. He received IV morphine for pain as needed. I did speak with GI. The patient is to be hospitalized. He will likely undergo paracentesis tomorrow. The patient's presentation is multifactorial. He has known alcoholic liver disease, his liver disease is worsening, his ascites and pedal edema are worsening, he is more frail and fatigued. I spoke with case management, the on-call hospitalist was consulted. Prior/Outside records/notes reviewed: Today's EMS notes describing his presentation and transport to this hospital. Imaging/x-ray results per my interpretation: Chronic Medical/Social conditions affecting care: Known alcoholic liver disease. Care/Management discussed with: Case management and the on-call hospitalist. GI-Dr. Recinos Level of care consideration(s): After review of the information above and other included data: --I believe the patient requires escalation of care to admission DISPOSITION: Admission Past Med/Surg History Problem List (Updated 01/18/25 @ 13:32 by Meir Mendes MD) Anemia (Acute) Edema (Acute) Jaundice (Acute) Ascites (Acute) Acute liver failure (Acute) Alcoholic cirrhosis of liver with ascites Macrocytic anemia Hyponatremia (Acute) Edema, peripheral (Acute) Total bilirubin, elevated (Acute) Abdominal ascites (Acute) Alcoholic hepatitis with ascites (Acute) Cirrhosis (Acute) HLD (hyperlipidemia) Hypertension Medical History Pleural effusion Influenza A Hypokalemia Alcohol withdrawal Mild acid reflux Anxiety Surgical History H/O umbilical hernia repair [place] teeth extracted H/O oral surgery H/O inguinal hernia repair Family History Mother Alcohol abuse Depression Father Alcohol abuse Heart disease Kidney disease Myocardial infarction Uncle Myocardial infarction Denies family history of Ovarian cancer Prostate cancer Breast cancer Colorectal cancer Social History Smoking Status: Never smoker Second Hand Exposure: Yes (parents growing up); Do You Dip or Chew Tobacco: No; Hx Alcohol Use: No Hx Substance Use: No Preferred Language: Latvian Communication Ability: Effective Black Pickler Required: No Beliefs That Will Affect Care: None marital status: Single Current Living Situation: Family Feels Safe at Home: Yes Dental Care, Regularly: No Physical Activity Frequency: Daily Seatbelt Use: always Sunscreen Use: Yes Assistive Devices: Glasses Allergies Allergies Allergy/AdvReac Type Severity Reaction Status Date / Time No Known Allergies Allergy Verified 01/17/25 17:07 Home Meds Previous Rx's Medication Instructions Recorded folic acid 1 mg tablet 1 mg PO QAM #30 tabs 12/09/24 metoprolol succinate 25 mg 25 mg PO QAM #30 tabs 12/09/24 tablet,extended release 24 hr multivitamin with folic acid 400 1 tab PO QAM #30 tabs 12/09/24 mcg tablet (Daily-Shannon (with folic acid)) pantoprazole 40 mg tablet,delayed 40 mg PO QAM 30 days #30 tabs 12/09/24 release potassium chloride 20 mEq 20 meq PO DAILY #30 tabs 12/09/24 tablet,extended release thiamine HCl (vitamin B1) 100 mg 100 mg PO QAM #30 tabs 12/09/24 tablet spironolactone 25 mg tablet 50 mg (2 x 25 mg) PO QAM #30 tabs 12/19/24 furosemide 20 mg tablet 20 mg PO QAM 30 days #30 tabs 01/13/25 Results & Data (ED) Vital Signs Vital Signs - 24 hr 01/17/25 14:43 01/17/25 17:40 01/17/25 17:48 Temperature 36.7 C Temperature Source Temporal Artery Scan Pulse Rate 109 H 106 H Pulse Rate [Apical] 115 H Pulse Rate from SpO2 Sensor 104 H Respiratory Rate 18 32 H 24 Respiratory Effort / Characteristics Non-Labored Spontaneous Labored Respiratory Depth Normal Normal Blood Pressure 118/77 125/85 Blood Pressure [Left Arm] 125/85 Blood Pressure Mean 90 98 Blood Pressure Mean [Left Arm] 98 Blood Pressure Position [Left Arm] Lying Pulse Oximetry 99 98 100 Oxygen Delivery Method Room Air Room Air Sepsis Recent Fever Within 48 Hours No Sepsis New/Unexplained Change in Mental Status N/A Sepsis Action Taken by Nursing No Action Required 01/17/25 17:58 01/17/25 18:03 Temperature Temperature Source Pulse Rate 105 H 103 H Pulse Rate [Apical] Pulse Rate from SpO2 Sensor 103 H Respiratory Rate 27 H Respiratory Effort / Characteristics Respiratory Depth Blood Pressure 125/85 Blood Pressure [Left Arm] Blood Pressure Mean 98 Blood Pressure Mean [Left Arm] Blood Pressure Position [Left Arm] Pulse Oximetry 98 Oxygen Delivery Method Sepsis Recent Fever Within 48 Hours Sepsis New/Unexplained Change in Mental Status Sepsis Action Taken by Skilled Nursing Medications Current Medication List: was personally reviewed by me Laboratory Data Attestation: I reviewed the patient's lab results. 01/17/25 15:09 01/17/25 15:09 Lab Results 01/17/25 01/17/25 01/17/25 Range/Units 15:09 15:21 16:31 WBC 10.02 (4.8-10.8) K/ul RBC 2.85 L (4.70-6.10) M/uL Hgb 10.1 L (14.0-18.0) g/dl Hct 28.4 L (42.0-52.0) % MCV 99.6 (80.0-100.0) fL MCH 35.4 H (25.0-34.0) pg MCHC 35.6 (32.0-36.0) g/dL RDW Std Deviation 48.5 H (36.4-46.3) fL RDW Coeff of Kylee 13.2 (11.5-14.5) % Plt Count 167 (130-400) K/uL MPV 8.9 L (9.4-12.4) fL Immature Gran % (Auto) 0.4 % Neut % (Auto) 78.9 % Lymph % (Auto) 8.1 % [place] % (Auto) 12.1 % Eos % (Auto) 0.3 % Baso % (Auto) 0.2 % Neut # (Auto) 7.91 H (1.40-6.50) K/uL Lymph # (Auto) 0.81 L (1.20-3.40) K/uL [place] # (Auto) 1.21 H (0.11-0.59) K/uL Eos # (Auto) 0.03 (0.00-0.50) K/uL Baso # (Auto) 0.02 (0.00-0.20) K/uL Immature Gran # (Auto) 0.04 (0.01-0.20) K/uL PT 15.8 H (9.0-12.0) Seconds INR 1.5 H (0.9-1.1) APTT 30 (21-31) Seconds PTT Ratio 1.1 Sodium 123 L (136-145) mmol/L Potassium 4.7 (3.5-5.1) mmol/L Chloride 92 L (98-107) mmol/L Carbon Dioxide 24 (21-32) mmol/L Anion Gap 7 (3-11) BUN 15 (6-23) mg/dl Creatinine 0.77 (0.6-1.4) mg/dl Est Cr Clr Drug Dosing Not Reportable eGFR 103.77 BUN/Creatinine Ratio 19.5 (10-20) Glucose 114 H (70-99(Fasting)) mg/dl Lactate 2.6 H* (0.4-2.0) mmol/L Calcium 9.0 (8.6-10.3) mg/dl Total Bilirubin 9.8 H (0.2-1.0) mg/dl AST 87 H (13-39) U/L ALT 30 (7-52) U/L Alkaline Phosphatase 66 (34-104) U/L Ammonia 26.0 (18-72) umol/L Total Protein 8.1 (6.0-8.3) gm/dl Albumin 3.1 L (3.4-5.0) gm/dl Globulin 5.0 H (2.5-4.0) gm/dl Albumin/Globulin Ratio 0.6 L (0.9-2) Lipase 87 H (11-82) U/L Urine Color Dark Yellow Urine Appearance Clear (Clear) Urine pH 6.0 (4.5-7.5) Ur Specific [place] 1.015 (1.000-1.030) Urine Protein Negative (Negative) Urine Glucose (UA) Negative (Negative) Urine Ketones Trace H (Negative) Urine Blood Negative (Negative) Urine Nitrite Negative (Negative) Urine Bilirubin 1+ H (Negative) Urine Urobilinogen Positive H (Negative) Ur Leukocyte Esterase Trace H (Negative) Urine WBC (Auto) 0-5 (0-5) /hpf Urine RBC (Auto) 0-2 (0-2) /hpf U Hyaline Cast (Auto) 6-10 H (0-2) /lpf U Epithel Cells (Auto) 0-2 (0-2) /hpf Urine Bacteria (Auto) None Seen (None Seen) Ethyl Alcohol mg/dL < 10.0 (<10.0) mg/dl Administered Medications Folic Acid (Folic Acid 1 Mg Tab) 1 mg PO QAM [facility] Stop: 02/16/25 18:14 Last Admin: 01/18/25 09:33 Dose: 1 mg Documented By: Admin: 01/17/25 20:47 Dose: 1 mg Documented By: JOSE Heparin Sodium (Porcine) (Heparin Sod 5,000 Unit/0.5 Ml Vial) 5,000 units SQ Q8 [facility] Stop: 02/16/25 21:59 Last Admin: 01/18/25 05:46 Dose: 5,000 units Documented By: Admin: 01/17/25 22:44 Dose: 5,000 units Documented By: JOSE Metoprolol Succinate (Metoprolol Succ 25mg Ext Rel Tab) [facility] [place] Stop: 02/17/25 08:59 Last Admin: 01/18/25 09:33 Dose: 25 mg Documented By: HELLEN Morphine Sulfate (Morphine Sulfate 2 Mg/Ml Carp) 2 mg IV Q4 PRN PRN Reason: Pain Stop: 01/31/25 21:28 Last Admin: 01/18/25 00:01 Dose: 2 mg Documented By: HUONG Multivitamins (Multivitamin Tab) 1 tab PO QAM [facility] Stop: 02/17/25 08:59 Last Admin: 01/18/25 09:33 Dose: 1 tab Documented By: HELLEN Pantoprazole Sodium (Pantoprazole 40 Mg Tab) 40 mg PO QAM [facility] Stop: 02/17/25 08:59 Last Admin: 01/18/25 09:33 Dose: 40 mg Documented By: HELLEN Potassium Chloride (Potassium Chloride Crtab 20 Meq Tabcr) 20 meq PO DAILY [facility] Stop: 02/17/25 08:59 Last Admin: 01/18/25 09:33 Dose: 20 meq Documented By: HELLEN Thiamine HCl (Thiamine Hcl 100 Mg Tab) 100 mg PO QAM [facility] Stop: 02/17/25 08:59 Last Admin: 01/18/25 09:33 Dose: 100 mg Documented By: HELLEN Discontinued Medications Furosemide (Furosemide 20 Mg Tab) [facility] [place] Stop: 02/16/25 18:14 Last Admin: 01/18/25 09:33 Dose: 20 mg Documented By: Admin: 01/17/25 20:47 Dose: 20 mg Documented By: JOSE Sodium Chloride (Nss) 500 mls @ 999 mls/hr IV .Q31M ONE Stop: 01/17/25 17:48 Last Infusion: 01/17/25 20:45 Dose: Infused Documented By: Admin: 01/17/25 17:38 Dose: 999 mls/hr Documented By: JOSE Ioversol (Optiray 320 100ml) 94 ml IV ONCE ONE Stop: 01/17/25 17:22 Last Admin: 01/17/25 17:21 Dose: 94 ml Documented By: RACHEL Spironolactone (Spironolactone 25 Mg Tab) [facility] [place] Stop: 02/17/25 08:59 Last Admin: 01/18/25 09:33 Dose: 50 mg Documented By: HELLEN Discharge Plan Visit Data Chief Complaint: Abdominal Pain Stated Complaint: AB PAIN ED Provider: Meir Mendes Discharge Problem: Acute liver failure, Alcoholic hepatitis with ascites, Ascites, Jaundice, Edema, Anemia Patient Disposition: Admitted As Inpatient Condition: Fair Discharge Instructions Interventions: ED Discharge Assessment Last Done: 01/17/25 22:58 Discharge Problem: Acute liver failure Qualifiers: Hepatic coma status: without hepatic coma Qualified Code(s): K72.00 - Acute and subacute hepatic failure without coma Ascites Qualifiers: Ascites type: due to alcoholic hepatitis Qualified Code(s): K70.11 - Alcoholic hepatitis with ascites Edema Qualifiers: Edema type: unspecified Qualified Code(s): R60.9 - Edema, unspecified Anemia Qualifiers: Anemia type: unspecified type Qualified Code(s): D64.9 - Anemia, unspecified
[2025-01-17] MEDS: SODIUM CHLORIDE 0.9% 500 ML IV ONE (17:38)
[2025-01-17 17:41] LABS: INR 1.5 (0.9-1.1); Partial Thromboplastin Ratio 1.1; Partial Thromboplastin Time 30 Seconds (21-31); Prothrombin Time 15.8 Seconds (9.0-12.0)
--- NOTE | 2025-01-17 18:31 | History & Physical Report ---
Date of Service January 17, 2025 Assessment & Plan (1) Alcoholic cirrhosis of liver with ascites: Plan: paracentesis ordered elevated bilirubin of 9.8 GI consulted lasix spironolactone thiamine multivitamin folic acid (2) Hyponatremia: Plan: Na+ 123 likely 2nd to volume overload receiving lasix spironolactone Nephrology consulted (3) Hypertension: Plan: Metoprolol Plan Heparin SQ for DVT px History of Present Illness Chief Complaint: jaundiced Primary Care Provider: Reny Robles MD Pt is a 59 y/o male with pmh of etoh cirrhosis who presents from GI clinic after being found to be jaundiced with elevated bilirubin of 9.8 along with distended abdomen 2nd to ascites. Pt has had increasing edema to his lower extremities and has been weak and fatigued. His Na+ was 123. Pt states he has not had etoh in a few months. He is being admitted for paracentesis and further evaluation by GI for hyperbilirubinemia an nephrology for hyponatremia. Allergies Allergy/AdvReac Type Severity Reaction Status Date / Time No Known Allergies Allergy Verified 01/17/25 17:07 Home Medications Medication Instructions Recorded Confirmed Type folic acid 1 mg tablet 1 mg PO QAM #30 tabs 12/09/24 01/17/25 Rx metoprolol succinate 25 mg 25 mg PO QAM #30 tabs 12/09/24 01/17/25 Rx tablet,extended release 24 hr multivitamin with folic acid 400 1 tab PO QAM #30 tabs 12/09/24 01/17/25 Rx mcg tablet (Daily-Shannon (with folic acid)) pantoprazole 40 mg tablet,delayed 40 mg PO QAM 30 days #30 tabs 12/09/24 01/17/25 Rx release potassium chloride 20 mEq 20 meq PO DAILY #30 tabs 12/09/24 01/17/25 Rx tablet,extended release thiamine HCl (vitamin B1) 100 mg 100 mg PO QAM #30 tabs 12/09/24 01/17/25 Rx tablet spironolactone 25 mg tablet 50 mg (2 x 25 mg) PO QAM #30 tabs 12/19/24 01/17/25 Rx furosemide 20 mg tablet 20 mg PO QAM 30 days #30 tabs 01/13/25 01/17/25 Rx Past Med/Surg History Problem List (Updated 01/15/25 @ 16:08 by Reyn Robles MD) Alcoholic cirrhosis of liver with ascites Macrocytic anemia Hyponatremia (Acute) Edema, peripheral (Acute) Total bilirubin, elevated (Acute) Abdominal ascites (Acute) Alcoholic hepatitis with ascites Cirrhosis (Acute) HLD (hyperlipidemia) Hypertension Medical History (Updated 01/15/25 @ 16:08 by Reny Robles MD) Pleural effusion Influenza A Hypokalemia Alcohol withdrawal Mild acid reflux Anxiety Surgical History H/O umbilical hernia repair [place] teeth extracted H/O oral surgery H/O inguinal hernia repair Family History Mother Alcohol abuse Depression Father Alcohol abuse Heart disease Kidney disease Myocardial infarction Uncle Myocardial infarction Denies family history of Ovarian cancer Prostate cancer Breast cancer Colorectal cancer Social History Smoking Status: Never smoker Second Hand Exposure: Yes (parents growing up); Do You Dip or Chew Tobacco: No; Hx Alcohol Use: Yes Alcohol type: wine Alcohol Intake Frequency: 4 or More x per/Week Alcohol Intake Frequency Comment: 8-15 Hx Substance Use: No Preferred Language: Ivorian Communication Ability: Effective Lining Mechanic Required: No Beliefs That Will Affect Care: None marital status: Single Current Living Situation: Family Feels Safe at Home: Yes Dental Care, Regularly: No Physical Activity Frequency: Daily Seatbelt Use: always Sunscreen Use: Yes Assistive Devices: None Review of Systems Review of Systems: jaundice, distended abdomen CONST: Negative for fever, body aches and chills. HENT: Negative for neck pain/stiffness, headache, congestion, sore throat, swelling. EYES: Negative for discharge/pain or vision changes. RESP: Negative for cough/hemoptysis and shortness of breath. CV: Negative chest pain, difficulty breathing, palpitations. ABD: Negative pain, nausea, vomiting. : Negative increase frequency, dysuria, blood in urine or stool. MUSC: Negative for muscle aches, edema. SKIN: Negative rash, lesions/sores. NEURO: Negative headache, dizziness, weakness. Physical Exam Physical Exam: GENERAL APPEARANCE NAD, activity normal for age, well developed/ well nourished, no cyanosis, pallor, or diaphoresis. EYES lids/conjunctiva normal. EARS/NOSE/THROAT Mucous membranes moist, nares normal, lips/teeth normal uvula midline without oral pharyngeal erythema, exudate or swelling TMs normal bilaterally. No lymphangitis/lymphedema. HEAD/NECK normocephalic atraumatic, no facial trauma, neck is supple. RESPIRATORY respiratory effort normal, speaks in full sentences, no tripod position, no accessory muscle use. Lungs clear to auscultation without rhonchi, wheezes, rales CARDIAC Regular rate and rhythm, no edema. ABDOMINAL Distended, No evidence of fluid wave. No pulsatile masses on exam, rebound tenderness, Lopez sign or pain over Mcburney's point. MUSCLES/EXTREMITIES No abnormal range of motion, no swelling. SKIN Jaundice, Warm, pink and dry. No rashes, dermatoses, petechiae or lesions. NEUROLOGICAL Speech is clear and appropriate. Normal level of consciousness. Gait and coordination are normal. 5/5 strength in all extremities. PSYCH Normal mood and affect. Judgement/competence is appropriate Results & Data Results & Data Vital Signs (Past 12 Hours) Vital Signs Temp Pulse Pulse Resp BP BP Pulse Ox 01/17/25 17:58 105 H 01/17/25 17:40 115 H 32 H 125/85 98 01/17/25 14:43 36.7 C 109 H 18 118/77 99 O2 Del Method 01/17/25 17:58 01/17/25 17:40 Room Air 01/17/25 14:43 Room Air PG Care Time/CCT Total # of Minutes Spent Total Time Spent with Patient: Total time spent is greater than 50% in coordination of care (as documented) at patient's floor/unit and/or counseling patient: Coding Level of Care Code 29035 INT INP/OBS CARE 2/55MIN Diagnoses Alcoholic cirrhosis of liver with ascites K70.31 Hyponatremia E87.1 Hypertension I10
--- NOTE | 2025-01-17 19:14 | CT Scan Report ---
EXAM: CT abd pelvis IV con only CLINICAL HISTORY: Pain, liver dz. hx of alcohol cirrhosis, increased fatigue, distended abdomen making breathing difficult, on lasix and fluid retention meds. pt reports has had abdomen tapped previously 4 times, TECHNIQUE: Contrast-enhanced CT of the abdomen and pelvis was performed, with the following protocol: axial images with, reconstructed coronal and sagittal images. 94 ml of Optiray was administered. One of the following dose reduction techniques was utilized for this exam: Automated exposure control, adjustment of the mA and/or kV according to patient size, and use of iterative reconstruction. DLP: 1342.83 mGy-cm, CTDI: 35.7 mGy. COMPARISON: 11/25/2024 CT. FINDINGS: Abdomen: Liver: Showed irregular wavy outline with heterogenous CT density Prominent portal vein , multiple shoshana systemic collaterals noted Tiny hypo dense cyst seen at liver dom possibly tiny cys/ chirrotic nodule. Hepatic vasculature and biliary ducts are unremarkable. Gallbladder and Biliary System: Distended with intraluminal calcfic stones The common bile duct is normal in caliber without dilation. Pancreas: The pancreatic head, body, and tail are visualized and appear normal in size and density. No pancreatic masses or calcifications were noted. The pancreatic duct is not dilated. Spleen: Mildly enlarged in size, measured about 16.5 cm Prominent splenic vein No splenic lesions or masses were identified. Appendix: Not well appreciated Kidneys and Adrenal Glands: Both kidneys are normal in size, shape, and position. Cortical thickness is within normal limits. No renal calculi or hydronephrosis. Bulky left adrenal gland Pelvis: Urinary Bladder: not full Prostate: Unremarkable, US study is suggested if warranted clinically. Seminal Vesicles: Normal in size and appearance. No abnormalities noted. Rectum and Sigmoid Colon: Normal wall thickness and no evidence of mass. Peritoneal and Retroperitoneal Structures: Marked ascites is noted , smudging of mesnetric fat planes with prominent mesnetric vessels No lymphadenopathy was noted. Bowel: Long segmental submucosal edema noted at the ascending colon could be reactive colitis. No evidence of bowel obstruction or wall thickening. Uncmplicated colonic diverticulae [place] left inguinal fluid filled hernia sac noted Bones and Soft Tissues: Pelvic bones and soft tissues are unremarkable. No fractures or abnormal masses were identified. Lower chest cuts showed mild left pleural effusion with left basal subsegmental atelectasis Large hiatus hernia with ascitic fluid seen in the hernia sac IMPRESSION: 1. New Long segmental submucosal edema noted at the ascending colon could be reactive colitis clinical correlation is advised 2. Stable Chronic parenchymatous liver disease and mild splenomegaly with portosystmic collaterals 3. Stable Marked ascites 4. Stable Calcular gall bladder. 5. Stable [place] hiatus hernia as described , large left inguinal fluid filled hernia sac. 6. Stable Mild left pleural effusion with left basal sub-segmental atelectasis. 7. No other interval significant changes. Electronically signed by Jayy Castorena 01-17-2025 7:14 PM
[2025-01-17] MEDS: FUROSEMIDE 20 MG TAB PO SCH (20:47)
[2025-01-17] MEDS: FOLIC ACID 1 MG TAB PO SCH (20:47)
[2025-01-17] MEDS ORDERED: MoRPHine SULFATE 4 MG/ML 1 ML CARP\\VIAL IV PRN (21:29)
[2025-01-17] MEDS: HEPARIN SOD 5,000 UNIT/0.5 ML VIAL SQ SCH (22:44)
[2025-01-18] MEDS: MoRPHine SULFATE 2 MG/ML CARP IV PRN (00:01)
[2025-01-18 06:10] LABS: Albumin Level 2.5 gm/dl (3.4-5.0); Bilirubin Direct 3.5 mg/dl (0-0.2); Bilirubin,Total 7.8 mg/dl (0.2-1.0)
[2025-01-18 06:16] LABS: Total Protein 6.6 gm/dl (6.0-8.3)
[2025-01-18] MEDS: SPIRONOLACTONE 25 MG TAB PO SCH (09:33)
[2025-01-18] MEDS: POTASSIUM CHLORIDE CRTAB 20 MEQ TABCR PO SCH (09:33)
[2025-01-18] MEDS: MULTIVITAMIN TAB PO SCH (09:33)
[2025-01-18] MEDS: METOPROLOL SUCC 25MG EXT REL TAB PO SCH (09:33)
[2025-01-18] MEDS: PANTOprazole 40 MG TAB PO SCH (09:33)
[2025-01-18] MEDS: THIAMINE HCL 100 MG TAB PO SCH (09:33)
--- NOTE | 2025-01-18 11:21 | Hospitalist Progress Note ---
Date of Service January 18, 2025 Assessment & Plan (1) Alcoholic cirrhosis of liver with ascites: Plan: paracentesis ordered elevated bilirubin of 9.8 on admission, now 7.8 GI consulted lasix spironolactone thiamine multivitamin folic acid (2) Hyponatremia: Plan: Na+ 123 likely 2nd to volume overload receiving lasix spironolactone Nephrology consulted (3) Hypertension: Plan: Metoprolol Plan Heparin SQ for DVT px Admission and Anticipated Discharge Date Admission Date: January 17, 2025 Subjective No events overnight. Pt resting comfortably in bed. Review of Systems Review of Systems: jaundice, distended abdomen CONST: Negative for fever, body aches and chills. HENT: Negative for neck pain/stiffness, headache, congestion, sore throat, swelling. EYES: Negative for discharge/pain or vision changes. RESP: Negative for cough/hemoptysis and shortness of breath. CV: Negative chest pain, difficulty breathing, palpitations. ABD: Negative pain, nausea, vomiting. : Negative increase frequency, dysuria, blood in urine or stool. MUSC: Negative for muscle aches, edema. SKIN: Negative rash, lesions/sores. NEURO: Negative headache, dizziness, weakness. Physical Exam Physical Exam: GENERAL APPEARANCE NAD, activity normal for age, well developed/ well nourished, no cyanosis, pallor, or diaphoresis. EYES lids/conjunctiva normal. EARS/NOSE/THROAT Mucous membranes moist, nares normal, lips/teeth normal uvula midline without oral pharyngeal erythema, exudate or swelling TMs normal bilaterally. No lymphangitis/lymphedema. HEAD/NECK normocephalic atraumatic, no facial trauma, neck is supple. RESPIRATORY respiratory effort normal, speaks in full sentences, no tripod position, no accessory muscle use. Lungs clear to auscultation without rhonchi, wheezes, rales CARDIAC Regular rate and rhythm, no edema. ABDOMINAL Distended, No evidence of fluid wave. No pulsatile masses on exam, rebound tenderness, Lopez sign or pain over Mcburney's point. MUSCLES/EXTREMITIES No abnormal range of motion, no swelling. SKIN Jaundice, Warm, pink and dry. No rashes, dermatoses, petechiae or lesions. NEUROLOGICAL Speech is clear and appropriate. Normal level of consciousness. Gait and coordination are normal. 5/5 strength in all extremities. PSYCH Normal mood and affect. Judgement/competence is appropriate Results & Data Results & Data Vital Signs (Past 12 Hours) Vital Signs Temp Pulse Resp BP Pulse Ox O2 Del Method 01/18/25 07:52 36.7 C 110 H 13 138/72 96 Room Air 01/18/25 04:15 111 H 100 Room Air PG Care Time/CCT Total # of Minutes Spent Total Time Spent with Patient: Total time spent is greater than 50% in coordination of care (as documented) at patient's floor/unit and/or counseling patient: Coding Level of Care Code 09132 SUB INP/OBS CARE 2/35MIN Diagnoses Alcoholic cirrhosis of liver with ascites K70.31 Hyponatremia E87.1 Hypertension I10
--- NOTE | 2025-01-18 11:26 | Nephrology Consultation ---
Date of Consultation January 18, 2025 Assessment & Plan (1) Hyponatremia: * Chronic hyponatremia on the basis of cirrhosis, 3rd spacing of volume and intravascular volume depletion. Patient is currently asymptomatic * Baseline Na has been 125-130 mmol/L * Will increase spironolactone to 100 mg and furosemide to 40 mg daily * Albumin 25g IV q8 hrs x3 has been ordered * Agree w/ plans for paracentesis today * Monitor daily BMP (2) Alcoholic hepatitis with ascites: * Paracentesis today (3) Edema, peripheral: * Diuretics have been adjusted as outlined above History of Present Illness Reason for Consultation: Hyponatremia Attending Physician: Mervin Pope MD History of Present Illness Mr. Estevez is a 59 year old white male who is seen at the request of the [facility] hospitalist service for evaluation of hyponatremia. Information for the HPI is obtained from direct patient interview and review of the EMR. HPI is summarized as follows: Mr. Estevez has not undergone nephrology evaluation in the past. His baseline Cr is 0.7. He has chronic hyponatremia w/ baseline sodium of 125- 130 mmol/L. Mr. Estevez suffers from alcoholism (drinking one bottle of wine/day over the last 6 months), alcoholic cirrhosis, ascites and anxiety. He has required paracentesis once in the past. Yesterday Mr. Estevez was evaluated by his saw cleaner due to worsening ascites, LE swelling and ZHAO. Admission was advised for paracentesis. Admission labs reveal Na 123, Cr 0.7, T. Bili 7.8, INR 1.5. Home medical regimen included spironolactone 25 mg and furosemide 20 mg daily. Allergies Allergy/AdvReac Type Severity Reaction Status Date / Time No Known Allergies Allergy Verified 01/17/25 17:07 Home Medications Medication Instructions Recorded Confirmed Type folic acid 1 mg tablet 1 mg PO QAM #30 tabs 12/09/24 01/17/25 Rx metoprolol succinate 25 mg 25 mg PO QAM #30 tabs 12/09/24 01/17/25 Rx tablet,extended release 24 hr multivitamin with folic acid 400 1 tab PO QAM #30 tabs 12/09/24 01/17/25 Rx mcg tablet (Daily-Shannon (with folic acid)) pantoprazole 40 mg tablet,delayed 40 mg PO QAM 30 days #30 tabs 12/09/24 01/17/25 Rx release potassium chloride 20 mEq 20 meq PO DAILY #30 tabs 12/09/24 01/17/25 Rx tablet,extended release thiamine HCl (vitamin B1) 100 mg 100 mg PO QAM #30 tabs 12/09/24 01/17/25 Rx tablet spironolactone 25 mg tablet 50 mg (2 x 25 mg) PO QAM #30 tabs 12/19/24 01/17/25 Rx furosemide 20 mg tablet 20 mg PO QAM 30 days #30 tabs 01/13/25 01/17/25 Rx Patient History Medical History Pleural effusion Influenza A Hypokalemia Alcohol withdrawal Mild acid reflux Anxiety Surgical History H/O umbilical hernia repair [place] teeth extracted H/O oral surgery H/O inguinal hernia repair Family History Mother Alcohol abuse Depression Father Alcohol abuse Heart disease Kidney disease Myocardial infarction Uncle Myocardial infarction Denies family history of Ovarian cancer Prostate cancer Breast cancer Colorectal cancer Social History Smoking Status: Never smoker Second Hand Exposure: Yes (parents growing up); Do You Dip or Chew Tobacco: No; Hx Alcohol Use: No Hx Substance Use: No Preferred Language: Micronesian Communication Ability: Effective Cipher Expert Required: No Beliefs That Will Affect Care: None marital status: Single Current Living Situation: Family Feels Safe at Home: Yes Dental Care, Regularly: No Physical Activity Frequency: Daily Seatbelt Use: always Sunscreen Use: Yes Assistive Devices: Glasses Review of Systems Constitutional: + fatigue and + weakness; no fever Eyes: no problem reported Ear, Nose, Mouth, Throat: no problem reported Respiratory: no cough and no dyspnea Cardiovascular: no chest pain Gastrointestinal: + bloating Genitourinary: no dysuria or no urinary hesitancy Integumentary: + yellowing of the skin Neurologic: no problem reported Physical Exam Constitutional: + frail appearing; not in distress Eyes: sclerae not anicteric ENMT: external ear and nose normal, oropharynx normal Neck: trachea midline, no thyromegaly Respiratory: normal respiratory effort, lungs clear to auscultation Cardiovascular: Rate/Rhythm: regular rate and regular rhythm Extremities: + edema (2+ LE edema) Gastrointestinal (Abdomen): Inspection/Auscultation: + abdomen distended and + hypoactive bowel sounds Percussion/Palpation: + ascites and + fluid wave; no guarding Skin: + jaundice Neurologic: Speech / Cognition: normal speech and normal cognition Psychiatric: Orientation: alert and oriented x 3 Affect: + anxious affect Results & Data Vital Signs (Past 12 Hours) Vital Signs Temp Pulse Resp BP Pulse Ox O2 Del Method 01/18/25 07:52 36.7 C 110 H 13 138/72 96 Room Air 01/18/25 04:15 111 H 100 Room Air Laboratory Results Laboratory Results WBC 10.02 K/ul (4.8-10.8) 01/17/25 15:09 RBC 2.85 M/uL (4.70-6.10) L 01/17/25 15:09 Hgb 10.1 g/dl (14.0-18.0) L 01/17/25 15:09 Hct 28.4 % (42.0-52.0) L 01/17/25 15:09 MCV 99.6 fL (80.0-100.0) 01/17/25 15:09 MCH 35.4 pg (25.0-34.0) H 01/17/25 15:09 MCHC 35.6 g/dL (32.0-36.0) 01/17/25 15:09 RDW Std Deviation 48.5 fL (36.4-46.3) H 01/17/25 15:09 RDW Coeff of Kylee 13.2 % (11.5-14.5) 01/17/25 15:09 Plt Count 167 K/uL (130-400) 01/17/25 15:09 MPV 8.9 fL (9.4-12.4) L 01/17/25 15:09 Immature Gran % (Auto) 0.4 % 01/17/25 15:09 Neut % (Auto) 78.9 % 01/17/25 15: Lymph % (Auto) 8.1 % 01/17/25 15: [place] % (Auto) 12.1 % 01/17/25 15: Eos % (Auto) 0.3 % 01/17/25 15:09 Baso % (Auto) 0.2 % 01/17/25 15:09 Neut # (Auto) 7.91 K/uL (1.40-6.50) H 01/17/25 15:09 Lymph # (Auto) 0.81 K/uL (1.20-3.40) L 01/17/25 15:09 [place] # (Auto) 1.21 K/uL (0.11-0.59) H 01/17/25 15:09 Eos # (Auto) 0.03 K/uL (0.00-0.50) 01/17/25 15:09 Baso # (Auto) 0.02 K/uL (0.00-0.20) 01/17/25 15:09 Immature Gran # (Auto) 0.04 K/uL (0.01-0.20) 01/17/25 15:09 PT 15.8 Seconds (9.0-12.0) H 01/17/25 15:09 INR 1.5 (0.9-1.1) H 01/17/25 15:09 APTT 30 Seconds (21-31) 01/17/25 15:09 PTT Ratio 1.1 01/17/25 15:09 Sodium 123 mmol/L (136-145) L 01/17/25 15:09 Potassium 4.7 mmol/L (3.5-5.1) 01/17/25 15:09 Chloride 92 mmol/L (98-107) L 01/17/25 15:09 Carbon Dioxide 24 mmol/L (21-32) 01/17/25 15:09 Anion Gap 7 (3-11) 01/17/25 15:09 BUN 15 mg/dl (6-23) 01/17/25 15:09 Creatinine 0.77 mg/dl (0.6-1.4) 01/17/25 15:09 Est Cr Clr Drug Dosing Not Reportable 01/17/25 15:09 eGFR 103.77 01/17/25 15:09 BUN/Creatinine Ratio 19.5 (10-20) 01/17/25 15:09 Glucose 114 mg/dl (70-99(Fasting)) H 01/17/25 15:09 Lactate 1.6 mmol/L (0.4-2.0) 01/17/25 18:53 Calcium 9.0 mg/dl (8.6-10.3) 01/17/25 15:09 Total Bilirubin 7.8 mg/dl (0.2-1.0) H 01/18/25 05:21 Direct Bilirubin 3.5 mg/dl (0-0.2) H 01/18/25 05:21 AST 68 U/L (13-39) H 01/18/25 05:21 ALT 23 U/L (7-52) 01/18/25 05:21 Alkaline Phosphatase 54 U/L (34-104) 01/18/25 05:21 Ammonia 26.0 umol/L (18-72) 01/17/25 15:09 Total Protein 6.6 gm/dl (6.0-8.3) 01/18/25 05:21 Albumin 2.5 gm/dl (3.4-5.0) L 01/18/25 05:21 Globulin 5.0 gm/dl (2.5-4.0) H 01/17/25 15:09 Albumin/Globulin Ratio 0.6 (0.9-2) L 01/17/25 15:09 Lipase 87 U/L (11-82) H 01/17/25 15:09 Urine Color Dark Yellow 01/17/25 15:21 Urine Appearance Clear (Clear) 01/17/25 15:21 Urine pH 6.0 (4.5-7.5) 01/17/25 15:21 Ur Specific [place] 1.015 (1.000-1.030) 01/17/25 15:21 Urine Protein Negative (Negative) 01/17/25 15:21 Urine Glucose (UA) Negative (Negative) 01/17/25 15:21 Urine Ketones Trace (Negative) H 01/17/25 15:21 Urine Blood Negative (Negative) 01/17/25: Urine Nitrite Negative (Negative) 01/17/25:21 Urine Bilirubin 1+ (Negative) H 01/17/25 15:21 Urine Urobilinogen Positive (Negative) H 01/17/25 15:21 Ur Leukocyte Esterase Trace (Negative) H 01/17/25 15:21 Urine WBC (Auto) 0-5 /hpf (0-5) 01/17/25 15:21 Urine RBC (Auto) 0-2 /hpf (0-2) 01/17/25 15:21 U Hyaline Cast (Auto) 6-10 /lpf (0-2) H 01/17/25 15:21 U Epithel Cells (Auto) 0-2 /hpf (0-2) 01/17/25 15:21 Urine Bacteria (Auto) None Seen (None Seen) 01/17/25 15:21 Ethyl Alcohol mg/dL < 10.0 mg/dl (<10.0) 01/17/25 15:09 Impressions Abdomen/Pelvis CT 01/17/25 17:04 EXAM: CT abd pelvis IV con only CLINICAL HISTORY: Pain, liver dz. hx of alcohol cirrhosis, increased fatigue, distended abdomen making breathing difficult, on lasix and fluid retention meds. pt reports has had abdomen tapped previously 4 times, TECHNIQUE: Contrast-enhanced CT of the abdomen and pelvis was performed, with the following protocol: axial images with, reconstructed coronal and sagittal images. 94 ml of Optiray was administered. One of the following dose reduction techniques was utilized for this exam: Automated exposure control, adjustment of the mA and/or kV according to patient size, and use of iterative reconstruction. DLP: 1342.83 mGy-cm, CTDI: 35.7 mGy. COMPARISON: 11/25/2024 CT. FINDINGS: Abdomen: Liver: Showed irregular wavy outline with heterogenous CT density Prominent portal vein , multiple shoshana systemic collaterals noted Tiny hypo dense cyst seen at liver dom possibly tiny cys/ chirrotic nodule. Hepatic vasculature and biliary ducts are unremarkable. Gallbladder and Biliary System: Distended with intraluminal calcfic stones The common bile duct is normal in caliber without dilation. Pancreas: The pancreatic head, body, and tail are visualized and appear normal in size and density. No pancreatic masses or calcifications were noted. The pancreatic duct is not dilated. Spleen: Mildly enlarged in size, measured about 16.5 cm Prominent splenic vein No splenic lesions or masses were identified. Appendix: Not well appreciated Kidneys and Adrenal Glands: Both kidneys are normal in size, shape, and position. Cortical thickness is within normal limits. No renal calculi or hydronephrosis. Bulky left adrenal gland Pelvis: Urinary Bladder: not full Prostate: Unremarkable, US study is suggested if warranted clinically. Seminal Vesicles: Normal in size and appearance. No abnormalities noted. Rectum and Sigmoid Colon: Normal wall thickness and no evidence of mass. Peritoneal and Retroperitoneal Structures: Marked ascites is noted , smudging of mesnetric fat planes with prominent mesnetric vessels No lymphadenopathy was noted. Bowel: Long segmental submucosal edema noted at the ascending colon could be reactive colitis. No evidence of bowel obstruction or wall thickening. Uncmplicated colonic diverticulae [place] left inguinal fluid filled hernia sac noted Bones and Soft Tissues: Pelvic bones and soft tissues are unremarkable. No fractures or abnormal masses were identified. Lower chest cuts showed mild left pleural effusion with left basal subsegmental atelectasis Large hiatus hernia with ascitic fluid seen in the hernia sac IMPRESSION: 1. New Long segmental submucosal edema noted at the ascending colon could be reactive colitis clinical correlation is advised 2. Stable Chronic parenchymatous liver disease and mild splenomegaly with portosystmic collaterals 3. Stable Marked ascites 4. Stable Calcular gall bladder. 5. Stable [place] hiatus hernia as described , large left inguinal fluid filled hernia sac. 6. Stable Mild left pleural effusion with left basal sub-segmental atelectasis. 7. No other interval significant changes. Electronically signed by Jayy Castorena 01-17-2025 7:14 PM PG Care Time/CCT Total # of Minutes Spent Total Time Spent with Patient: Total time spent is greater than 50% in coordination of care (as documented) at patient's floor/unit and/or counseling patient: Coding Level of Care Code 02764 IN/OBS CONSULT LVL 5,80M Diagnoses Hyponatremia E87.1 Alcoholic hepatitis with ascites K70.11 Edema, peripheral R60.0
--- NOTE | 2025-01-18 12:26 | Gastrointestinal Consultation ---
Date of Consultation January 18, 2025 Assessment & Plan (1) Alcoholic cirrhosis of liver with ascites: -Paracentesis with fluid studies ordered -Continue to monitor/trend MELD labs and metabolic panel -Diuretics to be adjusted per nephrology guidance -Continue alcohol avoidance -Outpatient office currently working to facilitate hepatology evaluation when he is discharged -Avoid NSAIDs -Tyelnol to be limited to <2000 mg daily (in divided prn doses) -Will need outpatient HCC surveiallance, variceal surveillance, & age appropriate screenings including colonoscopy if not recently performed Supervising Physician Co-Signing Physician Notes I reviewed patient's chart , laboratory data and imaging studies. I agree with with assessment and plan of care as suggested by advanced practice provider. The patient is undergoing paracentesis. Continue diuretics, consider increase Lasix to 80 mg a day, continue spironolactone 100 mg a day. Continue with IV albumin after paracentesis. Consider referral for TIPS for recurrent ascites. However with MELD score of 19 the patient is at high risk for procedure related complications. History of Present Illness Attending Physician: Mervin Pope MD History of Present Illness Patient is a 59 yo male who presented to outpatient GI on 01/17/25 for follow-up of alcoholic hepatitis, cirrhosis, & ascites. He was previously seen by [facility] in November 2024 while admitted to the hospital. During that stay, he was experiencing ascites and volume overload. He got readmitted in December 2024 for similar issues. He had a paracentesis at that time as well. He recently had his Lasix increased to 40 mg daily. He was taking Spironolactone 50 mg daily as well. He was finding this was helpful, but still had a significant amount of fluid retention to the point where he is experiencing dyspnea. He was sent from the outpatient office to the hospital for evaluation for paracentesis. Current MELD score 19. He is awaiting nephrology consultation for assistance with diuretic dosing and management. He notes he is restricting sodium at home. He denies alcohol use. No fevers, chills, or confusion. CT imaging upon presentation to the hospital: New Long segmental submucosal edema noted at the ascending colon could be reactive colitis clinical correlation is advised 2. Stable Chronic parenchymatous liver disease and mild splenomegaly with portosystemic collaterals 3. Stable Marked ascites 4. Stable Calcular gallbladder. 5. Stable Large hiatus hernia as described , large left inguinal fluid filled hernia sac. 6. Stable Mild left pleural effusion with left basal sub-segmental atelectasis. 7. No other interval significant changes. No recent EGD/colonoscopy. Allergies Allergy/AdvReac Type Severity Reaction Status Date / Time No Known Allergies Allergy Verified 01/17/25 17:07 Home Medications Medication Instructions Recorded Confirmed Type folic acid 1 mg tablet 1 mg PO QAM #30 tabs 12/09/24 01/17/25 Rx metoprolol succinate 25 mg 25 mg PO QAM #30 tabs 12/09/24 01/17/25 Rx tablet,extended release 24 hr multivitamin with folic acid 400 1 tab PO QAM #30 tabs 12/09/24 01/17/25 Rx mcg tablet (Daily-Shannon (with folic acid)) pantoprazole 40 mg tablet,delayed 40 mg PO QAM 30 days #30 tabs 12/09/24 01/17/25 Rx release potassium chloride 20 mEq 20 meq PO DAILY #30 tabs 12/09/24 01/17/25 Rx tablet,extended release thiamine HCl (vitamin B1) 100 mg 100 mg PO QAM #30 tabs 12/09/24 01/17/25 Rx tablet spironolactone 25 mg tablet 50 mg (2 x 25 mg) PO QAM #30 tabs 12/19/24 01/17/25 Rx furosemide 20 mg tablet 20 mg PO QAM 30 days #30 tabs 01/13/25 01/17/25 Rx Patient History Medical History Pleural effusion Influenza A Hypokalemia Alcohol withdrawal Mild acid reflux Anxiety Surgical History H/O umbilical hernia repair [place] teeth extracted H/O oral surgery H/O inguinal hernia repair Family History Mother Alcohol abuse Depression Father Alcohol abuse Heart disease Kidney disease Myocardial infarction Uncle Myocardial infarction Denies family history of Ovarian cancer Prostate cancer Breast cancer Colorectal cancer Social History Smoking Status: Never smoker Second Hand Exposure: Yes (parents growing up); Do You Dip or Chew Tobacco: No; Hx Alcohol Use: No Hx Substance Use: No Preferred Language: Sami Communication Ability: Effective Tar Kettle Runner Required: No Beliefs That Will Affect Care: None marital status: Single Current Living Situation: Family Feels Safe at Home: Yes Dental Care, Regularly: No Physical Activity Frequency: Daily Seatbelt Use: always Sunscreen Use: Yes Assistive Devices: Glasses Review of Systems Constitutional: no fever and no chills Respiratory: + dyspnea on exertion Gastrointestinal: + bloating Psychiatric: no problem reported Physical Exam Constitutional: well developed Respiratory: normal respiratory effort Cardiovascular: Rate/Rhythm: regular rate Gastrointestinal (Abdomen): Percussion/Palpation: + ascites; abdomen nontender Psychiatric: Orientation: alert and oriented x 3 Results & Data Vital Signs (Past 12 Hours) Vital Signs Temp Pulse Resp BP Pulse Ox O2 Del Method 01/18/25 12:12 37.0 C 83 15 136/70 97 Room Air 01/18/25 07:52 36.7 C 110 H 13 138/72 96 Room Air 01/18/25 04:15 111 H 100 Room Air PG Care Time/CCT Total # of Minutes Spent Total Time Spent with Patient: Total time spent is greater than 50% in coordination of care (as documented) at patient's floor/unit and/or counseling patient: Coding Level of Care Code 09886 IN/OBS CONSULT LVL 4,60M Diagnoses Alcoholic cirrhosis of liver with ascites K70.31
[2025-01-18] MEDS: ALBUMIN 25% 25 GM/100 ML VIAL IV SCH (13:21)
[2025-01-18 17:36] LABS: Appearance Peritoneal Fluid Slightly Hazy; Color Peritoneal Fluid Yellow; RBC Peritoneal Fluid Auto < 2000 /uL; WBC Peritoneal Fluid Auto 2735 /ul (0-300)
[2025-01-19] MEDS: ACETAMINOPHEN 325 MG TAB PO PRN (02:49)
[2025-01-19 04:15] LABS: Hematocrit (blood only) 22.7 % (42.0-52.0); Mean Corpuscular Hemoglobin 35.4 pg (25.0-34.0); Mean Corpuscular Hgb Conc 35.2 g/dL (32.0-36.0); Mean Corpuscular Volume 100.4 fL (80.0-100.0); Mean Platelet Volume 9.2 fL (9.4-12.4); Platelet Count 129 K/uL (130-400); RDW Coefficient of Variation 13.1 % (11.5-14.5); RDW Standard Deviation 47.2 fL (36.4-46.3); Red Blood Count 2.26 M/uL (4.70-6.10); White Blood Count 7.16 K/ul (4.8-10.8)
[2025-01-19 04:33] LABS: Albumin Level 2.9 gm/dl (3.4-5.0); Calcium 8.3 mg/dl (8.6-10.3); Potassium 4.4 mmol/L (3.5-5.1)
[2025-01-19 04:39] LABS: Albumin Globulin Ratio 0.8 (0.9-2); BUN Creatinine Ratio 21.4 (10-20); Creatinine Clr Calc Pharmacy 157.8 ml/min; Globulin 3.7 gm/dl (2.5-4.0); Total Protein 6.6 gm/dl (6.0-8.3)
[2025-01-19 07:02] LABS: Lymphocytes, Fluid 10 %; Mono,Macrophage,Mesothelial 19 %; Neutrophils, Fluid 71 %
[2025-01-19] MEDS: FUROSEMIDE 40 MG TAB PO SCH (08:40)
[2025-01-19] MEDS: SPIRONOLACTONE 100 MG TAB PO SCH (08:40)
--- NOTE | 2025-01-19 09:00 | Nephrology Progress Note ---
Date of Service January 19, 2025 Assessment & Plan (1) Hyponatremia: Plan: * Chronic hyponatremia on the basis of cirrhosis, 3rd spacing of volume and intravascular volume depletion. Patient is currently asymptomatic * Baseline Na has been 125-130 mmol/L * Will increase spironolactone to 200 mg and furosemide to 80 mg daily * If paracentesis is again planned, please order albumin 25g IV q8 hrs x3 * Monitor daily BMP (2) Alcoholic hepatitis with ascites: Plan: * 5 L paracentesis completed 01/18/25 (3) Edema, peripheral: Plan: * Diuretics have been adjusted as outlined above Admission and Anticipated Discharge Date Admission Date: January 17, 2025 Subjective Mr. Estevez was evaluated in his hospital room this morning. Although he underwent 5 L paracentesis yesterday, his abdomen is again distended and becoming uncomfortable Review of Systems Constitutional: + fatigue and + weakness; no fever Eyes: no problem reported Ear, Nose, Mouth, Throat: no problem reported Respiratory: no cough and no dyspnea Cardiovascular: no chest pain Gastrointestinal: + bloating Genitourinary: no dysuria or no urinary hesitancy Integumentary: + yellowing of the skin Neurologic: no problem reported Physical Exam Constitutional: + frail appearing; not in distress Eyes: sclerae not anicteric ENMT: external ear and nose normal, oropharynx normal Neck: trachea midline, no thyromegaly Respiratory: normal respiratory effort, lungs clear to auscultation Cardiovascular: Rate/Rhythm: regular rate and regular rhythm Extremities: + edema (2+ LE edema) Gastrointestinal (Abdomen): Inspection/Auscultation: + abdomen distended and + hypoactive bowel sounds Percussion/Palpation: + ascites and + fluid wave; no guarding Skin: + jaundice Neurologic: Speech / Cognition: normal speech and normal cognition Psychiatric: Orientation: alert and oriented x 3 Affect: + anxious affect Results & Data Vital Signs (Past 12 Hours) Vital Signs Temp Pulse Pulse Resp BP BP Pulse Ox 01/19/25 07:13 36.4 C L 99 H 14 103/61 99 01/19/25 06:47 36.7 C 01/19/25 05:06 36.9 C 103 H 110/66 96 01/19/25 02:30 38.1 C H 115 H 18 120/65 95 01/18/25 21:05 O2 Del Method 01/19/25 07:13 Room Air 01/19/25 06:47 01/19/25 05:06 Room Air 01/19/25 02:30 Room Air 01/18/25 21:05 Room Air Laboratory Results Laboratory Results - last 24 hr 01/18/25 01/18/25 01/19/25 16:25 Unknown 03:15 WBC 7.16 RBC 2.26 L Hgb 8.0 L Hct 22.7 L MCV 100.4 H MCH 35.4 H MCHC 35.2 RDW Std Deviation 47.2 H RDW Coeff of Kylee 13.1 Plt Count 129 L MPV 9.2 L Sodium 123 L Potassium 4.4 Chloride 94 L Carbon Dioxide 23 Anion Gap 6 BUN 12 Creatinine 0.56 L Est Cr Clr Drug Dosing 157.8 eGFR 114.25 BUN/Creatinine Ratio 21.4 H Glucose 119 H Calcium 8.3 L Total Bilirubin 7.0 H AST 66 H ALT 22 Alkaline Phosphatase 52 Total Protein 6.6 Albumin 2.9 L Globulin 3.7 Albumin/Globulin Ratio 0.8 L Ur Random Sodium 10 Fluid Neutrophils % 71 Fluid Lymphocytes % 10 Fluid Meso/Macro/Apache % 19 Fluid Comment Peritoneal Color Yellow Peritoneal Appearance Slightly Hazy Peritoneal WBC (Auto) 2735 H Peritoneal RBC (Auto) < 2000 Peritoneal Albumin < 1.5 PG Care Time/CCT Total # of Minutes Spent Total Time Spent with Patient: Total time spent is greater than 50% in coordination of care (as documented) at patient's floor/unit and/or counseling patient: Coding Level of Care Code 68808 SUB INP/OBS CARE 3/50MIN Diagnoses Hyponatremia E87.1 Alcoholic hepatitis with ascites K70.11 Edema, peripheral R60.0
--- NOTE | 2025-01-19 09:10 | Hospitalist Progress Note ---
Date of Service January 19, 2025 Assessment & Plan (1) Alcoholic cirrhosis of liver with ascites: Plan: paracentesis completed-5L removed elevated bilirubin of 9.8 on admission, now 7.0 GI consult appreciated lasix spironolactone thiamine multivitamin folic acid (2) Hyponatremia: Plan: Na+ 123 likely 2nd to volume overload receiving lasix spironolactone Nephrology consult appreciated albumin given (3) Hypertension: Plan: Metoprolol Plan Heparin SQ for DVT px Admission and Anticipated Discharge Date Admission Date: January 17, 2025 Subjective No events overnight. Pt resting comfortably in bed. Review of Systems Review of Systems: jaundice, distended abdomen CONST: Negative for fever, body aches and chills. HENT: Negative for neck pain/stiffness, headache, congestion, sore throat, swelling. EYES: Negative for discharge/pain or vision changes. RESP: Negative for cough/hemoptysis and shortness of breath. CV: Negative chest pain, difficulty breathing, palpitations. ABD: Negative pain, nausea, vomiting. : Negative increase frequency, dysuria, blood in urine or stool. MUSC: Negative for muscle aches, edema. SKIN: Negative rash, lesions/sores. NEURO: Negative headache, dizziness, weakness. Physical Exam Physical Exam: GENERAL APPEARANCE NAD, activity normal for age, well developed/ well nourished, no cyanosis, pallor, or diaphoresis. EYES lids/conjunctiva normal. EARS/NOSE/THROAT Mucous membranes moist, nares normal, lips/teeth normal uvula midline without oral pharyngeal erythema, exudate or swelling TMs normal bilaterally. No lymphangitis/lymphedema. HEAD/NECK normocephalic atraumatic, no facial trauma, neck is supple. RESPIRATORY respiratory effort normal, speaks in full sentences, no tripod position, no accessory muscle use. Lungs clear to auscultation without rhonchi, wheezes, rales CARDIAC Regular rate and rhythm, no edema. ABDOMINAL Distended, No evidence of fluid wave. No pulsatile masses on exam, rebound tenderness, Lopez sign or pain over Mcburney's point. MUSCLES/EXTREMITIES No abnormal range of motion, no swelling. SKIN Jaundice, Warm, pink and dry. No rashes, dermatoses, petechiae or lesions. NEUROLOGICAL Speech is clear and appropriate. Normal level of consciousness. Gait and coordination are normal. 5/5 strength in all extremities. PSYCH Normal mood and affect. Judgement/competence is appropriate Results & Data Results & Data Vital Signs (Past 12 Hours) Vital Signs Temp Pulse Pulse Resp BP BP Pulse Ox 01/19/25 07:13 36.4 C L 99 H 14 103/61 99 01/19/25 06:47 36.7 C 01/19/25 05:06 36.9 C 103 H 110/66 96 01/19/25 02:30 38.1 C H 115 H 18 120/65 95 O2 Del Method 01/19/25 07:13 Room Air 01/19/25 06:47 01/19/25 05:06 Room Air 01/19/25 02:30 Room Air PG Care Time/CCT Total # of Minutes Spent Total Time Spent with Patient: Total time spent is greater than 50% in coordination of care (as documented) at patient's floor/unit and/or counseling patient: Coding Level of Care Code 29531 SUB INP/OBS CARE 2/35MIN Diagnoses Alcoholic cirrhosis of liver with ascites K70.31 Hyponatremia E87.1 Hypertension I10
[2025-01-19] MEDS: SPIRONOLACTONE 100 MG TAB PO ONE (11:42)
[2025-01-19] MEDS: FUROSEMIDE 40 MG TAB PO ONE (11:42)
--- NOTE | 2025-01-19 14:10 | Gastroenterology Progress Note ---
Date of Service January 19, 2025 Assessment & Plan Admission and Anticipated Discharge Date Admission Date: January 17, 2025 Subjective Patient is a 59 yo male who Results & Data Results & Data Vital Signs (Past 12 Hours) Vital Signs Temp Pulse Pulse Resp BP BP Pulse Ox 01/19/25 07:45 01/19/25 07:13 36.4 C L 99 H 14 103/61 99 01/19/25 06:47 36.7 C 01/19/25 05:06 36.9 C 103 H 110/66 96 01/19/25 02:30 38.1 C H 115 H 18 120/65 95 O2 Del Method 01/19/25 07:45 Room Air 01/19/25 07:13 Room Air 01/19/25 06:47 01/19/25 05:06 Room Air 01/19/25 02:30 Room Air PG Care Time/CCT Total # of Minutes Spent Total Time Spent with Patient: Total time spent is greater than 50% in coordination of care (as documented) at patient's floor/unit and/or counseling patient: Coding
--- NOTE | 2025-01-19 14:21 | Gastroenterology Progress Note ---
Date of Service January 19, 2025 Assessment & Plan (1) Acute liver failure: (2) Alcoholic cirrhosis of liver with ascites: (3) Spontaneous bacterial peritonitis: Plan: Worsening liver function, worsening ascites, worsening jaundice. Spontaneous peritonitis. Begin ceftriaxone 2 g IV every 24 hours. Albumin 50 g x 2 doses ordered. Awaiting culture of peritoneal fluid. Possibly repeat paracentesis tomorrow for comfort. Continue Lasix 80 mg a day and spironolactone which was increased to 200 mg a day. Admission and Anticipated Discharge Date Admission Date: January 17, 2025 Subjective Complains of reaccumulation of ascites, very uncomfortable, complains of abdominal pain. Status post 5 L paracentesis yesterday. 2735 WBCs with 71% neutrophils in the peritoneal fluid consistent with SBP. Review of Systems Review of Systems: Constitutional: Appears chronically ill, jaundiced, uncomfortable, denies chills, fever, Respiratory: Complains of shortness of breath. Cardiovascular: Denies chest pain and palpitations. Gastrointestinal: As per history of present illness Physical Exam Physical Exam: Constitutional: Appears chronically ill, vitals as above Respiratory: normal respiratory effort, lungs clear to auscultation Cardiovascular: RRR, no murmur, no edema Gastrointestinal (Abdomen): Tense ascites, normal bowel sounds. Musculoskeletal: Bilateral edema. Neurological: Oriented x 3, grossly no focal abnormalities, speech is intact. No asterixis. Results & Data Results & Data Vital Signs (Past 12 Hours) Vital Signs Temp Pulse Pulse Resp BP BP Pulse Ox 01/19/25 07:45 01/19/25 07:13 36.4 C L 99 H 14 103/61 99 01/19/25 06:47 36.7 C 01/19/25 05:06 36.9 C 103 H 110/66 96 01/19/25 02:30 38.1 C H 115 H 18 120/65 95 O2 Del Method 01/19/25 07:45 Room Air 01/19/25 07:13 Room Air 01/19/25 06:47 01/19/25 05:06 Room Air 01/19/25 02:30 Room Air PG Care Time/CCT Total # of Minutes Spent Total Time Spent with Patient: Total time spent is greater than 50% in coordination of care (as documented) at patient's floor/unit and/or counseling patient: Coding Level of Care Code 20189 SUB INP/OBS CARE 50MIN Diagnoses Acute liver failure K72.00 Hepatic coma status: without hepatic coma Alcoholic cirrhosis of liver with ascites K70.31 Spontaneous bacterial peritonitis K65.2 (1) Acute liver failure Hepatic coma status: without hepatic coma Qualified Code(s): K72.00 - Acute and subacute hepatic failure without coma
[2025-01-19] MEDS: cefTRIAXone SODIUM 2,000 MG/50 ML BAG IV SCH (15:15)
[2025-01-19] MEDS: ALBUMIN 25% 25 GM/100 ML VIAL IV SCH ×2 (15:50→19:16)
[2025-01-19] MEDS: MIDODRINE HCL 2.5 MG TAB PO SCH (17:09)
[2025-01-20] MEDS: FUROSEMIDE 80 MG TAB PO SCH (08:01)
[2025-01-20] MEDS: SPIRONOLACTONE 100 MG TAB PO SCH (08:01)
--- NOTE | 2025-01-20 08:54 | Hospitalist Progress Note ---
Date of Service January 20, 2025 Assessment & Plan (1) Alcoholic cirrhosis of liver with ascites: Plan: paracentesis completed-5L removed elevated bilirubin of 9.8 on admission, now 7.0 GI consult appreciated lasix 80 spironolactone 200 thiamine multivitamin folic acid SBP on ceftriaxone (2) Hyponatremia: Plan: Na+ 123 likely 2nd to volume overload receiving lasix spironolactone Nephrology consult appreciated albumin given (3) Hypertension: Plan: Metoprolol Plan Heparin SQ for DVT px Admission and Anticipated Discharge Date Admission Date: January 17, 2025 Subjective No events overnight. Pt denies any abdominal pain. States his appetite is still diminished. Review of Systems Review of Systems: jaundice, distended abdomen CONST: Negative for fever, body aches and chills. HENT: Negative for neck pain/stiffness, headache, congestion, sore throat, swelling. EYES: Negative for discharge/pain or vision changes. RESP: Negative for cough/hemoptysis and shortness of breath. CV: Negative chest pain, difficulty breathing, palpitations. ABD: Negative pain, nausea, vomiting. : Negative increase frequency, dysuria, blood in urine or stool. MUSC: Negative for muscle aches, edema. SKIN: Negative rash, lesions/sores. NEURO: Negative headache, dizziness, weakness. Physical Exam Physical Exam: GENERAL APPEARANCE NAD, activity normal for age, well developed/ well nourished, no cyanosis, pallor, or diaphoresis. EYES lids/conjunctiva normal. EARS/NOSE/THROAT Mucous membranes moist, nares normal, lips/teeth normal uvula midline without oral pharyngeal erythema, exudate or swelling TMs normal bilaterally. No lymphangitis/lymphedema. HEAD/NECK normocephalic atraumatic, no facial trauma, neck is supple. RESPIRATORY respiratory effort normal, speaks in full sentences, no tripod position, no accessory muscle use. Lungs clear to auscultation without rhonchi, wheezes, rales CARDIAC Regular rate and rhythm, no edema. ABDOMINAL Distended, No evidence of fluid wave. No pulsatile masses on exam, rebound tenderness, Lopez sign or pain over Mcburney's point. MUSCLES/EXTREMITIES No abnormal range of motion, no swelling. SKIN Jaundice, Warm, pink and dry. No rashes, dermatoses, petechiae or lesions. NEUROLOGICAL Speech is clear and appropriate. Normal level of consciousness. Gait and coordination are normal. 5/5 strength in all extremities. PSYCH Normal mood and affect. Judgement/competence is appropriate Results & Data Results & Data Vital Signs (Past 12 Hours) Vital Signs Temp Pulse Resp BP Pulse Ox O2 Del Method 01/20/25 08:49 36.6 C 92 H 18 110/68 99 Room Air PG Care Time/CCT Total # of Minutes Spent Total Time Spent with Patient: Total time spent is greater than 50% in coordination of care (as documented) at patient's floor/unit and/or counseling patient: Coding Level of Care Code 43461 SUB INP/OBS CARE 2/35MIN Diagnoses Alcoholic cirrhosis of liver with ascites K70.31 Hyponatremia E87.1 Hypertension I10
--- NOTE | 2025-01-20 09:12 | Nephrology Progress Note ---
Date of Service January 20, 2025 Assessment & Plan (1) Hyponatremia: Plan: * Chronic hyponatremia on the basis of cirrhosis, 3rd spacing of volume and intravascular volume depletion. Patient is currently asymptomatic * Baseline Na has been 125-130 mmol/L * UO 1150 cc last shift * Continue spironolactone 200 mg and furosemide 80 mg po daily * Continue midodrine 5 mg po TID * When paracentesis is again planned, please order albumin 25g IV q8 hrs x3 * Monitor daily BMP, I&O (2) Alcoholic hepatitis with ascites: Plan: * 5 L paracentesis completed 01/18/25 (3) Edema, peripheral: Plan: * Diuretics have been adjusted as outlined above Admission and Anticipated Discharge Date Admission Date: January 17, 2025 Subjective Mr. Estevez was evaluated in his hospital room this morning. His abdomen is again distended and becoming uncomfortable. He is now on antibiotic therapy due to SBP. He expects to undergo paracentesis in am. Mr. Estevez reports improved UO in response to titrating spironolactone, furosemide and adding midodrine Review of Systems Constitutional: + fatigue and + weakness; no fever Eyes: no problem reported Ear, Nose, Mouth, Throat: no problem reported Respiratory: no cough and no dyspnea Cardiovascular: no chest pain Gastrointestinal: + bloating Genitourinary: no dysuria or no urinary hesitancy Integumentary: + yellowing of the skin Neurologic: no problem reported Physical Exam Constitutional: + frail appearing; not in distress Eyes: sclerae not anicteric ENMT: external ear and nose normal, oropharynx normal Neck: trachea midline, no thyromegaly Respiratory: normal respiratory effort, lungs clear to auscultation Cardiovascular: Rate/Rhythm: regular rate and regular rhythm Extremities: + edema (2+ LE edema) Gastrointestinal (Abdomen): Inspection/Auscultation: + abdomen distended and + hypoactive bowel sounds Percussion/Palpation: + ascites and + fluid wave; no guarding Skin: + jaundice Neurologic: Speech / Cognition: normal speech and normal cognition Psychiatric: Orientation: alert and oriented x 3 Affect: + anxious affect Results & Data Vital Signs (Past 12 Hours) Vital Signs Temp Pulse Resp BP Pulse Ox O2 Del Method 01/20/25 08:49 36.6 C 92 H 18 110/68 99 Room Air Laboratory Results 01/20/25 5am labs - pending PG Care Time/CCT Total # of Minutes Spent Total Time Spent with Patient: Total time spent is greater than 50% in coordination of care (as documented) at patient's floor/unit and/or counseling patient: Coding Level of Care Code 74532 SUB INP/OBS CARE 3/50MIN Diagnoses Hyponatremia E87.1 Alcoholic hepatitis with ascites K70.11 Edema, peripheral R60.0
[2025-01-20] MEDS: CIPROFLOXACIN / D5W 400 MG/200 ML BAG IV SCH (11:10)
--- NOTE | 2025-01-20 12:53 | Gastroenterology Progress Note ---
Date of Service January 20, 2025 Assessment & Plan (1) Ascites: (2) Alcoholic cirrhosis of liver with ascites: (3) Spontaneous bacterial peritonitis: Plan -Continue Aldactone 200 mg daily & Lasix 80 mg daily per nephrology recommendations -Patient continues with IV Ceftriaxone -He is awaiting repeat paracentesis -Continue to monitor MELD labs & kidney function -Monitor CBC -Will need outpatient hepatology evaluation Admission and Anticipated Discharge Date Admission Date: January 17, 2025 Supervising Physician Co-Signing Physician Notes I examined the patient and reviewed patient's chart , laboratory data and imaging studies. I agree with with assessment and plan of care as suggested by advanced practice provider. SBP, Serratia marcescens is growing from peritoneal fluid. Antibiotics changed to ciprofloxacin as per susceptibility. Continue same doses of diuretics. Possibly repeat paracentesis on January 23. Subjective Patient is a 59 yo male with alcoholic cirrhosis. He is currently being treated for ascites and concern for SBP. Nephrology following to adjust dosages of his meds. Aldactone currently 200 mg daily and Furosemide 80 mg daily. He is on IV Ceftriaxone. He is scheduled for a repeat paracentesis for further volume management. He notes he is feeling somewhat better. Review of Systems Constitutional: no fever and no chills Respiratory: no cough and no dyspnea Gastrointestinal: no abdominal pain, no blood in stools and no melena Psychiatric: no problem reported Physical Exam Constitutional: well developed Respiratory: normal respiratory effort Cardiovascular: Extremities: + edema Gastrointestinal (Abdomen): ascites Results & Data Results & Data Vital Signs (Past 12 Hours) Vital Signs Temp Pulse Resp BP Pulse Ox O2 Del Method 01/20/25 08:49 36.6 C 92 H 18 110/68 99 Room Air PG Care Time/CCT Total # of Minutes Spent Total Time Spent with Patient: Total time spent is greater than 50% in coordination of care (as documented) at patient's floor/unit and/or counseling patient: Coding Level of Care Code 02836 SUB INP/OBS CARE 2/35MIN Diagnoses Ascites K70.11 Ascites type: due to alcoholic hepatitis Alcoholic cirrhosis of liver with ascites K70.31 Spontaneous bacterial peritonitis K65.2 (1) Ascites Ascites type: due to alcoholic hepatitis Qualified Code(s): K70.11 - Alcoholic hepatitis with ascites
[2025-01-20] MEDS ORDERED: ALBUMIN 25% 25 GM/100 ML VIAL IV SCH (16:15)
[2025-01-20] MEDS ORDERED: Nursing to Pharmacy Communication SCH (16:15)
[2025-01-20] MEDS: ALBUMIN 25% 25 GM/100 ML VIAL IV SCH (16:45)
[2025-01-20] MEDS: COUGH DROP (SUGAR FREE) LOZ 24 LOZ/1 BOX BUCCAL STA ×2 (22:11→22:23)
[2025-01-21] MEDS: OXYMETAZOLINE 0.05% 30 ML BTL ONE (02:08)
[2025-01-21 02:47] LABS: Albumin Level 3.3 gm/dl (3.4-5.0); BUN Creatinine Ratio 19.4 (10-20); Bilirubin Direct 2.7 mg/dl (0-0.2); Bilirubin,Total 6.8 mg/dl (0.2-1.0); Calcium 8.3 mg/dl (8.6-10.3); Creatinine Clr Calc Pharmacy 142.5 ml/min; Total Protein 6.8 gm/dl (6.0-8.3)
[2025-01-21 03:06] LABS: Hematocrit (blood only) 23.1 % (42.0-52.0); Hemoglobin 8.2 g/dl (14.0-18.0); Mean Corpuscular Hemoglobin 35.3 pg (25.0-34.0); Mean Corpuscular Hgb Conc 35.5 g/dL (32.0-36.0); Mean Corpuscular Volume 99.6 fL (80.0-100.0); Platelet Count 164 K/uL (130-400); RDW Standard Deviation 46.7 fL (36.4-46.3); Red Blood Count 2.32 M/uL (4.70-6.10); White Blood Count 9.23 K/ul (4.8-10.8)
[2025-01-21 03:13] LABS: INR 1.6 (0.9-1.1); Prothrombin Time 16.8 Seconds (9.0-12.0)
--- NOTE | 2025-01-21 09:19 | Hospitalist Progress Note ---
Date of Service January 21, 2025 Assessment & Plan (1) Alcoholic cirrhosis of liver with ascites: Plan: paracentesis completed-5L removed elevated bilirubin of 9.8 on admission, now 6.8 GI consult appreciated lasix 80 spironolactone 200 thiamine multivitamin folic acid SBP on cipro repeat paracentesis on 01/23 (2) Hyponatremia: Plan: Na+ 121 likely 2nd to volume overload receiving lasix 80mg daily spironolactone 200mg daily Nephrology consult appreciated albumin given (3) Hypertension: Plan: Metoprolol Plan Heparin SQ for DVT px Admission and Anticipated Discharge Date Admission Date: January 17, 2025 Subjective No events overnight. Pt resting in bed, tolerating diet. Review of Systems Review of Systems: jaundice, distended abdomen CONST: Negative for fever, body aches and chills. HENT: Negative for neck pain/stiffness, headache, congestion, sore throat, swelling. EYES: Negative for discharge/pain or vision changes. RESP: Negative for cough/hemoptysis and shortness of breath. CV: Negative chest pain, difficulty breathing, palpitations. ABD: Negative pain, nausea, vomiting. : Negative increase frequency, dysuria, blood in urine or stool. MUSC: Negative for muscle aches, edema. SKIN: Negative rash, lesions/sores. NEURO: Negative headache, dizziness, weakness. Physical Exam Physical Exam: GENERAL APPEARANCE NAD, activity normal for age, well developed/ well nourished, no cyanosis, pallor, or diaphoresis. EYES lids/conjunctiva normal. EARS/NOSE/THROAT Mucous membranes moist, nares normal, lips/teeth normal uvula midline without oral pharyngeal erythema, exudate or swelling TMs normal bilaterally. No lymphangitis/lymphedema. HEAD/NECK normocephalic atraumatic, no facial trauma, neck is supple. RESPIRATORY respiratory effort normal, speaks in full sentences, no tripod position, no accessory muscle use. Lungs clear to auscultation without rhonchi, wheezes, rales CARDIAC Regular rate and rhythm, no edema. ABDOMINAL Distended, No evidence of fluid wave. No pulsatile masses on exam, rebound tenderness, Lopez sign or pain over Mcburney's point. MUSCLES/EXTREMITIES No abnormal range of motion, no swelling. SKIN Jaundice, Warm, pink and dry. No rashes, dermatoses, petechiae or lesions. NEUROLOGICAL Speech is clear and appropriate. Normal level of consciousness. Gait and coordination are normal. 5/5 strength in all extremities. PSYCH Normal mood and affect. Judgement/competence is appropriate Results & Data Results & Data Vital Signs (Past 12 Hours) Vital Signs Temp Pulse Resp BP BP Pulse Ox O2 Del Method 01/21/25 09:00 37.4 C 91 H 15 115/73 99 Room Air 01/21/25 08:09 36.9 C 92 H 18 128/68 98 Room Air 01/20/25 21:55 Room Air PG Care Time/CCT Total # of Minutes Spent Total Time Spent with Patient: Total time spent is greater than 50% in coordination of care (as documented) at patient's floor/unit and/or counseling patient: Coding Level of Care Code 79425 SUB INP/OBS CARE 2/35MIN Diagnoses Alcoholic cirrhosis of liver with ascites K70.31 Hyponatremia E87.1 Hypertension I10
--- NOTE | 2025-01-21 09:33 | Gastroenterology Progress Note ---
Date of Service January 21, 2025 Assessment & Plan (1) Ascites: Plan: Resolving SBP. Continuing to hernández ascites. Daily weights is one of the best ways to follow ascites treatment and whether it is working. Awaiting repeat paracentesis on Thursday Admission and Anticipated Discharge Date Admission Date: January 17, 2025 Subjective Feeling okay. Belly feels "about the same" Physical Exam Constitutional: + ill appearing Results & Data Vital Signs (Past 12 Hours) Vital Signs Temp Pulse Resp BP BP Pulse Ox O2 Del Method 01/21/25 09:00 37.4 C 91 H 15 115/73 99 Room Air 01/21/25 08:09 36.9 C 92 H 18 128/68 98 Room Air 01/20/25 21:55 Room Air (1) Ascites Ascites type: due to alcoholic hepatitis Qualified Code(s): K70.11 - Alcoholic hepatitis with ascites
--- NOTE | 2025-01-21 11:55 | Nephrology Progress Note ---
Date of Service January 21, 2025 Assessment & Plan (1) Hyponatremia: (2) Ascites: (3) Spontaneous bacterial peritonitis: (4) Anemia: Plan 59 year old gentleman with past medical history significant for alcoholic cirrhosis, ascites and chronic hyponatremia with serum sodium 125-130. He was admitted to the hospital after he was noted to have worsening ascites and need for paracentesis. On admission his serum sodium was 123 which stayed relatively stable without further improvement despite increasing dose of Lasix and spironolactone. Has normal kidney function, baseline creatinine 0.7 mg/dl. Also noted to have bacterial peritonitis, on ciprofloxacin. Sodium dropped further to 121 this morning. Urine output improved on high-dose of diuretics net negative however abdominal ascites continues to worsen. Current plan is to do paracentesis Thursday. -- Change diet to regular diet without salt restriction -- Continue on Lasix 80 mg and spironolactone 20 mg daily. -- Clinically he is since quite uncomfortable with significant ascites, further drop in serum sodium, if possible would recommend to arrange for paracentesis today -- Start on salt tablet 1 g twice a day Admission and Anticipated Discharge Date Admission Date: January 17, 2025 Subjective Momo was seen and evaluated this morning. He was overall feeling poorly with abdominal distention and discomfort, has been having conversational dyspnea. Reports appetite decent but has been eating less due to significant abdominal ascites and distention. Denies confusion, headache, nausea or vomiting. Sodium remained low and in fact dropped further again to 121. Decent urine output net negative more than 600 mL while on Lasix 80 mg and spironolactone 20 mg daily. Review of Systems Review of Systems: All systems reviewed & are unremarkable except as noted in Subjective Physical Exam Constitutional: WD/WN, vitals as above + ill appearing Neck: normal visual inspection Respiratory: + respiratory distress Auscultation: + diminished lung sounds; no crackles Cardiovascular: Rate/Rhythm: regular rate and regular rhythm Heart Sounds: normal S1 and normal S2 Gastrointestinal (Abdomen): Inspection/Auscultation: + abdomen distended Percussion/Palpation: + ascites Skin: no rashes Neurologic: no focal motor deficits and not confused Psychiatric: Orientation: alert and oriented x 3 Results & Data Vital Signs (Past 12 Hours) Vital Signs Temp Pulse Resp BP BP Pulse Ox O2 Del Method 01/21/25 09:00 37.4 C 91 H 15 115/73 99 Room Air 01/21/25 08:09 36.9 C 92 H 18 128/68 98 Room Air 01/21/25 07:35 Room Air PG Care Time/CCT Total # of Minutes Spent Total Time Spent with Patient: Total time spent is greater than 50% in coordination of care (as documented) at patient's floor/unit and/or counseling patient: Coding Level of Care Code 51361 SUB INP/OBS CARE 2/35MIN Diagnoses Hyponatremia E87.1 Ascites K70.11 Ascites type: due to alcoholic hepatitis Spontaneous bacterial peritonitis K65.2 Anemia D64.9 Anemia type: unspecified type (2) Ascites Ascites type: due to alcoholic hepatitis Qualified Code(s): K70.11 - Alcoholic hepatitis with ascites (4) Anemia Anemia type: unspecified type Qualified Code(s): D64.9 - Anemia, unspecified
[2025-01-21] MEDS: SODIUM CHLORIDE 1 GM TABLET PO SCH (20:56)
[2025-01-22 06:26] LABS: Hematocrit (blood only) 23.6 % (42.0-52.0); Hemoglobin 8.3 g/dl (14.0-18.0); Mean Corpuscular Hgb Conc 35.2 g/dL (32.0-36.0); Mean Corpuscular Volume 99.6 fL (80.0-100.0); Mean Platelet Volume 8.6 fL (9.4-12.4); Platelet Count 155 K/uL (130-400); RDW Coefficient of Variation 12.9 % (11.5-14.5); RDW Standard Deviation 46.5 fL (36.4-46.3); Red Blood Count 2.37 M/uL (4.70-6.10); White Blood Count 6.85 K/ul (4.8-10.8)
[2025-01-22 06:29] LABS: Albumin Level 3.2 gm/dl (3.4-5.0); BUN Creatinine Ratio 19.3 (10-20); Bilirubin Direct 2.7 mg/dl (0-0.2); Bilirubin,Total 6.5 mg/dl (0.2-1.0); Calcium 8.5 mg/dl (8.6-10.3); Potassium 4.2 mmol/L (3.5-5.1); Total Protein 6.4 gm/dl (6.0-8.3)
--- NOTE | 2025-01-22 09:55 | Hospitalist Progress Note ---
Date of Service January 22, 2025 Assessment & Plan (1) Alcoholic cirrhosis of liver with ascites: Plan: paracentesis completed-5L removed elevated bilirubin of 9.8 on admission, now 6.5 GI consult appreciated lasix 80 spironolactone 200 thiamine multivitamin folic acid SBP on cipro repeat paracentesis on 01/23 (2) Hyponatremia: Plan: Na+ 122 likely 2nd to volume overload receiving lasix 80mg daily spironolactone 200mg daily Nephrology consult appreciated albumin given fluid restriction unable to tolerate salt tabs at this time (3) Hypertension: Plan: Metoprolol Plan Heparin SQ for DVT px Pt with severe etoh cirrhosis with ascites and worsening LFTs with SBP, requiring paracentesis on cipro, awaiting 2nd paracentesis on 01/23, awaiting further GI recommendations prior to d/c. Admission and Anticipated Discharge Date Admission Date: January 17, 2025 Subjective Pt unable to tolerate salt tab. He states he cannot "hold it down." Decreased po intake 2nd to abdominal swelling. Review of Systems Review of Systems: jaundice, distended abdomen CONST: Negative for fever, body aches and chills. HENT: Negative for neck pain/stiffness, headache, congestion, sore throat, swelling. EYES: Negative for discharge/pain or vision changes. RESP: Negative for cough/hemoptysis and shortness of breath. CV: Negative chest pain, difficulty breathing, palpitations. ABD: Negative pain, nausea, vomiting. : Negative increase frequency, dysuria, blood in urine or stool. MUSC: Negative for muscle aches, edema. SKIN: Negative rash, lesions/sores. NEURO: Negative headache, dizziness, weakness. Physical Exam Physical Exam: GENERAL APPEARANCE NAD, activity normal for age, well developed/ well nourished, no cyanosis, pallor, or diaphoresis. EYES lids/conjunctiva normal. EARS/NOSE/THROAT Mucous membranes moist, nares normal, lips/teeth normal uvula midline without oral pharyngeal erythema, exudate or swelling TMs normal bilaterally. No lymphangitis/lymphedema. HEAD/NECK normocephalic atraumatic, no facial trauma, neck is supple. RESPIRATORY respiratory effort normal, speaks in full sentences, no tripod position, no accessory muscle use. Lungs clear to auscultation without rhonchi, wheezes, rales CARDIAC Regular rate and rhythm, no edema. ABDOMINAL Distended, No evidence of fluid wave. No pulsatile masses on exam, rebound tenderness, Lopez sign or pain over Mcburney's point. MUSCLES/EXTREMITIES No abnormal range of motion, no swelling. SKIN Jaundice, Warm, pink and dry. No rashes, dermatoses, petechiae or lesions. NEUROLOGICAL Speech is clear and appropriate. Normal level of consciousness. Gait and coordination are normal. 5/5 strength in all extremities. PSYCH Normal mood and affect. Judgement/competence is appropriate Results & Data Results & Data Vital Signs (Past 12 Hours) Vital Signs Temp Pulse Resp BP Pulse Ox O2 Del Method 01/22/25 08:26 36.4 C L 87 18 114/70 100 Room Air 01/22/25 08:21 Room Air PG Care Time/CCT Total # of Minutes Spent Total Time Spent with Patient: Total time spent is greater than 50% in coordination of care (as documented) at patient's floor/unit and/or counseling patient: Coding Level of Care Code 49980 SUB INP/OBS CARE 2/35MIN Diagnoses Alcoholic cirrhosis of liver with ascites K70.31 Hyponatremia E87.1 Hypertension I10
--- NOTE | 2025-01-22 11:41 | Nephrology Progress Note ---
Date of Service January 22, 2025 Assessment & Plan (1) Hyponatremia: (2) Ascites: (3) Spontaneous bacterial peritonitis: (4) Anemia: Plan 59 year old gentleman with past medical history significant for alcoholic cirrhosis, ascites and chronic hyponatremia with serum sodium 125-130. He was admitted to the hospital after he was noted to have worsening ascites and need for paracentesis. On admission his serum sodium was 123 which stayed relatively stable without further improvement despite increasing dose of Lasix and spironolactone. Has normal kidney function, baseline creatinine 0.7 mg/dl. Also noted to have bacterial peritonitis, on ciprofloxacin. Sodium stable at 122 this morning asymptomatic. Urine output decent on high- dose of diuretics net negative however abdominal ascites continues to worsen. Current plan is to do paracentesis Thursday. -- Continue on Lasix 80 mg and spironolactone 20 mg daily. Will discontinue salt tablet as he could not tolerate, liberalize salt intake with diet. --IV albumin with paracentesis tomorrow. Admission and Anticipated Discharge Date Admission Date: January 17, 2025 Giana Barr was seen and evaluated this morning. He has been feeling about the same with abdominal distention and discomfort. Was able to have some breakfast this morning. Could not tolerate salt tablet. Sodium remained low at 122. Denies headache, confusion. Decent urine output on Lasix 80 mg and spironolactone 20 mg daily. Review of Systems Review of Systems: All systems reviewed & are unremarkable except as noted in Subjective Physical Exam Constitutional: WD/WN, vitals as above + ill appearing Respiratory: + respiratory distress Auscultation: + diminished lung sounds; no crackles Cardiovascular: Rate/Rhythm: regular rate and regular rhythm Heart Sounds: normal S1 and normal S2 Gastrointestinal (Abdomen): Inspection/Auscultation: + abdomen distended Percussion/Palpation: + ascites Skin: no rashes Neurologic: no focal motor deficits and not confused Psychiatric: Orientation: alert and oriented x 3 Results & Data Vital Signs (Past 12 Hours) Vital Signs Temp Pulse Resp BP Pulse Ox O2 Del Method 01/22/25 08:26 36.4 C L 87 18 114/70 100 Room Air 01/22/25 08:21 Room Air PG Care Time/CCT Total # of Minutes Spent Total Time Spent with Patient: Total time spent is greater than 50% in coordination of care (as documented) at patient's floor/unit and/or counseling patient: Coding Level of Care Code 74484 SUB INP/OBS CARE Diagnoses Hyponatremia E87.1 Ascites K70.11 Ascites type: due to alcoholic hepatitis Spontaneous bacterial peritonitis K65.2 Anemia D64.9 Anemia type: unspecified type (2) Ascites Ascites type: due to alcoholic hepatitis Qualified Code(s): K70.11 - Alcoholic hepatitis with ascites (4) Anemia Anemia type: unspecified type Qualified Code(s): D64.9 - Anemia, unspecified
[2025-01-22] MEDS: DOCUSATE SODIUM 100 MG CAP PO ONE (21:05)
[2025-01-23 07:00] LABS: Hemoglobin 8.4 g/dl (14.0-18.0); Mean Corpuscular Hemoglobin 36.1 pg (25.0-34.0); Mean Corpuscular Hgb Conc 36.5 g/dL (32.0-36.0); Mean Corpuscular Volume 98.7 fL (80.0-100.0); Mean Platelet Volume 8.6 fL (9.4-12.4); Platelet Count 137 K/uL (130-400); RDW Standard Deviation 46.8 fL (36.4-46.3); Red Blood Count 2.33 M/uL (4.70-6.10); White Blood Count 8.47 K/ul (4.8-10.8)
[2025-01-23 07:19] LABS: BUN Creatinine Ratio 21.3 (10-20); Calcium 8.4 mg/dl (8.6-10.3); Creatinine Clr Calc Pharmacy 144.9 ml/min; Potassium 4.3 mmol/L (3.5-5.1)
--- NOTE | 2025-01-23 08:41 | Hospitalist Progress Note ---
Date of Service January 23, 2025 Assessment & Plan (1) Alcoholic cirrhosis of liver with ascites: (2) Hyponatremia: (3) Hypertension: Plan #Alcoholic cirrhosis of liver with ascites NEW THIS YEAR, 2nd to alcohol, last drank per patient in November. Recent admission 12/15-12/19 for ascites and had thoracentesis during that admission as well. Admitted for alcoholic cirrhosis of liver w/ ascites and significant volume overload despite diuretics outpatient w/ new lasix 20mg/spironolactone 50mg at time of dc in December and NEW SBP TB was 9.8 on admission, repeat down to 6.5 GI, nephrology consulted (nephrology for hyponatremia, likely 2nd to cirrhosis) s/p paracentesis completed 01/18 for removal of 5L. Was provided Albumin 50g x 2 Started on Ceftriaxone 2gm q24h on 01/19 for SBP->converted to Cipro IV and continues on such for SBP and should complete course abx for SBP. ->Cx from paracentesis w/ serratia RESISTANT to ceftriaxone but sensitive to Ciprofloxacin and has been continued Continue INCREASED diuretics per nephrology -- Lasix 80mg, spironolactone 200mg - On midodrine 5mg TID for BP support, metoprolol for HR control Repeat paracentesis for today (01/23) planned, INR added to labs and 1.6, ok per IR provider for para -> Plan albumin 25gm IV x 1 w/ paracentesis -> will order additional 3 bags 25gm given removal of 8 L w/ paracentesis this afternoon and prior 50gm x 2 for 5L on 01/18 Midodrine 5mg TID for BP support, metoprolol for HR control (consider nadolol or other BB for cirrhosis) Suspect benefit from rifaximin and will touch base w/ CM about sending for nassar check. SHOULD HAVE GI f/u AT [facility] (prior lost as re-admitted in same time) #Hyponatremia: suspected 2nd to above, on lasix 80mg/spironolactone 200mg. Prior salt tablets not tolerated but also would avoid for prevention overload. Continue fluid restriction, albumin w/ paracentesis above and Lasix/spironolactone per nephrology Na remains LOW 121, monitor BMP in AM #Hypertension: Metoprolol continued for HR control as above and remains on midodrine TID however as above consider alternative BB for cirrhosis such as nadolol. DVT Proph: Heparin SQ ordered Dispo: continued inpatient stay, for paracentesis today and continues on Cipro IV for SBP. Lactulose added for constipation and checking ammonia as reporting no BM since 01/19 but mentation stable and no asterixis on exam New rx for midodrine as well as increased diuretics and consideration for daily lactulose/start rifaximin. Will need f/u GI, nephro at [facility]. Admission and Anticipated Discharge Date Admission Date: January 17, 2025 Supervising Physician Co-Signing Physician Notes FABY Supervision Note: I did not personally see or examine the patient today, but I verified all levy points of FABY Pierre's assessment and plan with the following exceptions/additions: None Subjective Eval this morning, resting in bed. For paracentesis this afternoon, plan for albumin IV as discussed. Discussed will need ongoing GI follow up at [facility] and likely benefit from Rifaximin, currently has diuretics increased, stable renal function and BP tolerating on midodrine for BP support. Abdomen is distended, less tenderness on continued abx. Passing gas but no BM in couple days, lactulose to be ordered per discussion w/ nursing. Will check ammonia but note was not elevated on 01/17 but no BM since 01/19 and given ongoing suspect may need increased lactulose but no asterixis at this time and remains alert/oriented.Last drink in Nov reported No CP/SOB on room air at present. Questions/concerns addressed at this time. Physical Exam 2 Physical Exam: General 59 yo male laying in bed, lights off, hat on, NAD but depressed appearing, slight jaundiced appearance to skin HEENT: head atraumatic, +facial hair, mmm, trachea midline Resp: even/unlabored ,slightly diminished in the bases but no wheezing/rales, on ROOM AIR CV: regular, rates 90s, no significant m/r/g, 3+ b/l LE edema, pulses present but diminished 2nd to edema, cap refill wnl GI: +BS, +DISTENSION, +ASCITES, +FLUID WAVE, decreased tenderness reported, no overt guarding, no rigidity MSK/Neuro: generalized weakness but nonfocal, not confused, ambulates to bathroom by himself Psych: AOx3 Results & Data Results & Data Vital Signs (Past 12 Hours) Vital Signs Temp Pulse Pulse Resp BP Pulse Ox O2 Del Method 01/23/25 08:25 98 H 124/74 01/23/25 07:21 36.7 C 92 H 18 109/69 100 Room Air Laboratory Results 01/23/25 06:42 01/23/25 06:42 INR 1.6 Mag 1.7 PG Care Time/CCT Total # of Minutes Spent Total Time Spent with Patient: Total time spent is greater than 50% in coordination of care (as documented) at patient's floor/unit and/or counseling patient: Coding Level of Care Code 05988 SUB INP/OBS CARE 3/50MIN Diagnoses Alcoholic cirrhosis of liver with ascites K70.31 Hyponatremia E87.1 Hypertension I10
[2025-01-23 09:39] LABS: INR 1.6 (0.9-1.1); Prothrombin Time 16.7 Seconds (9.0-12.0)
--- NOTE | 2025-01-23 09:41 | Nephrology Progress Note ---
Date of Service January 23, 2025 Assessment & Plan (1) Hyponatremia: (2) Ascites: (3) Spontaneous bacterial peritonitis: (4) Anemia: Plan 59 year old gentleman with past medical history significant for alcoholic cirrhosis, ascites and chronic hyponatremia with serum sodium 125-130. He was admitted to the hospital after he was noted to have worsening ascites and need for paracentesis. On admission his serum sodium was 123 which stayed relatively stable without further improvement despite increasing dose of Lasix and spironolactone. Has normal kidney function, baseline creatinine 0.7 mg/dl. Also noted to have bacterial peritonitis, on ciprofloxacin. Sodium stable but remain low around 121-123, on lasix 80 mg/d, paracentesis today. --Continue on Lasix 80 mg and spironolactone 20 mg daily, liberalize salt intake with diet. --IV albumin 25 gm with paracentesis --he should have regularly scheduled paracentesis as an out patient to avoid repeated hospitalization. Admission and Anticipated Discharge Date Admission Date: January 17, 2025 Subjective Momo was seen and evaluated this morning. He has been feeling uncomfortable with abdominal distention and discomfort, waiting for paracentesis. Sodium remained low at 121 to 123. Denies headache, confusion. Decent urine output on Lasix 80 mg and spironolactone 20 mg daily. Review of Systems Review of Systems: All systems reviewed & are unremarkable except as noted in Subjective Physical Exam Constitutional: WD/WN, vitals as above + ill appearing Gastrointestinal (Abdomen): Inspection/Auscultation: + abdomen distended Percussion/Palpation: + ascites Neurologic: no focal motor deficits and not confused Psychiatric: Orientation: alert and oriented x 3 Results & Data Vital Signs (Past 12 Hours) Vital Signs Temp Pulse Pulse Resp BP Pulse Ox O2 Del Method 01/23/25 08:25 98 H 124/74 01/23/25 07:21 36.7 C 92 H 18 109/69 100 Room Air PG Care Time/CCT Total # of Minutes Spent Total Time Spent with Patient: Total time spent is greater than 50% in coordination of care (as documented) at patient's floor/unit and/or counseling patient: Coding Level of Care Code 57813 SUB INP/OBS CARE 2/35MIN Diagnoses Hyponatremia E87.1 Ascites K70.11 Ascites type: due to alcoholic hepatitis Spontaneous bacterial peritonitis K65.2 Anemia D64.9 Anemia type: unspecified type (2) Ascites Ascites type: due to alcoholic hepatitis Qualified Code(s): K70.11 - Alcoholic hepatitis with ascites (4) Anemia Anemia type: unspecified type Qualified Code(s): D64.9 - Anemia, unspecified
[2025-01-23] MEDS: MAGNESIUM SULFATE / D5W 1 GM/100 ML BAG IV ONE (11:21)
--- NOTE | 2025-01-23 12:45 | Gastroenterology Progress Note ---
<Statement entered by Eliud Clark MD - 01/23/25 16:38> I have reviewed the history, physical exam, lab and imaging findings as dictated by the mid-level provider, made any necessary modifications, and agree with the stated assessment and recommendations. A total of 40minutes was spent in the chart/data review, direct observation, decision making and discussion of this case with the mid level provider, patient/family and other providers. Date of Service January 23, 2025 Assessment & Plan (1) Spontaneous bacterial peritonitis: (2) Alcoholic cirrhosis of liver with ascites: Plan -Continue Cipro -Awaiting paracentesis today; Patient currently off the floor for this--will return after paracentesis with Dr. Clark -Continue diuretics as advised by nephrology with Lasix 80 mg daily and Aldactone 200 mg daily -Patient needs to see a bark tanner in the outpatient setting, particularly in the setting of refractory ascites as well as need for ongoing HCC surveillance -Continue to trend MELD labs while inpatient -No s/s of HE this admission -Continue alcohol avoidance Admission and Anticipated Discharge Date Admission Date: January 17, 2025 Subjective Patient is a 59 yo male with cirrhosis, SBP, and significant hyponatremia. He continues on Cipro for his SBP based on sensitivities from ascitic fluid culture. He is awaiting repeat paracentesis. MELD 27. Review of Systems Review of Systems: patient off floor for paracentesis Results & Data Results & Data Vital Signs (Past 12 Hours) Vital Signs Temp Pulse Pulse Resp BP Pulse Ox O2 Del Method 01/23/25 08:25 98 H 124/74 01/23/25 08:15 Room Air 01/23/25 07:21 36.7 C 92 H 18 109/69 100 Room Air PG Care Time/CCT Total # of Minutes Spent Total Time Spent with Patient: Total time spent is greater than 50% in coordination of care (as documented) at patient's floor/unit and/or counseling patient: Coding Level of Care Code 93760 SUB INP/OBS CARE 3/50MIN Diagnoses Spontaneous bacterial peritonitis K65.2 Alcoholic cirrhosis of liver with ascites K70.31
[2025-01-23] MEDS: ALBUMIN 25% 25 GM/100 ML VIAL IV ONE (14:15)
[2025-01-23 15:03] LABS: Appearance Peritoneal Fluid Slightly Hazy; Color Peritoneal Fluid Yellow; RBC Peritoneal Fluid Auto < 2000 /uL; WBC Peritoneal Fluid Auto 1156 /ul (0-300)
--- NOTE | 2025-01-23 15:12 | Ultrasound Report ---
ULTRASOUND-GUIDED PARACENTESIS CLINICAL HISTORY: Ascites PROCEDURE: Procedure and risks were explained. Informed consent was obtained. A final timeout was com pleted. The abdomen was prepped and draped in sterile fashion. 1% lidocaine was utilized for skin ane sthesia. Utilizing ultrasound guidance, a 5 Amharic safety centesis catheter was advanced into the left lower q uadrant pocket of ascites. Ultrasound images were obtained. 8 L of yellow-colored ascites fluid was r emoved with 1 L sent to lab for analysis. The catheter was removed and Band-Aid applied. The patient tolerated the procedure well. Vital signs will be monitored postprocedure. IMPRESSION: Ultrasound-guided paracentesis as above. Performed, dictated, and signed by Manolo Srinivasan PA-C; to be co-signed by Dr. Lewis Gibson. Electronically signed by: Lewis Gibson M.D. 01/23/2025 4:09 PM
[2025-01-23 15:18] LABS: Albumin Peritoneal Fluid < 1.5 gm/dl; Total Protein Peritoneal Fluid < 3.0 gm/dl
[2025-01-23 15:31] LABS: Bilirubin Direct 2.7 mg/dl (0-0.2); Bilirubin,Total 6.6 mg/dl (0.2-1.0); Magnesium 1.8 mg/dl (1.7-2.4); Total Protein 6.2 gm/dl (6.0-8.3)
[2025-01-23] MEDS: LACTULOSE SYRUP 20 GM/30 ML UDC PO ONE (16:13)
[2025-01-23] MEDS: ALBUMIN 25% 25 GM/100 ML VIAL IV SCH (16:16)
[2025-01-23] MEDS: CIPROFLOXACIN 500 MG TAB PO SCH (21:09)
[2025-01-24 07:03] LABS: Hematocrit (blood only) 22.9 % (42.0-52.0); Hemoglobin 8.2 g/dl (14.0-18.0); Mean Corpuscular Hemoglobin 35.5 pg (25.0-34.0); Mean Corpuscular Hgb Conc 35.8 g/dL (32.0-36.0); Mean Corpuscular Volume 99.1 fL (80.0-100.0); Mean Platelet Volume 8.9 fL (9.4-12.4); Platelet Count 143 K/uL (130-400); RDW Coefficient of Variation 12.6 % (11.5-14.5); RDW Standard Deviation 45.4 fL (36.4-46.3); Red Blood Count 2.31 M/uL (4.70-6.10); White Blood Count 8.37 K/ul (4.8-10.8)
[2025-01-24 07:04] LABS: Lymphocytes, Fluid 19 %; Mono,Macrophage,Mesothelial 15 %; Neutrophils, Fluid 67 %
[2025-01-24 07:30] LABS: Albumin Level 3.4 gm/dl (3.4-5.0); BUN Creatinine Ratio 21.3 (10-20); Bilirubin Direct 2.4 mg/dl (0-0.2); Bilirubin,Total 5.7 mg/dl (0.2-1.0); Calcium 8.4 mg/dl (8.6-10.3); Creatinine Clr Calc Pharmacy 144.5 ml/min; Magnesium 1.8 mg/dl (1.7-2.4); Potassium 4.1 mmol/L (3.5-5.1); Total Protein 6.2 gm/dl (6.0-8.3)
[2025-01-24] MEDS: LACTULOSE SYRUP 20 GM/30 ML UDC PO SCH (07:34)
[2025-01-24 08:42] LABS: INR 1.6 (0.9-1.1); Prothrombin Time 16.5 Seconds (9.0-12.0)
--- NOTE | 2025-01-24 09:59 | Nephrology Progress Note ---
Date of Service January 24, 2025 Assessment & Plan (1) Hyponatremia: (2) Ascites: (3) Spontaneous bacterial peritonitis: (4) Anemia: Plan 59 year old gentleman with past medical history significant for alcoholic cirrhosis, ascites and chronic hyponatremia with serum sodium 125-130. He was admitted to the hospital after he was noted to have worsening ascites and need for paracentesis. On admission his serum sodium was 123 which stayed relatively stable without further improvement despite increasing dose of Lasix and spironolactone. Has normal kidney function, baseline creatinine 0.7 mg/dl. Also noted to have bacterial peritonitis, on ciprofloxacin. Had 8 L paracentesis on 01/23/2025. Sodium stable but remain low around 122-123, on Lasix 80 mg/d. --Continue on Lasix 80 mg and spironolactone 20 mg daily, liberalize salt intake with diet. Was not able to tolerate salt tablet. If sodium drops below 120, recommend 3% saline bolus Will sign off, no other recommendation from nephrology at this point, please contact if further assistance needed. Thank you for the consult. Admission and Anticipated Discharge Date Admission Date: January 17, 2025 Giana Barr was seen and evaluated this morning. He has been feeling better after 8 L fluid removal with the paracentesis and having bowel movement last night. Sodium staying somewhat stable at 123. Blood pressure remained relatively low. Denies headache, confusion. Decent urine output on Lasix 80 mg and spironolactone 200 mg daily. Review of Systems Review of Systems: All systems reviewed & are unremarkable except as noted in Subjective Physical Exam Constitutional: WD/WN, vitals as above + ill appearing Respiratory: Auscultation: + diminished lung sounds; no crackles Cardiovascular: Rate/Rhythm: regular rate and regular rhythm Heart Sounds: normal S1 and normal S2 Gastrointestinal (Abdomen): Inspection/Auscultation: + abdomen distended Percussion/Palpation: + ascites Skin: no rashes Neurologic: no focal motor deficits and not confused Psychiatric: Orientation: alert and oriented x 3 Results & Data Vital Signs (Past 12 Hours) Vital Signs Temp Pulse Pulse Resp BP Pulse Ox O2 Del Method 01/24/25 08:03 36.6 C 100 H 18 102/58 L 96 Room Air 01/24/25 06:10 36.8 C 101 H 16 106/61 95 Room Air 01/24/25 01:13 37.0 C 97 H 16 111/62 96 Room Air 01/23/25 23:05 37.0 C 96 H 16 100/53 L 98 Room Air PG Care Time/CCT Total # of Minutes Spent Total Time Spent with Patient: Total time spent is greater than 50% in coordination of care (as documented) at patient's floor/unit and/or counseling patient: Coding Level of Care Code 62872 SUB INP/OBS CARE 2/35MIN Diagnoses Hyponatremia E87.1 Ascites K70.11 Ascites type: due to alcoholic hepatitis Spontaneous bacterial peritonitis K65.2 Anemia D64.9 Anemia type: unspecified type (2) Ascites Ascites type: due to alcoholic hepatitis Qualified Code(s): K70.11 - Alcoholic hepatitis with ascites (4) Anemia Anemia type: unspecified type Qualified Code(s): D64.9 - Anemia, unspecified
--- NOTE | 2025-01-24 16:23 | Hospitalist Progress Note ---
Date of Service January 24, 2025 Assessment & Plan (1) Alcoholic cirrhosis of liver with ascites: (2) Spontaneous bacterial peritonitis: (3) Hyponatremia: (4) Anemia: Plan This patient is a 59-year-old male with a history of EtOH cirrhosis, HTN, HLD, GERD, macrocytic anemia who is admitted with decompensated cirrhosis with elevated LFTs and massive ascites, found to have SBP and severe hyponatremia. # Decompensated EtOH cirrhosis with ascites/SBP-recent admission 12/15-12/19 for ascites requiring paracentesis and had thoracentesis during that admission as well-was started on lasix 20mg/spironolactone 50mg at time of dc in December. Readmitted now with massive ascites, abdominal pain. Paracentesis removed 5 L and cultures positive for Serratia resistant to ceftriaxone. LFTs elevated on admission and continued to improve-T. bili down to 5. Had repeat paracentesis on 01/23 to remove 8 L with IV albumin given afterwards. Hyponatremia is severe but improving. GI and nephrology consults appreciated. MELD score currently 27 -Continue increased doses of diuretics with Lasix 80mg p.o. daily, spironolactone 200mg p.o. daily -Continue Cipro 500 mg p.o. twice daily for SBP and follow repeat peritoneal fluid cultures from 01/23 -Started on midodrine 5mg TID for BP support - Recommend to change metoprolol to propranolol for cirrhosis-will discuss with GI given current decompensated cirrhosis -No bowel movement in 4 days until 01/24 after starting lactulose-continue lactulose 30 g p.o. once daily with goal of 2-3 BMs per day -Will start rifaximin 550 Mg p.o. twice daily - Continue thiamine, multivitamin with folic acid - Needs hepatology follow-up after discharge for refractory ascites and HCC surveillance-nurse navigator arranging. He may be a candidate for liver transplantation - Continue to trend MELD labs while inpatient-CBC, CMP, PT/INR - He has not had EGD to screen for varices-this could be done as an outpatient #Hyponatremia-secondary to cirrhosis with volume overload. Sodium 121 and now improving to 123. Appreciate nephrology consultation. Status post 2 large- volume paracenteses - Continue spironolactone, furosemide - Follow I's and O's - Follow BMP - Liberalize salt in diet, and add fluid restriction - Nephrology recommends 3% saline if sodium less than 120 #Hypertension-blood pressures have been soft with decompensated cirrhosis. He remains on metoprolol due to tachycardia. He obviously has portal hypertension and is requiring midodrine. - Will likely stop Toprol XL and start low-dose propranolol-will discuss with GI #Macrocytic anemia-Hgb low at 8.2 but stable from previous, macrocytic. TSH normal. No evidence of ongoing bleeding - Check B12, folate, iron studies in the morning - Follow CBC #HLD-it appears he is no longer on his previous statin #GERD-continue Protonix DVT Proph: Heparin SQ Dispo: Continued stay, patient does not have insurance and need to ensure condition improving, all outpatient follow-up arranged prior to discharge Admission and Anticipated Discharge Date Admission Date: January 17, 2025 Subjective Patient overall is feeling better today. Still some abdominal pain but improved, abdominal distention improved. He is feeling overwhelmed with everything going on. He has been ambulating carefully to the bathroom and back. Physical Exam Constitutional: + cachectic; no acute distress Eyes: + scleral abnormality (Icterus) Respiratory: normal respiratory effort, lungs clear to auscultation Cardiovascular: Rate/Rhythm: regular rate and regular rhythm Extremities: + edema (2+ pitting edema bilateral legs to the knees) Gastrointestinal (Abdomen): Inspection/Auscultation: + abdomen distended (Mild to moderately), normal bowel sounds and + caput medusae present Percussion/Palpation: abdomen soft; abdomen nontender Skin: + jaundice Psychiatric: A+Ox3, euthymic affect Results & Data Results & Data Vital Signs (Past 12 Hours) Vital Signs Temp Pulse Resp BP BP Pulse Ox O2 Del Method 01/24/25 15:48 36.9 C 96 H 16 108/60 99 Room Air 01/24/25 08:03 36.6 C 100 H 18 102/58 L 96 Room Air 01/24/25 07:30 Room Air 01/24/25 06:10 36.8 C 101 H 16 106/61 95 Room Air Laboratory Results CBC, BMP, magnesium, LFTs, INR, blood cultures, peritoneal fluid culture reviewed PG Care Time/CCT Total # of Minutes Spent Total Time Spent with Patient: Total time spent is greater than 50% in coordination of care (as documented) at patient's floor/unit and/or counseling patient: Coding Level of Care Code 34395 SUB INP/OBS CARE MIN Diagnoses Alcoholic cirrhosis of liver with ascites K70.31 Spontaneous bacterial peritonitis K65.2 Hyponatremia E87.1 Anemia D64.9 Anemia type: unspecified type (4) Anemia Anemia type: unspecified type Qualified Code(s): D64.9 - Anemia, unspecified
[2025-01-25] MEDS: guaiFENesin/DEXTROM SYRUP 100MG/10MG 5ML UDC PO PRN (03:34)
[2025-01-25 09:23] LABS: Basophils # (auto) 0.01 K/uL (0.00-0.20); Basophils % (auto) 0.1 %; Eosinophils # (auto) 0.01 K/uL (0.00-0.50); Eosinophils % (auto) 0.1 %; Hematocrit (blood only) 24.1 % (42.0-52.0); Hemoglobin 8.6 g/dl (14.0-18.0); Immature Granulocytes # (auto) 0.02 K/uL (0.01-0.20); Immature Granulocytes % (auto) 0.2 %; Lymphocytes # (auto) 0.78 K/uL (1.20-3.40); Lymphocytes % (auto) 9.4 %; Mean Corpuscular Hemoglobin 35.7 pg (25.0-34.0); Mean Corpuscular Hgb Conc 35.7 g/dL (32.0-36.0); Mean Platelet Volume 8.5 fL (9.4-12.4); Monocytes # (auto) 1.22 K/uL (0.11-0.59); Monocytes % (auto) 14.7 %; Neutrophils # (auto) 6.28 K/uL (1.40-6.50); Neutrophils % (auto) 75.5 %; Platelet Count 183 K/uL (130-400); RDW Coefficient of Variation 12.8 % (11.5-14.5); Red Blood Count 2.41 M/uL (4.70-6.10); White Blood Count 8.32 K/ul (4.8-10.8)
[2025-01-25 09:45] LABS: Anion Gap 7 (3-11); BUN Creatinine Ratio 22.2 (10-20); Blood Urea Nitrogen 16 mg/dl (6-23); Calcium 8.3 mg/dl (8.6-10.3); Carbon Dioxide 23 mmol/L (21-32); Chloride 92 mmol/L (98-107); Creatinine Clr Calc Pharmacy 122.7 ml/min; Glucose 173 mg/dl (70-99(Fasting)); Potassium 4.3 mmol/L (3.5-5.1); Sodium 122 mmol/L (136-145)
[2025-01-25 09:49] LABS: Alanine Aminotransferase 20 U/L (7-52); Albumin Globulin Ratio 1.1 (0.9-2); Albumin Level 3.2 gm/dl (3.4-5.0); Alkaline Phosphatase 47 U/L (34-104); Aspartate Aminotransferase 46 U/L (13-39); Bilirubin,Total 6.5 mg/dl (0.2-1.0); Iron 41 mcg/dl (35-175); Magnesium 1.8 mg/dl (1.7-2.4); Total Protein 6.2 gm/dl (6.0-8.3); Transferrin < 95 mg/dl (200-360)
[2025-01-25 09:59] LABS: INR 1.6 (0.9-1.1); Prothrombin Time 16.7 Seconds (9.0-12.0)
[2025-01-25 10:04] LABS: Ferritin 671.1 ng/ml (8-388)
[2025-01-25 10:10] LABS: Folate (Folic Acid),Ser orPlas 16.66 ng/ml (>5.38)
--- NOTE | 2025-01-25 17:17 | Hospitalist Progress Note ---
Date of Service January 25, 2025 Assessment & Plan (1) Alcoholic cirrhosis of liver with ascites: (2) Spontaneous bacterial peritonitis: (3) Hyponatremia: (4) Anemia: Plan This patient is a 59-year-old male with a history of EtOH cirrhosis, HTN, HLD, GERD, macrocytic anemia who is admitted with decompensated cirrhosis with elevated LFTs and massive ascites, found to have SBP and severe hyponatremia. # Decompensated EtOH cirrhosis with ascites/SBP-recent admission 12/15-12/19 for ascites requiring paracentesis and had thoracentesis during that admission as well-was started on lasix 20mg/spironolactone 50mg at time of dc in December. Readmitted now with massive ascites, abdominal pain. Paracentesis removed 5 L and cultures positive for Serratia resistant to ceftriaxone. LFTs elevated on admission and are somewhat improved but remain elevated. Had repeat paracentesis on 01/23 to remove 8 L with IV albumin given afterwards. Hyponatremia is severe but slightly improved. GI and nephrology consults appreciated. MELD score currently 24 -Continue increased doses of diuretics with Lasix 80mg p.o. daily, spironolactone 200mg p.o. daily-consider uptitrating but caution to avoid hepatorenal syndrome -Continue Cipro 500 mg p.o. twice daily for SBP times total 10 days and follow repeat peritoneal fluid cultures from 01/23-no growth to date -Started on midodrine 5mg TID for BP support -Recommend eventual addition of nonselective beta-janee like propranolol for cirrhosis-discussed with GI-will await for cirrhosis to be compensated - Continue bowel regimen with lactulose 30 g p.o. once daily with goal of 2-3 BMs per day -Will start rifaximin 550 Mg p.o. twice daily on discharge if cost affordable - Continue thiamine, multivitamin with folic acid - Needs hepatology follow-up after discharge for refractory ascites and HCC surveillance-nurse navigator arranging. He may be a candidate for liver transplantation. Gave him phone number for [employer] to schedule as referral is in [phone] - Continue to trend MELD labs while inpatient-CBC, CMP, PT/INR - He has not had EGD to screen for varices-this could be done as an outpatient #Hyponatremia-secondary to cirrhosis with volume overload. Sodium 121 and now improved only slightly to [id number] nephrology consultation. Status post 2 large-volume paracenteses - Continue spironolactone, furosemide at current doses - Follow I's and O's, fluid restriction 1500 mL/day, liberalize salt in diet - Follow BMP - Nephrology recommends 3% saline if sodium less than 120 #Hypertension-blood pressures have been soft with decompensated cirrhosis. He is on metoprolol for previous diagnosis of HTN but now is requiring midodrine. -will dc Toprol XL -plan to start low-dose propranolol once cirrhosis more compensated #Macrocytic anemia-Hgb low at 8.2-8.4 but stable from previous, macrocytic. TSH normal. No evidence of ongoing bleeding. Iron studies undetectable, B12 and folate normal - Follow CBC #HLD-it appears he is no longer on his previous statin #GERD-continue Protonix DVT Proph: Heparin SQ Dispo: Continued stay, patient does not have insurance and need to ensure condition improving, all outpatient follow-up arranged prior to discharge Admission and Anticipated Discharge Date Admission Date: January 17, 2025 Subjective Patient reports feeling a bit better today. Moved bowels twice but the first time was a small amount. Abdominal pain still mildly present coming and going in right lower quadrant but improved overall. No other new symptoms. I discussed his care with gastroenterology PA and with case management. Physical Exam Constitutional: + cachectic; no acute distress Eyes: + scleral abnormality (Icterus) Respiratory: normal respiratory effort, lungs clear to auscultation Cardiovascular: Rate/Rhythm: regular rate and regular rhythm Extremities: + edema (2+ pitting edema bilateral legs to the knees) Gastrointestinal (Abdomen): Inspection/Auscultation: + abdomen distended (Mild to moderately), normal bowel sounds and + caput medusae present Percussion/Palpation: abdomen soft; abdomen nontender Skin: + jaundice Psychiatric: A+Ox3, euthymic affect Results & Data Results & Data Vital Signs (Past 12 Hours) Vital Signs Temp Pulse Resp BP Pulse Ox O2 Del Method 01/25/25 15:41 36.7 C 84 16 100/60 100 Room Air 01/25/25 08:03 36.7 C 98 H 16 100/51 L 97 Room Air 01/25/25 07:45 Room Air Laboratory Results CBC, CMP, iron studies, magnesium, INR, B12, folate reviewed PG Care Time/CCT Total # of Minutes Spent Total Time Spent with Patient: Total time spent is greater than 50% in coordination of care (as documented) at patient's floor/unit and/or counseling patient: Coding Level of Care Code 22480 SUB INP/OBS CARE 235MIN Diagnoses Alcoholic cirrhosis of liver with ascites K70.31 Spontaneous bacterial peritonitis K65.2 Hyponatremia E87.1 Anemia D64.9 Anemia type: unspecified type (4) Anemia Anemia type: unspecified type Qualified Code(s): D64.9 - Anemia, unspecified
[2025-01-26 07:30] LABS: Albumin Globulin Ratio 1.1 (0.9-2); Albumin Level 3.1 gm/dl (3.4-5.0); BUN Creatinine Ratio 27.1 (10-20); Bilirubin,Total 6.7 mg/dl (0.2-1.0); Calcium 8.2 mg/dl (8.6-10.3); Creatinine Clr Calc Pharmacy 126.3 ml/min; Globulin 2.9 gm/dl (2.5-4.0); Magnesium 1.8 mg/dl (1.7-2.4); Potassium 4.5 mmol/L (3.5-5.1)
[2025-01-26 07:31] LABS: Basophils # (auto) 0.01 K/uL (0.00-0.20); Basophils % (auto) 0.1 %; Eosinophils # (auto) 0.02 K/uL (0.00-0.50); Eosinophils % (auto) 0.2 %; Hematocrit (blood only) 22.7 % (42.0-52.0); Hemoglobin 8.1 g/dl (14.0-18.0); Immature Granulocytes # (auto) 0.02 K/uL (0.01-0.20); Immature Granulocytes % (auto) 0.2 %; Lymphocytes # (auto) 0.86 K/uL (1.20-3.40); Lymphocytes % (auto) 9.7 %; Mean Corpuscular Hemoglobin 35.5 pg (25.0-34.0); Mean Corpuscular Hgb Conc 35.7 g/dL (32.0-36.0); Mean Corpuscular Volume 99.6 fL (80.0-100.0); Mean Platelet Volume 8.9 fL (9.4-12.4); Monocytes # (auto) 1.65 K/uL (0.11-0.59); Monocytes % (auto) 18.5 %; Neutrophils # (auto) 6.34 K/uL (1.40-6.50); Neutrophils % (auto) 71.3 %; Platelet Count 195 K/uL (130-400); RDW Coefficient of Variation 12.7 % (11.5-14.5); RDW Standard Deviation 46.3 fL (36.4-46.3); Red Blood Count 2.28 M/uL (4.70-6.10)
[2025-01-26 07:45] LABS: INR 1.6 (0.9-1.1); Prothrombin Time 16.5 Seconds (9.0-12.0)
--- NOTE | 2025-01-26 16:52 | Hospitalist Progress Note ---
Date of Service January 26, 2025 Assessment & Plan (1) Alcoholic cirrhosis of liver with ascites: (2) Spontaneous bacterial peritonitis: (3) Hyponatremia: (4) Anemia: Plan This patient is a 59-year-old male with a history of EtOH cirrhosis, HTN, HLD, GERD, macrocytic anemia who is admitted with decompensated cirrhosis with elevated LFTs and massive ascites, found to have SBP and severe hyponatremia. # Decompensated EtOH cirrhosis with ascites/SBP-recent admission 12/15-12/19 for ascites requiring paracentesis and had thoracentesis during that admission as well-was started on lasix 20mg/spironolactone 50mg at time of dc in December. Readmitted now with massive ascites, abdominal pain. Paracentesis removed 5 L and cultures positive for Serratia resistant to ceftriaxone. LFTs elevated on admission and are somewhat improved but remain elevated. Had repeat paracentesis on 01/23 to remove 8 L with IV albumin given afterwards. Hyponatremia is severe and remains low but stable at 122. GI and nephrology consults appreciated. MELD score currently 24 -Continue increased doses of diuretics with Lasix 80mg p.o. daily, spironolactone 200mg p.o. daily-consider uptitrating but caution to avoid hepatorenal syndrome-discussed with nephrology who does not think it will make a difference at this point -Continue Cipro 500 mg p.o. twice daily for SBP times total 10 days and follow repeat peritoneal fluid cultures from 01/23-no growth to date -Started on midodrine 5mg TID for BP support and discontinued metoprolol for hypotension -Recommend eventual addition of nonselective beta-janee like propranolol for cirrhosis-discussed with GI-will await for cirrhosis to be compensated - Continue bowel regimen with lactulose but increase to 30 g p.o. twice daily with goal of 2-3 BMs per day -Will start rifaximin 550 Mg p.o. twice daily on discharge if cost affordable - Continue thiamine, multivitamin with folic acid - Needs hepatology follow-up after discharge for refractory ascites and HCC surveillance-nurse navigator arranging. He may be a candidate for liver transplantation. Gave him phone number for [employer] to schedule as referral is in [phone] - Continue to trend MELD labs while inpatient-CBC, CMP, PT/INR - He has not had EGD to screen for varices-this could be done as an outpatient with hepatology -Plan for repeat paracentesis on 01/27-will give IV albumin afterwards #Hyponatremia-secondary to cirrhosis with volume overload. Sodium 121 and now improved only slightly to [id number] nephrology consultation. Status post 2 large-volume paracenteses - Continue spironolactone, furosemide at current doses - Follow I's and O's, fluid restriction 1500 mL/day, liberalize salt in diet - Follow BMP - Nephrology recommends 3% saline if sodium less than 120 #Hypertension-blood pressures have been soft with decompensated cirrhosis. He is on metoprolol for previous diagnosis of HTN but now is requiring midodrine. - Discontinued Toprol XL -plan to start low-dose propranolol once cirrhosis more compensated #Macrocytic anemia-Hgb low at 8.1-8.4 but stable from previous, macrocytic. TSH normal. No evidence of ongoing bleeding. Iron studies undetectable, B12 and folate normal - Follow CBC #HLD-it appears he is no longer on his previous statin #GERD-continue Protonix DVT Proph: Heparin SQ Dispo: Continued stay, patient does not have insurance and need to ensure condition improving, all outpatient follow-up arranged prior to discharge. I will be filling out temporary disability paperwork for him and he is applying for medical assistance. Admission and Anticipated Discharge Date Admission Date: January 17, 2025 Subjective Patient feeling constipated-has not moved his bowels since yesterday afternoon and is worried about eating food. He does have some intermittent abdominal pains and feels he is really getting distended in the abdomen again. I discussed his care with the GI PA, and nephrology as well as case management Physical Exam Constitutional: + cachectic; no acute distress Eyes: + scleral abnormality (Icterus) Respiratory: normal respiratory effort, lungs clear to auscultation Cardiovascular: Rate/Rhythm: regular rate and regular rhythm Extremities: + edema (2+ pitting edema bilateral legs to the knees) Gastrointestinal (Abdomen): Inspection/Auscultation: + abdomen distended (Moderate to severe), normal bowel sounds and + caput medusae present Percussion/Palpation: abdomen soft; abdomen nontender Skin: + jaundice Psychiatric: Orientation: alert and oriented x 3 Affect: + irritable affect Results & Data Results & Data Vital Signs (Past 12 Hours) Vital Signs Temp Pulse Resp BP BP Pulse Ox O2 Del Method 01/26/25 13:35 36.8 C 63 18 100/63 95 Room Air 01/26/25 08:00 37.5 C 94 H 18 103/64 98 Room Air Laboratory Results CBC, CMP, INR, magnesium reviewed PG Care Time/CCT Total # of Minutes Spent Total Time Spent with Patient: Total time spent is greater than 50% in coordination of care (as documented) at patient's floor/unit and/or counseling patient: Coding Level of Care Code 30463 SUB INP/OBS CARE 3/50MIN Diagnoses Alcoholic cirrhosis of liver with ascites K70.31 Spontaneous bacterial peritonitis K65.2 Hyponatremia E87.1 Anemia D64.9 Anemia type: unspecified type (4) Anemia Anemia type: unspecified type Qualified Code(s): D64.9 - Anemia, unspecified
[2025-01-26] MEDS: LACTULOSE SYRUP 20 GM/30 ML UDC PO SCH (17:19)
[2025-01-27] MEDS: OXYMETAZOLINE 0.05% 30 ML BTL PRN (05:42)
[2025-01-27 07:23] LABS: Albumin Globulin Ratio 0.9 (0.9-2); Albumin Level 3.3 gm/dl (3.4-5.0); BUN Creatinine Ratio 27.3 (10-20); Bilirubin,Total 6.8 mg/dl (0.2-1.0); Calcium 8.7 mg/dl (8.6-10.3); Creatinine Clr Calc Pharmacy 100.4 ml/min; Globulin 3.6 gm/dl (2.5-4.0); Magnesium 1.9 mg/dl (1.7-2.4); Potassium 4.5 mmol/L (3.5-5.1); Total Protein 6.9 gm/dl (6.0-8.3)
[2025-01-27 07:27] LABS: Basophils # (auto) 0.01 K/uL (0.00-0.20); Basophils % (auto) 0.1 %; Eosinophils # (auto) 0.01 K/uL (0.00-0.50); Eosinophils % (auto) 0.1 %; Hematocrit (blood only) 24.1 % (42.0-52.0); Hemoglobin 8.7 g/dl (14.0-18.0); Immature Granulocytes # (auto) 0.06 K/uL (0.01-0.20); Immature Granulocytes % (auto) 0.5 %; Lymphocytes # (auto) 0.69 K/uL (1.20-3.40); Lymphocytes % (auto) 6.3 %; Mean Corpuscular Hemoglobin 35.8 pg (25.0-34.0); Mean Corpuscular Hgb Conc 36.1 g/dL (32.0-36.0); Mean Corpuscular Volume 99.2 fL (80.0-100.0); Mean Platelet Volume 8.6 fL (9.4-12.4); Monocytes # (auto) 1.93 K/uL (0.11-0.59); Monocytes % (auto) 17.5 %; Neutrophils # (auto) 8.31 K/uL (1.40-6.50); Neutrophils % (auto) 75.5 %; Platelet Count 220 K/uL (130-400); RDW Standard Deviation 47.5 fL (36.4-46.3); Red Blood Count 2.43 M/uL (4.70-6.10); White Blood Count 11.01 K/ul (4.8-10.8)
[2025-01-27 07:32] LABS: INR 1.5 (0.9-1.1); Prothrombin Time 15.5 Seconds (9.0-12.0)
--- NOTE | 2025-01-27 10:15 | Hospitalist Progress Note ---
Date of Service January 27, 2025 Assessment & Plan (1) Alcoholic cirrhosis of liver with ascites: (2) Spontaneous bacterial peritonitis: (3) Hyponatremia: (4) Anemia: (5) Decompensated cirrhosis: Plan This patient is a 59-year-old male with a history of EtOH cirrhosis, HTN, HLD, GERD, macrocytic anemia who is admitted with decompensated cirrhosis with elevated LFTs and massive ascites, found to have SBP and severe hyponatremia. # Decompensated EtOH cirrhosis with ascites/SBP-recent admission 12/15-12/19 for ascites requiring paracentesis and had thoracentesis during that admission as well-was started on lasix 20mg/spironolactone 50mg at time of dc in December. Readmitted now with massive ascites, abdominal pain and SBP. Paracentesis removed 5 L and cultures positive for Serratia resistant to ceftriaxone. LFTs elevated on admission and are somewhat improved but remain elevated. Had repeat paracentesis on 01/23 to remove 8 L with IV albumin given afterwards. Hyponatremia is severe and remains low but slightly improved at 123. GI and nephrology consults appreciated. MELD score improved to 23 on 01/27 -Continue increased doses of diuretics with Lasix 80mg p.o. daily, spironolactone 200mg p.o. daily-Nephrology does not think increased doses of diuretics will help improve sodium-caution to avoid hepatorenal syndrome -Continue Cipro 500 mg p.o. twice daily for SBP times total 10 days through 01/29 and follow repeat peritoneal fluid cultures from 01/23-no growth to date -Started on midodrine 5mg TID for BP support and discontinued metoprolol for hypotension--> may be able to stop midodrine now that metoprolol dcd -Recommend eventual addition of nonselective beta-janee like propranolol for cirrhosis-discussed with GI-will await for cirrhosis to be compensated -Continue bowel regimen with lactulose 30 g p.o. twice daily with goal of 2-3 BMs per day-last BM 01/25 -Will start rifaximin 550 Mg p.o. twice daily on discharge if cost affordable - Continue thiamine, multivitamin with folic acid - Needs hepatology follow-up after discharge for refractory ascites and HCC surveillance-nurse navigator arranging. He may be a candidate for liver transplantation. Gave him phone number for [employer] to schedule as referral is in [phone] - Continue to trend MELD labs while inpatient-CBC, CMP, PT/INR - He has not had EGD to screen for varices-this could be done as an outpatient with hepatology -Plan for repeat paracentesis on 01/27-will give IV albumin afterwards #Hyponatremia-secondary to cirrhosis with volume overload. Sodium 121 and now improved to 123-appreciate nephrology consultation. Status post 2 large-volume paracenteses with plan for 3rd on 01/27 - Continue spironolactone, furosemide at current doses - Follow I's and O's, fluid restriction 1500 mL/day, liberalize salt in diet - Follow BMP - Nephrology recommends 3% saline if sodium less than 120 #Hypertension-blood pressures have been soft with decompensated cirrhosis. He is on metoprolol for previous diagnosis of HTN but now is requiring midodrine. Toprol XL stopped and BPs now improved -Discontinued Toprol XL -plan to start low-dose propranolol once cirrhosis more compensated if BP can tolerate #Macrocytic anemia-Hgb low at 8.1-8.4 but stable from previous, macrocytic. TSH normal. No evidence of ongoing bleeding. Iron studies undetectable, B12 and folate normal - Follow CBC #HLD-it appears he is no longer on his previous statin #GERD-continue Protonix DVT Proph: change Heparin SQ tid to lovenox 40mg once daily as pt declining frequent injections Dispo: Continued stay, patient does not have insurance and need to ensure cond ition improving, all outpatient follow-up arranged prior to discharge. I completed temporary disability paperwork for him and he is applying for medical assistance. SUspect he will stay through the weekend monitoring for improvement in volume status, hyponatremia, and to ensure moving bowels regularly. Admission and Anticipated Discharge Date Admission Date: January 17, 2025 Subjective Still no BM in 2 days. Has some mild abd pain relieved with tylenol. ABdomen feels distended. Physical Exam Constitutional: + cachectic; no acute distress Eyes: + scleral abnormality (Icterus) Respiratory: normal respiratory effort, lungs clear to auscultation Cardiovascular: Rate/Rhythm: regular rate and regular rhythm Extremities: + edema (2+ pitting edema bilateral legs to the knees) Gastrointestinal (Abdomen): Inspection/Auscultation: + abdomen distended (Moderate to severe), normal bowel sounds and + caput medusae present Percussion/Palpation: abdomen soft; abdomen nontender Skin: + jaundice Psychiatric: A+Ox3, euthymic affect Affect: euthymic affect Results & Data Results & Data Vital Signs (Past 12 Hours) Vital Signs Temp Pulse Resp BP Pulse Ox O2 Del Method 01/27/25 07:29 36.7 C 86 16 122/86 97 Room Air Laboratory Results CBC, CMP, INR reviewed PG Care Time/CCT Total # of Minutes Spent Total Time Spent with Patient: Total time spent is greater than 50% in coordination of care (as documented) at patient's floor/unit and/or counseling patient: Coding Level of Care Code 18057 SUB INP/OBS CARE 3/50MIN Diagnoses Alcoholic cirrhosis of liver with ascites K70.31 Spontaneous bacterial peritonitis K65.2 Hyponatremia E87.1 Anemia D64.9 Anemia type: unspecified type Decompensated cirrhosis K72.90; K74.60 (4) Anemia Anemia type: unspecified type Qualified Code(s): D64.9 - Anemia, unspecified
[2025-01-27] MEDS: ALBUMIN 25% 25 GM/100 ML VIAL IV ONE (14:46)
[2025-01-28] MEDS: SIMETHICONE 80 MG CHEW PO ONE (01:59)
[2025-01-28 07:22] LABS: Basophils # (auto) 0.01 K/uL (0.00-0.20); Basophils % (auto) 0.1 %; Eosinophils # (auto) 0.01 K/uL (0.00-0.50); Eosinophils % (auto) 0.1 %; Hematocrit (blood only) 23.7 % (42.0-52.0); Hemoglobin 8.3 g/dl (14.0-18.0); Immature Granulocytes # (auto) 0.04 K/uL (0.01-0.20); Immature Granulocytes % (auto) 0.4 %; Lymphocytes # (auto) 0.68 K/uL (1.20-3.40); Lymphocytes % (auto) 6.8 %; Mean Corpuscular Hemoglobin 34.9 pg (25.0-34.0); Mean Corpuscular Volume 99.6 fL (80.0-100.0); Mean Platelet Volume 8.6 fL (9.4-12.4); Monocytes # (auto) 1.55 K/uL (0.11-0.59); Monocytes % (auto) 15.5 %; Neutrophils # (auto) 7.68 K/uL (1.40-6.50); Neutrophils % (auto) 77.1 %; Platelet Count 194 K/uL (130-400); RDW Coefficient of Variation 12.8 % (11.5-14.5); RDW Standard Deviation 46.7 fL (36.4-46.3); Red Blood Count 2.38 M/uL (4.70-6.10); White Blood Count 9.97 K/ul (4.8-10.8)
[2025-01-28] MEDS: PHENYLEPHRINE HCL 0.5% NA SPRAY 15 ML BTL SCH (07:24)
[2025-01-28 07:44] LABS: Albumin Globulin Ratio 0.9 (0.9-2); Albumin Level 3.2 gm/dl (3.4-5.0); BUN Creatinine Ratio 34.2 (10-20); Bilirubin,Total 6.3 mg/dl (0.2-1.0); Calcium 8.8 mg/dl (8.6-10.3); Creatinine Clr Calc Pharmacy 105.7 ml/min; Globulin 3.4 gm/dl (2.5-4.0); Potassium 4.4 mmol/L (3.5-5.1); Total Protein 6.6 gm/dl (6.0-8.3)
[2025-01-28 07:49] LABS: INR 1.5 (0.9-1.1)
[2025-01-28] MEDS: ENOXAPARIN INJ 40 MG/0.4 ML SYR SQ SCH (08:57)
[2025-01-28] MEDS: PHENYLEPHRINE HCL 0.5% NA SPRAY 15 ML BTL PRN (11:17)
--- NOTE | 2025-01-28 13:34 | Hospitalist Progress Note ---
Date of Service January 28, 2025 Assessment & Plan (1) Alcoholic cirrhosis of liver with ascites: (2) Spontaneous bacterial peritonitis: (3) Hyponatremia: (4) Decompensated cirrhosis: Plan This patient is a 59-year-old male with a history of EtOH cirrhosis, HTN, HLD, GERD, macrocytic anemia who is admitted with decompensated cirrhosis with elevated LFTs and massive ascites, found to have SBP and severe hyponatremia. # Decompensated EtOH cirrhosis with ascites/SBP-recent admission 12/15-12/19 for ascites requiring paracentesis and had thoracentesis during that admission as well-was started on lasix 20mg/spironolactone 50mg at time of dc in December. Read mitted now with massive ascites, abdominal pain and SBP. Paracenteses on 01/18, 01/23, and 01/27 to remove 5 L/8 L / 5 L, with peritoneal fluid cultures positive for Serratia resistant to ceftriaxone. LFTs elevated on admission and are somewhat improved but remain elevated. Hyponatremia is severe and remains low at 121-123. GI and nephrology consults appreciated. MELD score improved to 23 on 01/27 -Continue increased doses of diuretics with Lasix 80mg p.o. daily, spironolactone 200mg p.o. daily-Nephrology does not think increased doses of diuretics will help improve sodium-caution to avoid hepatorenal syndrome -Continue Cipro 500 mg p.o. twice daily for SBP times total 10 days through 01/29 and follow repeat peritoneal fluid cultures from 01/23-no growth to date -Started on midodrine 5mg TID for BP support and discontinued metoprolol for hypotension--> may be able to stop midodrine now that metoprolol dcd -Recommend eventual addition of nonselective beta-janee like propranolol for cirrhosis-discussed with GI-will await for cirrhosis to be compensated -Continue bowel regimen with lactulose 30 g p.o. twice daily with goal of 2-3 BMs per day -Will plan to start rifaximin 550 Mg p.o. twice daily on discharge if cost affordable -Continue thiamine, multivitamin with folic acid -Needs hepatology follow-up after discharge for refractory ascites and HCC surveillance- He may be a candidate for liver transplantation. He is tentatively scheduled for June 2025 with [facility] in [place] but nurse navigator to look into referrals to either [facility] or [facility] in [place] to facilitate sooner appointment -Continue to trend MELD labs while inpatient-CBC, CMP, PT/INR -He has not had EGD to screen for varices-this could be done as an outpatient with hepatology -He may need recurrent paracenteses in the future #Hyponatremia-secondary to cirrhosis with volume overload. Sodium [id number] nephrology consultation. Status post 3 large-volume paracenteses. Urine sodium 10. This will not likely improve much further given end-stage cirrhosis as per my discussion with nephrology - Continue spironolactone, furosemide at current doses - Follow I's and O's, fluid restriction 1500 mL/day, liberalize salt in diet - Follow BMP - Nephrology recommends 3% saline if sodium less than 120 #Left inguinal hernia-filled with fluid and not bowel on CT scan previously. It is reducible but easily fills back up on exam likely because it is fluid-filled. Given increasing discomfort with it on 01/28, consulted general surgery who recommended no further treatment at this time - Monitor for worsening #Hypertension-blood pressures have been soft with decompensated cirrhosis. He is on metoprolol for previous diagnosis of HTN but now is requiring midodrine. Toprol XL stopped and BPs now improved -Discontinued Toprol XL -plan to start low-dose propranolol once cirrhosis more compensated if BP can tolerate #Macrocytic anemia-Hgb low at 8.1-8.4 but stable from previous, macrocytic. TSH normal. No evidence of ongoing bleeding. Iron studies undetectable, B12 and folate normal - Follow CBC periodically #HLD-it appears he is no longer on his previous statin #GERD-continue Protonix DVT Proph: Continue lovenox 40mg once daily Dispo: Continued stay, patient does not have insurance and need to ensure condition improving prior to discharge and that all outpatient follow-up arranged prior to discharge. I completed temporary disability paperwork for him and he is applying for medical assistance. Suspect he will stay through the weekend monitoring for improvement in volume status, hyponatremia, and to ensure moving bowels regularly. Admission and Anticipated Discharge Date Admission Date: January 17, 2025 Subjective Patient having pain into his left scrotum and swelling from his hernia. He is moving his bowels twice since last night, feels his abdomen is less distended. Appetite is low. I discussed his care with nephrology. Physical Exam 2 Constitutional: + cachectic; no acute distress Eyes: + scleral abnormality (Icterus) Respiratory: normal respiratory effort, lungs clear to auscultation Cardiovascular: Rate/Rhythm: regular rate and regular rhythm Extremities: + edema (2+ pitting edema bilateral legs slightly improved from previous) Gastrointestinal (Abdomen): Inspection/Auscultation: + abdomen distended (Moderate and improved from previous), normal bowel sounds and + caput medusae present Percussion/Palpation: abdomen soft and + hernia (Left inguinal hernia into scrotal sac, mostly reducible but fills back up); abdomen nontender Skin: + jaundice Psychiatric: A+Ox3, euthymic affect Affect: euthymic affect Results & Data Results & Data Vital Signs (Past 12 Hours) Vital Signs Temp Pulse Resp BP Pulse Ox O2 Del Method 01/28/25 08:12 36.4 C L 105 H 18 115/70 100 Room Air 01/28/25 07:45 Room Air Laboratory Results CBC, BMP, LFTs, INR, ascites culture reviewed PG Care Time/CCT Total # of Minutes Spent Total Time Spent with Patient: Total time spent is greater than 50% in coordination of care (as documented) at patient's floor/unit and/or counseling patient: Coding Level of Care Code 56472 SUB INP/OBS CARE 2/35MIN Diagnoses Alcoholic cirrhosis of liver with ascites K70.31 Spontaneous bacterial peritonitis K65.2 Hyponatremia E87.1 Decompensated cirrhosis K72.90; K74.60
--- NOTE | 2025-01-28 14:30 | Surgery Consultation ---
Date of Consultation January 28, 2025 Assessment & Plan (1) Left inguinal hernia: His CT scan from 11 days ago was personally viewed and interpreted by myself He has uncontrolled ascites and a left inguinal hernia He has no intestine involved with his hernia and no obstructive symptoms He is not a surgical candidate for repair Surgical sign off at this time, please call with any questions or concerns (2) Decompensated cirrhosis: History of Present Illness Reason for Consultation: Left inguinal hernia Attending Physician: Esmer Sam MD History of Present Illness This is a 59-year-old male who was admitted 11 days ago with decompensated cirrhosis. He had a known left inguinal hernia for some time. He states it will hurt now and again. No increase in the pain. He is having normal bowel movements. He denies any nausea or vomiting. Allergies Allergy/AdvReac Type Severity Reaction Status Date / Time No Known Allergies Allergy Verified 01/17/25 17:07 Home Medications Medication Instructions Recorded Confirmed Type folic acid 1 mg tablet 1 mg PO QAM #30 tabs 12/09/24 01/17/25 Rx metoprolol succinate 25 mg 25 mg PO QAM #30 tabs 12/09/24 01/17/25 Rx tablet,extended release 24 hr multivitamin with folic acid 400 1 tab PO QAM #30 tabs 12/09/24 01/17/25 Rx mcg tablet (Daily-Shannon (with folic acid)) pantoprazole 40 mg tablet,delayed 40 mg PO QAM 30 days #30 tabs 12/09/24 01/17/25 Rx release potassium chloride 20 mEq 20 meq PO DAILY #30 tabs 12/09/24 01/17/25 Rx tablet,extended release thiamine HCl (vitamin B1) 100 mg 100 mg PO QAM #30 tabs 12/09/24 01/17/25 Rx tablet spironolactone 25 mg tablet 50 mg (2 x 25 mg) PO QAM #30 tabs 12/19/24 01/17/25 Rx furosemide 20 mg tablet 20 mg PO QAM 30 days #30 tabs 01/13/25 01/17/25 Rx rifaximin 550 mg tablet 550 mg PO BID #60 tabs 01/23/25 Rx Patient History Medical History Pleural effusion Influenza A Hypokalemia Alcohol withdrawal Mild acid reflux Anxiety Surgical History H/O umbilical hernia repair [place] teeth extracted H/O oral surgery H/O inguinal hernia repair Family History Mother Alcohol abuse Depression Father Alcohol abuse Heart disease Kidney disease Myocardial infarction Uncle Myocardial infarction Denies family history of Ovarian cancer Prostate cancer Breast cancer Colorectal cancer Social History Smoking Status: Never smoker Second Hand Exposure: Yes (parents growing up); Do You Dip or Chew Tobacco: No; Hx Alcohol Use: No Hx Substance Use: No Preferred Language: Maori Communication Ability: Effective Engineering Aid Required: No Beliefs That Will Affect Care: None marital status: Single Current Living Situation: Family Feels Safe at Home: Yes Dental Care, Regularly: No Physical Activity Frequency: Daily Seatbelt Use: always Sunscreen Use: Yes Assistive Devices: None Review of Systems Constitutional: no fever and no chills Eyes: no blind spots and no dry eyes Ear, Nose, Mouth, Throat: no ear pain and no hearing loss Respiratory: no cough and no dyspnea Cardiovascular: no chest pain and no dyspnea on exertion Gastrointestinal: no abdominal pain, no nausea and no vomiting Genitourinary: no dysuria or no nocturia Musculoskeletal: no back pain and no neck pain Integumentary: no acne and no erythema Neurologic: no gait abnormality and no paresthesia Psychiatric: no behavioral changes and no depression Hematologic / Lymphatic: no easy bleeding and no easy bruising Physical Exam Constitutional: WD/WN, vitals as above Eyes: sclerae not anicteric ENMT: external ear and nose normal, oropharynx normal Neck: trachea midline, no thyromegaly Respiratory: normal respiratory effort, lungs clear to auscultation Cardiovascular: RRR, no murmur, no edema Gastrointestinal (Abdomen): Inspection/Auscultation: + abdomen distended; + abdomen abnormal to inspection Percussion/Palpation: abdomen soft and + hernia (Left inguinal hernia filled with ascites, soft easily reducible); abdomen nontender and no guarding Musculoskeletal: no cyanosis or clubbing, extremities motor strength 5/5 Skin: no rashes, warm and dry Neurologic: PERRL, EOMI, accommodation nl, no face palsy, no dysarthria Psychiatric: A+Ox3, euthymic affect Results & Data Vital Signs (Past 12 Hours) Vital Signs Temp Pulse Resp BP Pulse Ox O2 Del Method 01/28/25 08:12 36.4 C L 105 H 18 115/70 100 Room Air 01/28/25 07:45 Room Air PG Care Time/CCT Total # of Minutes Spent Total Time Spent with Patient: Total time spent is greater than 50% in coordination of care (as documented) at patient's floor/unit and/or counseling patient: Coding Level of Care Code 81033 IN/OBS CONSULT LVL 5,80M Diagnoses Left inguinal hernia K40.90 Decompensated cirrhosis K72.90; K74.60
[2025-01-29 07:41] LABS: Eosinophils # (auto) 0.01 K/uL (0.00-0.50); Eosinophils % (auto) 0.1 %; Hematocrit (blood only) 23.1 % (42.0-52.0); Hemoglobin 8.3 g/dl (14.0-18.0); Immature Granulocytes # (auto) 0.05 K/uL (0.01-0.20); Immature Granulocytes % (auto) 0.6 %; Lymphocytes # (auto) 0.61 K/uL (1.20-3.40); Lymphocytes % (auto) 6.7 %; Mean Corpuscular Hemoglobin 35.8 pg (25.0-34.0); Mean Corpuscular Hgb Conc 35.9 g/dL (32.0-36.0); Mean Corpuscular Volume 99.6 fL (80.0-100.0); Mean Platelet Volume 8.8 fL (9.4-12.4); Monocytes # (auto) 1.44 K/uL (0.11-0.59); Monocytes % (auto) 15.9 %; Neutrophils # (auto) 6.97 K/uL (1.40-6.50); Neutrophils % (auto) 76.7 %; Platelet Count 189 K/uL (130-400); RDW Coefficient of Variation 12.7 % (11.5-14.5); RDW Standard Deviation 46.4 fL (36.4-46.3); Red Blood Count 2.32 M/uL (4.70-6.10); White Blood Count 9.08 K/ul (4.8-10.8)
[2025-01-29 08:06] LABS: Albumin Globulin Ratio 0.9 (0.9-2); Albumin Level 3.1 gm/dl (3.4-5.0); BUN Creatinine Ratio 38.5 (10-20); Bilirubin,Total 6.1 mg/dl (0.2-1.0); Calcium 8.8 mg/dl (8.6-10.3); Globulin 3.3 gm/dl (2.5-4.0); Potassium 4.8 mmol/L (3.5-5.1); Total Protein 6.4 gm/dl (6.0-8.3)
[2025-01-29 08:17] LABS: INR 1.5 (0.9-1.1); Prothrombin Time 15.4 Seconds (9.0-12.0)
--- NOTE | 2025-01-29 14:41 | Hospitalist Progress Note ---
Date of Service January 29, 2025 Assessment & Plan (1) Alcoholic cirrhosis of liver with ascites: (2) Spontaneous bacterial peritonitis: (3) Hyponatremia: (4) Decompensated cirrhosis: Plan This patient is a 59-year-old male with a history of EtOH cirrhosis, HTN, HLD, GERD, macrocytic anemia who is admitted with decompensated cirrhosis with elevated LFTs and massive ascites, found to have SBP and severe hyponatremia. # Decompensated EtOH cirrhosis with ascites/SBP-recent admission 12/15-12/19 for ascites requiring paracentesis and had thoracentesis during that admission as well-was started on lasix 20mg/spironolactone 50mg at time of dc in December. Read mitted now with massive ascites, abdominal pain and SBP. Paracenteses on 01/18, 01/23, and 01/27 to remove 5 L/8 L / 5 L, with peritoneal fluid cultures positive for Serratia resistant to ceftriaxone. LFTs elevated on admission and are somewhat improved but remain elevated. Hyponatremia is severe and remains low at 121-123. GI and nephrology consults appreciated. MELD score improved to 23 on 01/27 -Continue increased doses of diuretics with Lasix 80mg p.o. daily, spironolactone 200mg p.o. daily-Nephrology does not think increased doses of diuretics will help improve sodium-caution to avoid hepatorenal syndrome -Continue Cipro 500 mg p.o. twice daily for SBP times total 10 days through 01/29 and follow repeat peritoneal fluid cultures from 01/23-no growth to date -Started on midodrine 5mg TID for BP support and discontinued metoprolol for hypotension--> may be able to stop midodrine now that metoprolol dcd -Recommend eventual addition of nonselective beta-janee like propranolol for cirrhosis-discussed with GI-will await for cirrhosis to be compensated -Continue bowel regimen with lactulose 30 g p.o. twice daily with goal of 2-3 BMs per day -Will plan to start rifaximin 550 Mg p.o. twice daily on discharge if cost affordable -Continue thiamine, multivitamin with folic acid -Needs hepatology follow-up after discharge for refractory ascites and HCC surveillance- He may be a candidate for liver transplantation. He is tentatively scheduled for June 2025 with [facility] in [place] but nurse navigator to look into referrals to either [facility] or [facility] in [place] to facilitate sooner appointment -Continue to trend MELD labs while inpatient-CBC, CMP, PT/INR -He has not had EGD to screen for varices-this could be done as an outpatient with hepatology -He may need recurrent paracenteses in the future #Hyponatremia-secondary to cirrhosis with volume overload. Sodium [id number] nephrology consultation. Status post 3 large-volume paracenteses. Urine sodium 10. This will not likely improve much further given end-stage cirrhosis as per my discussion with nephrology - Continue spironolactone, furosemide at current doses - Follow I's and O's, fluid restriction 1500 mL/day, liberalize salt in diet - Follow BMP - Nephrology recommends 3% saline if sodium less than 120 #Left inguinal hernia-filled with fluid and not bowel on CT scan previously. It is reducible but easily fills back up on exam likely because it is fluid-filled. Given increasing discomfort with it on 01/28, consulted general surgery who recommended no further treatment at this time - Monitor for worsening Patient is disappointed that he is not a surgical candidate He used morphine overnight for pain control Currently the patient does not appear to be in any pain. Will monitor #Hypertension-blood pressures have been soft with decompensated cirrhosis. He is on metoprolol for previous diagnosis of HTN but now is requiring midodrine. Toprol XL stopped and BPs now improved -Discontinued Toprol XL -plan to start low-dose propranolol once cirrhosis more compensated if BP can tolerate #Macrocytic anemia-Hgb low at 8.1-8.4 but stable from previous, macrocytic. TSH normal. No evidence of ongoing bleeding. Iron studies undetectable, B12 and folate normal - Follow CBC periodically #HLD-it appears he is no longer on his previous statin #GERD-continue Protonix DVT Proph: Continue lovenox 40mg once daily Dispo: Continued stay, patient does not have insurance and need to ensure condition improving prior to discharge and that all outpatient follow-up arranged prior to discharge. I completed temporary disability paperwork for him and he is applying for medical assistance. Suspect he will stay through the weekend monitoring for improvement in volume status, hyponatremia, and to ensure moving bowels regularly. Admission and Anticipated Discharge Date Admission Date: January 17, 2025 Subjective Patient complains of pain at the hernia site. He has used morphine 2 times last night because of the pain. Review of Systems Review of Systems: All systems reviewed & are unremarkable except as noted in Subjective Physical Exam Physical Exam: General: Awake, conversant Heart: S1, S2/regular rate and rhythm, no murmur rubs or gallops Lungs: Clear to auscultation bilaterally. Normal effort Abdomen: Soft/distended. Shifting dullness present Extremities: No clubbing/cyanosis. 2+ bilateral pitting edema Behavior: Appropriate, cooperative Results & Data Results & Data Vital Signs (Past 12 Hours) Vital Signs Temp Pulse Resp BP Pulse Ox O2 Del Method 01/29/25 07:45 Room Air 01/29/25 07:10 36.5 C 99 H 18 129/71 100 Room Air Laboratory Results Abnormal lab results 01/29/25 Range/Units 06:59 RBC 2.32 L (4.70-6.10) M/uL Hgb 8.3 L (14.0-18.0) g/dl Hct 23.1 L (42.0-52.0) % MCH 35.8 H (25.0-34.0) pg RDW Std Deviation 46.4 H (36.4-46.3) fL MPV 8.8 L (9.4-12.4) fL Neut # (Auto) 6.97 H (1.40-6.50) K/uL Lymph # (Auto) 0.61 L (1.20-3.40) K/uL Crowley # (Auto) 1.44 H (0.11-0.59) K/uL PT 15.4 H (9.0-12.0) Seconds INR 1.5 H (0.9-1.1) Sodium 122 L (136-145) mmol/L Chloride 91 L (98-107) mmol/L BUN 30 H (6-23) mg/dl BUN/Creatinine Ratio 38.5 H (10-20) Glucose 124 H (70-99(Fasting)) mg/dl Total Bilirubin 6.1 H (0.2-1.0) mg/dl AST 55 H (13-39) U/L Albumin 3.1 L (3.4-5.0) gm/dl PG Care Time/CCT Total # of Minutes Spent Total Time Spent with Patient: Total time spent is greater than 50% in coordination of care (as documented) at patient's floor/unit and/or counseling patient: Coding Level of Care Code 95604 SUB INP/OBS CARE Diagnoses Alcoholic cirrhosis of liver with ascites K70.31 Spontaneous bacterial peritonitis K65.2 Hyponatremia E87.1 Decompensated cirrhosis K72.90; K74.60
--- NOTE | 2025-01-30 13:14 | Hospitalist Progress Note ---
Date of Service January 30, 2025 Assessment & Plan (1) Alcoholic cirrhosis of liver with ascites: (2) Spontaneous bacterial peritonitis: (3) Hyponatremia: (4) Decompensated cirrhosis: Plan This patient is a 59-year-old male with a history of EtOH cirrhosis, HTN, HLD, GERD, macrocytic anemia who is admitted with decompensated cirrhosis with elevated LFTs and massive ascites, found to have SBP and severe hyponatremia. # Decompensated EtOH cirrhosis with ascites/SBP-recent admission 12/15-12/19 for ascites requiring paracentesis and had thoracentesis during that admission as well-was started on lasix 20mg/spironolactone 50mg at time of dc in December. Read mitted now with massive ascites, abdominal pain and SBP. Paracenteses on 01/18, 01/23, and 01/27 to remove 5 L/8 L / 5 L, with peritoneal fluid cultures positive for Serratia resistant to ceftriaxone. LFTs elevated on admission and are somewhat improved but remain elevated. Hyponatremia is severe and remains low at 121-123. GI and nephrology consults appreciated. MELD score improved to 23 on 01/27 -Continue increased doses of diuretics with Lasix 80mg p.o. daily, spironolactone 200mg p.o. daily-Nephrology does not think increased doses of diuretics will help improve sodium-caution to avoid hepatorenal syndrome -Continue Cipro 500 mg p.o. twice daily for SBP times total 10 days through 01/29 and follow repeat peritoneal fluid cultures from 01/23-no growth to date -Started on midodrine 5mg TID for BP support and discontinued metoprolol for hypotension--> may be able to stop midodrine now that metoprolol dcd -Recommend eventual addition of nonselective beta-janee like propranolol for cirrhosis-discussed with GI-will await for cirrhosis to be compensated -Continue bowel regimen with lactulose 30 g p.o. with goal of 2-3 BMs per day. Patient has not has not had any bowel movement in the last 2 days. Increase the lactulose to 3 times daily -Will plan to start rifaximin 550 Mg p.o. twice daily on discharge if cost affordable -Continue thiamine, multivitamin with folic acid -Needs hepatology follow-up after discharge for refractory ascites and HCC surveillance- He may be a candidate for liver transplantation. He is tentatively scheduled for June 2025 with Bob in [place] but nurse navigator to look into referrals to either [facility] or [facility] in [place] to facilitate sooner appointment -Continue to trend MELD labs while inpatient-CBC, CMP, PT/INR -He has not had EGD to screen for varices-this could be done as an outpatient with hepatology -He may need recurrent paracenteses in the future Ordered for IR guided therapeutic paracentesis. #Hyponatremia-secondary to cirrhosis with volume overload. Sodium [id number] nephrology consultation. Status post 3 large-volume paracenteses. Urine sodium 10. This will not likely improve much further given end-stage cirrhosis as per my discussion with nephrology - Continue spironolactone, furosemide at current doses - Follow I's and O's, fluid restriction 1500 mL/day, liberalize salt in diet - Follow BMP - Nephrology recommends 3% saline if sodium less than 120 #Left inguinal hernia-filled with fluid and not bowel on CT scan previously. It is reducible but easily fills back up on exam likely because it is fluid-filled. Given increasing discomfort with it on 01/28, consulted general surgery who recommended no further treatment at this time - Monitor for worsening Patient is disappointed that he is not a surgical candidate Patient has been using morphine for pain control. Explained to him that the morphine will lead to slowing of his bowels that will eventually cause more problems. Patient is agreeable to stopping morphine. #Hypertension-blood pressures have been soft with decompensated cirrhosis. He was on metoprolol for previous diagnosis of HTN but now is requiring midodrine. Toprol XL stopped and BPs now improved -Discontinued Toprol XL -plan to start low-dose propranolol once cirrhosis more compensated if BP can tolerate #Macrocytic anemia-Hgb low at 8.1-8.4 but stable from previous, macrocytic. TSH normal. No evidence of ongoing bleeding. Iron studies undetectable, B12 and folate normal - Follow CBC periodically #HLD-it appears he is no longer on his previous statin #GERD-continue Protonix DVT Proph: Continue lovenox 40mg once daily Dispo: Continued stay, patient does not have insurance and need to ensure co ndition improving prior to discharge and that all outpatient follow-up arranged prior to discharge. Ordered for IR guided paracentesis today. Patient will need to have bowel movements and be off of narcotics. Admission and Anticipated Discharge Date Admission Date: January 17, 2025 Subjective Noted that the patient has been using IV morphine. He complains that he is not able to eat enough. He feels bloated. He has not had a bowel movement in 2 days. He would like to get a paracentesis done once prior to being discharged. He says that his inguinal hernia feels more full and is painful and that is why he is using the IV morphine. He denies any chest pain or shortness of breath. Review of Systems Review of Systems: All systems reviewed & are unremarkable except as noted in Subjective Physical Exam Physical Exam: General: Awake, conversant Heart: S1, S2/regular rate and rhythm, no murmur rubs or gallops Lungs: Clear to auscultation bilaterally. Normal effort Abdomen: Soft/distended. Shifting dullness present Extremities: No clubbing/cyanosis. 2+ bilateral pitting edema Behavior: Appropriate, cooperative Results & Data Results & Data Vital Signs (Past 12 Hours) Vital Signs Temp Pulse Pulse Resp BP Pulse Ox O2 Del Method 01/30/25 09:51 Room Air 01/30/25 07:11 36.3 C L 103 H 104 H 15 124/70 99 Room Air PG Care Time/CCT Total # of Minutes Spent Total Time Spent with Patient: Total time spent is greater than 50% in coordination of care (as documented) at patient's floor/unit and/or counseling patient: Coding Level of Care Code 74662 SUB INP/OBS CARE 2/35MIN Diagnoses Alcoholic cirrhosis of liver with ascites K70.31 Spontaneous bacterial peritonitis K65.2 Hyponatremia E87.1 Decompensated cirrhosis K72.90; K74.60
[2025-01-30] MEDS: LACTULOSE SYRUP 20 GM/30 ML UDC PO SCH (13:41)
--- NOTE | 2025-01-30 14:51 | Ultrasound Report ---
ULTRASOUND-GUIDED PARACENTESIS CLINICAL HISTORY: Ascites PROCEDURE: Procedure and risks were explained. Informed consent was obtained. A final timeout was com pleted. The abdomen was prepped and draped in sterile fashion. 1% lidocaine was utilized for skin ane sthesia. Utilizing ultrasound guidance, a 5 [place] safety centesis catheter was advanced into the left lower q uadrant pocket of ascites. Ultrasound images were obtained. A total of 4 L of ascites fluid was remov ed with 1 L sent to lab for analysis. The catheter was removed and Band-Aid applied. The patient ileana rated the procedure well. Vital signs will be monitored postprocedure. IMPRESSION: Ultrasound-guided paracentesis as above. Performed, dictated, and signed by Manolo Srinivasan PA-C; to be co-signed by Dr. Charan Lubin. Electronically signed by: Charan Lubin M.D. 01/30/2025 2:57 PM
[2025-01-31 03:44] LABS: Hematocrit (blood only) 22.4 % (42.0-52.0); Mean Corpuscular Hemoglobin 35.6 pg (25.0-34.0); Mean Corpuscular Hgb Conc 35.7 g/dL (32.0-36.0); Mean Corpuscular Volume 99.6 fL (80.0-100.0); Mean Platelet Volume 8.7 fL (9.4-12.4); Platelet Count 186 K/uL (130-400); RDW Coefficient of Variation 12.9 % (11.5-14.5); RDW Standard Deviation 46.5 fL (36.4-46.3); Red Blood Count 2.25 M/uL (4.70-6.10); White Blood Count 11.67 K/ul (4.8-10.8)
[2025-01-31 03:59] LABS: Albumin Globulin Ratio 0.9 (0.9-2); BUN Creatinine Ratio 35.3 (10-20); Bilirubin,Total 5.2 mg/dl (0.2-1.0); Calcium 8.8 mg/dl (8.6-10.3); Creatinine Clr Calc Pharmacy 70.5 ml/min; Globulin 3.5 gm/dl (2.5-4.0); Potassium 4.4 mmol/L (3.5-5.1); Total Protein 6.5 gm/dl (6.0-8.3)
[2025-01-31 04:23] LABS: INR 1.4 (0.9-1.1); Prothrombin Time 15.1 Seconds (9.0-12.0)
--- NOTE | 2025-01-31 10:59 | Hospitalist Progress Note ---
Date of Service January 31, 2025 Assessment & Plan (1) Alcoholic cirrhosis of liver with ascites: Plan: Decompensated EtOH cirrhosis with ascites/SBP-recent admission 12/15-12/19 for ascites requiring paracentesis and had thoracentesis during that admission as well-was started on lasix 20mg/spironolactone 50mg at time of dc in December. Readmitted now with massive ascites, abdominal pain and SBP. Paracenteses on 01/18, 01/23, and 01/27 to remove 5 L/8 L / 5 L, with peritoneal fluid cultures positive for Serratia resistant to ceftriaxone. LFTs elevated on admission and are somewhat improved but remain elevated. Hyponatremia is severe and remains low at 121-123. GI and nephrology consults appreciated. MELD score improved to 23 on 01/27 -Continue increased doses of diuretics with Lasix 80mg p.o. daily, spironolactone 200mg p.o. daily-Nephrology does not think increased doses of diuretics will help improve sodium-caution to avoid hepatorenal syndrome -Continue Cipro 500 mg p.o. twice daily for SBP times total 10 days through 01/29 and follow repeat peritoneal fluid cultures from 01/23-no growth to date -Started on midodrine 5mg TID for BP support and discontinued metoprolol for hypotension--> may be able to stop midodrine now that metoprolol dcd -Recommend eventual addition of nonselective beta-janee like propranolol for cirrhosis-discussed with GI-will await for cirrhosis to be compensated -Continue bowel regimen with lactulose 30 g p.o. with goal of 2-3 BMs per day. Patient has not has not had any bowel movement in the last 2 days. Increase the lactulose to 3 times daily -Will plan to start rifaximin 550 Mg p.o. twice daily on discharge if cost affordable -Continue thiamine, multivitamin with folic acid -Needs hepatology follow-up after discharge for refractory ascites and HCC surveillance- He may be a candidate for liver transplantation. He is tentatively scheduled for June 2025 with [facility] in [place] but nurse navigator to look into referrals to either [facility] or [facility] in [place] to facilitate sooner appointment -Continue to trend MELD labs while inpatient-CBC, CMP, PT/INR -He has not had EGD to screen for varices-this could be done as an outpatient with hepatology -s/p parcentesis 01/30 -He may need recurrent paracenteses in the future (2) Spontaneous bacterial peritonitis: Plan: -Continue Cipro 500 mg p.o. twice daily for SBP times total 10 days through 01/29 and follow repeat peritoneal fluid cultures from 01/23-no growth to date -cipro course completed (3) Hyponatremia: Plan: secondary to cirrhosis with volume overload. Sodium [id number] nephrology consultation. Status post 3 large-volume paracenteses. Urine sodium 10. This will not likely improve much further given end-stage cirrhosis as per my discussion with nephrology - Continue spironolactone, furosemide at current doses - Follow I's and O's, fluid restriction 1500 mL/day, liberalize salt in diet - Follow BMP - Nephrology recommends 3% saline if sodium less than 120 (4) Decompensated cirrhosis: (5) Left inguinal hernia: Plan: -filled with fluid and not bowel on CT scan previously. It is reducible but easily fills back up on exam likely because it is fluid-filled. Given increasing discomfort with it on 01/28, consulted general surgery who recommended no further treatment at this time - Monitor for worsening Patient is disappointed that he is not a surgical candidate Patient has been using morphine for pain control. Explained to him that the morphine will lead to slowing of his bowels that will eventually cause more problems. Patient is agreeable to stopping morphine. (6) Hypertension: Plan: lood pressures have been soft with decompensated cirrhosis. He was on metoprolol for previous diagnosis of HTN but now is requiring midodrine. Toprol XL stopped and BPs now improved -Discontinued Toprol XL -plan to start low-dose propranolol once cirrhosis more compensated if BP can tolerate Plan This patient is a 59-year-old male with a history of EtOH cirrhosis, HTN, HLD, GERD, macrocytic anemia who is admitted with decompensated cirrhosis with elevated LFTs and massive ascites, found to have SBP and severe hyponatremia. Dispo: Continued stay, patient does not have insurance and need to ensure co ndition improving prior to discharge and that all outpatient follow-up arranged prior to discharge. Patient will need to have bowel movements and be off of narcotics. Admission and Anticipated Discharge Date Admission Date: January 17, 2025 Subjective Pt appears lethargic this am. Had paracentesis yesterday, feels better. No morphine taken. Review of Systems Review of Systems: CONST: Negative for fever, body aches and chills. HENT: Negative for neck pain/stiffness, headache, congestion, sore throat, swelling. EYES: Negative for discharge/pain or vision changes. RESP: Negative for cough/hemoptysis and shortness of breath. CV: Negative chest pain, difficulty breathing, palpitations. ABD: Negative pain, nausea, vomiting. : Negative increase frequency, dysuria, blood in urine or stool. MUSC: Negative for muscle aches, edema. SKIN: Negative rash, lesions/sores. NEURO: Negative headache, dizziness, weakness. Physical Exam Physical Exam: GENERAL APPEARANCE NAD, activity normal for age, well developed/ well nourished, no cyanosis, pallor, or diaphoresis. EYES lids/conjunctiva normal. EARS/NOSE/THROAT Mucous membranes moist, nares normal, lips/teeth normal uvula midline without oral pharyngeal erythema, exudate or swelling TMs normal bilaterally. No lymphangitis/lymphedema. HEAD/NECK normocephalic atraumatic, no facial trauma, neck is supple. RESPIRATORY respiratory effort normal, speaks in full sentences, no tripod position, no accessory muscle use. Lungs clear to auscultation without rhonchi, wheezes, rales CARDIAC Regular rate and rhythm, no edema. ABDOMINAL Distended. No pulsatile masses on exam, rebound tenderness, Lopez sign or pain over Mcburney's point. MUSCLES/EXTREMITIES No abnormal range of motion, no swelling. SKIN Warm, pink and dry. No rashes, dermatoses, petechiae or lesions. NEUROLOGICAL Speech is clear and appropriate. Normal level of consciousness. Gait and coordination are normal. 5/5 strength in all extremities. PSYCH Normal mood and affect. Judgement/competence is appropriate Results & Data Results & Data Vital Signs (Past 12 Hours) Vital Signs Temp Pulse Resp BP Pulse Ox O2 Del Method 01/31/25 07:53 36.8 C 99 H 16 121/72 100 Room Air PG Care Time/CCT Total # of Minutes Spent Total Time Spent with Patient: Total time spent is greater than 50% in coordination of care (as documented) at patient's floor/unit and/or counseling patient: Coding Level of Care Code 04237 SUB INP/OBS CARE 2/35MIN Diagnoses Alcoholic cirrhosis of liver with ascites K70.31 Spontaneous bacterial peritonitis K65.2 Hyponatremia E87.1 Decompensated cirrhosis K72.90; K74.60 Left inguinal hernia K40.90 Hypertension I10
[2025-02-01 07:43] LABS: Hematocrit (blood only) 22.2 % (42.0-52.0); Mean Corpuscular Hemoglobin 35.4 pg (25.0-34.0); Mean Corpuscular Volume 98.2 fL (80.0-100.0); Mean Platelet Volume 8.7 fL (9.4-12.4); Platelet Count 168 K/uL (130-400); RDW Coefficient of Variation 12.9 % (11.5-14.5); RDW Standard Deviation 46.5 fL (36.4-46.3); Red Blood Count 2.26 M/uL (4.70-6.10); White Blood Count 12.15 K/ul (4.8-10.8)
[2025-02-01 08:04] LABS: BUN Creatinine Ratio 38.8 (10-20); Calcium 8.7 mg/dl (8.6-10.3); Creatinine Clr Calc Pharmacy 61.1 ml/min; Potassium 4.6 mmol/L (3.5-5.1)
--- NOTE | 2025-02-01 10:15 | Hospitalist Progress Note ---
Date of Service February 01, 2025 Assessment & Plan (1) Alcoholic cirrhosis of liver with ascites: Plan: Decompensated EtOH cirrhosis with ascites/SBP-recent admission 12/15-12/19 for ascites requiring paracentesis and had thoracentesis during that admission as well-was started on lasix 20mg/spironolactone 50mg at time of dc in December. Readmitted now with massive ascites, abdominal pain and SBP. Paracenteses on 01/18, 01/23, and 01/27 to remove 5 L/8 L / 5 L, with peritoneal fluid cultures positive for Serratia resistant to ceftriaxone. LFTs elevated on admission and are somewhat improved but remain elevated. Hyponatremia is severe and remains low at 121-123. GI and nephrology consults appreciated. MELD score improved to 23 on 01/27 -Continue increased doses of diuretics with Lasix 80mg p.o. daily, spironolactone 200mg p.o. daily-Nephrology does not think increased doses of diuretics will help improve sodium-caution to avoid hepatorenal syndrome -Continue Cipro 500 mg p.o. twice daily for SBP times total 10 days through 01/29 and follow repeat peritoneal fluid cultures from 01/23-no growth to date -Started on midodrine 5mg TID for BP support and discontinued metoprolol for hypotension--> may be able to stop midodrine now that metoprolol dcd -Recommend eventual addition of nonselective beta-janee like propranolol for cirrhosis-discussed with GI-will await for cirrhosis to be compensated -Continue bowel regimen with lactulose 30 g p.o. with goal of 2-3 BMs per day. Patient has not has not had any bowel movement in the last 2 days. Increase the lactulose to 3 times daily -Will plan to start rifaximin 550 Mg p.o. twice daily on discharge if cost affordable -Continue thiamine, multivitamin with folic acid -Needs hepatology follow-up after discharge for refractory ascites and HCC surveillance- He may be a candidate for liver transplantation. He is tentatively scheduled for June 2025 with [facility] in [place] but nurse navigator to look into referrals to either [facility] or [facility] in [place] to facilitate sooner appointment -Continue to trend MELD labs while inpatient-CBC, CMP, PT/INR -He has not had EGD to screen for varices-this could be done as an outpatient with hepatology -s/p parcentesis 01/30 -He may need recurrent paracenteses in the future (2) Spontaneous bacterial peritonitis: Plan: -Continue Cipro 500 mg p.o. twice daily for SBP times total 10 days through 01/29 and follow repeat peritoneal fluid cultures from 01/23-no growth to date -cipro course completed (3) Hyponatremia: Plan: secondary to cirrhosis with volume overload. Sodium [id number] nephrology consultation. Status post 3 large-volume paracenteses. Urine sodium 10. This will not likely improve much further given end-stage cirrhosis as per my discussion with nephrology - Continue spironolactone, furosemide at current doses - Follow I's and O's, fluid restriction 1500 mL/day, liberalize salt in diet - Follow BMP - Nephrology recommends 3% saline if sodium less than 120 (4) Decompensated cirrhosis: (5) Left inguinal hernia: Plan: -filled with fluid and not bowel on CT scan previously. It is reducible but easily fills back up on exam likely because it is fluid-filled. Given increasing discomfort with it on 01/28, consulted general surgery who recommended no further treatment at this time - Monitor for worsening Patient is disappointed that he is not a surgical candidate Patient has been using morphine for pain control. Explained to him that the morphine will lead to slowing of his bowels that will eventually cause more problems. Patient is agreeable to stopping morphine. (6) Hypertension: Plan: lood pressures have been soft with decompensated cirrhosis. He was on metoprolol for previous diagnosis of HTN but now is requiring midodrine. Toprol XL stopped and BPs now improved -Discontinued Toprol XL -plan to start low-dose propranolol once cirrhosis more compensated if BP can tolerate Plan This patient is a 59-year-old male with a history of EtOH cirrhosis, HTN, HLD, GERD, macrocytic anemia who is admitted with decompensated cirrhosis with elevated LFTs and massive ascites, found to have SBP and severe hyponatremia. Dispo: Continued stay, patient does not have insurance ,awaiting approval of out patient GI appointments Admission and Anticipated Discharge Date Admission Date: January 17, 2025 Subjective -no events overnights Review of Systems Review of Systems: CONST: Negative for fever, body aches and chills. HENT: Negative for neck pain/stiffness, headache, congestion, sore throat, swelling. EYES: Negative for discharge/pain or vision changes. RESP: Negative for cough/hemoptysis and shortness of breath. CV: Negative chest pain, difficulty breathing, palpitations. ABD: Negative pain, nausea, vomiting. : Negative increase frequency, dysuria, blood in urine or stool. MUSC: Negative for muscle aches, edema. SKIN: Negative rash, lesions/sores. NEURO: Negative headache, dizziness, weakness. Physical Exam Physical Exam: GENERAL APPEARANCE NAD, activity normal for age, well developed/ well nourished, no cyanosis, pallor, or diaphoresis. EYES lids/conjunctiva normal. EARS/NOSE/THROAT Mucous membranes moist, nares normal, lips/teeth normal uvula midline without oral pharyngeal erythema, exudate or swelling TMs normal bilaterally. No lymphangitis/lymphedema. HEAD/NECK normocephalic atraumatic, no facial trauma, neck is supple. RESPIRATORY respiratory effort normal, speaks in full sentences, no tripod position, no accessory muscle use. Lungs clear to auscultation without rhonchi, wheezes, rales CARDIAC Regular rate and rhythm, no edema. ABDOMINAL Distended. No pulsatile masses on exam, rebound tenderness, Lopez sign or pain over Mcburney's point. MUSCLES/EXTREMITIES No abnormal range of motion, no swelling. SKIN Warm, pink and dry. No rashes, dermatoses, petechiae or lesions. NEUROLOGICAL Speech is clear and appropriate. Normal level of consciousness. Gait and coordination are normal. 5/5 strength in all extremities. PSYCH Normal mood and affect. Judgement/competence is appropriate Results & Data Results & Data Vital Signs (Past 12 Hours) Vital Signs Temp Pulse Resp BP O2 Del Method 02/01/25 07:34 36.8 C 104 H 16 113/60 Room Air PG Care Time/CCT Total # of Minutes Spent Total Time Spent with Patient: Total time spent is greater than 50% in coordination of care (as documented) at patient's floor/unit and/or counseling patient: Coding Level of Care Code 42140 SUB INP/OBS CARE 2/35MIN Diagnoses Alcoholic cirrhosis of liver with ascites K70.31 Spontaneous bacterial peritonitis K65.2 Hyponatremia E87.1 Decompensated cirrhosis K72.90; K74.60 Left inguinal hernia K40.90 Hypertension I10
[2025-02-02 07:30] LABS: Hematocrit (blood only) 22.6 % (42.0-52.0); Hemoglobin 8.1 g/dl (14.0-18.0); Mean Corpuscular Hemoglobin 35.1 pg (25.0-34.0); Mean Corpuscular Hgb Conc 35.8 g/dL (32.0-36.0); Mean Corpuscular Volume 97.8 fL (80.0-100.0); Mean Platelet Volume 8.5 fL (9.4-12.4); Platelet Count 127 K/uL (130-400); RDW Coefficient of Variation 13.1 % (11.5-14.5); RDW Standard Deviation 46.5 fL (36.4-46.3); Red Blood Count 2.31 M/uL (4.70-6.10); White Blood Count 10.56 K/ul (4.8-10.8)
[2025-02-02 09:10] LABS: BUN Creatinine Ratio 41.9 (10-20); Calcium 8.7 mg/dl (8.6-10.3); Creatinine Clr Calc Pharmacy 67.2 ml/min; Potassium 4.5 mmol/L (3.5-5.1)
[2025-02-02] MEDS ORDERED: STAT IV/IM STA (10:58)
--- NOTE | 2025-02-02 11:02 | Hospitalist Progress Note ---
Date of Service February 02, 2025 Assessment & Plan (1) Alcoholic cirrhosis of liver with ascites: Plan: Decompensated EtOH cirrhosis with ascites/SBP-recent admission 12/15-12/19 for ascites requiring paracentesis and had thoracentesis during that admission as liam null-was started on lasix 20mg/spironolactone 50mg at time of dc in December. Readmitted now with massive ascites, abdominal pain and SBP. Paracenteses on 01/18, 01/23, and 01/27 to remove 5 L/8 L / 5 L, with peritoneal fluid cultures positive for Serratia resistant to ceftriaxone. LFTs elevated on admission and are somewhat improved but remain elevated. Hyponatremia is severe and remains low at 121-123. GI and nephrology consults appreciated. MELD score improved to 23 on 01/27 -Continue increased doses of diuretics with Lasix 80mg p.o. daily, spironolactone 200mg p.o. daily-Nephrology does not think increased doses of diuretics will help improve sodium-caution to avoid hepatorenal syndrome -Continue Cipro 500 mg p.o. twice daily for SBP times total 10 days through 01/29 and follow repeat peritoneal fluid cultures from 01/23-no growth to date -Started on midodrine 5mg TID for BP support and discontinued metoprolol for hypotension--> may be able to stop midodrine now that metoprolol dcd -Recommend eventual addition of nonselective beta-janee like propranolol for cirrhosis-discussed with GI-will await for cirrhosis to be compensated -Continue bowel regimen with lactulose 30 g p.o. with goal of 2-3 BMs per day. Patient has not has not had any bowel movement in the last 2 days. Increase the lactulose to 3 times daily -Will plan to start rifaximin 550 Mg p.o. twice daily on discharge if cost affordable -Continue thiamine, multivitamin with folic acid -Needs hepatology follow-up after discharge for refractory ascites and HCC surveillance- He may be a candidate for liver transplantation. He is tentatively scheduled for June 2025 with [facility] in [place] but nurse navigator to look into referrals to either [facility] or [facility] in [place] to facilitate sooner appointment -Continue to trend MELD labs while inpatient-CBC, CMP, PT/INR -He has not had EGD to screen for varices-this could be done as an outpatient with hepatology -s/p parcentesis 01/30 -He may need recurrent paracenteses in the future (2) Spontaneous bacterial peritonitis: Plan: -Continue Cipro 500 mg p.o. twice daily for SBP times total 10 days through 01/29 and follow repeat peritoneal fluid cultures from 01/23-no growth to date -cipro course completed (3) Hyponatremia: Plan: secondary to cirrhosis with volume overload. Sodium [id number] nephrology consultation. Status post 3 large-volume paracenteses. Urine sodium 10. This will not likely improve much further given end-stage cirrhosis as per my discussion with nephrology - Continue spironolactone, furosemide at current doses - Follow I's and O's, fluid restriction 1500 mL/day, liberalize salt in diet - Follow BMP - Nephrology recommends 3% saline if sodium less than 120 -will give 3% saline bolus today as Na+ 129 (4) Decompensated cirrhosis: (5) Left inguinal hernia: Plan: -filled with fluid and not bowel on CT scan previously. It is reducible but easily fills back up on exam likely because it is fluid-filled. Given increasing discomfort with it on 01/28, consulted general surgery who recommended no further treatment at this time - Monitor for worsening Patient is disappointed that he is not a surgical candidate Patient has been using morphine for pain control. Explained to him that the morphine will lead to slowing of his bowels that will eventually cause more problems. Patient is agreeable to stopping morphine. (6) Hypertension: Plan: lood pressures have been soft with decompensated cirrhosis. He was on metoprolol for previous diagnosis of HTN but now is requiring midodrine. Toprol XL stopped and BPs now improved -Discontinued Toprol XL -plan to start low-dose propranolol once cirrhosis more compensated if BP can tolerate Plan This patient is a 59-year-old male with a history of EtOH cirrhosis, HTN, HLD, GERD, macrocytic anemia who is admitted with decompensated cirrhosis with elevated LFTs and massive ascites, found to have SBP and severe hyponatremia. Dispo: Continued stay, patient does not have insurance ,awaiting approval of out patient GI appointments. Admission and Anticipated Discharge Date Admission Date: January 17, 2025 Subjective -no events overnights Review of Systems Review of Systems: CONST: Negative for fever, body aches and chills. HENT: Negative for neck pain/stiffness, headache, congestion, sore throat, swelling. EYES: Negative for discharge/pain or vision changes. RESP: Negative for cough/hemoptysis and shortness of breath. CV: Negative chest pain, difficulty breathing, palpitations. ABD: Negative pain, nausea, vomiting. : Negative increase frequency, dysuria, blood in urine or stool. MUSC: Negative for muscle aches, edema. SKIN: Negative rash, lesions/sores. NEURO: Negative headache, dizziness, weakness. Physical Exam Physical Exam: GENERAL APPEARANCE NAD, activity normal for age, well developed/ well nourished, no cyanosis, pallor, or diaphoresis. EYES lids/conjunctiva normal. EARS/NOSE/THROAT Mucous membranes moist, nares normal, lips/teeth normal uvula midline without oral pharyngeal erythema, exudate or swelling TMs normal bilaterally. No lymphangitis/lymphedema. HEAD/NECK normocephalic atraumatic, no facial trauma, neck is supple. RESPIRATORY respiratory effort normal, speaks in full sentences, no tripod position, no accessory muscle use. Lungs clear to auscultation without rhonchi, wheezes, rales CARDIAC Regular rate and rhythm, no edema. ABDOMINAL Distended. No pulsatile masses on exam, rebound tenderness, Lopez sign or pain over Mcburney's point. MUSCLES/EXTREMITIES No abnormal range of motion, no swelling. SKIN Warm, pink and dry. No rashes, dermatoses, petechiae or lesions. NEUROLOGICAL Speech is clear and appropriate. Normal level of consciousness. Gait and coordination are normal. 5/5 strength in all extremities. PSYCH Normal mood and affect. Judgement/competence is appropriate Results & Data Results & Data Vital Signs (Past 12 Hours) Vital Signs Temp Pulse Resp BP Pulse Ox O2 Del Method 02/02/25 07:55 Room Air 02/02/25 07:07 36.6 C 97 H 16 110/66 99 Room Air PG Care Time/CCT Total # of Minutes Spent Total Time Spent with Patient: Total time spent is greater than 50% in coordination of care (as documented) at patient's floor/unit and/or counseling patient: Coding Level of Care Code 60055 SUB INP/OBS CARE 2/35MIN Diagnoses Alcoholic cirrhosis of liver with ascites K70.31 Spontaneous bacterial peritonitis K65.2 Hyponatremia E87.1 Decompensated cirrhosis K72.90; K74.60 Left inguinal hernia K40.90 Hypertension I10
[2025-02-02] MEDS: SODIUM CHLORIDE 3 % 50 ML IV ONE (11:44)
[2025-02-02] MEDS: KETOROLAC TROMETHAMINE 15 MG/ML VIAL IV ONE (22:55)
[2025-02-03 06:42] LABS: Hematocrit (blood only) 21.5 % (42.0-52.0); Hemoglobin 7.8 g/dl (14.0-18.0); Mean Corpuscular Hemoglobin 35.9 pg (25.0-34.0); Mean Corpuscular Hgb Conc 36.3 g/dL (32.0-36.0); Mean Corpuscular Volume 99.1 fL (80.0-100.0); Mean Platelet Volume 9.1 fL (9.4-12.4); Platelet Count 147 K/uL (130-400); RDW Coefficient of Variation 13.1 % (11.5-14.5); RDW Standard Deviation 47.2 fL (36.4-46.3); Red Blood Count 2.17 M/uL (4.70-6.10); White Blood Count 11.79 K/ul (4.8-10.8)
[2025-02-03 07:10] LABS: BUN Creatinine Ratio 41.8 (10-20); Calcium 8.4 mg/dl (8.6-10.3); Potassium 4.5 mmol/L (3.5-5.1)
--- NOTE | 2025-02-03 10:09 | Hospitalist Progress Note ---
Date of Service February 03, 2025 Assessment & Plan (1) Alcoholic cirrhosis of liver with ascites: Plan: Decompensated EtOH cirrhosis with ascites/SBP-recent admission 12/15-12/19 for ascites requiring paracentesis and had thoracentesis during that admission as w tennille-was started on lasix 20mg/spironolactone 50mg at time of dc in December. Readmitted now with massive ascites, abdominal pain and SBP. Paracenteses on 01/18, 01/23, and 01/27 to remove 5 L/8 L / 5 L, with peritoneal fluid cultures positive for Serratia resistant to ceftriaxone. LFTs elevated on admission and are somewhat improved but remain elevated. Hyponatremia is severe and remains low at 121-123. GI and nephrology consults appreciated. MELD score improved to 23 on 01/27 -Continue increased doses of diuretics with Lasix 80mg p.o. daily, spironolactone 200mg p.o. daily-Nephrology does not think increased doses of diuretics will help improve sodium-caution to avoid hepatorenal syndrome -Continue Cipro 500 mg p.o. twice daily for SBP times total 10 days through 01/29 and follow repeat peritoneal fluid cultures from 01/23-no growth to date -Started on midodrine 5mg TID for BP support and discontinued metoprolol for hypotension--> may be able to stop midodrine now that metoprolol dcd -Recommend eventual addition of nonselective beta-janee like propranolol for cirrhosis-discussed with GI-will await for cirrhosis to be compensated -Continue bowel regimen with lactulose 30 g p.o. with goal of 2-3 BMs per day. Patient has not has not had any bowel movement in the last 2 days. Increase the lactulose to 3 times daily -Will plan to start rifaximin 550 Mg p.o. twice daily on discharge if cost affordable -Continue thiamine, multivitamin with folic acid -Needs hepatology follow-up after discharge for refractory ascites and HCC surveillance- He may be a candidate for liver transplantation. He is tentatively scheduled for June 2025 with [facility] in [place] but nurse navigator to look into referrals to either [facility] or [facility] in [place] to facilitate sooner appointment -Continue to trend MELD labs while inpatient-CBC, CMP, PT/INR -He has not had EGD to screen for varices-this could be done as an outpatient with hepatology -s/p parcentesis 01/30 -He may need recurrent paracenteses in the future -Pt to have repeat paracentesis 02/03 (2) Spontaneous bacterial peritonitis: Plan: -Continue Cipro 500 mg p.o. twice daily for SBP times total 10 days through 01/29 and follow repeat peritoneal fluid cultures from 01/23-no growth to date -cipro course completed (3) Hyponatremia: Plan: secondary to cirrhosis with volume overload. Sodium [id number] nephrology consultation. Status post 3 large-volume paracenteses. Urine sodium 10. This will not likely improve much further given end-stage cirrhosis as per my discussion with nephrology - Continue spironolactone, furosemide at current doses - Follow I's and O's, fluid restriction 1500 mL/day, liberalize salt in diet - Follow BMP - Nephrology recommends 3% saline if sodium less than 120 -will give 3% saline bolus today as Na+ 129 -Na+ improved to 120 today 02/03 (4) Decompensated cirrhosis: (5) Left inguinal hernia: Plan: -filled with fluid and not bowel on CT scan previously. It is reducible but easily fills back up on exam likely because it is fluid-filled. Given increasing discomfort with it on 01/28, consulted general surgery who recommended no further treatment at this time - Monitor for worsening Patient is disappointed that he is not a surgical candidate Patient has been using morphine for pain control. Explained to him that the m orphine will lead to slowing of his bowels that will eventually cause more problems. Patient is agreeable to stopping morphine. (6) Hypertension: Plan: lood pressures have been soft with decompensated cirrhosis. He was on metoprolol for previous diagnosis of HTN but now is requiring midodrine. Toprol XL stopped and BPs now improved -Discontinued Toprol XL -plan to start low-dose propranolol once cirrhosis more compensated if BP can tolerate Plan This patient is a 59-year-old male with a history of EtOH cirrhosis, HTN, HLD, GERD, macrocytic anemia who is admitted with decompensated cirrhosis with elevated LFTs and massive ascites, found to have SBP and severe hyponatremia. Dispo: Continued stay, patient does not have insurance ,appointment with hepatology set up. Will need IR paracentesis follow up. Admission and Anticipated Discharge Date Admission Date: January 17, 2025 Subjective Pt stating his abdomen is swelling up again. Review of Systems Review of Systems: CONST: Negative for fever, body aches and chills. HENT: Negative for neck pain/stiffness, headache, congestion, sore throat, swelling. EYES: Negative for discharge/pain or vision changes. RESP: Negative for cough/hemoptysis and shortness of breath. CV: Negative chest pain, difficulty breathing, palpitations. ABD: Negative pain, nausea, vomiting. : Negative increase frequency, dysuria, blood in urine or stool. MUSC: Negative for muscle aches, edema. SKIN: Negative rash, lesions/sores. NEURO: Negative headache, dizziness, weakness. Physical Exam Physical Exam: GENERAL APPEARANCE NAD, activity normal for age, well developed/ well nourished, no cyanosis, pallor, or diaphoresis. EYES lids/conjunctiva normal. EARS/NOSE/THROAT Mucous membranes moist, nares normal, lips/teeth normal uvula midline without oral pharyngeal erythema, exudate or swelling TMs normal bilaterally. No lymphangitis/lymphedema. HEAD/NECK normocephalic atraumatic, no facial trauma, neck is supple. RESPIRATORY respiratory effort normal, speaks in full sentences, no tripod position, no accessory muscle use. Lungs clear to auscultation without rhonchi, wheezes, rales CARDIAC Regular rate and rhythm, no edema. ABDOMINAL Distended. No pulsatile masses on exam, rebound tenderness, Lopez sign or pain over Mcburney's point. MUSCLES/EXTREMITIES No abnormal range of motion, no swelling. SKIN Warm, pink and dry. No rashes, dermatoses, petechiae or lesions. NEUROLOGICAL Speech is clear and appropriate. Normal level of consciousness. Gait and coordination are normal. 5/5 strength in all extremities. PSYCH Normal mood and affect. Judgement/competence is appropriate Results & Data Results & Data Vital Signs (Past 12 Hours) Vital Signs Temp Pulse Resp BP Pulse Ox O2 Del Method 02/03/25 07:30 36.5 C 98 H 16 96/60 L 98 Room Air 02/03/25 07:20 Room Air PG Care Time/CCT Total # of Minutes Spent Total Time Spent with Patient: Total time spent is greater than 50% in coordination of care (as documented) at patient's floor/unit and/or counseling patient: Coding Level of Care Code 01459 SUB INP/OBS CARE MIN Diagnoses Alcoholic cirrhosis of liver with ascites K70.31 Spontaneous bacterial peritonitis K65.2 Hyponatremia E87.1 Decompensated cirrhosis K72.90; K74.60 Left inguinal hernia K40.90 Hypertension I10
--- NOTE | 2025-02-03 13:37 | Ultrasound Report ---
ULTRASOUND-GUIDED PARACENTESIS CLINICAL HISTORY: Ascites PROCEDURE: Procedure and risks were explained. Informed consent was obtained. A final timeout was com pleted. The abdomen was prepped and draped in sterile fashion. 1% lidocaine was utilized for skin ane sthesia. Utilizing ultrasound guidance, a 5 [place] safety centesis catheter was advanced into the left lower q uadrant pocket of ascites. Ultrasound images were obtained. A total of 5 L of ascites fluid was remov ed with 1 L sent to lab for analysis. The catheter was removed and Band-Aid applied. The patient ileana rated the procedure well. Vital signs will be monitored postprocedure. IMPRESSION: Ultrasound-guided paracentesis as above. Performed, dictated, and signed by Manolo Srinivasan PA-C; to be co-signed by Dr. Charan Lubin. Electronically signed by: Charan Lubin M.D. 02/03/2025 2:34 PM
[2025-02-04 06:20] LABS: Mean Corpuscular Hemoglobin 35.9 pg (25.0-34.0); Mean Corpuscular Volume 99.6 fL (80.0-100.0); Mean Platelet Volume 9.1 fL (9.4-12.4); Platelet Count 186 K/uL (130-400); RDW Coefficient of Variation 12.7 % (11.5-14.5); RDW Standard Deviation 46.5 fL (36.4-46.3); Red Blood Count 2.51 M/uL (4.70-6.10)
[2025-02-04 06:44] LABS: BUN Creatinine Ratio 45.2 (10-20); Calcium 8.8 mg/dl (8.6-10.3); Creatinine Clr Calc Pharmacy 54.1 ml/min; Potassium 4.8 mmol/L (3.5-5.1)
--- NOTE | 2025-02-04 09:25 | Hospitalist Progress Note ---
Date of Service February 04, 2025 Assessment & Plan (1) Alcoholic cirrhosis of liver with ascites: Plan: Decompensated EtOH cirrhosis with ascites/SBP-recent admission 12/15-12/19 for ascites requiring paracentesis and had thoracentesis during that admission as liam null-was started on lasix 20mg/spironolactone 50mg at time of dc in December. Readmitted now with massive ascites, abdominal pain and SBP. Paracenteses on 01/18, 01/23, and 01/27 to remove 5 L/8 L / 5 L, with peritoneal fluid cultures positive for Serratia resistant to ceftriaxone. LFTs elevated on admission and are somewhat improved but remain elevated. Hyponatremia is severe and remains low at 121-123. GI and nephrology consults appreciated. MELD score improved to 23 on 01/27 -Continue increased doses of diuretics with Lasix 80mg p.o. daily, spironolactone 200mg p.o. daily-Nephrology does not think increased doses of diuretics will help improve sodium-caution to avoid hepatorenal syndrome -Continue Cipro 500 mg p.o. twice daily for SBP times total 10 days through 01/29 and follow repeat peritoneal fluid cultures from 01/23-no growth to date -Started on midodrine 5mg TID for BP support and discontinued metoprolol for hypotension--> may be able to stop midodrine now that metoprolol dcd -Recommend eventual addition of nonselective beta-janee like propranolol for cirrhosis-discussed with GI-will await for cirrhosis to be compensated -Continue bowel regimen with lactulose 30 g p.o. with goal of 2-3 BMs per day. Patient has not has not had any bowel movement in the last 2 days. Increase the lactulose to 3 times daily -Will plan to start rifaximin 550 Mg p.o. twice daily on discharge if cost affordable -Continue thiamine, multivitamin with folic acid -Needs hepatology follow-up after discharge for refractory ascites and HCC surveillance- He may be a candidate for liver transplantation. He is tentatively scheduled for June 2025 with [facility] in [place] but nurse navigator to look into referrals to either [facility] or [facility] in [place] to facilitate sooner appointment -Continue to trend MELD labs while inpatient-CBC, CMP, PT/INR -He has not had EGD to screen for varices-this could be done as an outpatient with hepatology -s/p parcentesis 01/30 -He may need recurrent paracenteses in the future -Pt had repeat paracentesis 02/03 (2) Spontaneous bacterial peritonitis: Plan: -Continue Cipro 500 mg p.o. twice daily for SBP times total 10 days through 01/29 and follow repeat peritoneal fluid cultures from 01/23-no growth to date -cipro course completed (3) Hyponatremia: Plan: secondary to cirrhosis with volume overload. Sodium [id number] nephrology consultation. Status post 3 large-volume paracenteses. Urine sodium 10. This will not likely improve much further given end-stage cirrhosis as per my discussion with nephrology - Continue spironolactone, furosemide at current doses - Follow I's and O's, fluid restriction 1500 mL/day, liberalize salt in diet - Follow BMP - Nephrology recommends 3% saline if sodium less than 120 -will give 3% saline bolus today 02/02 as Na+ 129 -Na+ improved now 121 (4) Decompensated cirrhosis: (5) Left inguinal hernia: Plan: -filled with fluid and not bowel on CT scan previously. It is reducible but easily fills back up on exam likely because it is fluid-filled. Given increasing discomfort with it on 01/28, consulted general surgery who recommended no further treatment at this time - Monitor for worsening Patient is disappointed that he is not a surgical candidate Patient has been using morphine for pain control. Explained to him that the morphine will lead to slowing of his bowels that will eventually cause more problems. Patient is agreeable to stopping morphine. (6) Hypertension: Plan: lood pressures have been soft with decompensated cirrhosis. He was on metoprolol for previous diagnosis of HTN but now is requiring midodrine. Toprol XL stopped and BPs now improved -Discontinued Toprol XL -plan to start low-dose propranolol once cirrhosis more compensated if BP can tolerate Plan This patient is a 59-year-old male with a history of EtOH cirrhosis, HTN, HLD, GERD, macrocytic anemia who is admitted with decompensated cirrhosis with elevated LFTs and massive ascites, found to have SBP and severe hyponatremia. Dispo: Case management has arranged for out patient follow up with hepatology and IR for paracentesis. Plan for d/c 02/06. Admission and Anticipated Discharge Date Admission Date: January 17, 2025 Subjective Pt appearing weak and drained this am. Review of Systems Review of Systems: CONST: Negative for fever, body aches and chills. HENT: Negative for neck pain/stiffness, headache, congestion, sore throat, swelling. EYES: Negative for discharge/pain or vision changes. RESP: Negative for cough/hemoptysis and shortness of breath. CV: Negative chest pain, difficulty breathing, palpitations. ABD: Negative pain, nausea, vomiting. : Negative increase frequency, dysuria, blood in urine or stool. MUSC: Negative for muscle aches, edema. SKIN: Negative rash, lesions/sores. NEURO: Negative headache, dizziness, weakness. Physical Exam Physical Exam: GENERAL APPEARANCE NAD, activity normal for age, well developed/ well nourished, no cyanosis, pallor, or diaphoresis. EYES lids/conjunctiva normal. EARS/NOSE/THROAT Mucous membranes moist, nares normal, lips/teeth normal uvula midline without oral pharyngeal erythema, exudate or swelling TMs normal bilaterally. No lymphangitis/lymphedema. HEAD/NECK normocephalic atraumatic, no facial trauma, neck is supple. RESPIRATORY respiratory effort normal, speaks in full sentences, no tripod position, no accessory muscle use. Lungs clear to auscultation without rhonchi, wheezes, rales CARDIAC Regular rate and rhythm, no edema. ABDOMINAL Distended. No pulsatile masses on exam, rebound tenderness, Lopez sign or pain over Mcburney's point. MUSCLES/EXTREMITIES No abnormal range of motion, no swelling. SKIN Warm, pink and dry. No rashes, dermatoses, petechiae or lesions. NEUROLOGICAL Speech is clear and appropriate. Normal level of consciousness. Gait and coordination are normal. 5/5 strength in all extremities. PSYCH Normal mood and affect. Judgement/competence is appropriate Results & Data Results & Data Vital Signs (Past 12 Hours) Vital Signs Temp Pulse Resp BP Pulse Ox O2 Del Method 02/04/25 06:55 36.4 C L 104 H 16 111/61 99 Room Air PG Care Time/CCT Total # of Minutes Spent Total Time Spent with Patient: Total time spent is greater than 50% in coordination of care (as documented) at patient's floor/unit and/or counseling patient: Coding Level of Care Code 53711 SUB INP/OBS CARE 2/35MIN Diagnoses Alcoholic cirrhosis of liver with ascites K70.31 Spontaneous bacterial peritonitis K65.2 Hyponatremia E87.1 Decompensated cirrhosis K72.90; K74.60 Left inguinal hernia K40.90 Hypertension I10
[2025-02-04] MEDS: SODIUM CHLORIDE 0.9% 250 ML IV ONE (15:37)
[2025-02-04] MEDS: cefTRIAXone SODIUM 2,000 MG/50 ML BAG IV STA (16:59)
[2025-02-04] MEDS: LACTULOSE SYRUP 30 GM/45 ML UDP PO STA (17:47)
[2025-02-05] MEDS: ONDANSETRON INJ 2 MG/ML 2 ML VIAL IV PRN (03:26)
--- NOTE | 2025-02-05 04:56 | Communication Note ---
Date of Service: February 05, 2025 Notified by RN of progressive decline in responsiveness over the course of shift leader - when seen at bedside, patient awake and staring ahead but not responsive to verbal stimuli, delayed and minimal response to sternal rub, unable to follow commands. Vitals fairly stable apart from mild tachycardia with HR in the 110s. Per RN, current mentation far below baseline when compared to past couple days. Of note, patient refused morning and afternoon doses of Lactulose - no BM over past day per RN. Work up notable for: -unremarkable CXR and negative non-contrast CT head -Further elevation of ammonia level -> Lactulose increased to 30g QID -Increased Cr and elevated lactate -> Start albumin infusion, Furosemide held -Leukocytosis and +procal -> Start Meropenem, ID consulted - unclear source for infection, UA negative, CXR without evidence for pneumonia, suspect recurrent SB P vs wound infection -K+ 5.6 -> Aldactone held -Na 121 Overall clinical scenario favors hepatic encephalopathy as cause for change in mentation, likely compounded by other metabolic factors (ie. infection, electrolyte derangements etc.). Volume status consistent with hepatorenal-like picture, possibly with additional intravascular volume depletion from aggressive diuresis. Patient transferred to PCU. Repeat blood cultures pending. Renal US pending.
--- NOTE | 2025-02-05 05:07 | XRay Report ---
EXAM: XR chest 1V portable CLINICAL HISTORY: Concern for aspiration. TECHNIQUE: An X-ray image of the chest is obtained in AP projection. COMPARISON: 12/16/2024 CR. FINDINGS: Pulmonary Parenchyma: Airspace opacification of the left lung lower zone with non-visualization of the medial left hemidiaphragm is concerning of left lower lobe subsegmental consolidation/collapse. Suggest clinical correlation. No evidence of pleural effusion or pleural thickening. Heart and Mediastinum: Heart size and shape are normal. No mediastinal widening or masses. No hilar or mediastinal lymphadenopathy. Bony Thorax: Bony thorax appears intact without fractures or deformities. Soft Tissues: Soft tissues overlying the chest wall are unremarkable. IMPRESSION: Airspace opacification of the left lung lower zone with non-visualization of the medial left hemidiaphragm is concerning of left lower lobe subsegmental consolidation/collapse. Suggest clinical correlation (new) Electronically signed by Jayy Castorena 02-05-2025 05:07 AM
[2025-02-05 05:15] LABS: Base Excess VBG -0.8 mEq/L; HCO3 VBG 21 mmol/L; Oxygen Saturation VBG < 60.0 %; PCO2 VBG 27 mmHg (38-50); PO2 VBG 34 mmHg
[2025-02-05 05:19] LABS: Basophils # (auto) 0.01 K/uL (0.00-0.20); Basophils % (auto) 0.1 %; Hematocrit (blood only) 26.1 % (42.0-52.0); Hemoglobin 9.6 g/dl (14.0-18.0); Immature Granulocytes # (auto) 0.08 K/uL (0.01-0.20); Immature Granulocytes % (auto) 0.6 %; Lymphocytes # (auto) 0.65 K/uL (1.20-3.40); Lymphocytes % (auto) 4.5 %; Mean Corpuscular Hemoglobin 35.4 pg (25.0-34.0); Mean Corpuscular Hgb Conc 36.8 g/dL (32.0-36.0); Mean Corpuscular Volume 96.3 fL (80.0-100.0); Mean Platelet Volume 8.7 fL (9.4-12.4); Monocytes # (auto) 1.72 K/uL (0.11-0.59); Monocytes % (auto) 11.9 %; Neutrophils # (auto) 12.01 K/uL (1.40-6.50); Neutrophils % (auto) 82.9 %; Platelet Count 258 K/uL (130-400); RDW Coefficient of Variation 13.2 % (11.5-14.5); RDW Standard Deviation 46.5 fL (36.4-46.3); Red Blood Count 2.71 M/uL (4.70-6.10); White Blood Count 14.47 K/ul (4.8-10.8)
[2025-02-05 05:36] LABS: Albumin Globulin Ratio 0.8 (0.9-2); BUN Creatinine Ratio 44.2 (10-20); Bilirubin,Total 5.2 mg/dl (0.2-1.0); Calcium 9.3 mg/dl (8.6-10.3); Creatinine Clr Calc Pharmacy 45.9 ml/min; Globulin 3.9 gm/dl (2.5-4.0); Potassium 5.6 mmol/L (3.5-5.1); Total Protein 6.9 gm/dl (6.0-8.3)
--- NOTE | 2025-02-05 05:38 | CT Scan Report ---
EXAM: CT head/brain wo con CLINICAL HISTORY: R/o ICH. TECHNIQUE: Axial non-contrast CT scan of the brain was performed from the skull base to the high parietal region. One of the following dose reduction techniques were utilized for this exam: Automated exposure control, adjustment of the mA and/or kV according to patient size, use of iterative reconstruction. COMPARISON: CT 03/19/2024. FINDINGS: Brain Parenchyma: No evidence of acute infarct, hemorrhage, or mass effect. Few hypodense foci are seen, mainly at the bilateral frontal and parietal periventricular/deep white matter regions and basal ganglia. Ventricular System: Mild dilatation of the ventricular system with no midline shift or deformity. Subarachnoid Spaces: Widened cortical sulci, sylvian fissure and extra-axial C.S.F spaces. No evidence of subarachnoid hemorrhage or extra-axial fluid collections. Cerebellum and Brainstem: Normal size and signal. No masses, lesions, or areas of abnormal signal. Orbits: Normal appearance of the globes, optic nerves, and extraocular muscles. No evidence of orbital masses or abnormal signal. Sinuses: Mild right ethmoidal sinusitis. Clear other paranasal sinuses. Mastoid Air Cells: Mild bilateral mastoiditis. Skull: Normal skull morphology. IMPRESSION: 1. No cerebral hematoma or established recent ischemic insult. MRI assessment would be recommended if clinically warranted. 2. Age-related involutional brain changes. 3. Bilateral small chronic cerebral lacunar infarcts. 4. Mild bilateral mastoiditis. Interval new 5. No other significant interval changes. Electronically signed by Jayy Castorena 02-05-2025 05:38 AM
[2025-02-05 05:41] LABS: Appearance Urine Clear (Clear); Bacteria Urine Automated None Seen (None Seen); Bilirubin Urine 1+ (Negative); Blood Urine Negative (Negative); Color Urine Dark Yellow; Epithelial Cell Urine Auto 0-2 /hpf (0-2); Glucose Urine UA Negative (Negative); Hyaline Casts Urine Present /lpf (None Presnt); Ketones Urine Trace (Negative); Leukocyte Esterase Urine Trace (Negative); Mucus Urine Present (None Prsent); Nitrite Urine Negative (Negative); Protein Urine Negative (Negative); Specific Gravity Urine 1.018 (1.000-1.030); Urobilinogen Urine Positive (Negative); WBC Urine Automated 0-5 /hpf (0-5); pH Urine 5.5 (4.5-7.5)
[2025-02-05 05:53] LABS: INR 1.4 (0.9-1.1); Prothrombin Time 15.2 Seconds (9.0-12.0)
[2025-02-05] MEDS ORDERED: STAT IV/IM STA (06:13)
[2025-02-05] MEDS: MEROPENEM 500 MG in SYRINGE 0 ML IV SCH (06:37)
[2025-02-05] MEDS: OCTREOTIDE ACETATE 100 MCG in SYRINGE 9 ML IV SCH (06:38)
[2025-02-05] MEDS: ALBUMIN 25% 25 GM/100 ML VIAL IV SCH (06:43)
[2025-02-05] MEDS: LACTULOSE 200GM/700ML WTR ENEMA PR SCH (08:09)
[2025-02-05] MEDS: FUROSEMIDE 40 MG/4 ML VIAL IV ONE (08:09)
--- NOTE | 2025-02-05 08:24 | Hospitalist Progress Note ---
Date of Service February 05, 2025 Assessment & Plan (1) Alcoholic cirrhosis of liver with ascites: Plan: Decompensated EtOH cirrhosis with ascites/SBP-recent admission 12/15-12/19 for ascites requiring paracentesis and had thoracentesis during that admission as w tennille-was started on lasix 20mg/spironolactone 50mg at time of dc in December. Readmitted now with massive ascites, abdominal pain and SBP. Paracenteses on 01/18, 01/23, and 01/27 to remove 5 L/8 L / 5 L, with peritoneal fluid cultures positive for Serratia resistant to ceftriaxone. LFTs elevated on admission and are somewhat improved but remain elevated. Hyponatremia is severe and remains low at 121-123. GI and nephrology consults appreciated. MELD score improved to 23 on 01/27 -Continue increased doses of diuretics with Lasix 80mg p.o. daily, spironolactone 200mg p.o. daily-Nephrology does not think increased doses of diuretics will help improve sodium-caution to avoid hepatorenal syndrome -Continue Cipro 500 mg p.o. twice daily for SBP times total 10 days through 01/29 and follow repeat peritoneal fluid cultures from 01/23-no growth to date -Started on midodrine 5mg TID for BP support and discontinued metoprolol for hypotension--> may be able to stop midodrine now that metoprolol dcd -Recommend eventual addition of nonselective beta-janee like propranolol for cirrhosis-discussed with GI-will await for cirrhosis to be compensated -Continue bowel regimen with lactulose 30 g p.o. with goal of 2-3 BMs per day. Patient has not has not had any bowel movement in the last 2 days. Increase the lactulose to 3 times daily -Will plan to start rifaximin 550 Mg p.o. twice daily on discharge if cost affordable -Continue thiamine, multivitamin with folic acid -Needs hepatology follow-up after discharge for refractory ascites and HCC surveillance- He may be a candidate for liver transplantation. He is tentatively scheduled for June 2025 with [facility] in [place] but nurse navigator to look into referrals to either [facility] or [facility] in [place] to facilitate sooner appointment -Continue to trend MELD labs while inpatient-CBC, CMP, PT/INR -He has not had EGD to screen for varices-this could be done as an outpatient with hepatology -s/p parcentesis 01/30 -He may need recurrent paracenteses in the future -Pt had repeat paracentesis 02/03 -02/05 worsening ammonia levels now 145 -lactulose enema ordered (2) Spontaneous bacterial peritonitis: Plan: -Continue Cipro 500 mg p.o. twice daily for SBP times total 10 days through 01/29 and follow repeat peritoneal fluid cultures from 01/23-no growth to date -cipro course completed -restarted meropenem 02/05 for presumed repeat SBP (3) Hyponatremia: Plan: secondary to cirrhosis with volume overload. Sodium [id number] nephrology consultation. Status post 3 large-volume paracenteses. Urine sodium 10. This will not likely improve much further given end-stage cirrhosis as per my discussion with nephrology - Continue spironolactone, furosemide at current doses - Follow I's and O's, fluid restriction 1500 mL/day, liberalize salt in diet - Follow BMP - Nephrology recommends 3% saline if sodium less than 120 -will give 3% saline bolus today 02/02 as Na+ 129 -Na+ improved now 121 (4) Decompensated cirrhosis: (5) Left inguinal hernia: Plan: -filled with fluid and not bowel on CT scan previously. It is reducible but easily fills back up on exam likely because it is fluid-filled. Given increasing discomfort with it on 01/28, consulted general surgery who recommended no further treatment at this time - Monitor for worsening Patient is disappointed that he is not a surgical candidate Patient has been using morphine for pain control. Explained to him that the morphine will lead to slowing of his bowels that will eventually cause more problems. Patient is agreeable to stopping morphine. (6) Hypertension: Plan: lood pressures have been soft with decompensated cirrhosis. He was on metoprolol for previous diagnosis of HTN but now is requiring midodrine. Toprol XL stopped and BPs now improved -Discontinued Toprol XL -plan to start low-dose propranolol once cirrhosis more compensated if BP can tolerate Plan This patient is a 59-year-old male with a history of EtOH cirrhosis, HTN, HLD, GERD, macrocytic anemia who is admitted with decompensated cirrhosis with elevated LFTs and massive ascites, found to have SBP and severe hyponatremia. 02/05 Pt with worsening mental status 2nd to hepatic encephalopathy, ammonia level 145. Lactulose enema Q8hrs ordered. Intravascular volume depletion, started on albumin Q8hrs. Pt with increased pulmonary vascular congestion, lasix 80mg IV ordered. Pt condition guarded, if respiratory status does not improve, will consider ICU. Dispo: Case management has arranged for out patient follow up with hepatology and IR for paracentesis. Admission and Anticipated Discharge Date Admission Date: January 17, 2025 Subjective Pt was upgraded to PCU last night, due to worsening mental status and increased 02 demands. This am, patient is minimally responsive to verbal stimuli and has audible crackles from bedside,currently on 7LNC. Review of Systems Review of Systems: CONST: Negative for fever, body aches and chills. HENT: Negative for neck pain/stiffness, headache, congestion, sore throat, swelling. EYES: Negative for discharge/pain or vision changes. RESP: Negative for cough/hemoptysis and shortness of breath. CV: Negative chest pain, difficulty breathing, palpitations. ABD: Negative pain, nausea, vomiting. : Negative increase frequency, dysuria, blood in urine or stool. MUSC: Negative for muscle aches, edema. SKIN: Negative rash, lesions/sores. NEURO: Negative headache, dizziness, weakness. Physical Exam Physical Exam: GENERAL APPEARANCE NAD, activity normal for age, well developed/ well nourished, no cyanosis, pallor, or diaphoresis. EYES lids/conjunctiva normal. EARS/NOSE/THROAT Mucous membranes moist, nares normal, lips/teeth normal uvula midline without oral pharyngeal erythema, exudate or swelling TMs normal bilaterally. No lymphangitis/lymphedema. HEAD/NECK normocephalic atraumatic, no facial trauma, neck is supple. RESPIRATORY respiratory effort normal, speaks in full sentences, no tripod position, no accessory muscle use. Lungs clear to auscultation without rhonchi, wheezes, rales CARDIAC Regular rate and rhythm, no edema. ABDOMINAL Distended. No pulsatile masses on exam, rebound tenderness, Lopez sign or pain over Mcburney's point. MUSCLES/EXTREMITIES No abnormal range of motion, no swelling. SKIN Warm, pink and dry. No rashes, dermatoses, petechiae or lesions. NEUROLOGICAL Speech is clear and appropriate. Normal level of consciousness. Gait and coordination are normal. 5/5 strength in all extremities. PSYCH Normal mood and affect. Judgement/competence is appropriate Results & Data Results & Data Vital Signs (Past 12 Hours) Vital Signs Temp Pulse Resp BP Pulse Ox O2 Del Method O2 Flow Rate 02/05/25 07:32 36.7 C 121 H 20 124/73 93 Nasal Cannula 7 02/05/25 07:00 Nasal Cannula 7 02/05/25 07:00 36.7 C 123 H 25 H 126/65 95 Room Air 02/05/25 07:00 Room Air 02/05/25 03:17 36.2 C L 117 H 18 134/80 98 Room Air 02/04/25 20:45 99 Room Air 02/04/25 20:35 Room Air PG Care Time/CCT Total # of Minutes Spent Total Time Spent with Patient: Total time spent is greater than 50% in coordination of care (as documented) at patient's floor/unit and/or counseling patient: Coding Level of Care Code 46421 SUB INP/OBS CARE 235MIN Diagnoses Alcoholic cirrhosis of liver with ascites K70.31 Spontaneous bacterial peritonitis K65.2 Hyponatremia E87.1 Decompensated cirrhosis K72.90; K74.60 Left inguinal hernia K40.90 Hypertension I10
--- NOTE | 2025-02-05 08:28 | XRay Report ---
HISTORY: CHF. TECHNIQUE: Portable AP radiograph of the chest. COMPARISON: Chest radiograph dated 12/16/2024. FINDINGS: Focal right lower lobe airspace opacity consistent with pneumonia. Large hiatal hernia. Mild atelectasis along the medial left lung base. Left lung is otherwise clear. No pneumothorax or effusion. Normal heart size. Left-sided aortic arch. Midline trachea. No acute osseous abnormality. Included upper abdomen is unremarkable. IMPRESSION: * Right lower lobe pneumonia. Follow-up PA and lateral chest radiographs are recommended in 6 to 8 weeks to ensure complete resolution. * Large hiatal hernia. Electronically signed by Juan C Diane 02-05-2025 08:27 AM
[2025-02-05] MEDS: LACTULOSE SYRUP 30 GM/45 ML UDP PO SCH (08:56)
--- NOTE | 2025-02-05 09:38 | Electrocardiogram Report ---
Test Reason : Blood Pressure : */* mmHG Vent. Rate : 122 BPM Atrial Rate : 122 BPM P-R Int : 150 ms QRS Dur : 90 ms QT Int : 330 ms P-R-T Axes : 70 68 98 degrees QTcB Int : 470 ms Sinus tachycardia Low voltage QRS Nonspecific ST and T wave abnormality Abnormal ECG When compared with ECG of 15-Dec-2024 09:15, Borderline criteria for Anterior infarct are no longer Present Nonspecific T wave abnormality no longer evident in Anterior leads Nonspecific T wave abnormality now evident in Lateral leads Confirmed by Vaishali Godinez (Isabella) on 02/05/2025 9:37:33 AM Referred By: REFERRED SELF Confirmed By: Vaishali Godinez
--- NOTE | 2025-02-05 09:46 | Ultrasound Report ---
HISTORY: LUBA. TECHNIQUE: Ultrasound evaluation of the kidneys and urinary bladder. COMPARISON: None. FINDINGS: Right kidney measures 11.8 cm in length. Increased renal cortical echogenicity is a nonspecific finding associated with medical renal disease. No hydronephrosis. Left kidney measures 11 point11.2 cm in length. Increased renal cortical echogenicity is a nonspecific finding associated medical renal disease. No hydronephrosis. No echogenic debris is seen in the urinary bladder. The ureteral jets are not visualized. No obvious bladder wall thickening. Moderate to large ascites is seen throughout the abdomen. IMPRESSION: * No acute findings. No hydronephrosis. * Increased renal cortical echogenicity is a nonspecific finding associated medical renal disease. * Unremarkable urinary bladder. * Moderate to large ascites throughout the abdomen. Electronically signed by Juan C Diane 02-05-2025 09:46 AM
[2025-02-05] MEDS ORDERED: ALBUT/IPRATROP 3MG/0.5MG NEB 3 ML VIAL NEB PRN (11:24)
[2025-02-05 21:29] LABS: Base Excess VBG -4.9 mEq/L; HCO3 VBG 18 mmol/L; PCO2 VBG 26 mmHg (38-50); PO2 VBG 51 mmHg; pH VBG 7.44 (7.36-7.41)
[2025-02-05 21:32] LABS: Albumin Level 3.3 gm/dl (3.4-5.0); BUN Creatinine Ratio 40.6 (10-20); Bilirubin,Total 5.4 mg/dl (0.2-1.0); Calcium 9.3 mg/dl (8.6-10.3); Creatinine Clr Calc Pharmacy 37.2 ml/min; Globulin 3.3 gm/dl (2.5-4.0); Magnesium 2.8 mg/dl (1.7-2.4); Potassium 5.2 mmol/L (3.5-5.1); Total Protein 6.6 gm/dl (6.0-8.3)
[2025-02-06] MEDS: SODIUM CHLORIDE 0.9% 500 ML IV SCH (00:32)
[2025-02-06] MEDS: SODIUM CHLORIDE 0.9% 500 ML IV ONE (01:14)
--- NOTE | 2025-02-06 01:43 | XRay Report ---
EXAM: XR chest 1V portable CLINICAL HISTORY: verify NG tube placement TECHNIQUE: An X-ray image of the chest is obtained in AP projection. COMPARISON: 02/05/2025 07:03:00 [employer]. FINDINGS: The chest leads are applied. The patient has significantly rotated. NGT is identified with its distal tip under the left hemidiaphragm and needs a 0.7 cm forward push. Pulmonary Parenchyma: A patch of consolidation in the right lower lobe is still appreciated, however, partially obscured due to the rotation of the patient. Another inhomogeneous opacity is identified in the left lower zone, probably in the retrocardiac region, which also suggests infection. No pulmonary nodules are identified. No evidence of pleural effusion or pleural thickening. Heart and Mediastinum: Heart size and shape are normal. No mediastinal widening or masses. No hilar or mediastinal lymphadenopathy. Bony Thorax: Bony thorax appears intact without fractures or deformities. Soft Tissues: Still noted a large hiatal hernia. IMPRESSION: 1. NGT is identified with its distal tip under the left hemidiaphragm and needs a 0.7 cm forward push. 2. A patch of consolidation in the right lower lobe is partially obscured due to the rotation of the patient. 3. Interval inhomogeneous opacity in the left lower zone, suggesting infection. Electronically signed by Jayy Castorena 02-06-2025 01:42 AM
--- NOTE | 2025-02-06 02:34 | XRay Report ---
EXAM: XR KUB/Abdomen 1 view CLINICAL HISTORY: R/o SBO TECHNIQUE: X-ray images of the abdomen were obtained in supine position COMPARISON: 01/17/2025, CT Abdomen and Pelvis FINDINGS: Gas Pattern: Prominent bowel loops are identified in abdomen Gas-filled prominent stomach shadow seen Soft Tissues: Liver shadow is possibly below the right costal margin. Ultrasound may be obtained if clinically required Spleen and renal shadows are not well visualized IMPRESSION: Prominent bowel loops in abdomen raising the possibility of bowel obstruction. CT scan is suggested for further evaluation No evidence of pneumoperitoneum No distended/ prominent loops were seen in prior CT Electronically signed by Jayy Castorena 02-06-2025 02:33 AM
--- NOTE | 2025-02-06 03:21 | XRay Report ---
EXAM: XR chest 1V portable CLINICAL HISTORY: NG tube placement TECHNIQUE: An X-ray image of the chest is obtained in AP projection. COMPARISON: 02/05/2025. Poor patient position with non-complete visualized right lung field. FINDINGS: A nasogastric tube is seen. The side hole is noted at the level of gastroesophageal junction. Pulmonary Parenchyma: Bilateral prominent hilar bronchopulmonary vasculature. The visualized right lung field shows lower zone/cardio phrenic angle faint opacification. Faint pacification at the left lung lower zone. No evidence of pleural effusion or pleural thickening. Heart and Mediastinum: Heart size and shape are normal. No mediastinal widening or masses. No hilar or mediastinal lymphadenopathy. Bony Thorax: Bony thorax appears intact without fractures or deformities. Soft Tissues: Soft tissues overlying the chest wall are unremarkable. IMPRESSION: Poor patient position with non-complete visualized right lung field. 1. A nasogastric tube is seen. The side hole is noted at the level of gastroesophageal junction. Recommend advancement 10-15 cm. 2. Bilateral, prominent hilar bronchopulmonary vasculature. 3. The visualized right lung field shows lower zone/cardio phrenic angle faint opacification. Slight interval regression. 4. Faint pacification at the left lung lower zone. (progressive Vs exaggerated due to patient malposition). Electronically signed by Jayy Castorena 02-06-2025 03:20 AM
--- NOTE | 2025-02-06 04:21 | Communication Note ---
Date of Service: February 06, 2025 Overnight labs notable for persistently elevated lactate and further decline in kidney function (Cr 2.12). Patient given 500cc bolus of fluids and started on maintenance fluids x1 bag. NG tube placement attempted in order to facilitate lactulose administration. CXR for verification of NG tube placement with incidentally noted bowel distension. F/u KUB somewhat equivocal but suggestive of potential SBO. CT abdomen/pelvis w/o contrast obtained to further assess - no evidence of bowel obstruction per radiology read. Repeat CXR continues to show NG tube getting stuck around GE junction, RN notes she is unable to advance it any further. Will reach out to GI around shift change, hopeful that they may be able to facilitate NG tube placement. In the interim, continue lactulose enemas. [employer] Specialist addendum: Patient reviewed as critical EWS. Septic from SBP +/- aspiration pneumonia. POCUS with small/collapsing IVC with worsening renal failure therefore IV NSS (hyponatremia) bolus given with additional 500ml @ 80ml/hr. Lactulose enemas being given however ongoing hematic encephalopathy therefore NG tube ordered however this repeatedly has been getting stuck at [facility] - plan to reach out to gastroenterology to help with placement of this. Consider upgrade to ICU if worsening respiratory status for airway protection with encephalopathy and aspiration pneumonia if this does not resolve soon but currently not hypercapnic.
--- NOTE | 2025-02-06 04:56 | CT Scan Report ---
EXAM: CT abd pelvis wo con CLINICAL HISTORY: ?SBO TECHNIQUE: Contiguous axial images were obtained from the level of the diaphragm to the pubic symphysis without intravenous or oral contrast. Coronal and sagittal reconstructions were likewise performed and indicated to increase the sensitivity for detecting clinically relevant pathology. CT scan was performed according to ALARA (as low as reasonable achievable). COMPARISON: 16:16:34 TARE WEIGHER FINDINGS: Abdomen: Liver: Showed irregular wavy outline with heterogenous CT density Prominent portal vein , multiple shoshana systemic collaterals noted Tiny hypo dense cyst seen at liver dom possibly tiny cys/ chirrotic nodule. Hepatic vasculature and biliary ducts are unremarkable. Gallbladder and Biliary System: Distended with intraluminal calcfic stones The common bile duct is normal in caliber without dilation. Pancreas: The pancreatic head, body, and tail are visualized and appear normal in size and density. No pancreatic masses or calcifications were noted. The pancreatic duct is not dilated. Spleen: Mildly enlarged in size, measured about 16.5 cm Prominent splenic vein No splenic lesions or masses were identified. Appendix: Not well appreciated Kidneys and Adrenal Glands: Both kidneys are normal in size, shape, and position. Cortical thickness is within normal limits. No renal calculi or hydronephrosis. Bulky left adrenal gland Pelvis: Urinary Bladder: not full Prostate: Unremarkable, US study is suggested if warranted clinically. Seminal Vesicles: Normal in size and appearance. No abnormalities noted. Rectum and Sigmoid Colon: Normal wall thickness and no evidence of mass. Peritoneal and Retroperitoneal Structures: Marked ascites is noted , smudging of mesnetric fat planes with prominent mesnetric vessels No lymphadenopathy was noted. Bowel: Long segmental submucosal edema noted at the ascending colon could be reactive colitis. No evidence of bowel obstruction or wall thickening. Uncmplicated colonic diverticulae Lareg left inguinal fluid filled hernia sac noted STB Bones and Soft Tissues: Pelvic bones and soft tissues are unremarkable. No fractures or abnormal masses were identified. Lower chest cuts showed mild left pleural effusion with left basal subsegmental atelectasis Ill-defined patchy consolidation noted in right lower lobe. Large hiatus hernia with ascitic fluid seen in the hernia sac IMPRESSION: 1. Evidence of long segmental submucosal edema noted at the ascending colon could be due to portal colopathy - increased as compared to previous study. 2. Stable Chronic parenchymatous liver disease and mild splenomegaly with portosystmic collaterals 3. Reduced ascites 4. Stable uncomplicated cholelithiasis 5. Stable Large hiatus hernia as described , large left inguinal fluid filled hernia sac.-stable. 6. Reduced, Mild left pleural effusion with left basal sub-segmental atelectasis. 7. Ill-defined patchy consolidation noted in right lower lobe.-new finding. Electronically signed by Wilmer Boogie 02-06-2025 04:55 AM
--- NOTE | 2025-02-06 06:10 | XRay Report ---
EXAM: XR chest 1V portable CLINICAL HISTORY: Verify NG tube placement TECHNIQUE: An X-ray image of the part of the chest and upper abdomen is obtained in AP projection. COMPARISON: Studies dated 02/06/2025. FINDINGS: A nasogastric tube is seen. just below the gastroesophageal junction. Need to be advanced for 10 cm into the stomach. Bilateral prominent hilar bronchopulmonary vasculature. Heart size and shape are normal. No evidence of left pleural effusion or pleural thickening. IMPRESSION: 1. A nasogastric tube is seen. tip is just below the gastroesophageal junction. Need to be advanced for 10 cm into the stomach. 2. No significant interval changes. Electronically signed by Jayy Castorena 02-06-2025 06:10 AM
[2025-02-06 06:38] LABS: Base Excess VBG -2.6 mEq/L; HCO3 VBG 22 mmol/L; Oxygen Saturation VBG < 60.0 %; PCO2 VBG 36 mmHg (38-50); PO2 VBG 35 mmHg; pH VBG 7.39 (7.36-7.41)
[2025-02-06 06:41] LABS: Hematocrit (blood only) 22.9 % (42.0-52.0); Hemoglobin 8.2 g/dl (14.0-18.0); Immature Granulocytes # (auto) 0.04 K/uL (0.01-0.20); Immature Granulocytes % (auto) 0.4 %; Lymphocytes # (auto) 0.45 K/uL (1.20-3.40); Lymphocytes % (auto) 4.2 %; Mean Corpuscular Hemoglobin 35.7 pg (25.0-34.0); Mean Corpuscular Hgb Conc 35.8 g/dL (32.0-36.0); Mean Corpuscular Volume 99.6 fL (80.0-100.0); Monocytes # (auto) 0.71 K/uL (0.11-0.59); Monocytes % (auto) 6.6 %; Neutrophils # (auto) 9.58 K/uL (1.40-6.50); Neutrophils % (auto) 88.8 %; Platelet Count 134 K/uL (130-400); RDW Coefficient of Variation 13.3 % (11.5-14.5); RDW Standard Deviation 48.3 fL (36.4-46.3); White Blood Count 10.78 K/ul (4.8-10.8)
[2025-02-06 06:58] LABS: Albumin Globulin Ratio 1.1 (0.9-2); Albumin Level 3.6 gm/dl (3.4-5.0); BUN Creatinine Ratio 53.3 (10-20); Bilirubin,Total 5.1 mg/dl (0.2-1.0); Calcium 9.4 mg/dl (8.6-10.3); Creatinine Clr Calc Pharmacy 47.3 ml/min; Globulin 3.3 gm/dl (2.5-4.0); Potassium 5.1 mmol/L (3.5-5.1); Total Protein 6.9 gm/dl (6.0-8.3)
[2025-02-06 07:25] LABS: INR 1.6 (0.9-1.1); Prothrombin Time 16.6 Seconds (9.0-12.0)
--- NOTE | 2025-02-06 09:44 | Hospitalist Progress Note ---
Date of Service February 06, 2025 Assessment & Plan (1) Alcoholic cirrhosis of liver with ascites: Plan: Decompensated EtOH cirrhosis with ascites/SBP-recent admission 12/15-12/19 for ascites requiring paracentesis and had thoracentesis during that admission as w tennille-was started on lasix 20mg/spironolactone 50mg at time of dc in December. Readmitted now with massive ascites, abdominal pain and SBP. Paracenteses on 01/18, 01/23, and 01/27 to remove 5 L/8 L / 5 L, with peritoneal fluid cultures positive for Serratia resistant to ceftriaxone. LFTs elevated on admission and are somewhat improved but remain elevated. Hyponatremia is severe and remains low at 121-123. GI and nephrology consults appreciated. MELD score improved to 23 on 01/27 -Continue increased doses of diuretics with Lasix 80mg p.o. daily, spironolactone 200mg p.o. daily-Nephrology does not think increased doses of diuretics will help improve sodium-caution to avoid hepatorenal syndrome -Continue Cipro 500 mg p.o. twice daily for SBP times total 10 days through 01/29 and follow repeat peritoneal fluid cultures from 01/23-no growth to date -Started on midodrine 5mg TID for BP support and discontinued metoprolol for hypotension--> may be able to stop midodrine now that metoprolol dcd -Recommend eventual addition of nonselective beta-janee like propranolol for cirrhosis-discussed with GI-will await for cirrhosis to be compensated -Continue bowel regimen with lactulose 30 g p.o. with goal of 2-3 BMs per day. Patient has not has not had any bowel movement in the last 2 days. Increase the lactulose to 3 times daily -Will plan to start rifaximin 550 Mg p.o. twice daily on discharge if cost affordable -Continue thiamine, multivitamin with folic acid -Needs hepatology follow-up after discharge for refractory ascites and HCC surveillance- He may be a candidate for liver transplantation. He is tentatively scheduled for June 2025 with [facility] in [place] but nurse navigator to look into referrals to either [facility] or [facility] in [place] to facilitate sooner appointment -Continue to trend MELD labs while inpatient-CBC, CMP, PT/INR -He has not had EGD to screen for varices-this could be done as an outpatient with hepatology -s/p parcentesis 01/30 -He may need recurrent paracenteses in the future -Pt had repeat paracentesis 02/03 -mmonia down to today -stop lactulose enemas (2) Spontaneous bacterial peritonitis: Plan: -Continue Cipro 500 mg p.o. twice daily for SBP times total 10 days through 01/29 and follow repeat peritoneal fluid cultures from 01/23-no growth to date -cipro course completed -restarted meropenem 02/05 for presumed repeat SBP -diagnostic paracentesis ordered (3) Hyponatremia: Plan: secondary to cirrhosis with volume overload. Sodium [id number] nephrology consultation. Status post 3 large-volume paracenteses. Urine sodium 10. This will not likely improve much further given end-stage cirrhosis as per my discussion with nephrology - Continue spironolactone, furosemide at current doses - Follow I's and O's, fluid restriction 1500 mL/day, liberalize salt in diet - Follow BMP - Nephrology recommends 3% saline if sodium less than 120 -will give 3% saline bolus today 02/02 as Na+ 129 -Na+ improved now 126 (4) Decompensated cirrhosis: (5) Left inguinal hernia: Plan: -filled with fluid and not bowel on CT scan previously. It is reducible but easily fills back up on exam likely because it is fluid-filled. Given increasing discomfort with it on 01/28, consulted general surgery who recommended no further treatment at this time - Monitor for worsening Patient is disappointed that he is not a surgical candidate Patient has been using morphine for pain control. Explained to him that the morphine will lead to slowing of his bowels that will eventually cause more problems. Patient is agreeable to stopping morphine. (6) Hypertension: Plan: lood pressures have been soft with decompensated cirrhosis. He was on metoprolol for previous diagnosis of HTN but now is requiring midodrine. Toprol XL stopped and BPs now improved -Discontinued Toprol XL -plan to start low-dose propranolol once cirrhosis more compensated if BP can tolerate (7) RLL pneumonia: Plan: -possible aspiration PNA -on meropenem -VM -duonebs prn Plan This patient is a 59-year-old male with a history of EtOH cirrhosis, HTN, HLD, GERD, macrocytic anemia who is admitted with decompensated cirrhosis with elevated LFTs and massive ascites, found to have SBP and severe hyponatremia. Pt with hepatic encephalopathy, ammonia level was 145 down to 28 today with help of lactulose enema Q8hrs. Diagnostic paracentesis ordered to r/o SBP. Intravascular volume depletion, started on albumin Q8hrs, given fluid bolus overnight. Pt with RLL PNA on CXR, on meropenem. Pt condition guarded, if respiratory status does not improve, will consider ICU. Dispo: Case management has arranged for out patient follow up with hepatology and IR for paracentesis. Admission and Anticipated Discharge Date Admission Date: January 17, 2025 Subjective Pt continued elevated ammonia of 145, NGT placement was attempt to give oral lactulose, however unable to pass GEJ. Repeat ammonia level this am down to 28. Pt sluggishly responsive to verbal commands, slight improvement form yesterday. Extremely weak and frail. Review of Systems Review of Systems: CONST: Negative for fever, body aches and chills. HENT: Negative for neck pain/stiffness, headache, congestion, sore throat, swelling. EYES: Negative for discharge/pain or vision changes. RESP: Negative for cough/hemoptysis and shortness of breath. CV: Negative chest pain, difficulty breathing, palpitations. ABD: Negative pain, nausea, vomiting. : Negative increase frequency, dysuria, blood in urine or stool. MUSC: Negative for muscle aches, edema. SKIN: Negative rash, lesions/sores. NEURO: Negative headache, dizziness, weakness. Physical Exam Physical Exam: GENERAL APPEARANCE NAD, activity normal for age, well developed/ well nourished, no cyanosis, pallor, or diaphoresis. EYES lids/conjunctiva normal. EARS/NOSE/THROAT Mucous membranes moist, nares normal, lips/teeth normal uvula midline without oral pharyngeal erythema, exudate or swelling TMs normal bilaterally. No lymphangitis/lymphedema. HEAD/NECK normocephalic atraumatic, no facial trauma, neck is supple. RESPIRATORY respiratory effort normal, speaks in full sentences, no tripod position, no accessory muscle use. Lungs clear to auscultation without rhonchi, wheezes, rales CARDIAC Regular rate and rhythm, no edema. ABDOMINAL Distended. No pulsatile masses on exam, rebound tenderness, Lopez sign or pain over Mcburney's point. MUSCLES/EXTREMITIES No abnormal range of motion, no swelling. SKIN Warm, pink and dry. No rashes, dermatoses, petechiae or lesions. NEUROLOGICAL Speech is clear and appropriate. Normal level of consciousness. Gait and coordination are normal. 5/5 strength in all extremities. PSYCH Normal mood and affect. Judgement/competence is appropriate Results & Data Results & Data Vital Signs (Past 12 Hours) Vital Signs Temp Pulse Resp BP Pulse Ox O2 Del Method O2 Flow Rate 02/06/25 07:41 36.6 C 109 H 18 101/65 100 Nasal Cannula 8 02/05/25 23:11 36.6 C 68 18 130/62 96 Oxymask 8 PG Care Time/CCT Total # of Minutes Spent Total Time Spent with Patient: Total time spent is greater than 50% in coordination of care (as documented) at patient's floor/unit and/or counseling patient: Coding Level of Care Code 09709 SUB INP/OBS CARE 2/35MIN Diagnoses Alcoholic cirrhosis of liver with ascites K70.31 Spontaneous bacterial peritonitis K65.2 Hyponatremia E87.1 Decompensated cirrhosis K72.90; K74.60 Left inguinal hernia K40.90 Hypertension I10 RLL pneumonia J18.9
--- NOTE | 2025-02-06 09:45 | Infectious Disease Consult ---
Date of Consultation February 06, 2025 Assessment & Plan (1) Spontaneous bacterial peritonitis: (2) RLL pneumonia: Plan Problems: #SBP #RLL pneumonia #AHRF: weaning O2 #Decompensated cirrhosis with ascites, hepatic encephalopathy Micro: 02/06 Peritoneal fluid cx: pending. GS no organisms 02/05 BCx x2: NGTD 01/23 Peritoneal fluid cx: NG 01/19 BCx x2: NG 01/18 Peritoneal fluid cx: Serratia marcescens (R ceftriaxone. I pip/tazo. Otherwise S) Abx: Ceftriaxone 01/19, 02/04 Cipro 01/20 - 01/29 Meropenem 02/04 - present 59 yo M with EtOH cirrhosis who presented on 01/17 from GI clinic after being found to be jaundiced with elevated bilirubin 9.8, Na 123 along with distended abdomen secondary to ascites. Hospital course c/b SBP, hepatic encephalopathy, likely pneumonia. GI and nephrology were consulted. Diuretics increased. Paracentesis performed 01/18, which showed 2735 WBCs, 71% neutrophils, <2000 RBCs. He was started on ceftriaxone for SBP, which was switched to ciprofloxacin on 01/20 as culture grew Serratia marcescens resistant to ceftriaxone. Underwent another paracentesis on 01/23, with 1156 WBCs, 67% neutrophils, <2000 RBCs, culture with NG. He was continued on a 10 day course of ciprofloxacin through 01/29. Underwent another paracentesis on 02/03, with removal of 5 L ascites, no studies sent. On 02/05 AM, pt noted to have decline in responsiveness over the course of the night, became obtunded. Had new O2 requirement of [address] head unremarkable. CXR with concern for LLL subsegmental consolidation/collapse. Noted to have rising leukocytosis over the last couple days to 14.47, lactate 5.7, ammonia increased. UA with 0-5 WBCs. Started on meropenem, albumin, lactulose increased. CT A/P without contrast on 02/06 with portal colopathy, stable uncomplicated cholelithiasis, reduced mild L pleural effusion with L basal subsegmental atelectasis, ill-defined patchy consolidation in RLL. Paracentesis 02/06 with 8970 WBCs, pending differential, 4000 RBCs, gram stain negative. Per bedside RN, pt with some ulcerations on sacrum without concern for infection. Pt denies abdominal pain. Weaned to 2 L NC as of 02/06 afternoon. Recommendations: - Will follow-up paracentesis studies (cell count/differential, culture) - Continue meropenem for now - Follow-up blood cultures - If able to obtain, can send sputum culture Will continue to follow. Consultation Information Consultation was provided via telemedicine using two-way real-time interactive telecommunication between the patient and the telemedicine provider. For the duration of the visit, the provider was performing the assessment from a different facility than the patient. This includesuse of bluetooth stethoscope forauscultationperformed by the telepresenter that the telemedicine provider can hear if described in the physical exam. [employer] contact information: Please call [facility] . (Phone Number For Physician Use Only) After establishing a telemedicine visit, patient was: Patient was verified with two unique identifiers, Patient/authorized rep acknowledged consent and understa nding and Gave permission to continue telehealth session Time Spent with Patient: Initial => 40 min History of Present Illness Reason for Consultation: ? SBP Attending Physician: Mervin Pope MD History of Present Illness 59 yo M with EtOH cirrhosis who presented on 01/17 from GI clinic after being found to be jaundiced with elevated bilirubin 9.8, Na 123 along with distended abdomen secondary to ascites. Pt states he has not had EtOH in a few months. GI and nephrology were consulted. Diuretics increased. Paracentesis performed 01/18, which showed 2735 WBCs, 71% neutrophils, <2000 RBCs, . He was started on ceftriaxone for SBP, which was switched to ciprofloxacin on 01/20 as culture grew Serratia marcescens resistant to ceftriaxone. Underwent another paracentesis on 01/23, with 1156 WBCs, 67% neutrophils, <2000 RBCs, culture with NG. He was continued on a 10 day course of ciprofloxacin through 01/29. Underwent another paracentesis on 02/03, with removal of 5 L ascites, no studies sent. On 02/05 AM, pt noted to have decline in responsiveness over the course of the night, became obtunded. Had new O2 requirement of [address] head unremarkable. CXR with concern for LLL subsegmental consolidation/collapse. Noted to have rising leukocytosis over the last couple days to 14.47, lactate 5.7, ammonia increased. UA with 0-5 WBCs. Started on meropenem, lactulose increased, started albumin infusion. CT A/P without contrast on 02/06 with portal colopathy, stable uncomplicated cholelithiasis, reduced mild L pleural effusion with L basal subsegmental atelectasis, ill-defined patchy consolidation in RLL. Paracentesis 02/06 with 8970 WBCs, pending differential, 4000 RBCs, gram stain negative. Per bedside RN, pt with some ulcerations on sacrum without concern for infection. Pt denies abdominal pain. Weaned to 2 L NC as of this afternoon. Allergies Allergy/AdvReac Type Severity Reaction Status Date / Time No Known Allergies Allergy Verified 01/17/25 17:07 Home Medications Medication Instructions Recorded Confirmed Type folic acid 1 mg tablet 1 mg PO QAM #30 tabs 12/09/24 01/17/25 Rx metoprolol succinate 25 mg 25 mg PO QAM #30 tabs 12/09/24 01/17/25 Rx tablet,extended release 24 hr multivitamin with folic acid 400 1 tab PO QAM #30 tabs 12/09/24 01/17/25 Rx mcg tablet (Daily-Shannon (with folic acid)) pantoprazole 40 mg tablet,delayed 40 mg PO QAM 30 days #30 tabs 12/09/24 01/17/25 Rx release potassium chloride 20 mEq 20 meq PO DAILY #30 tabs 12/09/24 01/17/25 Rx tablet,extended release thiamine HCl (vitamin B1) 100 mg 100 mg PO QAM #30 tabs 12/09/24 01/17/25 Rx tablet spironolactone 25 mg tablet 50 mg (2 x 25 mg) PO QAM #30 tabs 12/19/24 01/17/25 Rx furosemide 20 mg tablet 20 mg PO QAM 30 days #30 tabs 01/13/25 01/17/25 Rx rifaximin 550 mg tablet 550 mg PO BID #60 tabs 01/23/25 Rx Patient History Medical History Pleural effusion Influenza A Hypokalemia Alcohol withdrawal Mild acid reflux Anxiety Surgical History H/O umbilical hernia repair Antoine teeth extracted H/O oral surgery H/O inguinal hernia repair Family History Mother Alcohol abuse Depression Father Alcohol abuse Heart disease Kidney disease Myocardial infarction Uncle Myocardial infarction Denies family history of Ovarian cancer Prostate cancer Breast cancer Colorectal cancer Social History Smoking Status: Never smoker Second Hand Exposure: Yes (parents growing up); Do You Dip or Chew Tobacco: No; Hx Alcohol Use: No Hx Substance Use: No Preferred Language: Tamazight Communication Ability: Effective 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 Physical Exam Physical Exam: GEN: ill-appearing man laying in bed in NAD HEENT: oxygen mask in place ABD: Soft, distended. Non-tender to palpation. SKIN: jaundiced Results & Data Vital Signs (Past 12 Hours) Vital Signs Temp Pulse Resp BP Pulse Ox O2 Del Method O2 Flow Rate 02/06/25 07:41 36.6 C 109 H 18 101/65 100 Nasal Cannula 8 02/05/25 23:11 36.6 C 68 18 130/62 96 Oxymask 8 Laboratory Results Short CBC 02/06/25 Range/Units 06:30 WBC 10.78 (4.8-10.8) K/ul Hgb 8.2 L (14.0-18.0) g/dl Hct 22.9 L (42.0-52.0) % Plt Count 134 (130-400) K/uL BMP 02/05/25 02/06/25 21:02 06:30 Sodium 122 L 126 L Potassium 5.2 H 5.1 Chloride 90 L 93 L Carbon Dioxide 19 L 23 BUN 86 H 89 H Creatinine 2.12 H D 1.67 H D Glucose 150 H 147 H Calcium 9.3 9.4 Liver Function 02/05/25 02/06/25 Range/Units 21:02 06:30 Total Bilirubin 5.4 H 5.1 H (0.2-1.0) mg/dl AST 59 H 53 H (13-39) U/L ALT 22 21 (7-52) U/L Alkaline Phosphatase 52 49 (34-104) U/L Albumin 3.3 L 3.6 (3.4-5.0) gm/dl Diagnostic Findings Chest X-Ray 02/05/25 03:59 EXAM: XR chest 1V portable CLINICAL HISTORY: Concern for aspiration. TECHNIQUE: An X-ray image of the chest is obtained in AP projection. COMPARISON: 12/16/2024 CR. FINDINGS: Pulmonary Parenchyma: Airspace opacification of the left lung lower zone with non-visualization of the medial left hemidiaphragm is concerning of left lower lobe subsegmental consolidation/collapse. Suggest clinical correlation. No evidence of pleural effusion or pleural thickening. Heart and Mediastinum: Heart size and shape are normal. No mediastinal widening or masses. No hilar or mediastinal lymphadenopathy. Bony Thorax: Bony thorax appears intact without fractures or deformities. Soft Tissues: Soft tissues overlying the chest wall are unremarkable. IMPRESSION: Airspace opacification of the left lung lower zone with non-visualization of the medial left hemidiaphragm is concerning of left lower lobe subsegmental consolidation/collapse. Suggest clinical correlation (new) Electronically signed by Jayy Castorena 02-05-2025 05:[address] 02/05/25 04:08 EXAM: CT head/brain wo con CLINICAL HISTORY: R/o ICH. TECHNIQUE: Axial non-contrast CT scan of the brain was performed from the skull base to the high parietal region. One of the following dose reduction techniques were utilized for this exam: Automated exposure control, adjustment of the mA and/or kV according to patient size, use of iterative reconstruction. COMPARISON: CT 03/19/2024. FINDINGS: Brain Parenchyma: No evidence of acute infarct, hemorrhage, or mass effect. Few hypodense foci are seen, mainly at the bilateral frontal and parietal periventricular/deep white matter regions and basal ganglia. Ventricular System: Mild dilatation of the ventricular system with no midline shift or deformity. Subarachnoid Spaces: Widened cortical sulci, sylvian fissure and extra-axial C.S.F spaces. No evidence of subarachnoid hemorrhage or extra-axial fluid collections. Cerebellum and Brainstem: Normal size and signal. No masses, lesions, or areas of abnormal signal. Orbits: Normal appearance of the globes, optic nerves, and extraocular muscles. No evidence of orbital masses or abnormal signal. Sinuses: Mild right ethmoidal sinusitis. Clear other paranasal sinuses. Mastoid Air Cells: Mild bilateral mastoiditis. Skull: Normal skull morphology. IMPRESSION: 1. No cerebral hematoma or established recent ischemic insult. MRI assessment would be recommended if clinically warranted. 2. Age-related involutional brain changes. 3. Bilateral small chronic cerebral lacunar infarcts. 4. Mild bilateral mastoiditis. Interval new 5. No other significant interval changes. Electronically signed by Jayy Castorena 02-05-2025 05:38 AM Renal Ultrasound 02/05/25 06:14 HISTORY: LUBA. TECHNIQUE: Ultrasound evaluation of the kidneys and urinary bladder. COMPARISON: None. FINDINGS: Right kidney measures 11.8 cm in length. Increased renal cortical echogenicity is a nonspecific finding associated with medical renal disease. No hydronephrosis. Left kidney measures 11 point11.2 cm in length. Increased renal cortical echogenicity is a nonspecific finding associated medical renal disease. No hydronephrosis. No echogenic debris is seen in the urinary bladder. The ureteral jets are not visualized. No obvious bladder wall thickening. Moderate to large ascites is seen throughout the abdomen. IMPRESSION: * No acute findings. No hydronephrosis. * Increased renal cortical echogenicity is a nonspecific finding associated medical renal disease. * Unremarkable urinary bladder. * Moderate to large ascites throughout the abdomen. Electronically signed by Juan C Diane 02-05-2025 09:46 AM Chest X-Ray 02/05/25 07:49 HISTORY: CHF. TECHNIQUE: Portable AP radiograph of the chest. COMPARISON: Chest radiograph dated 12/16/2024. FINDINGS: Focal right lower lobe airspace opacity consistent with pneumonia. Large hiatal hernia. Mild atelectasis along the medial left lung base. Left lung is otherwise clear. No pneumothorax or effusion. Normal heart size. Left-sided aortic arch. Midline trachea. No acute osseous abnormality. Included upper abdomen is unremarkable. IMPRESSION: * Right lower lobe pneumonia. Follow-up PA and lateral chest radiographs are recommended in 6 to 8 weeks to ensure complete resolution. * Large hiatal hernia. Electronically signed by Juan C Diane 02-05-2025 08:27 AM Chest X-Ray 02/05/25 23:51 EXAM: XR chest 1V portable CLINICAL HISTORY: verify NG tube placement TECHNIQUE: An X-ray image of the chest is obtained in AP projection. COMPARISON: 02/05/2025 07:03:00 MORTUARY OPERATIONS MANAGER. FINDINGS: The chest leads are applied. The patient has significantly rotated. NGT is identified with its distal tip under the left hemidiaphragm and needs a 0.7 cm forward push. Pulmonary Parenchyma: A patch of consolidation in the right lower lobe is still appreciated, however, partially obscured due to the rotation of the patient. Another inhomogeneous opacity is identified in the left lower zone, probably in the retrocardiac region, which also suggests infection. No pulmonary nodules are identified. No evidence of pleural effusion or pleural thickening. Heart and Mediastinum: Heart size and shape are normal. No mediastinal widening or masses. No hilar or mediastinal lymphadenopathy. Bony Thorax: Bony thorax appears intact without fractures or deformities. Soft Tissues: Still noted a large hiatal hernia. IMPRESSION: 1. NGT is identified with its distal tip under the left hemidiaphragm and needs a 0.7 cm forward push. 2. A patch of consolidation in the right lower lobe is partially obscured due to the rotation of the patient. 3. Interval inhomogeneous opacity in the left lower zone, suggesting infection. Electronically signed by Jayy Castorena 02-06-2025 01:42 AM KUB X-Ray 02/06/25 00:56 EXAM: XR KUB/Abdomen 1 view CLINICAL HISTORY: R/o SBO TECHNIQUE: X-ray images of the abdomen were obtained in supine position COMPARISON: 01/17/2025, CT Abdomen and Pelvis FINDINGS: Gas Pattern: Prominent bowel loops are identified in abdomen Gas-filled prominent stomach shadow seen Soft Tissues: Liver shadow is possibly below the right costal margin. Ultrasound may be obtained if clinically required Spleen and renal shadows are not well visualized IMPRESSION: Prominent bowel loops in abdomen raising the possibility of bowel obstruction. CT scan is suggested for further evaluation No evidence of pneumoperitoneum No distended/ prominent loops were seen in prior CT Electronically signed by Jayy Castorena 02-06-2025 02:33 AM Chest X-Ray 02/06/25 02:12 EXAM: XR chest 1V portable CLINICAL HISTORY: NG tube placement TECHNIQUE: An X-ray image of the chest is obtained in AP projection. COMPARISON: 02/05/2025. Poor patient position with non-complete visualized right lung field. FINDINGS: A nasogastric tube is seen. The side hole is noted at the level of gastroesophageal junction. Pulmonary Parenchyma: Bilateral prominent hilar bronchopulmonary vasculature. The visualized right lung field shows lower zone/cardio phrenic angle faint opacification. Faint pacification at the left lung lower zone. No evidence of pleural effusion or pleural thickening. Heart and Mediastinum: Heart size and shape are normal. No mediastinal widening or masses. No hilar or mediastinal lymphadenopathy. Bony Thorax: Bony thorax appears intact without fractures or deformities. Soft Tissues: Soft tissues overlying the chest wall are unremarkable. IMPRESSION: Poor patient position with non-complete visualized right lung field. 1. A nasogastric tube is seen. The side hole is noted at the level of gastroesophageal junction. Recommend advancement 10-15 cm. 2. Bilateral, prominent hilar bronchopulmonary vasculature. 3. The visualized right lung field shows lower zone/cardio phrenic angle faint opacification. Slight interval regression. 4. Faint pacification at the left lung lower zone. (progressive Vs exaggerated due to patient malposition). Electronically signed by Jayy Castorena 02-06-2025 03:20 AM Abdomen/Pelvis CT 02/06/25 03:27 EXAM: CT abd pelvis wo con CLINICAL HISTORY: ?SBO TECHNIQUE: Contiguous axial images were obtained from the level of the diaphragm to the pubic symphysis without intravenous or oral contrast. Coronal and sagittal reconstructions were likewise performed and indicated to increase the sensitivity for detecting clinically relevant pathology. CT scan was performed according to ALARA (as low as reasonable achievable). COMPARISON: 16:16:34 MORTUARY OPERATIONS MANAGER FINDINGS: Abdomen: Liver: Showed irregular wavy outline with heterogenous CT density Prominent portal vein , multiple shoshana systemic collaterals noted Tiny hypo dense cyst seen at liver dom possibly tiny cys/ chirrotic nodule. Hepatic vasculature and biliary ducts are unremarkable. Gallbladder and Biliary System: Distended with intraluminal calcfic stones The common bile duct is normal in caliber without dilation. Pancreas: The pancreatic head, body, and tail are visualized and appear normal in size and density. No pancreatic masses or calcifications were noted. The pancreatic duct is not dilated. Spleen: Mildly enlarged in size, measured about 16.5 cm Prominent splenic vein No splenic lesions or masses were identified. Appendix: Not well appreciated Kidneys and Adrenal Glands: Both kidneys are normal in size, shape, and position. Cortical thickness is within normal limits. No renal calculi or hydronephrosis. Bulky left adrenal gland Pelvis: Urinary Bladder: not full Prostate: Unremarkable, US study is suggested if warranted clinically. Seminal Vesicles: Normal in size and appearance. No abnormalities noted. Rectum and Sigmoid Colon: Normal wall thickness and no evidence of mass. Peritoneal and Retroperitoneal Structures: Marked ascites is noted , smudging of mesnetric fat planes with prominent mesnetric vessels No lymphadenopathy was noted. Bowel: Long segmental submucosal edema noted at the ascending colon could be reactive colitis. No evidence of bowel obstruction or wall thickening. Uncmplicated colonic diverticulae Lareg left inguinal fluid filled hernia sac noted STB Bones and Soft Tissues: Pelvic bones and soft tissues are unremarkable. No fractures or abnormal masses were identified. Lower chest cuts showed mild left pleural effusion with left basal subsegmental atelectasis Ill-defined patchy consolidation noted in right lower lobe. Large hiatus hernia with ascitic fluid seen in the hernia sac IMPRESSION: 1. Evidence of long segmental submucosal edema noted at the ascending colon could be due to portal colopathy - increased as compared to previous study. 2. Stable Chronic parenchymatous liver disease and mild splenomegaly with portosystmic collaterals 3. Reduced ascites 4. Stable uncomplicated cholelithiasis 5. Stable Large hiatus hernia as described , large left inguinal fluid filled hernia sac.-stable. 6. Reduced, Mild left pleural effusion with left basal sub-segmental atelectasis. 7. Ill-defined patchy consolidation noted in right lower lobe.-new finding. Electronically signed by Wilmer Boogie 02-06-2025 04:55 AM Chest X-Ray 02/06/25 04:35 EXAM: XR chest 1V portable CLINICAL HISTORY: Verify NG tube placement TECHNIQUE: An X-ray image of the part of the chest and upper abdomen is obtained in AP projection. COMPARISON: Studies dated 02/06/2025. FINDINGS: A nasogastric tube is seen. just below the gastroesophageal junction. Need to be advanced for 10 cm into the stomach. Bilateral prominent hilar bronchopulmonary vasculature. Heart size and shape are normal. No evidence of left pleural effusion or pleural thickening. IMPRESSION: 1. A nasogastric tube is seen. tip is just below the gastroesophageal junction. Need to be advanced for 10 cm into the stomach. 2. No significant interval changes. Electronically signed by Jayy Castorena 02-06-2025 06:10 AM Paracentesis Ultrasound 02/06/25 09:30 ULTRASOUND GUIDED PARACENTESIS CLINICAL HISTORY: r/o SBP COMPARISON STUDY: 02/05/2025 PROCEDURE: The risks, benefits, and alternatives to the procedure were discussed with the patient including the risk of bleeding, infection and injury to adjacent structures. The patient agreed to the procedure and informed written consent was obtained. Following real-time ultrasound localization, the skin was prepped and draped. Following local anesthesia with Xylocaine, the sheath paracentesis needle was inserted and approximately 1 liters of straw-colored fluid was removed by vacuum suction. The patient tolerated the procedure well and no immediate complications were evident. IMPRESSION: Ultrasound-guided paracentesis with removal of 1 liters of ascites. Sample was sent to the lab for analysis. ACT 112: Negative or not required by law. Electronically signed by: Nawaf Kay M.D. 02/06/2025 2:28 PM Medications Administered Current Inpatient Medications Acetaminophen (Acetaminophen 325 Mg Tab) 650 mg PO Q4H PRN PRN Reason: pain/fever Stop: 02/16/25 18:14 Last Admin: 02/03/25 16:25 Dose: 650 mg Albuterol (Albut/Ipratrop 3mg/0.5mg Neb 3 Ml Vial) 3 ml NEB Q6R PRN; Protocol PRN Reason: Wheezing Stop: 03/07/25 11:23 Enoxaparin Sodium (Enoxaparin Inj 40 Mg/0.4 Ml Syr) [facility] [place] Stop: 02/27/25 08:59 Last Admin: 02/06/25 10:06 Dose: Not Given Folic Acid (Folic Acid 1 Mg Tab) 1 mg PO QAM [facility] Stop: 02/16/25 18:14 Last Admin: 02/06/25 10:06 Dose: Not Given Furosemide (Furosemide 80 Mg Tab) 80 mg PO QAM [facility] Stop: 02/19/25 08:59 Last Admin: 02/04/25 08:06 Dose: 80 mg Guaifenesin/Dextromethorphan (Guaifenesin/Dextrom Syrup 100mg/10mg 5ml Udc) 5 ml PO Q6H PRN PRN Reason: Cough Stop: 02/24/25 03:02 Last Admin: 02/02/25 20:08 Dose: 5 ml Albumin Human (Albumin 25%) 25 gm in 100 mls @ 50 mls/hr IV Q8H [facility] Stop: 02/07/25 06:29 Last Admin: 02/06/25 14:57 Dose: 50 mls/hr Meropenem 500 mg/ Syringe 10 mls @ 2 mls/min IV Q8H [facility]; Protocol Stop: 02/15/25 06:29 Last Admin: 02/06/25 14:56 Dose: 2 mls/min Octreotide Acetate 100 mcg/ (Syringe) 10 mls @ 3 mls/min IV Q8H [facility] Stop: 02/07/25 06:29 Last Admin: 02/06/25 14:57 Dose: 3 mls/min Lactulose (Lactulose Syrup 30 Gm/45 Ml Udp) 30 gm PO QID [facility] Stop: 03/07/25 08:59 Last Admin: 02/06/25 13:19 Dose: Not Given Midodrine (Midodrine Hcl 2.5 Mg Tab) 5 mg PO TID@0800,1200,1700 [facility] Stop: 02/18/25 16:59 Last Admin: 02/06/25 13:19 Dose: Not Given Multivitamins (Multivitamin Tab) 1 tab PO [facility] Stop: 02/17/25 08:59 Last Admin: 02/06/25 10:07 Dose: Not Given Ondansetron HCl (Ondansetron Inj 2 Mg/Ml 2 Ml Vial) 4 mg IV Q6H PRN PRN Reason: Nausea Stop: 02/16/25 18:14 Oxymetazoline HCl (Oxymetazoline 0.05% 30 Ml Btl) 1 sprays NA DAILY PRN PRN Reason: Nasal Congestion Stop: 02/26/25 05:06 Last Admin: 01/27/25 05:42 Dose: 1 sprays Pantoprazole Sodium (Pantoprazole 40 Mg Tab) 40 mg PO [facility] Stop: 02/17/25 08:59 Last Admin: 02/06/25 10:07 Dose: Not Given Phenylephrine HCl (Phenylephrine Hcl 0.5% Na [place] 15 Ml Btl) 1 sprays NA Q6H PRN PRN Reason: nose bleed Stop: 02/27/25 06:14 Last Admin: 02/01/25 07:44 Dose: 1 sprays Spironolactone (Spironolactone 100 Mg Tab) 200 mg PO [facility] Stop: 02/19/25 08:59 Last Admin: 02/04/25 08:04 Dose: 200 mg Thiamine HCl (Thiamine Hcl 100 Mg Tab) [facility] [place] Stop: 02/17/25 08:59 Last Admin: 02/06/25 10:07 Dose: Not Given
--- NOTE | 2025-02-06 14:29 | Ultrasound Report ---
ULTRASOUND GUIDED PARACENTESIS CLINICAL HISTORY: r/o SBP COMPARISON STUDY: 02/05/2025 PROCEDURE: The risks, benefits, and alternatives to the procedure were discussed with the patient inc luding the risk of bleeding, infection and injury to adjacent structures. The patient agreed to the procedure and informed written consent was obtained. Following real-time ultrasound localization, the skin was prepped and draped. Following local anesthesia with Xylocaine, the sheath paracentesis need le was inserted and approximately 1 liters of straw-colored fluid was removed by vacuum suction. The patient tolerated the procedure well and no immediate complications were evident. IMPRESSION: Ultrasound-guided paracentesis with removal of 1 liters of ascites. Sample was sent to t lab for analysis. ACT 112: Negative or not required by law. Electronically signed by: Nawaf Kay M.D. 02/06/2025 2:28 PM
[2025-02-06 14:55] LABS: Appearance Peritoneal Fluid Cloudy; Color Peritoneal Fluid Yellow; RBC Peritoneal Fluid Auto 4000 /uL; WBC Peritoneal Fluid Auto 8970 /ul (0-300)
[2025-02-06 15:11] LABS: Albumin Peritoneal Fluid < 1.5 gm/dl; Amylase Peritoneal Fluid 13 U/L; Glucose Peritoneal Fluid 105 mg/dl; LDH Peritoneal Fluid 275 U/L; Lipase Peritoneal Fluid 30 U/L; Total Protein Peritoneal Fluid < 3.0 gm/dl
[2025-02-07] MEDS: SODIUM CHLORIDE 0.9% 500 ML IV SCH (06:43)
[2025-02-07 07:19] LABS: Base Excess VBG -2.7 mEq/L; HCO3 VBG 21 mmol/L; Oxygen Saturation VBG 76.1 %; PCO2 VBG 31 mmHg (38-50); PO2 VBG 48 mmHg; pH VBG 7.43 (7.36-7.41)
[2025-02-07 07:20] LABS: Hemoglobin 9.2 g/dl (14.0-18.0); Mean Corpuscular Hgb Conc 35.4 g/dL (32.0-36.0); Mean Corpuscular Volume 98.9 fL (80.0-100.0); Mean Platelet Volume 9.3 fL (9.4-12.4); Platelet Count 176 K/uL (130-400); RDW Coefficient of Variation 13.3 % (11.5-14.5); Red Blood Count 2.63 M/uL (4.70-6.10); White Blood Count 14.43 K/ul (4.8-10.8)
[2025-02-07 07:38] LABS: Albumin Globulin Ratio 1.3 (0.9-2); Albumin Level 3.3 gm/dl (3.4-5.0); BUN Creatinine Ratio 53.3 (10-20); Bilirubin,Total 5.4 mg/dl (0.2-1.0); Creatinine Clr Calc Pharmacy 43.4 ml/min; Globulin 2.6 gm/dl (2.5-4.0); Potassium 5.1 mmol/L (3.5-5.1); Total Protein 5.9 gm/dl (6.0-8.3)
[2025-02-07 07:44] LABS: Acanthocytes 2+; Basophils # (auto) 0.01 K/uL (0.00-0.20); Basophils % (auto) 0.1 %; Echinocytes 1+; Immature Granulocytes # (auto) 0.07 K/uL (0.01-0.20); Immature Granulocytes % (auto) 0.5 %; Lymphocytes # (auto) 0.38 K/uL (1.20-3.40); Lymphocytes % (auto) 2.6 %; Monocytes # (auto) 1.32 K/uL (0.11-0.59); Monocytes % (auto) 9.1 %; Neutrophils # (auto) 12.65 K/uL (1.40-6.50); Neutrophils % (auto) 87.7 %
[2025-02-07 07:47] LABS: INR 1.8 (0.9-1.1); Prothrombin Time 18.3 Seconds (9.0-12.0)
[2025-02-07 07:58] LABS: Lymphocytes, Fluid 4 %; Mono,Macrophage,Mesothelial 19 %; Neutrophils, Fluid 77 %
--- NOTE | 2025-02-07 10:41 | Hospitalist Progress Note ---
Date of Service February 07, 2025 Assessment & Plan (1) Alcoholic cirrhosis of liver with ascites: Plan: Decompensated EtOH cirrhosis with ascites/SBP-recent admission 12/15-12/19 for ascites requiring paracentesis and had thoracentesis during that admission as w tennille-was started on lasix 20mg/spironolactone 50mg at time of dc in December. Readmitted now with massive ascites, abdominal pain and SBP. Paracenteses on 01/18, 01/23, and 01/27 to remove 5 L/8 L / 5 L, with peritoneal fluid cultures positive for Serratia resistant to ceftriaxone. LFTs elevated on admission and are somewhat improved but remain elevated. Hyponatremia is severe and remains low at 121-123. GI and nephrology consults appreciated. MELD score improved to 23 on 01/27 -Continue increased doses of diuretics with Lasix 80mg p.o. daily, spironolactone 200mg p.o. daily-Nephrology does not think increased doses of diuretics will help improve sodium-caution to avoid hepatorenal syndrome -Continue Cipro 500 mg p.o. twice daily for SBP times total 10 days through 01/29 and follow repeat peritoneal fluid cultures from 01/23-no growth to date -Started on midodrine 5mg TID for BP support and discontinued metoprolol for hypotension--> may be able to stop midodrine now that metoprolol dcd -Recommend eventual addition of nonselective beta-janee like propranolol for cirrhosis-discussed with GI-will await for cirrhosis to be compensated -Continue bowel regimen with lactulose 30 g p.o. with goal of 2-3 BMs per day. Patient has not has not had any bowel movement in the last 2 days. Increase the lactulose to 3 times daily -Will plan to start rifaximin 550 Mg p.o. twice daily on discharge if cost affordable -Continue thiamine, multivitamin with folic acid -Needs hepatology follow-up after discharge for refractory ascites and HCC surveillance- He may be a candidate for liver transplantation. He is tentatively scheduled for June 2025 with [facility] in [place] but nurse navigator to look into referrals to either [facility] or [facility] in [place] to facilitate sooner appointment -Continue to trend MELD labs while inpatient-CBC, CMP, PT/INR -He has not had EGD to screen for varices-this could be done as an outpatient with hepatology -s/p paracentesis 01/30 -He may need recurrent paracenteses in the future -Pt had repeat paracentesis 02/03 -02/06 ammonia down to 28 today -stop lactulose enemas -Pt had diagnostic paracentesis on 02/06, cultures pending -Pt has been requiring weekly therapeutic paracentesis -ammonia level 58 today 02/07, mental status improved -case management made out patient follow up with [facility] in [place] for 02/13 (2) Spontaneous bacterial peritonitis: Plan: -Continue Cipro 500 mg p.o. twice daily for SBP times total 10 days through 01/29 and follow repeat peritoneal fluid cultures from 01/23-no growth to date -cipro course completed -restarted meropenem 02/05 for presumed repeat SBP -diagnostic paracentesis done 02/06, cultures pending -ID consult appreciated (3) RLL pneumonia: Plan: -possible aspiration PNA -pt failing swallow evaluation, maintain NPO for now, speech therapy following -on meropenem -ingrid prn -02 sats improved on RA today 02/07 (4) Hyponatremia: Plan: secondary to cirrhosis with volume overload. Sodium [id number] nephrology consultation. Status post 3 large-volume paracenteses. Urine sodium 10. This will not likely improve much further given end-stage cirrhosis as per my discussion with nephrology - Continue spironolactone, furosemide at current doses - Follow I's and O's, fluid restriction 1500 mL/day, liberalize salt in diet - Follow BMP - Nephrology recommends 3% saline if sodium less than 120 -will give 3% saline bolus today 02/02 as Na+ 129 -Na+ improved now 129 (5) Decompensated cirrhosis: (6) Left inguinal hernia: Plan: -filled with fluid and not bowel on CT scan previously. It is reducible but easily fills back up on exam likely because it is fluid-filled. Given increasing discomfort with it on 01/28, consulted general surgery who recommended no further treatment at this time - Monitor for worsening Patient is disappointed that he is not a surgical candidate Patient has been using morphine for pain control. Explained to him that the morphine will lead to slowing of his bowels that will eventually cause more problems. Patient is agreeable to stopping morphine. (7) Hypertension: Plan: lood pressures have been soft with decompensated cirrhosis. He was on metoprolol for previous diagnosis of HTN but now is requiring midodrine. Toprol XL stopped and BPs now improved -Discontinued Toprol XL -plan to start low-dose propranolol once cirrhosis more compensated if BP can tolerate Plan This patient is a 59-year-old male with a history of EtOH cirrhosis, HTN, HLD, GERD, macrocytic anemia who is admitted with decompensated cirrhosis with elevated LFTs and massive ascites, found to have SBP and severe hyponatremia. Pt with hepatic encephalopathy, ammonia level was 145 down to 58 today with help of lactulose enema Q8hrs. Diagnostic paracentesis completed to r/o SBP, cultures pending. Pt with RLL PNA on CXR, on meropenem, respiratory status improving today. Dispo: Case management has arranged for out patient follow up with hepatology and IR for paracentesis once patient medically stable for discharge. Admission and Anticipated Discharge Date Admission Date: January 17, 2025 Subjective Pt had episode of hypotension overnight, responded well to IVF bolus. He is more awake this am and communicating. He is also off 02 and breathing comfortably. Review of Systems Review of Systems: CONST: Negative for fever, body aches and chills. HENT: Negative for neck pain/stiffness, headache, congestion, sore throat, swelling. EYES: Negative for discharge/pain or vision changes. RESP: Negative for cough/hemoptysis and shortness of breath. CV: Negative chest pain, difficulty breathing, palpitations. ABD: Negative pain, nausea, vomiting. : Negative increase frequency, dysuria, blood in urine or stool. MUSC: Negative for muscle aches, edema. SKIN: Negative rash, lesions/sores. NEURO: Negative headache, dizziness, weakness. Physical Exam Physical Exam: GENERAL APPEARANCE NAD, activity normal for age, well developed/ well nourished, no cyanosis, pallor, or diaphoresis. EYES lids/conjunctiva normal. EARS/NOSE/THROAT Mucous membranes moist, nares normal, lips/teeth normal uvula midline without oral pharyngeal erythema, exudate or swelling TMs normal bilaterally. No lymphangitis/lymphedema. HEAD/NECK normocephalic atraumatic, no facial trauma, neck is supple. RESPIRATORY respiratory effort normal, speaks in full sentences, no tripod position, no accessory muscle use. Lungs clear to auscultation without rhonchi, wheezes, rales CARDIAC Regular rate and rhythm, no edema. ABDOMINAL Distended. No pulsatile masses on exam, rebound tenderness, Lopez sign or pain over Mcburney's point. MUSCLES/EXTREMITIES No abnormal range of motion, no swelling. SKIN Warm, pink and dry. No rashes, dermatoses, petechiae or lesions. NEUROLOGICAL Speech is clear and appropriate. Normal level of consciousness. Gait and coordination are normal. 5/5 strength in all extremities. PSYCH Normal mood and affect. Judgement/competence is appropriate Results & Data Results & Data Vital Signs (Past 12 Hours) Vital Signs Temp Pulse Pulse Resp BP Pulse Ox O2 Del Method 02/07/25 07:18 36.8 C 121 H 18 93/52 L 98 Room Air 02/07/25 06:45 36.7 C 125 H 22 87/48 L 99 Room Air 02/07/25 03:29 37.1 C 65 18 82/48 L 99 Room Air 02/07/25 00:11 120 H 02/06/25 23:02 36.8 C 121 H 18 111/71 94 Room Air PG Care Time/CCT Total # of Minutes Spent Total Time Spent with Patient: Total time spent is greater than 50% in coordination of care (as documented) at patient's floor/unit and/or counseling patient: Coding Level of Care Code 85452 SUB INP/OBS CARE 2/35MIN Diagnoses Alcoholic cirrhosis of liver with ascites K70.31 Spontaneous bacterial peritonitis K65.2 RLL pneumonia J18.9 Hyponatremia E87.1 Decompensated cirrhosis K72.90; K74.60 Left inguinal hernia K40.90 Hypertension I10
[2025-02-07] MEDS: SODIUM CHLORIDE 0.9% 500 ML IV ONE (17:11)
[2025-02-07] MEDS: LACTULOSE 200GM/700ML WTR ENEMA PR SCH (18:09)
[2025-02-07] MEDS: SODIUM CHLORIDE 0.9% 1,000 ML IV SCH (18:10)
[2025-02-07] MEDS: ALBUMIN 25% 25 GM/100 ML VIAL IV SCH (18:10)
[2025-02-08 06:48] LABS: Hematocrit (blood only) 23.5 % (42.0-52.0); Hemoglobin 8.2 g/dl (14.0-18.0); Mean Corpuscular Hemoglobin 35.5 pg (25.0-34.0); Mean Corpuscular Hgb Conc 34.9 g/dL (32.0-36.0); Mean Corpuscular Volume 101.7 fL (80.0-100.0); Mean Platelet Volume 9.6 fL (9.4-12.4); Platelet Count 116 K/uL (130-400); RDW Coefficient of Variation 13.2 % (11.5-14.5); RDW Standard Deviation 49.7 fL (36.4-46.3); Red Blood Count 2.31 M/uL (4.70-6.10); White Blood Count 17.05 K/ul (4.8-10.8)
[2025-02-08 07:41] LABS: INR 2.1 (0.9-1.1)
[2025-02-08 07:58] LABS: Albumin Globulin Ratio 1.4 (0.9-2); Albumin Level 3.4 gm/dl (3.4-5.0); BUN Creatinine Ratio 39.4 (10-20); Bilirubin,Total 5.7 mg/dl (0.2-1.0); Calcium 8.7 mg/dl (8.6-10.3); Creatinine Clr Calc Pharmacy 25.1 ml/min; Globulin 2.4 gm/dl (2.5-4.0); Potassium 4.8 mmol/L (3.5-5.1); Total Protein 5.8 gm/dl (6.0-8.3)
[2025-02-08] MEDS: OCTREOTIDE ACETATE 100 MCG/ML VIAL SQ SCH ×2 (11:12→12:47)
[2025-02-08] MEDS: DAPTOmycin 500 MG in SYRINGE 0 ML IV SCH (11:13)
--- NOTE | 2025-02-08 11:15 | Gastroenterology Progress Note ---
Date of Service February 08, 2025 Assessment & Plan (1) Hepatorenal syndrome: Plan: 59 year old male with history of HTN, hyperlipidemia, ETOH abuse, ETOH hepatitis admitted 11/26/24, ETOH induced liver disease and others below admitted on 01/19 w/ decompensated liver disease and SBP. He is s/p repeat paracentesis on 02/06/25, culture pending but elevated peritoneal WBC. He was restarted on Daptomycin and Meropenem. Given concern for HRS w/ rise in FINISH REPAIRER and urine sodium he was started appropriately on octreotide, albumin and midodrine. His MELD 33 and he has had rise in FINISH REPAIRER to 3.1 w/ elevated INR at 2.1. Guarded prognosis. Management at our facility would consist of treating the SBP, HRS. Will discuss w/ attending consideration of transferring to a center w/ inpatient hepatologists in the event he is a candidate for liver transplantation. He was unable to provide to me the exact date of his last ETOH intake but his ETOH level was negative on 01/17/25. History of SBP and HRS - Hold diuretics - Treat infectious sources - SBP - PNA - Maintain intravascular volume - Stop diuresis - Titrate laxatives therapies to avoid diarrhea contributing to volume loss - Avoid large volume paracentesis - Hold beta-janee agents - Continue Midodrine 7.5 mg TID - Continue Octreotide 200 mcg TID - Continue Albumin - Day 1: 1.5g/kg albumin - Day 3: 1g/kg albumin - Otherwise may continue albumin infusions as ordered Hepatic Encephalopathy - Goal of 3 BMs daily - Continue oral lactulose - May use lactulose enemas if he has difficultly with oral intake - Consider addition of Xifaxan 550 twice daily Cirrhosis Management - Remain alcohol free - Needs to establish with hepatology as an outpatient - MELD labs every 6 months - ABD imaging w/ AFP every 6 months - EGD every 1-2 years - No ETOH - No NSAIDs - Avoid hepatotoxin - Low NA diet, less than 2G daily - Less than 2G acetaminophen containing products daily I spent a total of 60 minutes on the date of service in review of patient's record, and previously obtained information in person and appropriate medical visit, discussion and education of plan, with patient and/or caregiver, placing orders for tests/referral/procedures as medically necessary and documentation of pertinent clinical information in patient's medical records for their visit today.Thank you for allowing us to participate in the care of this patient. Please call with any acute changes, questions or concerns. Please see addendum b venkat with additional recommendation from my supervising physician. (2) Decompensated cirrhosis: (3) Spontaneous bacterial peritonitis: Admission and Anticipated Discharge Date Admission Date: January 17, 2025 Supervising Physician Co-Signing Physician Notes I personally saw and examined the patient. I have reviewed the chart and agree with the documentation provided by the DEVELOPMENT VICE PRESIDENT including discussion about the assessment, treatment and plan. Briefly, 59 year old male with history of HTN, hyperlipidemia, ETOH abuse, ETOH hepatitis admitted 11/26/24, ETOH induced liver disease and others below admitted on 01/19 w/ decompensated liver disease and S BP. He is s/p repeat paracentesis on 02/06/25, culture pending but elevated peritoneal WBC. He was restarted on Daptomycin and Meropenem. Given concern for HRS w/ rise in FINISH REPAIRER and urine sodium he was started appropriately on octreotide, albumin and midodrine. His MELD is 33 and his urine sodium is 10. He has stopped drinking in January and he has a very poor social structure by his report. This is a difficult situation as he is not an ideal candidate for liver transplant. SBP with recurrence and HRS is a terminal diagnosis unless he gets transplanted. I would like a case management consult to find out about his social network and if anyone could even help him with post liver transplant care from a family perspective (i.e. driving to [place] to help him with his medications etc.). He may get rejected due to his recent alcohol use by [facility] anyway. For now, I would continue IV octreotide and midodrine antibiotics and albumin at 1.5 g/kg weight on day 1 and 1 gm/kg weight on day 3. Very guarded prognosis Subjective 59 year old male with history of HTN, hyperlipidemia, ETOH abuse, ETOH hepatitis 11/26/24, ETOH induced liver disease, ETOH hepatitis and others below admitted on 01/19 w/ decompensated liver disease and SBP. He was treated w/ IV ABX. Prolonged admission where he has been followed by hospitalist medicine. GI was asked to re-evaluate Momo on 02/08/25 for concern for HRS. He is S/P paracentesis on 02/06/25, culture pending but elevated WBC. Started on Daptomycin and Meropenem. Given concern for HRS octreotide, albumin and midodrine were initiated. Doses initially recommended/managed by nephrology. He feels tired, weak. Has had episodic abdominal pain but denies nausea/vomiting to me. Denies black or bloody stools. MELD 33. He has had rise in FINISH REPAIRER to 3.1. His INR is also elevated at 2.1 Diagnosis: suspected ETOH induced liver disease Decompensations: Varices: unknown Ascites: last para 5/5 HRS: urine NA 10, HRS-1 managed by nephrology HE: oral lactulose, lactulose enemas Screenings: MELD: 33 HCC: due in August Varices: due now Immunizations: status unknown Review of Systems Review of Systems: All other findings negative except as noted in HPI. Physical Exam Constitutional: Chronically ill appearing male, in no acute distress, laying on his side in bed Eyes: + icterus Respiratory: normal respiratory effort Cardiovascular: Rate/Rhythm: regular rate and regular rhythm Gastrointestinal (Abdomen): Percussion/Palpation: abdomen soft; abdomen nontender + abd distention Skin: + jaundice Results & Data Results & Data Vital Signs (Past 12 Hours) Vital Signs Temp Pulse Pulse Resp BP BP Pulse Ox 02/08/25 08:02 97.5 F L 102 H 16 93/53 L 99 02/08/25 07:44 02/08/25 07:44 105 H 02/08/25 03:21 97.9 F 107 H 18 98/61 L 98 02/08/25 01:41 112 H 02/08/25 00:30 02/08/25 00:08 97.9 F 110 H 18 94/55 L 96 O2 Del Method 02/08/25 08:02 Room Air 02/08/25 07:44 Room Air 02/08/25 07:44 02/08/25 03:21 Room Air 02/08/25 01:41 02/08/25 00:30 Room Air 02/08/25 00:08 Room Air Laboratory Results 02/08/25 02/08/25 Range/Units 06:33 06:30 WBC 17.05 H (4.8-10.8) K/ul RBC 2.31 L (4.70-6.10) M/uL Hgb 8.2 L (14.0-18.0) g/dl Hct 23.5 L (42.0-52.0) % MCV 101.7 H (80.0-100.0) fL MCH 35.5 H (25.0-34.0) pg MCHC 34.9 (32.0-36.0) g/dL RDW Std Deviation 49.7 H (36.4-46.3) fL RDW Coeff of Kylee 13.2 (11.5-14.5) % Plt Count 116 L (130-400) K/uL MPV 9.6 (9.4-12.4) fL PT 21.0 H (9.0-12.0) Seconds INR 2.1 H (0.9-1.1) Sodium 132 L (136-145) mmol/L Potassium 4.8 (3.5-5.1) mmol/L Chloride 100 (98-107) mmol/L Carbon Dioxide 20 L (21-32) mmol/L Anion Gap 12 H (3-11) BUN 124 H D (6-23) mg/dl Creatinine 3.15 H D (0.6-1.4) mg/dl Est Cr Clr Drug Dosing 25.1 ml/min eGFR 22.02 BUN/Creatinine Ratio 39.4 H (10-20) Glucose 154 H (70-99(Fasting)) mg/dl Calcium 8.7 (8.6-10.3) mg/dl Total Bilirubin 5.7 H (0.2-1.0) mg/dl AST 36 (13-39) U/L ALT 13 (7-52) U/L Alkaline Phosphatase 56 (34-104) U/L Ammonia 22.0 (18-72) umol/L Total Creatine Kinase 53 (30-223) U/L Total Protein 5.8 L (6.0-8.3) gm/dl Albumin 3.4 (3.4-5.0) gm/dl Globulin 2.4 L (2.5-4.0) gm/dl Albumin/Globulin Ratio 1.4 (0.9-2) Procalcitonin 38.80 H (0-0.5) ng/ml PG Care Time/CCT Total # of Minutes Spent Total Time Spent with Patient: Total time spent is greater than 50% in coordination of care (as documented) at patient's floor/unit and/or counseling patient: Coding Level of Care Code 57555 SUB INP/OBS CARE MIN Diagnoses Hepatorenal syndrome K76.7 Decompensated cirrhosis K72.90; K74.60 Spontaneous bacterial peritonitis K65.2
--- NOTE | 2025-02-08 11:42 | Nephrology Consultation ---
Date of Consultation February 08, 2025 Assessment & Plan (1) Hepatorenal syndrome: * HRS-1 related to SBP and RLL pneumonia * No obstruction on 02/06/[address] * 02/05/25 urinalysis was negative for protein or blood. Urine microscopy was negative for cellular casts * No recent exposure to nephrotoxic agents * Will order urine Na, Cr * Will provide 1 L IV NS. IV albumin was infusing at the time of my evaluation this morning. Hold lasix and spironolactone * Increase midodrine to 7.5 mg TID * Increase octreotide to 200 mg SQ TID * Continue antibiotic therapy for SBP, RLL pneumonia as directed by ID hospice consultant * Not a candidate for chronic dialysis due to underlying ESLD. Poor candidate for acute dialysis due to relative hypotension, 3rd spacing of volume. Would likely become hemodynamically unstable * Poor prognosis. Await GI recommendations, but also advise consultation w/ palliative care to outline goals of care. (2) RLL pneumonia: * Currently on daptomycin * Will check CPK (3) Hyponatremia: * Baseline Na has been 125-130 mmol/L due to cirrhosis (4) Ascites: (5) Spontaneous bacterial peritonitis: History of Present Illness Reason for Consultation: HRS-1 Attending Physician: Eliud Rodrigues MD History of Present Illness Mr. Estevez is a 59 year old white male who is seen for nephrology reconsultation the request of the [facility] hospitalist service for evaluation of HRS-1. Patient is unable to provide any details of his medical history. Information for the HPI is obtained from review of the EMR and discussion w/ the hospitalist service. HPI is summarized as follows: Mr. Estevez was admitted to [facility] 01/17/25 for evaluation of decompensated hepatic failure and hyponatremia. He has no prior h/o CKD. His baseline Cr has been 0.7. Mr. Estevez suffers from alcoholism and had been drinking one bottle of wine/day over the preceding 6 months. Upon admission he was found to be jaundiced w/ bili 9.8 and suffering abdominal discomfort related to tense ascites. Nephrology consultation was requested at that time due to hyponatremia w/ serum Na 123 mmol/L. Ascites was managed w/ paracentesis and hyponatremia stabilized following therapy w/ furosemide, spironolactone and midodrine therapy. Nephrology signed off the case 01/24/25. Mr. Estevez was subsequently diagnosed w/ SBP and received IV antibiotic therapy. On 02/05/25 Mr. Estevez became poorly responsive. He was noted to be hypoxemic and CXR revealed a new RLL consolidation. Patient was evaluated by ID and started on meropenem therapy. Patient now has LUBA w/ Cr 3.15. 02/06/[address] without contrast was negative for obstruction. 02/05/25 urinalysis was negative for protein or blood. Microscopy revealed only hyaline casts. Na is stable at 132 but patient is markedly azotemic w/ BUN 124. Allergies Allergy/AdvReac Type Severity Reaction Status Date / Time No Known Allergies Allergy Verified 01/17/25 17:07 Home Medications Medication Instructions Recorded Confirmed Type folic acid 1 mg tablet 1 mg PO QAM #30 tabs 12/09/24 01/17/25 Rx metoprolol succinate 25 mg 25 mg PO QAM #30 tabs 12/09/24 01/17/25 Rx tablet,extended release 24 hr multivitamin with folic acid 400 1 tab PO QAM #30 tabs 12/09/24 01/17/25 Rx mcg tablet (Daily-Shannon (with folic acid)) pantoprazole 40 mg tablet,delayed 40 mg PO QAM 30 days #30 tabs 12/09/24 01/17/25 Rx release potassium chloride 20 mEq 20 meq PO DAILY #30 tabs 12/09/24 01/17/25 Rx tablet,extended release thiamine HCl (vitamin B1) 100 mg 100 mg PO QAM #30 tabs 12/09/24 01/17/25 Rx tablet spironolactone 25 mg tablet 50 mg (2 x 25 mg) PO QAM #30 tabs 12/19/24 01/17/25 Rx furosemide 20 mg tablet 20 mg PO QAM 30 days #30 tabs 01/13/25 01/17/25 Rx rifaximin 550 mg tablet 550 mg PO BID #60 tabs 01/23/25 Rx Patient History Medical History Pleural effusion Influenza A Hypokalemia Alcohol withdrawal Mild acid reflux Anxiety Surgical History H/O umbilical hernia repair [place] teeth extracted H/O oral surgery H/O inguinal hernia repair Family History Mother Alcohol abuse Depression Father Alcohol abuse Heart disease Kidney disease Myocardial infarction Uncle Myocardial infarction Denies family history of Ovarian cancer Prostate cancer Breast cancer Colorectal cancer Social History Smoking Status: Never smoker Second Hand Exposure: Yes (parents growing up); Do You Dip or Chew Tobacco: No; Hx Alcohol Use: No Hx Substance Use: No Preferred Language: Guyanese Communication 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 Beliefs That Will Affect Care: None marital status: Single Current Living Situation: Family Feels Safe at Home: Yes Dental Care, Regularly: No Physical Activity Frequency: Daily Seatbelt Use: always Sunscreen Use: Yes Assistive Devices: None Review of Systems Constitutional: + fatigue and + weakness; no fever Eyes: no problem reported Ear, Nose, Mouth, Throat: no problem reported Respiratory: no cough and no dyspnea Cardiovascular: no chest pain Gastrointestinal: + bloating Genitourinary: no dysuria or no urinary hesitancy Integumentary: + yellowing of the skin Neurologic: no problem reported Physical Exam Constitutional: + ill appearing and + cachectic Eyes: sclerae not anicteric ENMT: external ear and nose normal, oropharynx normal Neck: trachea midline, no thyromegaly Respiratory: normal respiratory effort, lungs clear to auscultation Cardiovascular: Rate/Rhythm: regular rhythm and + tachycardic Extremities: no edema Gastrointestinal (Abdomen): Inspection/Auscultation: + abdomen distended and + hypoactive bowel sounds Percussion/Palpation: + ascites and + fluid wave; no guarding Skin: + jaundice Neurologic: Speech / Cognition: + abnormal cognition; normal speech Psychiatric: Orientation: alert (oriented to self only) Results & Data Vital Signs (Past 12 Hours) Vital Signs Temp Pulse Pulse Resp BP BP Pulse Ox 02/08/25 08:02 36.4 C L 102 H 16 93/53 L 99 02/08/25 07:44 02/08/25 07:44 105 H 02/08/25 03:21 36.6 C 107 H 18 98/61 L 98 02/08/25 01:41 112 H 02/08/25 00:30 02/08/25 00:08 36.6 C 110 H 18 94/55 L 96 O2 Del Method 02/08/25 08:02 Room Air 02/08/25 07:44 Room Air 02/08/25 07:44 02/08/25 03:21 Room Air 02/08/25 01:41 02/08/25 00:30 Room Air 02/08/25 00:08 Room Air Laboratory Results Laboratory Results WBC 17.05 K/ul (4.8-10.8) H 02/08/25 06:30 RBC 2.31 M/uL (4.70-6.10) L 02/08/25 06:30 Hgb 8.2 g/dl (14.0-18.0) L 02/08/25 06:30 Hct 23.5 % (42.0-52.0) L 02/08/25 06:30 MCV 101.7 fL (80.0-100.0) H 02/08/25 06:30 MCH 35.5 pg (25.0-34.0) H 02/08/25 06:30 MCHC 34.9 g/dL (32.0-36.0) 02/08/25 06:30 RDW Std Deviation 49.7 fL (36.4-46.3) H 02/08/25 06:30 RDW Coeff of Kylee 13.2 % (11.5-14.5) 02/08/25 06:30 Plt Count 116 K/uL (130-400) L 02/08/25 06:30 MPV 9.6 fL (9.4-12.4) 02/08/25 06:30 Immature Gran % (Auto) 0.5 % 02/07/25 06:54 Neut % (Auto) 87.7 % 02/07/25 06:54 Lymph % (Auto) 2.6 % 02/07/25 06:54 [place] % (Auto) 9.1 % 02/07/25 06:54 Eos % (Auto) 0.0 % 02/07/25 06:54 Baso % (Auto) 0.1 % 02/07/25 06:54 Neut # (Auto) 12.65 K/uL (1.40-6.50) H 02/07/25 06:54 Lymph # (Auto) 0.38 K/uL (1.20-3.40) L 02/07/25 06:54 [place] # (Auto) 1.32 K/uL (0.11-0.59) H 02/07/25 06:54 Eos # (Auto) 0.00 K/uL (0.00-0.50) 02/07/25 06:54 Baso # (Auto) 0.01 K/uL (0.00-0.20) 02/07/25 06:54 Immature Gran # (Auto) 0.07 K/uL (0.01-0.20) 02/07/25 06:54 Echinocytes 1+ 02/07/25 06:54 Acanthocytes (Spur) 2+ 02/07/25 06:54 PT 21.0 Seconds (9.0-12.0) H 02/08/25 06:30 INR 2.1 (0.9-1.1) H 02/08/25 06:30 APTT 30 Seconds (21-31) 01/17/25 15:09 PTT Ratio 1.1 01/17/25 15:09 VBG pH 7.43 (7.36-7.41) H 02/07/25 06:54 VBG pCO2 31 mmHg (38-50) L 02/07/25 06:54 VBG pO2 48 mmHg 02/07/25 06:54 VBG HCO3 21 mmol/L 02/07/25 06:54 VBG O2 Saturation 76.1 % 02/07/25 06:54 VBG Base Excess -2.7 mEq/L 02/07/25 06:54 Sodium 132 mmol/L (136-145) L 02/08/25 06:30 Potassium 4.8 mmol/L (3.5-5.1) 02/08/25 06:30 Chloride 100 mmol/L (98-107) 02/08/25 06:30 Carbon Dioxide 20 mmol/L (21-32) L 02/08/25 06:30 Anion Gap 12 (3-11) H 02/08/25 06:30 BUN 124 mg/dl (6-23) H D 02/08/25 06:30 Creatinine 3.15 mg/dl (0.6-1.4) H D 02/08/25 06:30 Est Cr Clr Drug Dosing 25.1 ml/min 02/08/25 06:30 eGFR 22.02 02/08/25 06:30 BUN/Creatinine Ratio 39.4 (10-20) H 02/08/25 06:30 Glucose 154 mg/dl (70-99(Fasting)) H 02/08/25 06:30 POC Glucose 144 mg/dl (70-99) H 02/05/25 04:05 Lactate 3.1 mmol/L (0.4-2.0) H* 02/07/25 06:54 Calcium 8.7 mg/dl (8.6-10.3) 02/08/25 06:30 Magnesium 2.8 mg/dl (1.7-2.4) H 02/05/25 21:02 Iron 41 mcg/dl (35-175) 01/25/25 08:57 TIBC TNP 01/25/25 08:57 Transferrin < 95 mg/dl (200-360) L 01/25/25 08:57 Transferrin % Sat TNP 01/25/25 08:57 Ferritin 671.1 ng/ml (8-388) H 01/25/25 08:57 Total Bilirubin 5.7 mg/dl (0.2-1.0) H 02/08/25 06:30 Direct Bilirubin 2.4 mg/dl (0-0.2) H 01/24/25 06:24 AST 36 U/L (13-39) 02/08/25 06:30 ALT 13 U/L (7-52) 02/08/25 06:30 Alkaline Phosphatase 56 U/L (34-104) 02/08/25 06:30 Ammonia 22.0 umol/L (18-72) 02/08/25 06:33 Total Protein 5.8 gm/dl (6.0-8.3) L 02/08/25 06:30 Albumin 3.4 gm/dl (3.4-5.0) 02/08/25 06:30 Globulin 2.4 gm/dl (2.5-4.0) L 02/08/25 06:30 Albumin/Globulin Ratio 1.4 (0.9-2) 02/08/25 06:30 Lipase 87 U/L (11-82) H 01/17/25 15:09 Vitamin B12 891 pg/ml (180-914) 01/25/25 08:57 Folate 16.66 ng/ml (>5.38) 01/25/25 08:57 Procalcitonin 38.80 ng/ml (0-0.5) H 02/08/25 06:30 Urine Color Dark Yellow 02/05/25 Unknown Urine Appearance Clear (Clear) 02/05/25 Unknown Urine pH 5.5 (4.5-7.5) 02/05/25 Unknown Ur Specific Ringling 1.018 (1.000-1.030) 02/05/25 Unknown Urine Protein Negative (Negative) 02/05/25 Unknown Urine Glucose (UA) Negative (Negative) 02/05/25 Unknown Urine Ketones Trace (Negative) H 02/05/25 Unknown Urine Blood Negative (Negative) 02/05/25 Unknown Urine Nitrite Negative (Negative) 02/05/25 Unknown Urine Bilirubin 1+ (Negative) H 02/05/25 Unknown Urine Urobilinogen Positive (Negative) H 02/05/25 Unknown Ur Leukocyte Esterase Trace (Negative) H 02/05/25 Unknown Urine WBC (Auto) 0-5 /hpf (0-5) 02/05/25 Unknown Urine RBC (Auto) 3-5 /hpf (0-2) H 02/05/25 Unknown U Hyaline Cast (Auto) 11-20 /lpf (0-2) H 02/05/25 Unknown U Epithel Cells (Auto) 0-2 /hpf (0-2) 02/05/25 Unknown Urine Bacteria (Auto) None Seen (None Seen) 02/05/25 Unknown Hyaline Casts Present /lpf (None Presnt) A 02/05/25 Unknown Urine Mucus Present (None Prsent) A 02/05/25 Unknown Ur Random Sodium 10 mmol/L 01/18/25 16:25 Fluid Neutrophils % 77 % 02/06/25 Unknown Fluid Lymphocytes % 4 % 02/06/25 Unknown Fluid Meso/Macro/[place] % 19 % 02/06/25 Unknown Fluid Comment 02/06/25 Unknown Peritoneal Color Yellow 02/06/25 Unknown Peritoneal Appearance Cloudy 02/06/25 Unknown Peritoneal WBC (Auto) 8970 /ul (0-300) H 02/06/25 Unknown Peritoneal RBC (Auto) 4000 /uL 02/06/25 Unknown Peritoneal Tot Protein < 3.0 gm/dl 02/06/25 Unknown Peritoneal Albumin < 1.5 gm/dl 02/06/25 Unknown Peritoneal LDH 275 U/L 02/06/25 Unknown Peritoneal Glucose 105 mg/dl 02/06/25 Unknown Peritoneal Amylase 13 U/L 02/06/25 Unknown Peritoneal Lipase 30 U/L 02/06/25 Unknown Nasal Screen MRSA (PCR) Negative (Negative) 02/06/25 Unknown Ethyl Alcohol mg/dL < 10.0 mg/dl (<10.0) 01/17/25 15:[address] 02/05/25 04:08 EXAM: CT head/brain wo con CLINICAL HISTORY: R/o ICH. TECHNIQUE: Axial non-contrast CT scan of the brain was performed from the skull base to the high parietal region. One of the following dose reduction techniques were utilized for this exam: Automated exposure control, adjustment of the mA and/or kV according to patient size, use of iterative reconstruction. COMPARISON: CT 03/19/2024. FINDINGS: Brain Parenchyma: No evidence of acute infarct, hemorrhage, or mass effect. Few hypodense foci are seen, mainly at the bilateral frontal and parietal periventricular/deep white matter regions and basal ganglia. Ventricular System: Mild dilatation of the ventricular system with no midline shift or deformity. Subarachnoid Spaces: Widened cortical sulci, sylvian fissure and extra-axial C.S.F spaces. No evidence of subarachnoid hemorrhage or extra-axial fluid collections. Cerebellum and Brainstem: Normal size and signal. No masses, lesions, or areas of abnormal signal. Orbits: Normal appearance of the globes, optic nerves, and extraocular muscles. No evidence of orbital masses or abnormal signal. Sinuses: Mild right ethmoidal sinusitis. Clear other paranasal sinuses. Mastoid Air Cells: Mild bilateral mastoiditis. Skull: Normal skull morphology. IMPRESSION: 1. No cerebral hematoma or established recent ischemic insult. MRI assessment would be recommended if clinically warranted. 2. Age-related involutional brain changes. 3. Bilateral small chronic cerebral lacunar infarcts. 4. Mild bilateral mastoiditis. Interval new 5. No other significant interval changes. Electronically signed by Jayy Castorena 02-05-2025 05:38 AM Renal Ultrasound 02/05/25 06:14 HISTORY: LUBA. TECHNIQUE: Ultrasound evaluation of the kidneys and urinary bladder. COMPARISON: None. FINDINGS: Right kidney measures 11.8 cm in length. Increased renal cortical echogenicity is a nonspecific finding associated with medical renal disease. No hydronephrosis. Left kidney measures 11 point11.2 cm in length. Increased renal cortical echogenicity is a nonspecific finding associated medical renal disease. No hydronephrosis. No echogenic debris is seen in the urinary bladder. The ureteral jets are not visualized. No obvious bladder wall thickening. Moderate to large ascites is seen throughout the abdomen. IMPRESSION: * No acute findings. No hydronephrosis. * Increased renal cortical echogenicity is a nonspecific finding associated medical renal disease. * Unremarkable urinary bladder. * Moderate to large ascites throughout the abdomen. Electronically signed by Juan C Diane 02-05-2025 09:46 AM KUB X-Ray 02/06/25 00:56 EXAM: XR KUB/Abdomen 1 view CLINICAL HISTORY: R/o SBO TECHNIQUE: X-ray images of the abdomen were obtained in supine position COMPARISON: 01/17/2025, CT Abdomen and Pelvis FINDINGS: Gas Pattern: Prominent bowel loops are identified in abdomen Gas-filled prominent stomach shadow seen Soft Tissues: Liver shadow is possibly below the right costal margin. Ultrasound may be obtained if clinically required Spleen and renal shadows are not well visualized IMPRESSION: Prominent bowel loops in abdomen raising the possibility of bowel obstruction. CT scan is suggested for further evaluation No evidence of pneumoperitoneum No distended/ prominent loops were seen in prior CT Electronically signed by Jayy Castorena 02-06-2025 02:33 AM Abdomen/Pelvis CT 02/06/25 03:27 EXAM: CT abd pelvis wo con CLINICAL HISTORY: ?SBO TECHNIQUE: Contiguous axial images were obtained from the level of the diaphragm to the pubic symphysis without intravenous or oral contrast. Coronal and sagittal reconstructions were likewise performed and indicated to increase the sensitivity for detecting clinically relevant pathology. CT scan was performed according to ALARA (as low as reasonable achievable). 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 Hepatic vasculature and biliary ducts are unremarkable. Gallbladder and Biliary System: Distended with intraluminal calcfic stones The common bile duct is normal in caliber without dilation. Pancreas: The pancreatic head, body, and tail are visualized and appear normal in size and density. No pancreatic masses or calcifications were noted. The pancreatic duct is not dilated. Spleen: Mildly enlarged in size, measured about 16.5 cm Prominent splenic vein No splenic lesions or masses were identified. Appendix: Not well appreciated Kidneys and Adrenal Glands: Both kidneys are normal in size, shape, and position. Cortical thickness is within normal limits. No renal calculi or hydronephrosis. Bulky left adrenal gland Pelvis: Urinary Bladder: not full Prostate: Unremarkable, US study is suggested if warranted clinically. Seminal Vesicles: Normal in size and appearance. No abnormalities noted. Rectum and Sigmoid Colon: Normal wall thickness and no evidence of mass. Peritoneal and Retroperitoneal Structures: Marked ascites is noted , smudging of mesnetric fat planes with prominent mesnetric vessels No lymphadenopathy was noted. Bowel: Long segmental submucosal edema noted at the ascending colon could be reactive colitis. No evidence of bowel obstruction or wall thickening. Uncmplicated colonic diverticulae Lareg left inguinal fluid filled hernia sac noted STB Bones and Soft Tissues: Pelvic bones and soft tissues are unremarkable. No fractures or abnormal masses were identified. Lower chest cuts showed mild left pleural effusion with left basal subsegmental atelectasis Ill-defined patchy consolidation noted in right lower lobe. Large hiatus hernia with ascitic fluid seen in the hernia sac IMPRESSION: 1. Evidence of long segmental submucosal edema noted at the ascending colon could be due to portal colopathy - increased as compared to previous study. 2. Stable Chronic parenchymatous liver disease and mild splenomegaly with portosystmic collaterals 3. Reduced ascites 4. Stable uncomplicated cholelithiasis 5. Stable Large hiatus hernia as described , large left inguinal fluid filled hernia sac.-stable. 6. Reduced, Mild left pleural effusion with left basal sub-segmental atelectasis. 7. Ill-defined patchy consolidation noted in right lower lobe.-new finding. Electronically signed by Wilmer Boogie 02-06-2025 04:55 AM Chest X-Ray 02/06/25 04:35 EXAM: XR chest 1V portable CLINICAL HISTORY: Verify NG tube placement TECHNIQUE: An X-ray image of the part of the chest and upper abdomen is obtained in AP projection. COMPARISON: Studies dated 02/06/2025. FINDINGS: A nasogastric tube is seen. just below the gastroesophageal junction. Need to be advanced for 10 cm into the stomach. Bilateral prominent hilar bronchopulmonary vasculature. Heart size and shape are normal. No evidence of left pleural effusion or pleural thickening. IMPRESSION: 1. A nasogastric tube is seen. tip is just below the gastroesophageal junction. Need to be advanced for 10 cm into the stomach. 2. No significant interval changes. Electronically signed by Jayy Castorena 02-06-2025 06:10 AM Paracentesis Ultrasound 02/06/25 09:30 ULTRASOUND GUIDED PARACENTESIS CLINICAL HISTORY: r/o SBP COMPARISON STUDY: 02/05/2025 PROCEDURE: The risks, benefits, and alternatives to the procedure were discussed with the patient including the risk of bleeding, infection and injury to adj acent structures. The patient agreed to the procedure and informed written consent was obtained. Following real-time ultrasound localization, the skin was prepped and draped. Following local anesthesia with Xylocaine, the sheath paracentesis needle was inserted and approximately 1 liters of straw-colored fluid was removed by vacuum suction. The patient tolerated the procedure well and no immediate complications were evident. IMPRESSION: Ultrasound-guided paracentesis with removal of 1 liters of ascites. Sample was sent to the lab for analysis. ACT 112: Negative or not required by law. Electronically signed by: Nawaf Kay M.D. 02/06/2025 2:28 PM PG Care Time/CCT Total # of Minutes Spent Total Time Spent with Patient: Total time spent is greater than 50% in coordination of care (as documented) at patient's floor/unit and/or counseling patient: Coding Level of Care Code 25705 IN/OBS CONSULT LVL 5,80M Diagnoses Hepatorenal syndrome K76.7 RLL pneumonia J18.9 Hyponatremia E87.1 Ascites K70.11 Ascites type: due to alcoholic hepatitis Spontaneous bacterial peritonitis K65.2 (4) Ascites Ascites type: due to alcoholic hepatitis Qualified Code(s): K70.11 - Alcoholic hepatitis with ascites
--- NOTE | 2025-02-08 12:05 | Infectious Disease Progress Nt ---
Date of Service February 08, 2025 Assessment & Plan (1) Spontaneous bacterial peritonitis: (2) RLL pneumonia: Plan Problems: #SBP: Serratia marcescens 01/18, E faecium 02/06 #RLL pneumonia #AHRF: resolved #Decompensated cirrhosis with ascites, hepatic encephalopathy Micro: 02/06 Peritoneal fluid cx: E faecium. GS no organisms 02/05 BCx x2: NGTD 01/23 Peritoneal fluid cx: NG 01/19 BCx x2: NG 01/18 Peritoneal fluid cx: Serratia marcescens (R ceftriaxone. I pip/tazo. Otherwise S) Abx: Ceftriaxone 01/19, 02/04 Cipro 01/20 - 01/29 Meropenem 02/05 - present Dapto 02/08 - present 59 yo M with EtOH cirrhosis who presented on 01/17 from GI clinic after being found to be jaundiced with elevated bilirubin 9.8, Na 123 along with distended abdomen secondary to ascites. Hospital course c/b SBP, hepatic encephalopathy, possible pneumonia. GI and nephrology were consulted. Diuretics increased. Paracentesis performed 01/18, which showed 2735 WBCs, 71% neutrophils, <2000 RBCs. He was started on ceftriaxone for SBP, which was switched to ciprofloxacin on 01/20 as culture grew Serratia marcescens resistant to ceftriaxone. Underwent another paracentesis on 01/23, with 1156 WBCs, 67% neutrophils, <2000 RBCs, culture with NG. He was continued on a 10 day course of ciprofloxacin through 01/29. Underwent another paracentesis on 02/03, with removal of 5 L ascites, no studies sent. On 02/05 AM, pt noted to have decline in responsiveness over the course of the night, became obtunded. Had new O2 requirement of [address] head unremarkable. CXR with concern for LLL subsegmental consolidation/collapse. Noted to have rising leukocytosis over the last couple days to 14.47, lactate 5.7, ammonia increased. UA with 0-5 WBCs. Started on meropenem, albumin, lactulose increased. CT A/P without contrast on 02/06 with portal colopathy, stable uncomplicated cholelithiasis, reduced mild L pleural effusion with L basal subsegmental atelectasis, ill-defined patchy consolidation in RLL. Paracentesis 02/06 with 8970 WBCs, 77% neutrophils, 4000 RBCs, gram stain negative. Culture grew E faecium, sensitivities pending. Per bedside RN, pt with some ulcerations on sacrum without concern for infection. Pt denies abdominal pain. Weaned to room air 02/06. Recommendations: - Increased daptomycin dose to 650 mg IV q48h (targeting 9-10 mg/kg for possible VRE) - Follow-up E faecium sensitivities - Will likely continue meropenem through tomorrow Will continue to follow. Admission and Anticipated Discharge Date Admission Date: January 17, 2025 Subjective This patient recommendation is based on a telemedicine consult request which was completed asynchronously through chart review and information provided by the primary physician. The patient was not seen or examined today. The evaluation is consultative in nature and all patient care and treatment decisions can either be accepted or rejected by the patient's primary hospital-based treating physician using their own independent medical judgment for their patient. Time Spent Reviewing Chart: 11 - 20 minutes Peritoneal fluid culture with E faecium Soft BPs Cr uptrending WBC uptrended to 17 Results & Data Vital Signs (Past 12 Hours) Vital Signs Temp Pulse Pulse Resp BP BP Pulse Ox 02/08/25 08:02 36.4 C L 102 H 16 93/53 L 99 02/08/25 07:44 02/08/25 07:44 105 H 02/08/25 03:21 36.6 C 107 H 18 98/61 L 98 02/08/25 01:41 112 H 02/08/25 00:30 02/08/25 00:08 36.6 C 110 H 18 94/55 L 96 O2 Del Method 02/08/25 08:02 Room Air 02/08/25 07:44 Room Air 02/08/25 07:44 02/08/25 03:21 Room Air 02/08/25 01:41 02/08/25 00:30 Room Air 02/08/25 00:08 Room Air Laboratory Results Short CBC 02/08/25 Range/Units 06:30 WBC 17.05 H (4.8-10.8) K/ul Hgb 8.2 L (14.0-18.0) g/dl Hct 23.5 L (42.0-52.0) % Plt Count 116 L (130-400) K/uL BMP 02/08/25 06:30 Sodium 132 L Potassium 4.8 Chloride 100 Carbon Dioxide 20 L BUN 124 H D Creatinine 3.15 H D Glucose 154 H Calcium 8.7 Liver Function 02/08/25 Range/Units 06:30 Total Bilirubin 5.7 H (0.2-1.0) mg/dl AST 36 (13-39) U/L ALT 13 (7-52) U/L Alkaline Phosphatase 56 (34-104) U/L Albumin 3.4 (3.4-5.0) gm/dl Medications Administered Current Inpatient Medications Acetaminophen (Acetaminophen 325 Mg Tab) 650 mg PO Q4H PRN PRN Reason: pain/fever Stop: 02/16/25 18:14 Last Admin: 02/08/25 03:40 Dose: 650 mg Albuterol (Albut/Ipratrop 3mg/0.5mg Neb 3 Ml Vial) 3 ml NEB Q6R PRN; Protocol PRN Reason: Wheezing Stop: 03/07/25 11:23 Enoxaparin Sodium (Enoxaparin Inj 40 Mg/0.4 Ml Syr) [facility] Stop: 03/11/25 08:59 Folic Acid (Folic Acid 1 Mg Tab) 1 mg PO QAM [facility] Stop: 02/16/25 18:14 Last Admin: 02/08/25 09:32 Dose: 1 mg Furosemide (Furosemide 80 Mg Tab) 80 mg PO QAM [facility] Stop: 02/19/25 08:59 Last Admin: 02/04/25 08:06 Dose: 80 mg Guaifenesin/Dextromethorphan (Guaifenesin/Dextrom Syrup 100mg/10mg 5ml Udc) 5 ml PO Q6H PRN PRN Reason: Cough Stop: 02/24/25 03:02 Last Admin: 02/02/25 20:08 Dose: 5 ml Meropenem 500 mg/ Syringe 10 mls @ 2 mls/min IV Q8H [facility]; Protocol Stop: 02/15/25 06:29 Last Admin: 02/08/25 05:25 Dose: 2 mls/min Albumin Human (Albumin 25%) 25 gm in 100 mls @ 50 mls/hr IV Q8H [facility] Stop: 02/10/25 17:59 Last Infusion: 02/08/25 11:34 Dose: Infused Sodium Chloride (Nss) 1,000 mls @ 100 mls/hr IV .Q10H [facility] Stop: 02/08/25 21:44 Daptomycin 650 mg/ Syringe 13 mls @ 4.75 mls/min IV Q48H [facility]; Protocol Stop: 02/10/25 11:57 Lactulose (Lactulose Syrup 30 Gm/45 Ml Udp) 30 gm PO QID [facility] Stop: 03/07/25 08:59 Last Admin: 02/08/25 11:35 Dose: Not Given Lactulose (Lactulose 200gm/700ml Wtr Enema) 200 gm AK Q8H [facility] Stop: 03/09/25 16:44 Last Admin: 02/08/25 11:13 Dose: 200 gm Midodrine (Midodrine Hcl 2.5 Mg Tab) 7.5 mg PO TID@0800,1200,1700 [facility] Stop: 03/10/25 11:59 Multivitamins (Multivitamin Tab) [facility] Stop: 02/17/25 08:59 Last Admin: 02/08/25 09:31 Dose: 1 tab Octreotide Acetate (Octreotide Acetate 100 Mcg/Ml Vial) 200 mcg SQ Q8H [facility] Stop: 03/10/25 09:59 Ondansetron HCl (Ondansetron Inj 2 Mg/Ml 2 Ml Vial) 4 mg IV Q6H PRN PRN Reason: Nausea Stop: 02/16/25 18:14 Oxymetazoline HCl (Oxymetazoline 0.05% 30 Ml Btl) 1 sprays NA DAILY PRN PRN Reason: Nasal Congestion Stop: 02/26/25 05:06 Last Admin: 01/27/25 05:42 Dose: 1 sprays Pantoprazole Sodium (Pantoprazole 40 Mg Tab) 40 mg PO [facility] Stop: 02/17/25 08:59 Last Admin: 02/08/25 09:32 Dose: 40 mg Phenylephrine HCl (Phenylephrine Hcl 0.5% Na Jud 15 Ml Btl) 1 sprays NA Q6H PRN PRN Reason: nose bleed Stop: 02/27/25 06:14 Last Admin: 02/01/25 07:44 Dose: 1 sprays Spironolactone (Spironolactone 100 Mg Tab) 200 mg PO [facility] Stop: 02/19/25 08:59 Last Admin: 02/04/25 08:04 Dose: 200 mg Thiamine HCl (Thiamine Hcl 100 Mg Tab) 100 mg PO ALON [facility] Stop: 02/17/25 08:59 Last Admin: 02/08/25 09:31 Dose: 100 mg
--- NOTE | 2025-02-08 12:28 | Hospitalist Progress Note ---
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 trigger - SBP already on albumin 25% infusions - 25gm IV q8h already on midodrine 5mg TID add octreotide TID corresponded with Dr Levy from nephrology who will re-consult - appreciate his assistance corresponded with [facility] - appreciate their assistance he is not a dialysis candidate given his hemodynamic instability and other comorbidities recheck urine Na and urine Cr but most recent urine Na was <10 which is typical for HRS cont edouard strict UOP measurement BMP am defer any additional supplemental IV fluids to nephrology (2) Acute kidney failure: Plan: 2nd to #1 as above (3) Alcoholic cirrhosis of liver with ascites: Plan: end-stage liver disease current MELD 3.0 score >30 conferring near 50% mortality in the next 3 months he is not a liver transplant candidate -- per the chart was consuming etoh up until Oct or Nov 2024 had recent admission 12/15-12/19 for ascites requiring paracentesis and had thoracentesis during that admission as well started on lasix 20mg/spironolactone 50mg at time of discharge in December readmitted 01/17 with massive ascites, abdominal pain and SBP; 01/18 peritoneal fluid culture with serratia s/p 10 day course of cipro for such s/p paracenteses on 01/18, 01/23, 01/27, 01/30, 02/03, and 02/06 with the 02/06 peritoneal fluid culture with enterococcus faecium patient now with HRS / LUBA 2nd to recurrent SBP patient with recent hepatic encephalopathy - that is improved s/p lactulose enemas patient's overall prognosis is very, very poor the next 2-3 days will be pivotal to see if renal function improves he is on maximal medical support for his infectious issues (meropenem + daptomycin for RLL pneumonia/SBP) as well as albumin/midodrine/octreotide for HRS type 1 if he survives this hospitalization he has been set up with hepatology at [facility] in [place] for ongoing care I spoke at length with the pt's sister in law Avitia and his brother Angelo by phone discussed all of the above issues including Julián's poor prognosis they understand such and had been preparing themselves for "the worst" as they have seen him continually decline they are agreeable to palliative care consultation - will obtain such on 02/09 appreciate GI & nephrology support (4) Spontaneous bacterial peritonitis: Plan: Has had 2 episodes of SBP since admission - -first was at time of admission; 01/18 peritoneal fluid culture with serratia, s/p 10 day course of cipro with clinical improvement -2nd episode is current - s/p paracentesis on 02/06 with culture now growing enterococcus faecium -has been on meropenem since 02/05/25 -adding daptomycin today to cover for VRE unfortunately it appears that this 2nd episode of SBP has triggered HRS - see below (5) RLL pneumonia: Plan: suspected due to aspiration cont meropenem IV - started on 02/05/25 thus today is day #4 of Rx stable in room air peak O2 requirement was 8 L on 02/05/25 (6) Hyponatremia: Plan: 2nd to decompensated cirrhosis lowest Na level while here - 119 132 today BMP am (7) Decompensated cirrhosis: Plan: as above holding diuretics in the face of LUBA / HRS type 1 holding any beta janee therapy (8) Left inguinal hernia: Plan: no Rx at this time gen surg saw in consult earlier in the admission - no Rx advised (9) Hypertension: Plan: holding lasix/aldactone/beta janee therapy in light of LUBA / HRS type 1 (10) Elevated INR: Plan: INR today 2.1 highly concerning in the setting of his HRS type 1 can't rule out vit K deficiency - could consider supplementation for 2-3 days if any further rise if platelets fall as INR rises consider DIC w/u (11) Dysphagia: Plan: appreciate speech therapy consultation nectar thick liquids advised (12) Acute hepatic encephalopathy: Plan: s/p lactulose enemas with clinical improvement and ammonia level improvement d/c enemas cont with PO lactulose for 3 BMs/day Plan care d/w nephrology, GI, and speech therapy care d/w nursing staff care d/w pt's brother Angelo and [id number] Adore by phone extremely complex care coordination with total care time today of about 90 minutes patient's status is tenuous and prognosis is poor Admission and Anticipated Discharge Date Admission Date: January 17, 2025 Subjective during rounds the patient was extremely weak he c/o thirst and asked for ice chips he c/o severe dry mouth mild abdominal pain at times no vomiting he was confused and sleepy, falling asleep at least 2x's while I was present with him when I tried to talk to him about the renal failure, SBP, etc he shifted his focus back to being thirsty I asked him if I could call a family member to update them -- he gave permission for me to call Adore his sister in law tele overnight NSR per staff he is tolerating the lactulose enemas had at least 2-3 BMs in the last 24 hours Review of Systems Review of Systems: CV - denies chest pain pulm - denies dyspnea gen - very tired, weak, and fatigued; c/o thirst GI - no N/V but having abd pain Physical Exam Physical Exam: gen - cachectic, very ill-appearing, very low-pitched slightly hoarse voice, sleepy eyes - icteric sclera neck - no JVD mouth - MM dry heart - RRR, s1 s2, no murmur lungs - CTA b/l, mildly decreased BS axillary areas abd - distended with ascites fluid, mild tenderness, BS+, no HSM - left inguinal hernia present; scrotal edema present ext - no edema, pulses 2+ b/l feet neuro - muscle wasting of arms/legs noted; no asterixis today skin - scattered ecchymoses on arms Results & Data Results & Data Vital Signs (Past 12 Hours) Vital Signs Temp Pulse Pulse Resp BP BP Pulse Ox 02/08/25 08:02 36.4 C L 102 H 16 93/53 L 99 02/08/25 07:44 02/08/25 07:44 105 H 02/08/25 03:21 36.6 C 107 H 18 98/61 L 98 02/08/25 01:41 112 H 02/08/25 00:30 O2 Del Method 02/08/25 08:02 Room Air 02/08/25 07:44 Room Air 02/08/25 07:44 02/08/25 03:21 Room Air 02/08/25 01:41 02/08/25 00:30 Room Air Laboratory Results Laboratory Results - last 24 hr 02/08/25 02/08/25 06:30 06:33 WBC 17.05 H RBC 2.31 L Hgb 8.2 L Hct 23.5 L MCV 101.7 H MCH 35.5 H MCHC 34.9 RDW Std Deviation 49.7 H RDW Coeff of Kylee 13.2 Plt Count 116 L MPV 9.6 PT 21.0 H INR 2.1 H Sodium 132 L Potassium 4.8 Chloride 100 Carbon Dioxide 20 L Anion Gap 12 H BUN 124 H D Creatinine 3.15 H D Est Cr Clr Drug Dosing 25.1 eGFR 22.02 BUN/Creatinine Ratio 39.4 H Glucose 154 H Calcium 8.7 Total Bilirubin 5.7 H AST 36 ALT 13 Alkaline Phosphatase 56 Ammonia 22.0 Total Protein 5.8 L Albumin 3.4 Globulin 2.4 L Albumin/Globulin Ratio 1.4 Procalcitonin 38.80 H PG Care Time/CCT Total # of Minutes Spent Total Time Spent with Patient: Total time spent is greater than 50% in coordination of care (as documented) at patient's floor/unit and/or counseling patient: Prolonged Care Time Prolonged Care Time: Yes Total Prolonged Care Time: 90 Coding Level of Care Code 03042 SUB INP/OBS CARE 3/50MIN (25 - SIGNIFICANT, SEPARATELY IDENTIFIABLE ) Diagnoses Hepatorenal syndrome K76.7 Acute kidney failure N17.9 Alcoholic cirrhosis of liver with ascites K70.31 Spontaneous bacterial peritonitis K65.2 RLL pneumonia J18.9 Hyponatremia E87.1 Decompensated cirrhosis K72.90; K74.60 Left inguinal hernia K40.90 Hypertension I10 Elevated INR R79.1 Dysphagia R13.10 Acute hepatic encephalopathy K76.82 Additional Codes Prolonged Care Time - Prolonged Care Time: Yes ([id number])
[2025-02-08] MEDS: DAPTOmycin 200 MG in SYRINGE 0 ML IV ONE (12:47)
[2025-02-08] MEDS: SODIUM CHLORIDE 0.9% 1,000 ML IV SCH (12:47)
[2025-02-08] MEDS: MIDODRINE HCL 2.5 MG TAB PO SCH (13:23)
[2025-02-08] MEDS: MIDODRINE HCL 2.5 MG TAB PO STA (13:30)
--- NOTE | 2025-02-08 21:52 | Electrocardiogram Report ---
Test Reason : Blood Pressure : */* mmHG Vent. Rate : 107 BPM Atrial Rate : 107 BPM P-R Int : 128 ms QRS Dur : 84 ms QT Int : 332 ms P-R-T Axes : 6 73 80 degrees QTcB Int : 443 ms Sinus tachycardia Otherwise normal ECG When compared with ECG of 04-Feb-2025 15:45, No significant change was found Confirmed by Tristian Clark ([id number]) on 02/08/2025 9:51:37 PM Referred By: REFERRED SELF Confirmed By: Tristian Clark
[2025-02-09 07:28] LABS: Hematocrit (blood only) 23.3 % (42.0-52.0); Hemoglobin 8.1 g/dl (14.0-18.0); Mean Corpuscular Hemoglobin 36.2 pg (25.0-34.0); Mean Corpuscular Hgb Conc 34.8 g/dL (32.0-36.0); Mean Platelet Volume 9.9 fL (9.4-12.4); Platelet Count 92 K/uL (130-400); RDW Coefficient of Variation 13.1 % (11.5-14.5); RDW Standard Deviation 49.3 fL (36.4-46.3); Red Blood Count 2.24 M/uL (4.70-6.10); White Blood Count 20.77 K/ul (4.8-10.8)
[2025-02-09 07:56] LABS: INR 2.2 (0.9-1.1); Prothrombin Time 22.2 Seconds (9.0-12.0)
[2025-02-09 08:13] LABS: Albumin Globulin Ratio 1.6 (0.9-2); Albumin Level 3.7 gm/dl (3.4-5.0); BUN Creatinine Ratio 38.3 (10-20); Calcium 8.7 mg/dl (8.6-10.3); Creatinine Clr Calc Pharmacy 20.7 ml/min; Globulin 2.3 gm/dl (2.5-4.0); Potassium 4.2 mmol/L (3.5-5.1)
--- NOTE | 2025-02-09 08:45 | Nephrology Progress Note ---
Date of Service February 09, 2025 Assessment & Plan (1) Hepatorenal syndrome: Plan: * HRS-1 related to SBP and RLL pneumonia * No obstruction on 02/06/[address] * 02/05/25 urinalysis was negative for protein or blood. Urine microscopy was negative for cellular casts * No recent exposure to nephrotoxic agents * Continue to hold lasix and spironolactone * Hold IVF due to worsening ascites * SPA as per GI recommendations * Continue midodrine 7.5 mg TID * Continue octreotide 200 mg SQ TID * Continue antibiotic therapy for SBP, RLL pneumonia as directed by [facility] [employer] consultant * Not a candidate for chronic dialysis due to underlying ESLD. Poor candidate for acute dialysis due to relative hypotension, 3rd spacing of volume. Would likely become hemodynamically unstable * Poor prognosis. GI recommendations reviewed today - poor transplant candidate due to recent alcohol use. Poor social support system at home. Await palliative care recommendations (2) RLL pneumonia: Plan: * Currently on daptomycin * Will check CPK (3) Hyponatremia: Plan: * Baseline Na has been 125-130 mmol/L due to cirrhosis (4) Ascites: (5) Spontaneous bacterial peritonitis: Admission and Anticipated Discharge Date Admission Date: January 17, 2025 Subjective Mr. Estevez was evaluated in his hospital room this morning. He was awake but oriented to self and place only. He c/o worsening abdominal distention and pain Review of Systems Constitutional: + fatigue and + weakness; no fever Eyes: no problem reported Ear, Nose, Mouth, Throat: no problem reported Respiratory: no cough and no dyspnea Cardiovascular: no chest pain Gastrointestinal: + bloating Genitourinary: no dysuria or no urinary hesitancy Integumentary: + yellowing of the skin Neurologic: no problem reported Physical Exam Constitutional: + ill appearing, + cachectic and + frail appearing; not in distress Eyes: sclerae not anicteric ENMT: external ear and nose normal, oropharynx normal Neck: trachea midline, no thyromegaly Respiratory: normal respiratory effort, lungs clear to auscultation Cardiovascular: Rate/Rhythm: regular rate, regular rhythm and + tachycardic Extremities: no edema Gastrointestinal (Abdomen): Inspection/Auscultation: + abdomen distended and + hypoactive bowel sounds Percussion/Palpation: + ascites and + fluid wave; no guarding Skin: + jaundice Neurologic: Speech / Cognition: + abnormal cognition; normal speech Psychiatric: Orientation: alert (oriented to self and place only) Affect: + anxious affect Results & Data Vital Signs (Past 12 Hours) Vital Signs Temp Pulse Pulse Resp BP Pulse Ox O2 Del Method 02/09/25 07:41 36.5 C 100 H 18 94/55 L 94 Room Air 02/09/25 04:15 100 H 18 103/61 95 Room Air 02/08/25 23:38 98 H 18 99/59 L 94 Room Air 02/08/25 21:59 100 H Laboratory Results Laboratory Results - last 24 hr 02/08/25 02/09/25 06:30 06:40 WBC 20.77 H RBC 2.24 L Hgb 8.1 L Hct 23.3 L MCV 104.0 H MCH 36.2 H MCHC 34.8 RDW Std Deviation 49.3 H RDW Coeff of Kylee 13.1 Plt Count 92 L MPV 9.9 PT 22.2 H INR 2.2 H Sodium 130 L Potassium 4.2 Chloride 99 Carbon Dioxide 16 L Anion Gap 15 H BUN 146 H D Creatinine 3.81 H D Est Cr Clr Drug Dosing 20.7 eGFR 17.52 BUN/Creatinine Ratio 38.3 H Glucose 121 H Calcium 8.7 Total Bilirubin 5.0 H AST 40 H ALT 13 Alkaline Phosphatase 50 Total Creatine Kinase 53 Total Protein 6.0 Albumin 3.7 Globulin 2.3 L Albumin/Globulin Ratio 1.6 Procalcitonin 38.80 H PG Care Time/CCT Total # of Minutes Spent Total Time Spent with Patient: Total time spent is greater than 50% in coordination of care (as documented) at patient's floor/unit and/or counseling patient: Coding Level of Care Code 54783 SUB INP/OBS CARE 3/50MIN Diagnoses Hepatorenal syndrome K76.7 RLL pneumonia J18.9 Hyponatremia E87.1 Ascites K70.11 Ascites type: due to alcoholic hepatitis Spontaneous bacterial peritonitis K65.2 (4) Ascites Ascites type: due to alcoholic hepatitis Qualified Code(s): K70.11 - Alcoholic hepatitis with ascites
[2025-02-09] MEDS: ENOXAPARIN INJ 40 MG/0.4 ML SYR SQ SCH (09:22)
--- NOTE | 2025-02-09 10:19 | Gastroenterology Progress Note ---
Date of Service February 09, 2025 Assessment & Plan (1) Hepatorenal syndrome: Plan: 59 year old male with history of HTN, hyperlipidemia, ETOH abuse, ETOH hepatitis admitted 11/26/24, ETOH induced liver disease and others below admitted on 01/19 w/ decompensated liver disease and SBP. He is s/p repeat paracentesis on 02/06/25, culture pending but elevated peritoneal WBC. He was restarted on Daptomycin and Meropenem. Given concern for HRS w/ rise in [employer] and urine sodium he was started appropriately on octreotide, albumin and midodrine. His MELD 35 and he has had rise in [employer] to 3.8 w/ elevated INR at 2.2. Guarded prognosis. Discussed w/ patient the severity of his hepatorenal condition and that management at our facility would consist of treating the SBP, HRS. In discussion at bedside with attending last evening he reports limited family/social support. He was unable to provide to me the exact date of his last ETOH intake but his ETOH level was negative on 01/17/25. History of SBP and HRS - Hold diuretics - Treat infectious sources - SBP - PNA - Maintain intravascular volume - Stop diuresis - Titrate laxatives therapies to avoid diarrhea contributing to volume loss - Avoid large volume paracentesis - Hold beta-janee agents - Continue Midodrine 7.5 mg TID - Continue Octreotide 200 mcg TID - Continue Albumin - Day 1: 1.5g/kg albumin - Day 3: 1g/kg albumin - Otherwise may continue albumin infusions as ordered Hepatic Encephalopathy - Goal of 3 BMs daily - Continue oral lactulose - May use lactulose enemas if he has difficultly with oral intake - Consider addition of Xifaxan 550 twice daily Cirrhosis Management - Remain alcohol free - Needs to establish with hepatology as an outpatient - MELD labs every 6 months - ABD imaging w/ AFP every 6 months - EGD every 1-2 years - No ETOH - No NSAIDs - Avoid hepatotoxin - Low NA diet, less than 2G daily - Less than 2G acetaminophen containing products daily I spent a total of 40 minutes on the date of service in review of patient's record, and previously obtained information in person and appropriate medical visit, discussion and education of plan, with patient and/or caregiver, placing orders for tests/referral/procedures as medically necessary and documentation of pertinent clinical information in patient's medical records for their visit today.Thank you for allowing us to participate in the care of this patient. Please call with any acute changes, questions or concerns. Please see addendum below with additional recommendation from my supervising physician. (2) Decompensated cirrhosis: (3) Spontaneous bacterial peritonitis: Admission and Anticipated Discharge Date Admission Date: January 17, 2025 Supervising Physician Co-Signing Physician Notes I personally saw and examined the patient. I have reviewed the chart and agree with the documentation provided by the [employer]INE including discussion about the assessment, treatment and plan. Briefly, progressive decline with lack of social structure and recent alcohol use. I agree with hospice and palliative care involvement. With HRS a meld of 33 and recurrent SBP, prognosis is poor. Subjective Pt was seen and evaluated, chart reviewed. Awake, alert and oriented. Feels as if his abdominal distention is worse today. Has had intermittent abdominal pain. Denies nausea/vomiting. Documentation supports last BM was last evening. MELD 35. He has had rise in [employer] to 3.8 and INR to 2.2 Diagnosis: suspected ETOH induced liver disease Decompensations: Varices: unknown Ascites: last para 5/5 HRS: urine NA 10, HRS-1 managed by nephrology HE: oral lactulose, lactulose enemas Screenings: MELD: 35 HCC: due in August Varices: due now Immunizations: status unknown Review of Systems Review of Systems: All other findings negative except as noted in HPI. Physical Exam Constitutional: WD/WN, vitals as above Respiratory: normal respiratory effort, lungs clear to auscultation Cardiovascular: RRR, no murmur, no edema Gastrointestinal (Abdomen): normal bowel sounds, soft, nontender, no hepatosplenomegaly Skin: no rashes, warm and dry Results & Data Results & Data Vital Signs (Past 12 Hours) Vital Signs Temp Pulse Resp BP Pulse Ox O2 Del Method 02/09/25 07:41 97.7 F 100 H 18 94/55 L 94 Room Air 02/09/25 04:15 100 H 18 103/61 95 Room Air 02/08/25 23:38 98 H 18 99/59 L 94 Room Air Laboratory Results 02/09/25 02/08/25 Range/Units 06:40 06:30 WBC 20.77 H (4.8-10.8) K/ul RBC 2.24 L (4.70-6.10) M/uL Hgb 8.1 L (14.0-18.0) g/dl Hct 23.3 L (42.0-52.0) % MCV 104.0 H (80.0-100.0) fL MCH 36.2 H (25.0-34.0) pg MCHC 34.8 (32.0-36.0) g/dL RDW Std Deviation 49.3 H (36.4-46.3) fL RDW Coeff of Kylee 13.1 (11.5-14.5) % Plt Count 92 L (130-400) K/uL MPV 9.9 (9.4-12.4) fL PT 22.2 H (9.0-12.0) Seconds INR 2.2 H (0.9-1.1) Sodium 130 L (136-145) mmol/L Potassium 4.2 (3.5-5.1) mmol/L Chloride 99 (98-107) mmol/L Carbon Dioxide 16 L (21-32) mmol/L Anion Gap 15 H (3-11) BUN 146 H D (6-23) mg/dl Creatinine 3.81 H D (0.6-1.4) mg/dl Est Cr Clr Drug Dosing 20.7 ml/min eGFR 17.52 BUN/Creatinine Ratio 38.3 H (10-20) Glucose 121 H (70-99(Fasting)) mg/dl Calcium 8.7 (8.6-10.3) mg/dl Total Bilirubin 5.0 H (0.2-1.0) mg/dl AST 40 H (13-39) U/L ALT 13 (7-52) U/L Alkaline Phosphatase 50 (34-104) U/L Total Creatine Kinase 53 (30-223) U/L Total Protein 6.0 (6.0-8.3) gm/dl Albumin 3.7 (3.4-5.0) gm/dl Globulin 2.3 L (2.5-4.0) gm/dl Albumin/Globulin Ratio 1.6 (0.9-2) PG Care Time/CCT Total # of Minutes Spent Total Time Spent with Patient: Total time spent is greater than 50% in coordination of care (as documented) at patient's floor/unit and/or counseling patient: Coding Level of Care Code 46256 SUB INP/OBS CARE 2/35MIN Diagnoses Hepatorenal syndrome K76.7 Decompensated cirrhosis K72.90; K74.60 Spontaneous bacterial peritonitis K65.2
[2025-02-09 11:09] VITALS: TEMP 97.3
--- NOTE | 2025-02-09 12:09 | Fluoroscopy Report ---
FL video swallow CLINICAL HISTORY: dysphagia with possible aspiration. TECHNIQUE: Video fluoroscopic evaluation of swallowing was performed in the AP and lateral projection s by the speech pathology staff. The patient is fed nectar-thick and thin liquid barium, a barium coa tami wafer, and barium pudding. FLUOROSCOPY TIME: 34 seconds. COMPARISON: None FINDINGS: There is aspiration with thin and thick liquid. IMPRESSION: Aspiration. ACT 112: Negative or not required by law. Electronically signed by: Nawaf Kay M.D. 02/09/2025 12:07 PM
[2025-02-09] MEDS: HYDROmorphone INJ 0.5 MG/0.5 ML SYR IV PRN ×2 (12:26→19:39)
--- NOTE | 2025-02-09 13:04 | Infectious Disease Progress Nt ---
Date of Service February 09, 2025 Assessment & Plan (1) Spontaneous bacterial peritonitis: (2) RLL pneumonia: Plan Problems: #SBP: Serratia marcescens 01/18, E faecium 02/06 #RLL pneumonia #AHRF: resolved #Decompensated cirrhosis with ascites, hepatic encephalopathy Micro: 02/06 Peritoneal fluid cx: E faecium. GS no organisms 02/05 BCx x2: NGTD 01/23 Peritoneal fluid cx: NG 01/19 BCx x2: NG 01/18 Peritoneal fluid cx: Serratia marcescens (R ceftriaxone. I pip/tazo. Otherwise S) Abx: Ceftriaxone 01/19, 02/04 Cipro 01/20 - 01/29 Meropenem 02/05 - present Dapto 02/08 - present 59 yo M with EtOH cirrhosis who presented on 01/17 from GI clinic after being found to be jaundiced with elevated bilirubin 9.8, Na 123 along with distended abdomen secondary to ascites. Hospital course c/b SBP, hepatic encephalopathy, possible pneumonia. GI and nephrology were consulted. Diuretics increased. Paracentesis performed 01/18, which showed 2735 WBCs, 71% neutrophils, <2000 RBCs. He was started on ceftriaxone for SBP, which was switched to ciprofloxacin on 01/20 as culture grew Serratia marcescens resistant to ceftriaxone. Underwent another paracentesis on 01/23, with 1156 WBCs, 67% neutrophils, <2000 RBCs, culture with NG. He was continued on a 10 day course of ciprofloxacin through 01/29. Underwent another paracentesis on 02/03, with removal of 5 L ascites, no studies sent. On 02/05 AM, pt noted to have decline in responsiveness over the course of the night, became obtunded. Had new O2 requirement of [address] head unremarkable. CXR with concern for LLL subsegmental consolidation/collapse. Noted to have rising leukocytosis over the last couple days to 14.47, lactate 5.7, ammonia increased. UA with 0-5 WBCs. Started on meropenem, albumin, lactulose increased. CT A/P without contrast on 02/06 with portal colopathy, stable uncomplicated cholelithiasis, reduced mild L pleural effusion with L basal subsegmental atelectasis, ill-defined patchy consolidation in RLL. Paracentesis 02/06 with 8970 WBCs, 77% neutrophils, 4000 RBCs, gram stain negative. Culture grew E faecium, sensitivities pending. Per bedside RN, pt with some ulcerations on sacrum without concern for infection. Pt denies abdominal pain. Weaned to room air 02/06. Aspiration noted on VFSS. Recommendations: - Continue daptomycin 700 mg IV q48h (targeting 10 mg/kg for possible VRE) - Follow-up E faecium sensitivities - Can complete 7 day course of meropenem through 02/11 for possible aspiration pneumonia Will continue to follow. Admission and Anticipated Discharge Date Admission Date: January 17, 2025 Subjective This patient recommendation is based on a telemedicine consult request which was completed asynchronously through chart review and information provided by the primary physician. The patient was not seen or examined today. The evaluation is consultative in nature and all patient care and treatment decisions can either be accepted or rejected by the patient's primary hospital-based treating physician using their own independent medical judgment for their patient. Time Spent Reviewing Chart: 21 - 30 minutes Remains afebrile WBC uptrending to 20.77 Cr uptrending to 3.81 Results & Data Vital Signs (Past 12 Hours) Vital Signs Temp Pulse Pulse Resp BP Pulse Ox O2 Del Method 02/09/25 11:08 36.3 C L 98 H 19 100/63 91 Room Air 02/09/25 10:31 94 H 02/09/25 07:41 36.5 C 100 H 18 94/55 L 94 Room Air 02/09/25 04:15 100 H 18 103/61 95 Room Air Laboratory Results Short CBC 02/09/25 Range/Units 06:40 WBC 20.77 H (4.8-10.8) K/ul Hgb 8.1 L (14.0-18.0) g/dl Hct 23.3 L (42.0-52.0) % Plt Count 92 L (130-400) K/uL BMP 02/09/25 06:40 Sodium 130 L Potassium 4.2 Chloride 99 Carbon Dioxide 16 L BUN 146 H D Creatinine 3.81 H D Glucose 121 H Calcium 8.7 Liver Function 02/09/25 Range/Units 06:40 Total Bilirubin 5.0 H (0.2-1.0) mg/dl AST 40 H (13-39) U/L ALT 13 (7-52) U/L Alkaline Phosphatase 50 (34-104) U/L Albumin 3.7 (3.4-5.0) gm/dl Diagnostic Findings Videofluoroscopic Swallow 02/09/25 10:00 FL video swallow CLINICAL HISTORY: dysphagia with possible aspiration. TECHNIQUE: Video fluoroscopic evaluation of swallowing was performed in the AP and lateral projections by the speech pathology staff. The patient is fed nectar-thick and thin liquid barium, a barium coated wafer, and barium pudding. FLUOROSCOPY TIME: 34 seconds. COMPARISON: None FINDINGS: There is aspiration with thin and thick liquid. IMPRESSION: Aspiration. ACT 112: Negative or not required by law. Electronically signed by: Nawaf Kay M.D. 02/09/2025 12:07 PM Medications Administered Current Inpatient Medications Acetaminophen (Acetaminophen 325 Mg Tab) 650 mg PO Q4H PRN PRN Reason: pain/fever Stop: 02/16/25 18:14 Last Admin: 02/08/25 03:40 Dose: 650 mg Albuterol (Albut/Ipratrop 3mg/0.5mg Neb 3 Ml Vial) 3 ml NEB Q6R PRN; Protocol PRN Reason: Wheezing Stop: 03/07/25 11:23 Enoxaparin Sodium (Enoxaparin Inj 40 Mg/0.4 Ml Syr) 30 mg SQ [facility] Stop: 03/11/25 08:59 Last Admin: 02/09/25 09:22 Dose: 30 mg Folic Acid (Folic Acid 1 Mg Tab) [facility] [place] Stop: 02/16/25 18:14 Last Admin: 02/09/25 09:53 Dose: 1 mg Furosemide (Furosemide 80 Mg Tab) 80 mg PO [facility] Stop: 02/19/25 08:59 Last Admin: 02/04/25 08:06 Dose: 80 mg Guaifenesin/Dextromethorphan (Guaifenesin/Dextrom Syrup 100mg/10mg 5ml Udc) 5 ml PO Q6H PRN PRN Reason: Cough Stop: 02/24/25 03:02 Last Admin: 02/02/25 20:08 Dose: 5 ml Hydromorphone HCl (Hydromorphone Inj 0.5 Mg/0.5 Ml Syr) 0.25 mg IV Q2H PRN PRN Reason: Pain Stop: 02/23/25 12:17 Last Admin: 02/09/25 12:26 Dose: 0.25 mg Meropenem 500 mg/ Syringe 10 mls @ 2 mls/min IV Q8H [facility]; Protocol Stop: 02/15/25 06:29 Last Admin: 02/09/25 04:52 Dose: 2 mls/min Albumin Human (Albumin 25%) 25 gm in 100 mls @ 50 mls/hr IV Q8H [facility] Stop: 02/10/25 17:59 Last Admin: 02/09/25 11:00 Dose: 50 mls/hr Daptomycin 700 mg/ Syringe 14 mls @ 7 mls/min IV Q48H [facility]; Protocol Stop: 02/12/25 11:59 Lactulose (Lactulose Syrup 30 Gm/45 Ml Udp) 30 gm PO QID [facility] Stop: 03/07/25 08:59 Last Admin: 02/09/25 12:25 Dose: 10 gm Midodrine (Midodrine Hcl 2.5 Mg Tab) 7.5 mg PO TID@0800,1200,1700 [facility] Stop: 03/10/25 11:59 Last Admin: 02/09/25 11:38 Dose: Not Given Multivitamins (Multivitamin Tab) 1 [facility] [place] Stop: 02/17/25 08:59 Last Admin: 02/09/25 09:52 Dose: 1 tab Octreotide Acetate (Octreotide Acetate 100 Mcg/Ml Vial) 200 mcg SQ Q8H [facility] Stop: 03/10/25 09:59 Last Admin: 02/09/25 11:13 Dose: 200 mcg Ondansetron HCl (Ondansetron Inj 2 Mg/Ml 2 Ml Vial) 4 mg IV Q6H PRN PRN Reason: Nausea Stop: 02/16/25 18:14 Oxymetazoline HCl (Oxymetazoline 0.05% 30 Ml Btl) 1 sprays NA DAILY PRN PRN Reason: Nasal Congestion Stop: 02/26/25 05:06 Last Admin: 01/27/25 05:42 Dose: 1 sprays Pantoprazole Sodium (Pantoprazole 40 Mg Tab) 40 mg PO QAM [facility] Stop: 02/17/25 08:59 Last Admin: 02/09/25 09:53 Dose: 40 mg Phenylephrine HCl (Phenylephrine Hcl 0.5% Na [facility] 15 Ml Btl) 1 sprays NA Q6H PRN PRN Reason: nose bleed Stop: 02/27/25 06:14 Last Admin: 02/01/25 07:44 Dose: 1 sprays Spironolactone (Spironolactone 100 Mg Tab) 200 mg PO [facility] Stop: 02/19/25 08:59 Last Admin: 02/04/25 08:04 Dose: 200 mg Thiamine HCl (Thiamine Hcl 100 Mg Tab) 100 mg PO [facility] Stop: 02/17/25 08:59 Last Admin: 02/09/25 09:53 Dose: 100 mg
[2025-02-09 13:34] VITALS: RESP 18
[2025-02-09] MEDS ORDERED: HYDROmorphone INJ 0.5 MG/0.5 ML SYR IV PRN (13:54)
--- NOTE | 2025-02-09 13:54 | Palliative Care Consultation ---
Date of Consultation February 09, 2025 Assessment & Plan (1) Palliative care by specialist: Met with pt and his brother Vance and MYA Avitia and friend Teo at bedside. Introduced Palliative Medicine and explained our role in advanced care planning, symptom management and navigation through the progression of life limiting disease. Patient and/or family were receptive to palliative services for goals of care discussions. Reviewed we are different from hospice, a home health nurse visiting service. Palliative care will continue to follow for ongoing EOL pt care and family support. (2) Counseling regarding goals of care: Time of Meetin:30 - 12:00 and 14:00 - 14:30 Participants: Kat Cheema AGACNP Patient participation: yes Patient Support System: brother MYA Woodard and friend Teo Lynn Other Healthcare Provider Participation: Eliud Rodrigues MD Meeting Location: bedside Advanced Directive available: no If yes, descriptors: The patient's surrogate medical decision maker participated: Pt verbalized wish for Adore Woodard and Teo to jointly serve a his MDM proxy in event he lacks decisional capacity. Legally authorized health care proxy: no AD/LW on file Other surrogate: n/a A family meeting was held for Momo Estevez. This meeting was necessary for determining the appropriate course of treatment. 11:30 - Met with pt and his family at bedside, Dr Rodrigues was present and gave a summary of pts medical history, HPI and admission course and answered questions. Dr Rodrigues helped them understand that the pt has kidney failure requiring dialysis, but theat nephrology does not feel that he would tolerate HD and recommends against it. Pt shared awareness that he is dying due to liver failure which is affecting his other organs. He shared that he wants he family who is at bedside to understand how ill he is and that he is leaving decisions to them when he lacks ability to make decisions. Pt expressed urgency in helping his family understand his illness and that any treatments at this point are palliative and temporizing. Shared likely prognosis of weeks to months even with aggressive treatment with pt and family. (Based on a PONCHO-C ACLF score of 65 which correlates to a mortality rate of 93.4% at one year; 76.4% at 1 month; 89.9% 3mo; 91.6% 6mo; and 93.4% 1yr mortality and a MELD 3.0 of 36 with 60.3% 90d mortality based on today's labs). Discussed options of continuing current course of life prolonging treatments vs transition to comfort directed care. Discussed hospice benefit: an interdisciplinary program offered by nurses, nurses aides, social workers, chaplains and a ophthalmic medical technician for patients with a terminal condition and a life expectancy of less than 6 months. This is covered by Medicare at 100%/no out of pocket expense to patient and all meds/supplies needed by patient for the reason they are on hospice are paid for/covered by hospice. The goal is assure quality of life of the patient in their home setting (home, shelter, inpatient hospice setting) by providing symptoms management, psychosocial and spiritual support. However, they cannot offer 24 hours care and if the family is unable to provide that care, they will have to consider personal care with out of pocket cost vs. shelter placement. We discussed the goals of hospice as a patient service and the goals of care; we discussed EOL trajectories and transitions avery the emotional impact of realizing mortality as a concrete reality from prior abstract considerations. Pt was reassured that no matter where they are along this trajectory, they are not alone - their medical team will remain by their side through their journey. Discussed the pros/cons of accepting help when especially weakened and distressed by pain-which would also help provide relief/decrease caregiver burden/strain. Discussed code status and helped pt and family understand that CPR is only done after a person has and involves uncomfortable and invasive procedures that, if successful. have high risk of multiple complications including but not limited to rib fractures, pneumo/hemothorax, LUBA, ventilator dependence, anoxic brain injury, and prison/permanent cognitive and functional deficits. Expressed concern that resuscitation, given pt's current state of health, might do more harm than good even if successful. Pt shared desire to continue same level of care and have more time to discuss as a family with plan to revisit goals at 2pm today. returned to room a 14:00 today. Teo remained at bedside and pt's brother Vance and MYA Avitia joined by phone. Pt was more lethargic and difficult to rouse, but would respond to questions with single word answers and drift back to sleep. Teo shared that, after our earlier meeting, the pt had expressed that he does not want to be on machines and would not want more aggressive care. Vance also shared that he can see that the pt is dying despite all of the aggressive care he has gotten and that he does not want him to continue to suffer. All family in agreement with transition to comfort directed care. Pt did rouse long enough to say "I am here, i am listening" and then to agree that he would not want any further acceleration of care. He also is in agreement to focus on comfort and quality of time over quantity. Pt denied any need for additional analgesia at this time and stated that the single dose of dilaudid did improve his pain significantly. Discussed comfort directed care and that no further labs, diagnostics or life prolonging therapies would be done and PRN medications would be ordered for pain, dyspnea, excessive secretions, anxiety and nausea. Dr Rodrigues, BSRN and CM made aware of plan for transition to [facility]. Pt will need assessment for GIP. (3) Encounter for assessment of healthcare decision-making capacity: Patient has exhibited current lack of decisional capacity based on the inability to convey understanding of personal PMHx, current medical condition, treatment options nor the risks / benefits of those options, and lack of ability to make decisions based on such knowledge. Hospital does not have written documentation of patient wishes concerning his chosen proxy for medical decisions. Per PA [id number], in absence of written documentation of patient wishes, would be his brother Vance. Pt did verbalize desire for his brother MYA Woodard and friend Teo to serve jointly as proxy for medical decisions. All were at bedside and in agreement to serve as proxy as required. Pt does currently require a proxy for medical decisions. (4) Comfort measures only status: Pt and family all in agreement to transition to comfort directed treatment at this time. Pt expressed that he has been having severe pain with all nursing interventions, particularly when he is rolled or turned. He shared that he has been getting tylenol for pain because he was told that morphine will worsen his kidney function. He requested something stronger for pain. Dilaudid ordered along with comfort order set. (5) Need for comfort care: EOL Symptom manamgement: Pain/dyspnea/tachypnea dilaudid 0.5mg IVP PRN [id number] Consider titratable morphine drip if pt requires >3 PRN doses in under two consecutive hours. Nausea/vomitting zofran 4mg IVP q4h PRN Agitation ativan 0.5mg IVP q4h PRN Hyperactive delirium haldol 5mg IVP q6h PRN Secretions - if repositioning not effective robinul 0.4mg IV q4h PRN atropine SL 3 drops Q1h PRN Nursing care: Discontinue all medications not directed towards comfort. Detether pt from IV tubing, monitor cables, and check vitals once per shift. Please continue HFNC and titrate down as able for patient comfort. Use medications above PRN for dyspnea/tachypnea and do not increase oxygen once titrated down. Assess q1h for pain/dyspnea and treat accordingly. 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 History of Present Illness Reason for Consultation: goals of care Requesting Physician: Eliud Rodrigues MD Attending Physician: Eliud Rodrigues MD History of Present Illness Pt is a 59 y/o male with pmh of etoh cirrhosis who presented on 01/17/25 from GI clinic after being found to be jaundiced with elevated bilirubin of 9.8 along with distended abdomen 2nd to ascites. Pt has had increasing edema to his lower extremities and has been weak and fatigued. His Na+ was 123. Pt states he has not had etoh in a few months. He was admitted for paracentesis and further evaluation by GI for hyperbilirubinemia an nephrology for hyponatremia. He has been found to be in hepatorenal failure and not a candidate for hemodialysis nor liver transplant due to his weakened state and primary ESLD. His lengthy admission course has also been complicated by recurrent ascites requiring paracentesis, PNA, and SBP. Allergies Allergy/AdvReac Type Severity Reaction Status Date / Time No Known Allergies Allergy Verified 01/17/25 17:07 Home Medications Medication Instructions Recorded Confirmed Type folic acid 1 mg tablet 1 mg PO QAM #30 tabs 12/09/24 01/17/25 Rx metoprolol succinate 25 mg 25 mg PO QAM #30 tabs 12/09/24 01/17/25 Rx tablet,extended release 24 hr multivitamin with folic acid 400 1 tab PO QAM #30 tabs 12/09/24 01/17/25 Rx mcg tablet (Daily-Shannon (with folic acid)) pantoprazole 40 mg tablet,delayed 40 mg PO QAM 30 days #30 tabs 12/09/24 01/17/25 Rx release potassium chloride 20 mEq 20 meq PO DAILY #30 tabs 12/09/24 01/17/25 Rx tablet,extended release thiamine HCl (vitamin B1) 100 mg 100 mg PO QAM #30 tabs 12/09/24 01/17/25 Rx tablet spironolactone 25 mg tablet 50 mg (2 x 25 mg) PO QAM #30 tabs 12/19/24 01/17/25 Rx furosemide 20 mg tablet 20 mg PO QAM 30 days #30 tabs 01/13/25 01/17/25 Rx rifaximin 550 mg tablet 550 mg PO BID #60 tabs 01/23/25 Rx Patient History Medical History Pleural effusion Influenza A Hypokalemia Alcohol withdrawal Mild acid reflux Anxiety Surgical History H/O umbilical hernia repair [place] teeth extracted H/O oral surgery H/O inguinal hernia repair Family History Mother Alcohol abuse Depression Father Alcohol abuse Heart disease Kidney disease Myocardial infarction Uncle Myocardial infarction Denies family history of Ovarian cancer Prostate cancer Breast cancer Colorectal cancer Social History Smoking Status: Never smoker Second Hand Exposure: Yes (parents growing up); Do You Dip or Chew Tobacco: No; Hx Alcohol Use: No Hx Substance Use: No Preferred Language: Tamazight Communication Ability: Effective Financial Cost Analyst Required: No Beliefs That Will Affect Care: None marital status: Single Current Living Situation: Family Feels Safe at Home: Yes Dental Care, Regularly: No Physical Activity Frequency: Daily Seatbelt Use: always Sunscreen Use: Yes Assistive Devices: None Review of Systems Review of Systems: All systems reviewed & are unremarkable except as noted in HPI & below Physical Exam Constitutional: + ill appearing, + thin and + frail appe aring Eyes: PERRL, +icteric sclera ENMT: external ear and nose normal, oropharynx normal Neck: trachea midline, no thyromegaly Respiratory: normal respiratory effort and able to speak in complete sentences Auscultation: + diminished lung sounds and + crackles Cardiovascular: Rate/Rhythm: regular rate and regular rhythm Extremities: normal capillary refill and + edema Gastrointestinal (Abdomen): Inspection/Auscultation: + abdomen distended and + hyperactive bowel sounds Skin: + turgor decreased and + jaundice Neurologic: PERRL, EOMI, accommodation nl, no face palsy, no dysarthria Psychiatric: A+Ox3, euthymic affect Results & Data Vital Signs (Past 12 Hours) Vital Signs Temp Pulse Pulse Resp BP Pulse Ox O2 Del Method 02/09/25 13:33 73 18 93/51 L 96 Room Air 02/09/25 11:08 36.3 C L 98 H 19 100/63 91 Room Air 02/09/25 10:31 94 H 02/09/25 07:41 36.5 C 100 H 18 94/55 L 94 Room Air 02/09/25 04:15 100 H 18 103/61 95 Room Air Laboratory Results Abnormal lab results 02/09/25 Range/Units 06:40 WBC 20.77 H (4.8-10.8) K/ul RBC 2.24 L (4.70-6.10) M/uL Hgb 8.1 L (14.0-18.0) g/dl Hct 23.3 L (42.0-52.0) % MCV 104.0 H (80.0-100.0) fL MCH 36.2 H (25.0-34.0) pg RDW Std Deviation 49.3 H (36.4-46.3) fL Plt Count 92 L (130-400) K/uL PT 22.2 H (9.0-12.0) Seconds INR 2.2 H (0.9-1.1) Sodium 130 L (136-145) mmol/L Carbon Dioxide 16 L (21-32) mmol/L Anion Gap 15 H (3-11) BUN 146 H D (6-23) mg/dl Creatinine 3.81 H D (0.6-1.4) mg/dl BUN/Creatinine Ratio 38.3 H (10-20) Glucose 121 H (70-99(Fasting)) mg/dl Total Bilirubin 5.0 H (0.2-1.0) mg/dl AST 40 H (13-39) U/L Globulin 2.3 L (2.5-4.0) gm/dl Diagnostic Findings Head CT 02/05/25 04:08 EXAM: CT head/brain wo con CLINICAL HISTORY: R/o ICH. TECHNIQUE: Axial non-contrast CT scan of the brain was performed from the skull base to the high parietal region. One of the following dose reduction techniques were utilized for this exam: Automated exposure control, adjustment of the mA and/or kV according to patient size, use of iterative reconstruction. COMPARISON: CT 03/19/2024. FINDINGS: Brain Parenchyma: No evidence of acute infarct, hemorrhage, or mass effect. Few hypodense foci are seen, mainly at the bilateral frontal and parietal periventricular/deep white matter regions and basal ganglia. Ventricular System: Mild dilatation of the ventricular system with no midline shift or deformity. Subarachnoid Spaces: Widened cortical sulci, sylvian fissure and extra-axial C.S.F spaces. No evidence of subarachnoid hemorrhage or extra-axial fluid collections. Cerebellum and Brainstem: Normal size and signal. No masses, lesions, or areas of abnormal signal. Orbits: Normal appearance of the globes, optic nerves, and extraocular muscles. No evidence of orbital masses or abnormal signal. Sinuses: Mild right ethmoidal sinusitis. Clear other paranasal sinuses. Mastoid Air Cells: Mild bilateral mastoiditis. Skull: Normal skull morphology. IMPRESSION: 1. No cerebral hematoma or established recent ischemic insult. MRI assessment would be recommended if clinically warranted. 2. Age-related involutional brain changes. 3. Bilateral small chronic cerebral lacunar infarcts. 4. Mild bilateral mastoiditis. Interval new 5. No other significant interval changes. Electronically signed by Jayy Castorena 02-05-2025 05:38 AM Renal Ultrasound 02/05/25 06:14 HISTORY: LUBA. TECHNIQUE: Ultrasound evaluation of the kidneys and urinary bladder. COMPARISON: None. FINDINGS: Right kidney measures 11.8 cm in length. Increased renal cortical echogenicity is a nonspecific finding associated with medical renal disease. No hydronephrosis. Left kidney measures 11 point11.2 cm in length. Increased renal cortical echogenicity is a nonspecific finding associated medical renal disease. No hydronephrosis. No echogenic debris is seen in the urinary bladder. The ureteral jets are not visualized. No obvious bladder wall thickening. Moderate to large ascites is seen throughout the abdomen. IMPRESSION: * No acute findings. No hydronephrosis. * Increased renal cortical echogenicity is a nonspecific finding associated medical renal disease. * Unremarkable urinary bladder. * Moderate to large ascites throughout the abdomen. Electronically signed by Juan C Diane 02-05-2025 09:46 AM KUB X-Ray 02/06/25 00:56 EXAM: XR KUB/Abdomen 1 view CLINICAL HISTORY: R/o SBO TECHNIQUE: X-ray images of the abdomen were obtained in supine position COMPARISON: 01/17/2025, CT Abdomen and Pelvis FINDINGS: Gas Pattern: Prominent bowel loops are identified in abdomen Gas-filled prominent stomach shadow seen Soft Tissues: Liver shadow is possibly below the right costal margin. Ultrasound may be obtained if clinically required Spleen and renal shadows are not well visualized IMPRESSION: Prominent bowel loops in abdomen raising the possibility of bowel obstruction. CT scan is suggested for further evaluation No evidence of pneumoperitoneum No distended/ prominent loops were seen in prior CT Electronically signed by Jayy Castorena 02-06-2025 02:33 AM Abdomen/Pelvis CT 02/06/25 03:27 EXAM: CT abd pelvis wo con CLINICAL HISTORY: ?SBO TECHNIQUE: Contiguous axial images were obtained from the level of the diaphragm to the pubic symphysis without intravenous or oral contrast. Coronal and sagittal reconstructions were likewise performed and indicated to increase the sensitivity for detecting clinically relevant pathology. CT scan was performed according to ALARA (as low as reasonable achievable). 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 Hepatic vasculature and biliary ducts are unremarkable. Gallbladder and Biliary System: Distended with intraluminal calcfic stones The common bile duct is normal in caliber without dilation. Pancreas: The pancreatic head, body, and tail are visualized and appear normal in size and density. No pancreatic masses or calcifications were noted. The pancreatic duct is not dilated. Spleen: Mildly enlarged in size, measured about 16.5 cm Prominent splenic vein No splenic lesions or masses were identified. Appendix: Not well appreciated Kidneys and Adrenal Glands: Both kidneys are normal in size, shape, and position. Cortical thickness is within normal limits. No renal calculi or hydronephrosis. Bulky left adrenal gland Pelvis: Urinary Bladder: not full Prostate: Unremarkable, US study is suggested if warranted clinically. Seminal Vesicles: Normal in size and appearance. No abnormalities noted. Rectum and Sigmoid Colon: Normal wall thickness and no evidence of mass. Peritoneal and Retroperitoneal Structures: Marked ascites is noted , smudging of mesnetric fat planes with prominent mesnetric vessels No lymphadenopathy was noted. Bowel: Long segmental submucosal edema noted at the ascending colon could be reactive colitis. No evidence of bowel obstruction or wall thickening. Uncmplicated colonic diverticulae Lareg left inguinal fluid filled hernia sac noted STB Bones and Soft Tissues: Pelvic bones and soft tissues are unremarkable. No fractures or abnormal masses were identified. Lower chest cuts showed mild left pleural effusion with left basal subsegmental atelectasis Ill-defined patchy consolidation noted in right lower lobe. Large hiatus hernia with ascitic fluid seen in the hernia sac IMPRESSION: 1. Evidence of long segmental submucosal edema noted at the ascending colon could be due to portal colopathy - increased as compared to previous study. 2. Stable Chronic parenchymatous liver disease and mild splenomegaly with portosystmic collaterals 3. Reduced ascites 4. Stable uncomplicated cholelithiasis 5. Stable Large hiatus hernia as described , large left inguinal fluid filled hernia sac.-stable. 6. Reduced, Mild left pleural effusion with left basal sub-segmental atelectasis. 7. Ill-defined patchy consolidation noted in right lower lobe.-new finding. Electronically signed by Wilmer Boogie 02-06-2025 04:55 AM Chest X-Ray 02/06/25 04:35 EXAM: XR chest 1V portable CLINICAL HISTORY: Verify NG tube placement TECHNIQUE: An X-ray image of the part of the chest and upper abdomen is obtained in AP projection. COMPARISON: Studies dated 02/06/2025. FINDINGS: A nasogastric tube is seen. just below the gastroesophageal junction. Need to be advanced for 10 cm into the stomach. Bilateral prominent hilar bronchopulmonary vasculature. Heart size and shape are normal. No evidence of left pleural effusion or pleural thickening. IMPRESSION: 1. A nasogastric tube is seen. tip is just below the gastroesophageal junction. Need to be advanced for 10 cm into the stomach. 2. No significant interval changes. Electronically signed by Jayy Castorena 02-06-2025 06:10 AM Paracentesis Ultrasound 02/06/25 09:30 ULTRASOUND GUIDED PARACENTESIS CLINICAL HISTORY: r/o SBP COMPARISON STUDY: 02/05/2025 PROCEDURE: The risks, benefits, and alternatives to the procedure were discussed with the patient including the risk of bleeding, infection and injury to adjacent structures. The patient agreed to the procedure and informed written consent was obtained. Following real-time ultrasound localization, the skin was prepped and draped. Following local anesthesia with Xylocaine, the sheath paracentesis needle was inserted and approximately 1 liters of straw-colored fluid was removed by vacuum suction. The patient tolerated the procedure well and no immediate complications were evident. IMPRESSION: Ultrasound-guided paracentesis with removal of 1 liters of ascites. Sample was sent to the lab for analysis. ACT 112: Negative or not required by law. Electronically signed by: Nawaf Kay M.D. 02/06/2025 2:28 PM Videofluoroscopic Swallow 02/09/25 10:00 FL video swallow CLINICAL HISTORY: dysphagia with possible aspiration. TECHNIQUE: Video fluoroscopic evaluation of swallowing was performed in the AP and lateral projections by the speech pathology staff. The patient is fed nectar-thick and thin liquid barium, a barium coated wafer, and barium pudding. FLUOROSCOPY TIME: 34 seconds. COMPARISON: None FINDINGS: There is aspiration with thin and thick liquid. IMPRESSION: Aspiration. ACT 112: Negative or not required by law. Electronically signed by: Nawaf Kay M.D. 02/09/2025 12:07 PM Medications Administered Current Inpatient Medications Acetaminophen (Acetaminophen 325 Mg Tab) 650 mg PO Q4H PRN PRN Reason: pain/fever Stop: 02/16/25 18:14 Last Admin: 02/08/25 03:40 Dose: 650 mg Albuterol (Albut/Ipratrop 3mg/0.5mg Neb 3 Ml Vial) 3 ml NEB Q6R PRN; Protocol PRN Reason: Wheezing Stop: 03/07/25 11:23 Enoxaparin Sodium (Enoxaparin Inj 40 Mg/0.4 Ml Syr) 30 mg SQ QAM [facility] Stop: 03/11/25 08:59 Last Admin: 02/09/25 09:22 Dose: 30 mg Folic Acid (Folic Acid 1 Mg Tab) 1 mg PO QAM [facility] Stop: 02/16/25 18:14 Last Admin: 02/09/25 09:53 Dose: 1 mg Furosemide (Furosemide 80 Mg Tab) [facility] [place] Stop: 02/19/25 08:59 Last Admin: 02/04/25 08:06 Dose: 80 mg Guaifenesin/Dextromethorphan (Guaifenesin/Dextrom Syrup 100mg/10mg 5ml Udc) 5 ml PO Q6H PRN PRN Reason: Cough Stop: 02/24/25 03:02 Last Admin: 02/02/25 20:08 Dose: 5 ml Hydromorphone HCl (Hydromorphone Inj 0.5 Mg/0.5 Ml Syr) 0.25 mg IV Q2H PRN PRN Reason: Pain Stop: 02/23/25 12:17 Last Admin: 02/09/25 12:26 Dose: 0.25 mg Meropenem 500 mg/ Syringe 10 mls @ 2 mls/min IV Q8H [facility]; Protocol Stop: 02/11/25 23:55 Last Admin: 02/09/25 13:15 Dose: 2 mls/min Albumin Human (Albumin 25%) 25 gm in 100 mls @ 50 mls/hr IV Q8H [facility] Stop: 02/10/25 17:59 Last Infusion: 02/09/25 13:00 Dose: Infused Daptomycin 700 mg/ Syringe 14 mls @ 7 mls/min IV Q48H [facility]; Protocol Stop: 02/12/25 11:59 Lactulose (Lactulose Syrup 30 Gm/45 Ml Udp) 30 gm PO QID [facility] Stop: 03/07/25 08:59 Last Admin: 02/09/25 12:25 Dose: 10 gm Midodrine (Midodrine Hcl 2.5 Mg Tab) 7.5 mg PO TID@0800,1200,1700 [facility] Stop: 03/10/25 11:59 Last Admin: 02/09/25 11:38 Dose: Not Given Multivitamins (Multivitamin Tab) 1 tab PO QAM [facility] Stop: 02/17/25 08:59 Last Admin: 02/09/25 09:52 Dose: 1 tab Octreotide Acetate (Octreotide Acetate 100 Mcg/Ml Vial) 200 mcg SQ Q8H [facility] Stop: 03/10/25 09:59 Last Admin: 02/09/25 11:13 Dose: 200 mcg Ondansetron HCl (Ondansetron Inj 2 Mg/Ml 2 Ml Vial) 4 mg IV Q6H PRN PRN Reason: Nausea Stop: 02/16/25 18:14 Oxymetazoline HCl (Oxymetazoline 0.05% 30 Ml Btl) 1 sprays NA DAILY PRN PRN Reason: Nasal Congestion Stop: 02/26/25 05:06 Last Admin: 01/27/25 05:42 Dose: 1 sprays Pantoprazole Sodium (Pantoprazole 40 Mg Tab) 40 mg PO QAM [facility] Stop: 02/17/25 08:59 Last Admin: 02/09/25 09:53 Dose: 40 mg Phenylephrine HCl (Phenylephrine Hcl 0.5% Na [place] 15 Ml Btl) 1 sprays NA Q6H PRN PRN Reason: nose bleed Stop: 02/27/25 06:14 Last Admin: 02/01/25 07:44 Dose: 1 sprays Spironolactone (Spironolactone 100 Mg Tab) 200 mg PO QAM [facility] Stop: 02/19/25 08:59 Last Admin: 02/04/25 08:04 Dose: 200 mg Thiamine HCl (Thiamine Hcl 100 Mg Tab) 100 mg PO QAM [facility] Stop: 02/17/25 08:59 Last Admin: 02/09/25 09:53 Dose: 100 mg PG Care Time/CCT Total # of Minutes Spent Total Time Spent with Patient: Total time spent is greater than 50% in coordination of care (as documented) at patient's floor/unit and/or counseling patient: Advanced Care Planning 89394 Advanced Care Planning 30 Min 94056 Advanced Care Planning Additional 30 [place] [address] IN/OBS CONSULT LVL 3,45M Patient Type New History Expanded Problem Focused Exam Expanded Problem Focused Medical Decision Making High Complexity Diagnoses Palliative care by specialist Z51.5 Counseling regarding goals of care Z71.89 Encounter for assessment of healthcare decision-making capacity Z02.79 Comfort measures only status Z51.5 Need for comfort care Additional Codes Advanced Care Planning - 61579 Advanced Care Planning 30 Min: 15312 Advanced Care Planning 30 Min ([id number]) Advanced Care Planning - 17109 Advanced Care Planning Additional 30 Min: 68237 Advanced Care Planning Additional 30 Min ([id number])
[2025-02-09] MEDS ORDERED: ONDANSETRON INJ 2 MG/ML 2 ML VIAL IV PRN (15:55)
[2025-02-09] MEDS ORDERED: GLYCOPYRROLATE 0.2 MG/ML VIAL IV PRN (15:58)
[2025-02-09] MEDS ORDERED: HALOPERIDOL LACTATE 5 MG/ML 1 ML VIAL IV PRN (15:58)
[2025-02-09] MEDS ORDERED: LORazepam 2 MG/1 ML VIAL IV PRN (15:58)
--- NOTE | 2025-02-09 17:11 | Hospitalist Progress Note ---
Date of Service February 09, 2025 Assessment & Plan (1) Hepatorenal syndrome: Plan: clinical picture c/w HRS type 1 given the rapid decline in his creatinine over the last 48-72 hours HRS type 1 has a very poor prognosis, and his renal function has declined even further overnight trigger of HRS - enterococcal SBP despite scheduled IV albumin 25% infusions, midodrine TID, and octreotide TID he has had no response to such and LUBA has worsened yet again he is now uremic with fine tremors, sleepiness, etc. unfortunately Mr Estevez is not a dialysis candidate given his hemodynamic instability and other comorbidities he is also not a liver transplant candidate as he was using etoh up until November 2024 after about a 60 minute visit this am with pt, his sister, his [id number], and his previous significant other Gagnus we ultimately were able to start some comfort meds, then later in the day he became full comfort care measures with DNR/DNI status (2) Acute kidney failure: Plan: 2nd to #1 as above (3) Alcoholic cirrhosis of liver with ascites: Plan: end-stage liver disease current MELD 3.0 score >30 conferring near 50% mortality in the next 3 months he is not a liver transplant candidate -- per the chart was consuming etoh up until Nov 2024 had recent admission 12/15-12/19 for ascites requiring paracentesis and had thoracentesis during that admission as well started on lasix 20mg/spironolactone 50mg at time of discharge in December readmitted 01/17 with massive ascites, abdominal pain and SBP; 01/18 peritoneal fluid culture with serratia s/p 10 day course of cipro for such s/p paracenteses on 01/18, 01/23, 01/27, 01/30, 02/03, and 02/06 02/06 peritoneal fluid culture with enterococcus faecium patient now with HRS / LUBA 2nd to recurrent SBP patient with recent hepatic encephalopathy - that is improved s/p lactulose enemas despite meropenem + daptomycin for RLL pneumonia/SBP as well as albumi n/midodrine/octreotide for HRS type 1 he has had no clinical improvement on any front transitioning to full comfort care measures will stop IV abx, midodrine, octreotide, albumin IV, etc. focus on comfort (4) Spontaneous bacterial peritonitis: Plan: Has had 2 episodes of SBP since admission - -first was at time of admission; 01/18 peritoneal fluid culture with serratia, s/p 10 day course of cipro with clinical improvement -2nd episode is current - s/p paracentesis on 02/06 with culture now growing enterococcus faecium -has been on meropenem since 02/05/25 -added daptomycin on 02/08 unfortunately it appears that this 2nd episode of SBP has triggered HRS - see above stop IV abx --> transitioning to comfort care measures (5) RLL pneumonia: Plan: suspected due to aspiration peak O2 requirement was 8 L on 02/05/25 (6) Hyponatremia: Plan: 2nd to decompensated cirrhosis lowest Na level while here - 119 (7) Decompensated cirrhosis: Plan: as above was holding diuretics and beta janee therapy in the face of LUBA / HRS type 1 (8) Left inguinal hernia: Plan: gen surg saw in consult earlier in the admission - no Rx advised (9) Hypertension: Plan: lasix/aldactone/beta janee therapy all stopped (10) Elevated INR: Plan: INR today 2.2 highly concerning in the setting of his HRS type 1 platelets also dropping can't rule out early DIC can't rule out worsening liver failure leading to coagulopathy and platelet decrease either way transitioning to comfort care (11) Dysphagia: Plan: appreciate speech therapy consultation failed swallow eval severely (12) Acute hepatic encephalopathy: (13) Severe protein-calorie malnutrition: Plan: 40# of weight loss from 01/2025 to present due to advanced, end-stage cirrhosis (14) Comfort measures only status: (15) Counseling regarding goals of care: Plan care d/w speech therapy care d/w nursing staff care d/w Penny Castillo, palliative care care d/w pt's brother Angelo, [id number] Adore, and prior significant other Gagnus total time today spent on all care activities - about 80 minutes (~60 minute bedside conversation with pt & his family) 20 min on coordination of care with other team members, orders, etc appreciate Ms Cheema' consultation & assistance Admission and Anticipated Discharge Date Admission Date: January 17, 2025 Subjective overnight - minimal UOP via edouard tele - NSR this am I was informed that the pt's brother, [id number], and the pt's prior significant other Gangus (a retired physician from the [facility]) had arrived at bedside I initially met with the pt's brother & [id number] in the waiting area told them that Momo's renal function had worsened further overnight, leukocytosis was worse, and his UOP was very poor we briefly discussed goals of care we then joined Penny Cheema from palliative care and Marcio in Momo's room remarkably Momo was able to talk to us he was sleepy, sometimes his eyes rolling back, but was able to carry a conversation and answer questions Ms Cheema and I updated Momo and all others present about his current status - worsening acute renal failure, ongoing SBP despite IV abx, worsening labs, failing the swallow eval this am, etc. discussed options for care including continuing routine care vs transitioning to comfort care status discussed pain medicines for his discomforts Momo was agreeable to IV dilaudid but briefly he seemed to want to continue albumin IV, lactulose, etc. explained that these measures would likely not be helpful explained he was not a dialysis candidate nor a liver transplant candidate discussed comfort care and what that entails we reviewed code status - he initially was not sure about what he would want, but later in the day he became DNR/DNI status as the afternoon went on he ultimately became full comfort care Review of Systems Review of Systems: +pain in abdomen with turning in bed +dyspnea +extreme weakness +dry mouth Physical Exam Physical Exam: gen - cachectic, severely ill-appearing, very low-pitched voice, sleepy - but amazingly able to carry conversation and answer questions eyes - icteric sclera neck - JVD now present mouth - MM dry heart - tachy, s1 s2, no murmur lungs - CTA b/l, decreased BS bases abd - distended with ascites fluid - worse today ext - no edema, pulses 2+ b/l feet neuro - tremors and/or asterixis Results & Data Results & Data Vital Signs (Past 12 Hours) Vital Signs Temp Pulse Pulse Resp BP Pulse Ox O2 Del Method 02/09/25 15:48 99 H 02/09/25 15:26 95 H 18 91/47 L 94 Room Air 02/09/25 13:33 73 18 93/51 L 96 Room Air 02/09/25 11:08 36.3 C L 98 H 19 100/63 91 Room Air 02/09/25 10:31 94 H 02/09/25 08:00 Room Air 02/09/25 07:41 36.5 C 100 H 18 94/55 L 94 Room Air Laboratory Results Laboratory Results - last 24 hr 02/09/25 06:40 WBC 20.77 H RBC 2.24 L Hgb 8.1 L Hct 23.3 L MCV 104.0 H MCH 36.2 H MCHC 34.8 RDW Std Deviation 49.3 H RDW Coeff of Kylee 13.1 Plt Count 92 L MPV 9.9 PT 22.2 H INR 2.2 H Sodium 130 L Potassium 4.2 Chloride 99 Carbon Dioxide 16 L Anion Gap 15 H BUN 146 H D Creatinine 3.81 H D Est Cr Clr Drug Dosing 20.7 eGFR 17.52 BUN/Creatinine Ratio 38.3 H Glucose 121 H Calcium 8.7 Total Bilirubin 5.0 H AST 40 H ALT 13 Alkaline Phosphatase 50 Total Protein 6.0 Albumin 3.7 Globulin 2.3 L Albumin/Globulin Ratio 1.6 Diagnostic Findings Videofluoroscopic Swallow 02/09/25 10:00 FL video swallow CLINICAL HISTORY: dysphagia with possible aspiration. TECHNIQUE: Video fluoroscopic evaluation of swallowing was performed in the AP and lateral projections by the speech pathology staff. The patient is fed nectar-thick and thin liquid barium, a barium coated wafer, and barium pudding. FLUOROSCOPY TIME: 34 seconds. COMPARISON: None FINDINGS: There is aspiration with thin and thick liquid. IMPRESSION: Aspiration. ACT 112: Negative or not required by law. Electronically signed by: Nawaf Kay M.D. 02/09/2025 12:07 PM Microbiology 02/06/25 Unknown Peritoneal Fluid Gram Stain - Final 02/06/25 Unknown Peritoneal Fluid Aerobic and Anaerobic Culture - Preliminary Enterococcus faecium 02/05/25 05:03 Blood Aerobic Blood Culture - Preliminary No growth in Aerobic bottle after 48 hours. 02/05/25 05:03 Blood Anaerobic Blood Culture - Preliminary No growth in Anaerobic bottle after 48 hours. 02/05/25 05:03 Blood Aerobic Blood Culture - Preliminary No growth in Aerobic bottle after 48 hours. 02/05/25 05:03 Blood Anaerobic Blood Culture - Preliminary No growth in Anaerobic bottle after 48 hours. 01/23/25 13:45 Peritoneal Fluid Gram Stain - Final 01/23/25 13:45 Peritoneal Fluid Aerobic and Anaerobic Culture - Final No growth 01/19/25 03:15 Blood Aerobic Blood Culture - Final No growth in Aerobic bottle after 5 days. 01/19/25 03:15 Blood Anaerobic Blood Culture - Final No growth in Anaerobic bottle after 5 days. 01/19/25 03:15 Blood Aerobic Blood Culture - Final No growth in Aerobic bottle after 5 days. 01/19/25 03:15 Blood Anaerobic Blood Culture - Final No growth in Anaerobic bottle after 5 days. 01/18/25 Unknown Peritoneal Fluid Gram Stain - Final 01/18/25 Unknown Peritoneal Fluid Aerobic and Anaerobic Culture - Final Serratia marcescens PG Care Time/CCT Total # of Minutes Spent Total Time Spent with Patient: Total time spent is greater than 50% in coordination of care (as documented) at patient's floor/unit and/or counseling patient: Prolonged Care Time Prolonged Care Time: Yes Total Prolonged Care Time: 80 Coding Level of Care Code 48026 SUB INP/OBS CARE 3/50MIN (25 - SIGNIFICANT, SEPARATELY IDENTIFIABLE ) Diagnoses Hepatorenal syndrome K76.7 Acute kidney failure N17.9 Alcoholic cirrhosis of liver with ascites K70.31 Spontaneous bacterial peritonitis K65.2 RLL pneumonia J18.9 Hyponatremia E87.1 Decompensated cirrhosis K72.90; K74.60 Left inguinal hernia K40.90 Hypertension I10 Elevated INR R79.1 Dysphagia R13.10 Acute hepatic encephalopathy K76.82 Severe protein-calorie malnutrition E43 Comfort measures only status Z51.5 Counseling regarding goals of care Z71.89 Additional Codes Prolonged Care Time - Prolonged Care Time: Yes ([id number])
[2025-02-09 20:03] VITALS: O2SAT 91
--- NOTE | 2025-02-10 08:42 | Communication Note ---
Date of Service: February 10, 2025 Mr. Estevez was transitioned to comfort measures and medical management (antibiotics, midodrine, octreotide, albumin) were discontinued. GI service will watch peripherally. Recall GI as needed. Thank you for allowing us to participate in the care of this patient. Please call with any acute changes, questions or concerns. Please see addendum below with additional recommendation from my supervising physician. I personally saw and examined the patient. I have reviewed the chart and agree with the documentation provided by the [facility] including discussion about the assessment, treatment and plan.
--- NOTE | 2025-02-10 09:26 | Palliative Care Progress Note ---
Date of Service February 10, 2025 Assessment & Plan (1) Palliative care by specialist: Plan: Palliative care will continue to follow for ongoing EOL symptom mgmt and patient/family support. Family at [facility] expressed concern for frequency of vital signs while RADIOLOGY NURSE. Anticipatory guidance offered. Discussed that pt is being treated based on symptoms and not labs or vitals signs and in concert with comfort directed care we are not checking vital signs as frequently. Discussed changes pt may move through in the dying process including but not limited to sleeping more, disorientation when awake, restlessness, diminished senses/inability to respond to stimulus although ability to be aware of them remains intact longer, and changes in body temperatures, skin changes/mottling/cyanosis, respiratory pattern changes, and oral secretions. Family verbalized understanding. The goal is to assure a peaceful . (2) Comfort measures only status: Plan: transitioned to RADIOLOGY NURSE on 02/09/25 after ACP discussions with pt and his chosen MDM proxy/family members. (3) Need for comfort care: Plan: EOL Symptom manamgement: Pain/dyspnea/tachypnea dilaudid 0.2mg IVP PRN [id number] dose decreased on 02/10 after pt complaint of over sedation Consider titratable morphine drip if pt requires >3 PRN doses in under two consecutive hours. Nausea/vomitting zofran 4mg IVP q4h PRN Agitation ativan 0.5mg IVP q4h PRN Hyperactive delirium haldol 5mg IVP q6h PRN Secretions - if repositioning not effective robinul 0.4mg IV q4h PRN atropine SL 3 drops Q1h PRN Nursing care: Discontinue all medications not directed towards comfort. Detether pt from IV tubing, monitor cables, and check vitals once per shift. Please continue HFNC and titrate down as able for patient comfort. Use medications above PRN for dyspnea/tachypnea and do not increase oxygen once titrated down. Assess q1h for pain/dyspnea and treat accordingly. Plan as above Admission and Anticipated Discharge Date Admission Date: January 17, 2025 Subjective Assessed pt at bedside, he was transitioned to RADIOLOGY NURSE on 02/09/25. Pt is drowsy but arouseable to verbal stimuli and in NAD on RA. He appears comfortable, jaundice skin, extremities warm. Respiratory effort slightly increased, rate 24/min with no accessory muscle use noted. Pt states that he has ongoing abd ominal pain with any exertion/repositioning but denies need for medication at present. Pt's friend Teo and cousin at bedside. Review of Systems Constitutional: + fatigue, + malaise and + weakness Respiratory: + cough Gastrointestinal: + abdominal pain and + bloating diffuse abd pain/tightness Musculoskeletal: + muscle weakness Physical Exam Constitutional: + ill appearing, + thin and + frail appe aring Eyes: PERRL, +icteric sclera ENMT: external ear and nose normal, oropharynx normal Neck: trachea midline, no thyromegaly Respiratory: normal respiratory effort and able to speak in complete sentences Auscultation: + diminished lung sounds and + crackles Cardiovascular: Rate/Rhythm: regular rate and regular rhythm Extremities: normal capillary refill and + edema Gastrointestinal (Abdomen): Inspection/Auscultation: + abdomen distended and + hyperactive bowel sounds Skin: + turgor decreased and + jaundice Neurologic: PERRL, EOMI, accommodation nl, no face palsy, no dysarthria Psychiatric: A+Ox3, euthymic affect Results & Data Vital Signs (Past 12 Hours) reviewed flow sheets Laboratory Results No further labs or diagnostics in concert with comfort directed care. Diagnostic Findings No further labs or diagnostics in concert with comfort directed care. Medications Administered Current Inpatient Medications Albuterol (Albut/Ipratrop 3mg/0.5mg Neb 3 Ml Vial) 3 ml NEB Q6R PRN; Protocol PRN Reason: Wheezing Stop: 03/07/25 11:23 Glycopyrrolate (Glycopyrrolate 0.2 Mg/Ml Vial) 0.4 mg IV Q4H PRN PRN Reason: secretions Stop: 03/11/25 15:57 Guaifenesin/Dextromethorphan (Guaifenesin/Dextrom Syrup 100mg/10mg 5ml Udc) 5 ml PO Q6H PRN PRN Reason: Cough Stop: 02/24/25 03:02 Last Admin: 02/02/25 20:08 Dose: 5 ml Haloperidol Lactate (Haloperidol Lactate 5 Mg/Ml 1 Ml Vial) 5 mg IV Q6H PRN PRN Reason: Agitation Stop: 03/11/25 15:57 Hydromorphone HCl (Hydromorphone Inj 0.5 Mg/0.5 Ml Syr) 0.5 mg IV Q15M PRN PRN Reason: Pain Stop: 02/23/25 15:57 Last Admin: 02/09/25 19:39 Dose: 0.5 mg Lorazepam (Lorazepam 2 Mg/1 Ml Vial) 0.5 mg IV Q4H PRN PRN Reason: Anxiety/Agitation Stop: 03/11/25 15:57 Ondansetron HCl (Ondansetron Inj 2 Mg/Ml 2 Ml Vial) 4 mg IV Q4H PRN PRN Reason: Nausea &/or Vomiting Stop: 03/11/25 15:54 PG Care Time/CCT Total # of Minutes Spent Total Time Spent with Patient: Total time spent is greater than 50% in coordination of care (as documented) at patient's floor/unit and/or counseling patient: Coding [place] [address] SUB INP/OBS CARE 2/35MIN Patient Type Established History Expanded Problem Focused Exam Expanded Problem Focused Medical Decision Making Moderate Complexity Diagnoses Palliative care by specialist Z51.5 Comfort measures only status Z51.5 Need for comfort care
[2025-02-10 09:36] VITALS: BP 98/61; PULSE 105
[2025-02-10] MEDS ORDERED: DAPTOmycin 700 MG in SYRINGE 0 ML IV SCH (12:00)
--- NOTE | 2025-02-10 12:53 | Communication Note ---
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 Edgar guaman is struggling with accepting the medical reality and coming to terms with his declining status as a measure of his EOL ESLD process. Thank you for allowing us to participate in the ongoing care of this patient. Please page with any additional concerns. Akhil Corcoran DNP Director, Palliative Medicine
[2025-02-10] MEDS: ACETAMINOPHEN 1,000 MG/100 ML VIAL IV PRN (13:40)
[2025-02-10] MEDS: HYDROmorphone INJ 0.5 MG/0.5 ML SYR IV PRN (17:00)
--- NOTE | 2025-02-10 21:36 | Hospitalist Progress Note ---
Date of Service February 10, 2025 Assessment & Plan (1) Hepatorenal syndrome: Plan: clinical picture c/w HRS type 1 given the rapid decline in his creatinine over a 2-3 day period prior to transitioning to comfort care measures on 02/09/25 trigger of his HRS - enterococcal (VRE) SBP despite scheduled IV albumin 25% infusions, midodrine TID, and octreotide TID he had no response to such and LUBA worsened just prior to initiating comfort pathway (BUN was nearly 150, Cr nearly 4 - with severe oliguria) he had evidence of uremia last few days (fine tremors, lethargy, etc.) unfortunately Mr Etsevez was not a dialysis candidate given his hemodynamic instability and other comorbidities also not a liver transplant candidate as he was using etoh up until November 2024 (2) Acute kidney failure: Plan: 2nd to #1 as above (3) Alcoholic cirrhosis of liver with ascites: Plan: end-stage liver disease current MELD 3.0 score >30 not a liver transplant candidate -- per the chart was consuming etoh up until Nov 2024 had recent admission 12/15-12/19 for ascites requiring paracentesis and had thoracentesis during that admission as well started on lasix 20mg/spironolactone 50mg at time of discharge in December readmitted 01/17 with massive ascites, abdominal pain and SBP; 01/18 peritoneal fluid culture with serratia s/p 10 day course of cipro for such s/p paracenteses on 01/18, 01/23, 01/27, 01/30, 02/03, and 02/06 02/06 peritoneal fluid culture with VRE patient then developed HRS type 1 / LUBA 2nd to recurrent SBP patient with recent hepatic encephalopathy despite meropenem + daptomycin for RLL pneumonia/SBP as well as albumin/midodrine/octreotide for HRS type 1 he had no clinical improvement on any front transitioned to full comfort care measures 02/09/25 (4) Spontaneous bacterial peritonitis: Plan: 2 episodes of SBP this admission - -first was at time of admission; 01/18 peritoneal fluid culture with serratia, s/p 10 day course of cipro with clinical improvement -2nd episode 02/06 - culture with VRE 2nd episode of SBP triggered HRS - see above all abx stopped --> transitioned to comfort care measures 02/09/25 (5) RLL pneumonia: Plan: suspected due to aspiration peak O2 requirement was 8 L on 02/05/25 all abx d/c (6) Hyponatremia: Plan: 2nd to decompensated cirrhosis lowest Na level while here - 119 (7) Decompensated cirrhosis: Plan: as above was holding diuretics and beta janee therapy in the face of LUBA / HRS type 1 (8) Left inguinal hernia: (9) Hypertension: (10) Elevated INR: Plan: INR at peak 2.2 highly concerning for acute on chronic liver disease in the setting of his HRS type 1 platelets were also dropping prior to transitioning to comfort care pathway early DIC vs worsening liver failure leading to coagulopathy and platelet dec rease were possibilities either way transitioned to comfort care (11) Dysphagia: Plan: appreciate speech therapy consultation failed swallow eval just prior to transitioning to comfort care (12) Acute hepatic encephalopathy: (13) Severe protein-calorie malnutrition: Plan: 40# of weight loss from 01/2025 to present due to advanced, end-stage cirrhosis (14) Comfort measures only status: Plan: transitioned to such 02/09/25 Plan cont comfort care pathway support given to pt's significant other, brother, [id number] appreciate creative director support cont comfort meds Admission and Anticipated Discharge Date Admission Date: January 17, 2025 Subjective amazingly the patient is awake this am, talking with family, making needs known, asking for small amounts of food coughing up sputum that is purulent checked on patient twice today - each time he was sleeping, however only having mild discomfort when he is repositioned in bed no vomiting by report UOP remains poor Review of Systems Review of Systems: Unobtainable due to cognitive status Physical Exam Physical Exam: gen - cachectic, severely ill-appearing, sleeping neck - JVD present mouth - MM dry heart - tachy, s1 s2, no murmur lungs - CTA b/l, decreased BS bases abd - distended with ascites fluid but nontender ext - trace edema b/l legs, pulses 2+ b/l feet Results & Data Results & Data Vital Signs (Past 12 Hours) Vital Signs O2 Del Method 02/10/25 19:40 Room Air 02/10/25 14:18 Room Air PG Care Time/CCT Total # of Minutes Spent Total Time Spent with Patient: Total time spent is greater than 50% in coordination of care (as documented) at patient's floor/unit and/or counseling patient: Coding Level of Care Code 64213 SUB INP/OBS CARE Diagnoses Hepatorenal syndrome K76.7 Acute kidney failure N17.9 Alcoholic cirrhosis of liver with ascites K70.31 Spontaneous bacterial peritonitis K65.2 RLL pneumonia J18.9 Hyponatremia E87.1 Decompensated cirrhosis K72.90; K74.60 Left inguinal hernia K40.90 Hypertension I10 Elevated INR R79.1 Dysphagia R13.10 Acute hepatic encephalopathy K76.82 Severe protein-calorie malnutrition E43 Comfort measures only status Z51.5
[2025-02-11] MEDS: OXYMETAZOLINE 0.05% 30 ML BTL PRN (10:36)
--- NOTE | 2025-02-11 16:51 | Hospitalist Progress Note ---
Date of Service February 11, 2025 Assessment & Plan (1) Hepatorenal syndrome: Plan: clinical picture c/w HRS type 1 given the rapid decline in his creatinine over a 2-3 day period prior to transitioning to comfort care measures on 02/09/25 trigger of his HRS - enterococcal (VRE) SBP despite scheduled IV albumin 25% infusions, midodrine TID, and octreotide TID earlier this week he had no response to such and LUBA worsened just prior to initiating comfort pathway (BUN was nearly 150, Cr nearly 4 - with severe oliguria) he had evidence of uremia last few days (fine tremors, lethargy, etc.) unfortunately Mr Estevez was not a dialysis candidate given his hemodynamic i nstability and other comorbidities also not a liver transplant candidate as he was using etoh up until November 2024 (2) Acute kidney failure: Plan: 2nd to #1 as above (3) Alcoholic cirrhosis of liver with ascites: Plan: end-stage liver disease current MELD 3.0 score >30 not a liver transplant candidate -- per the chart was consuming etoh up until Nov 2024 had recent admission 12/15-12/19 for ascites requiring paracentesis and had thoracentesis during that admission as well started on lasix 20mg/spironolactone 50mg at time of discharge in December readmitted 01/17 with massive ascites, abdominal pain and SBP; 01/18 peritoneal fluid culture with serratia s/p 10 day course of cipro for such s/p paracenteses on 01/18, 01/23, 01/27, 01/30, 02/03, and 02/06 5 peritoneal fluid culture with VRE patient then developed HRS type 1 / LUBA 2nd to recurrent SBP patient with recent hepatic encephalopathy - and I suspect his ammonia levels are rising again based on his worsening mentation today and worsening tremors/asterixis despite meropenem + daptomycin for RLL pneumonia/SBP as well as albumin/midodrine/octreotide for HRS type 1 he had no clinical improvement on any front transitioned to full comfort care measures 02/09/25 (4) Spontaneous bacterial peritonitis: Plan: 2 episodes of SBP this admission - -first was at time of admission; 01/18 peritoneal fluid culture with serratia, s/p 10 day course of cipro with clinical improvement -2nd episode 02/06 - culture with VRE 2nd episode of SBP triggered HRS - see above all abx stopped --> transitioned to comfort care measures 02/09/25 (5) RLL pneumonia: Plan: suspected due to aspiration peak O2 requirement was 8 L on 02/05/25 all abx d/c (6) Hyponatremia: Plan: 2nd to decompensated cirrhosis lowest Na level while here - 119 (7) Decompensated cirrhosis: Plan: as above was holding diuretics and beta janee therapy in the face of LUBA / HRS type 1 (8) Left inguinal hernia: (9) Hypertension: (10) Elevated INR: Plan: INR at peak 2.2 highly concerning for acute on chronic liver disease in the setting of his HRS type 1 platelets were also dropping prior to transitioning to comfort care pathway early DIC vs worsening liver failure leading to coagulopathy and platelet decrease were possibilities either way transitioned to comfort care (11) Dysphagia: Plan: appreciate speech therapy consultation failed swallow eval just prior to transitioning to comfort care (12) Acute hepatic encephalopathy: (13) Severe protein-calorie malnutrition: Plan: 40# of weight loss from 01/2025 to present due to advanced, end-stage cirrhosis (14) Comfort measures only status: Plan: transitioned to such 02/09/25 Plan cont comfort care pathway left message for pt's [id number] Adore this afternoon on her voicemail Admission and Anticipated Discharge Date Admission Date: January 17, 2025 Subjective patient was awake during my visit he was sitting up trying to drink liquids and eat yogurt/pudding he fell asleep several times while I was seeing him he said once "I need to drink this - it's good" (referring to boost) each time I offered ice chips he immediately had a wet/moist cough following the ice chips he had significant tremors today and poor coordination Review of Systems Review of Systems: denied pain in any location Physical Exam Physical Exam: gen - cachectic, severely ill-appearing, sleepy, confused, tremors noted neck - JVD present mouth - MM dry heart - tachy, s1 s2, no murmur lungs - CTA b/l, decreased BS bases abd - distended with ascites fluid - worse today ext - trace edema b/l legs, pulses 2+ b/l feet neuro - asterixis + Results & Data Results & Data Vital Signs (Past 12 Hours) Vital Signs O2 Del Method 02/11/25 08:00 Room Air PG Care Time/CCT Total # of Minutes Spent Total Time Spent with Patient: Total time spent is greater than 50% in coordination of care (as documented) at patient's floor/unit and/or counseling patient: Coding Level of Care Code 58599 SUB INP/OBS CARE 10/29MIN Diagnoses Hepatorenal syndrome K76.7 Acute kidney failure N17.9 Alcoholic cirrhosis of liver with ascites K70.31 Spontaneous bacterial peritonitis K65.2 RLL pneumonia J18.9 Hyponatremia E87.1 Decompensated cirrhosis K72.90; K74.60 Left inguinal hernia K40.90 Hypertension I10 Elevated INR R79.1 Dysphagia R13.10 Acute hepatic encephalopathy K76.82 Severe protein-calorie malnutrition E43 Comfort measures only status Z51.5
[2025-02-12] MEDS: HYDROmorphone INJ 0.5 MG/0.5 ML SYR IV PRN (11:19)
--- NOTE | 2025-02-12 12:33 | Hospitalist Progress Note ---
Date of Service February 12, 2025 Assessment & Plan (1) Comfort measures only status: Plan: transitioned to comfort measure only status on 02/09/25 up until 02/11 he was having periods of wakefulness, was taking small amounts of PO liquids, etc. late 02/11 he was showing signs of worsening hepatic encephalopathy and/or worsening uremia also with probable aspiration of the liquids he was drinking patient now obtunded today with rapid, shallow breathing and some retractions ultimately needed institution of dilaudid drip this afternoon due to increased work of breathing following such his breathing did improve and he was more comfortable called & spoke with pt's [id number] Adore - gave update early this evening she is aware of the significant changes in the last 24 hours pt's ex-boyfriend was also updated at bedside today he is leaving to return to [place] today (2) Hepatorenal syndrome: Plan: clinical picture c/w HRS type 1 given the rapid decline in his creatinine over a 2-3 day period prior to transitioning to comfort care measures on 02/09/25 trigger of his HRS - enterococcal (VRE) SBP despite scheduled IV albumin 25% infusions, midodrine TID, and octreotide TID earlier this week he had no response to such and LUBA worsened just prior to initiating comfort pathway (BUN was nearly 150, Cr nearly 4 - with severe oliguria) he had evidence of uremia last few days (fine tremors, lethargy, etc.) unfortunately Mr Estevez was not a dialysis candidate given his hemodynamic instability and other comorbidities also not a liver transplant candidate as he was using etoh up until November 2024 (3) Acute kidney failure: Plan: 2nd to #2 as above (4) Alcoholic cirrhosis of liver with ascites: Plan: end-stage liver disease current MELD 3.0 score >30 not a liver transplant candidate -- per the chart was consuming etoh up until Nov 2024 had recent admission 12/15-12/19 for ascites requiring paracentesis and had thoracentesis during that admission as well started on lasix 20mg/spironolactone 50mg at time of discharge in December readmitted 01/17 with massive ascites, abdominal pain and SBP; 01/18 peritoneal fluid culture with serratia s/p 10 day course of cipro for such s/p paracenteses on 01/18, 01/23, 01/27, 01/30, 02/03, and 02/06 02/06 peritoneal fluid culture with VRE patient then developed HRS type 1 / LUBA 2nd to recurrent SBP patient with recent hepatic encephalopathy - and I suspect his ammonia levels began to rise again on 02/11/25 despite meropenem + daptomycin for RLL pneumonia/SBP as well as albumin/midodrine/octreotide for HRS type 1 he had no clinical improvement on any front transitioned to full comfort care measures 02/09/25 (5) Spontaneous bacterial peritonitis: Plan: 2 episodes of SBP this admission - -first was at time of admission; 01/18 peritoneal fluid culture with serratia, s/p 10 day course of cipro with clinical improvement -2nd episode 02/06 - culture with VRE 2nd episode of SBP triggered HRS - see above all abx stopped --> transitioned to comfort care measures 02/09/25 (6) RLL pneumonia: Plan: suspected due to aspiration peak O2 requirement was 8 L on 02/05/25 right lung much worse today -no Rx, on comfort care measures only (7) Hyponatremia: Plan: 2nd to decompensated cirrhosis lowest Na level while here - 119 (8) Decompensated cirrhosis: (9) Left inguinal hernia: (10) Hypertension: (11) Elevated INR: Plan: INR at peak 2.2 highly concerning for acute on chronic liver disease in the setting of his HRS type 1 platelets were also dropping prior to transitioning to comfort care pathway early DIC vs worsening liver failure leading to coagulopathy and platelet decrease were possibilities either way transitioned to comfort care (12) Dysphagia: Plan: appreciate speech therapy consultation failed swallow eval just prior to transitioning to comfort care (13) Acute hepatic encephalopathy: Plan: ongoing (14) Severe protein-calorie malnutrition: Plan: 40# of weight loss from 01/2025 to present due to advanced, end-stage cirrhosis Plan cont comfort care pathway Admission and Anticipated Discharge Date Admission Date: January 17, 2025 Subjective during the visit today he was obtunded with rapid, shallow breathing dilaudid prn dose was increased in response to such pt's ex-boyfriend was at bedside gave support later in the afternoon the patient needed multiple doses of IV dilaudid 0.5mg at that point decision made to start dilaudid continuous drip Review of Systems Review of Systems: Unobtainable due to reduced consciousness Physical Exam Physical Exam: gen - cachectic, severely ill-appearing, obtunded, mild respiratory distress with rapid & shallow breathing mouth - MM dry heart - tachy, s1 s2, no murmur lungs - R basilar rales - worse today; tachypnea, shallow breathing abd - distended with ascites ext - trace edema b/l legs, pulses 1+ b/l feet psych - now obtunded Results & Data Results & Data Vital Signs (Past 12 Hours) Vital Signs O2 Del Method 02/12/25 08:30 Room Air PG Care Time/CCT Total # of Minutes Spent Total Time Spent with Patient: Total time spent is greater than 50% in coordination of care (as documented) at patient's floor/unit and/or counseling patient: Coding Level of Care Code 13532 SUB INP/OBS CARE 10/29MIN Diagnoses Comfort measures only status Z51.5 Hepatorenal syndrome K76.7 Acute kidney failure N17.9 Alcoholic cirrhosis of liver with ascites K70.31 Spontaneous bacterial peritonitis K65.2 RLL pneumonia J18.9 Hyponatremia E87.1 Decompensated cirrhosis K72.90; K74.60 Left inguinal hernia K40.90 Hypertension I10 Elevated INR R79.1 Dysphagia R13.10 Acute hepatic encephalopathy K76.82 Severe protein-calorie malnutrition E43
[2025-02-12] MEDS ORDERED: STAT IV Infusion **Titration per Protocol STA (13:40)
[2025-02-12] MEDS ORDERED: HYDROmorphone BOLUS from BAG IV PRN (13:40)
[2025-02-12] MEDS: HYDROmorphone 100 MG/100 ML BAG IV SCH (14:17)
--- NOTE | 2025-02-13 04:28 | Death Pronouncement Note ---
Date of Service February 13, 2025 Pronouncement Note Admission Date Admission Date: January 17, 2025 Contributing Factors (1) Comfort measures only status: (2) Hepatorenal syndrome: (3) Acute kidney failure: (4) Alcoholic cirrhosis of liver with ascites: (5) Spontaneous bacterial peritonitis: (6) RLL pneumonia: (7) Hyponatremia: (8) Decompensated cirrhosis: (9) Left inguinal hernia: (10) Hypertension: (11) Elevated INR: (12) Dysphagia: (13) Acute hepatic encephalopathy: (14) Severe protein-calorie malnutrition: Summary Additional details: I was called to pronounce the of Momo Estevez ( 1965) by Haley Cristobal RN on 02/13/2025 Upon entering the room, patient was found to be in a terminal state. They were unresponsive to, and did not withdrawal from, verbal or tactile stimuli. They were unresponsive to corneal, pupillary, and oculocephalic reflexes. On cardiopulmonary exam, they were found to be without detectable carotid pulses, and without spontaneous heart tones or respirations. Time of was pronounced by me on 02/13/2025 at 0414. Attending physician was notified. Next of kin was notified by myself. Signed: Shar Mojica DO Additional Data Attending physician: Eliud Rodrigues MD Resident Activity Tracking Resident Involvement: Resident Care Provided Care Provided: Adult Hospital Medicine
--- NOTE | 2025-02-13 20:22 | Discharge Summary ---
Discharge Summary Date of Service February 13, 2025 Principal Dx & Hospital Course #1 = Principal Diagnosis (1) Comfort measures only status: transitioned to comfort measure only status on 02/09/25 up until 02/11 he was having periods of wakefulness, was taking small amounts of PO liquids, etc. late 02/11 he was showing signs of worsening hepatic encephalopathy and/or worsening uremia also with probable aspiration of the liquids he was drinking patient now obtunded today with rapid, shallow breathing and some retractions ultimately needed institution of dilaudid drip this afternoon due to increased work of breathing following such his breathing did improve and he was more comfortable called & spoke with pt's [id number] Adore - gave update early this evening she is aware of the significant changes in the last 24 hours pt's ex-boyfriend was also updated at bedside today he is leaving to return to [place] today (2) Hepatorenal syndrome: clinical picture c/w HRS type 1 given the rapid decline in his creatinine over a 2-3 day period prior to transitioning to comfort care measures on 02/09/25 trigger of his HRS - enterococcal (VRE) SBP despite scheduled IV albumin 25% infusions, midodrine TID, and octreotide TID ea rlier this week he had no response to such and LUBA worsened just prior to initiating comfort pathway (BUN was nearly 150, Cr nearly 4 - with severe oliguria) he had evidence of uremia last few days (fine tremors, lethargy, etc.) unfortunately Mr Estevez was not a dialysis candidate given his hemodynamic instability and other comorbidities also not a liver transplant candidate as he was using etoh up until November 2024 (3) Acute kidney failure: 2nd to #2 as above (4) Alcoholic cirrhosis of liver with ascites: end-stage liver disease current MELD 3.0 score >30 not a liver transplant candidate -- per the chart was consuming etoh up until Nov 2024 had recent admission 12/15-12/19 for ascites requiring paracentesis and had t horacentesis during that admission as well started on lasix 20mg/spironolactone 50mg at time of discharge in December readmitted 01/17 with massive ascites, abdominal pain and SBP; 01/18 peritoneal fluid culture with serratia s/p 10 day course of cipro for such s/p paracenteses on 01/18, 01/23, 01/27, 01/30, 02/03, and 02/06 02/06 peritoneal fluid culture with VRE patient then developed HRS type 1 / LUBA 2nd to recurrent SBP patient with recent hepatic encephalopathy - and I suspect his ammonia levels began to rise again on 02/11/25 despite meropenem + daptomycin for RLL pneumonia/SBP as well as album in/midodrine/octreotide for HRS type 1 he had no clinical improvement on any front transitioned to full comfort care measures 02/09/25 (5) Spontaneous bacterial peritonitis: 2 episodes of SBP this admission - -first was at time of admission; 01/18 peritoneal fluid culture with serratia, s/p 10 day course of cipro with clinical improvement -2nd episode 02/06 - culture with VRE 2nd episode of SBP triggered HRS - see above all abx stopped --> transitioned to comfort care measures 02/09/25 (6) RLL pneumonia: suspected due to aspiration peak O2 requirement was 8 L on 02/05/25 right lung much worse today -no Rx, on comfort care measures only (7) Hyponatremia: 2nd to decompensated cirrhosis lowest Na level while here - 119 (8) Decompensated cirrhosis: (9) Left inguinal hernia: (10) Hypertension: (11) Elevated INR: INR at peak 2.2 highly concerning for acute on chronic liver disease in the setting of his HRS type 1 platelets were also dropping prior to transitioning to comfort care pathway early DIC vs worsening liver failure leading to coagulopathy and platelet decrease were possibilities either way transitioned to comfort care (12) Dysphagia: appreciate speech therapy consultation failed swallow eval just prior to transitioning to comfort care (13) Acute hepatic encephalopathy: ongoing (14) Severe protein-calorie malnutrition: 40# of weight loss from 01/2025 to present due to advanced, end-stage cirrhosis Plan cont comfort care pathway Admission HPI Per Admitting Provider Pt is a 59 y/o male with pmh of etoh cirrhosis who presents from GI clinic after being found to be jaundiced with elevated bilirubin of 9.8 along with distended abdomen 2nd to ascites. Pt has had increasing edema to his lower extremities and has been weak and fatigued. His Na+ was 123. Pt states he has not had etoh in a few months. He is being admitted for paracentesis and further evaluation by GI for hyperbilirubinemia an nephrology for hyponatremia. Discharge Exam gen - cachectic, severely ill-appearing, obtunded, mild respiratory distress with rapid & shallow breathing mouth - MM dry heart - tachy, s1 s2, no murmur lungs - R basilar rales - worse today; tachypnea, shallow breathing abd - distended with ascites ext - trace edema b/l legs, pulses 1+ b/l feet psych - now obtunded Discharge Plan Discharge Items Patient Disposition: Addtl Attending Provider Instructions: You have been hospitalized for cirrhosis/volume overload as well as bacterial peritonitis (likely caused by having the needed paracentesis's done) and have had treatment with diuretics, antibiotics and consultation with gastroentrology as well as nephrology for low sodium level (which is likely from the cirrhosis of your liver itself). You underwent repeat paracentesis TWICE while inpatient. Culture grew bacteria and you have been on antibiotics and at discharge . For diuretics, your Lasix has been increased to 80mg daily and your doug nolactone has been increased to 200mg daily and your kidney function has remained stable and tolerating the increased diuretics. You will need GI follow up/hepatology at discharge for management of your cirrhosis. Continue to AVOID alcohol. Continue B12/folate/thiamine replacement at discharge. Ammonia levels can elevate with cirrhosis and if not moving bowels this is higher risk and have started you on a medication called LACTULOSE to help prevent build up of these toxins and can increase as needed to make sure moving bowels 2-3 times/daily. Rifaximin NEW med, twice daily. Sent and nassar is ____ MIDODRINE has been started to help maintain your blood pressure and at discharge . You have been on metoprolol for blood pressure but really this will be more for heart rate control and should consider switching to medication called NADOLOL which is better for cirrhosis. You should also have screening with EGD for varices if not already done which can be scheduled in follow up. You will need follow up with PCP, GI/hepatology at discharge. Please take medications as prescribed and monitor your weights and alert provider for significant weight gain (ie 3lb in 24 hours or 5lb in a week) and you may need additional paracentesis arranged as outpatient pending follow up. Please return to the ER with any worsening edema/weight gain/abdominal pain, bleeding, fever, or for any other symptoms concerning for you. It has been a pleasure being a part of the medical team providing for you while you have been in the hospital. Take care! Other Date/Time: 02/13/25 04:14 Hospital Stay Data Consultations 01/17/25 17:55 ED Decision to Admit Stat 01/17/25 23:41 Consult Gastroenterology Routine 01/17/25 23:47 Consult Nephrology Routine 01/28/25 13:33 Consult General Surgery Routine 02/08/25 11:11 Consult Nephrology Routine 02/09/25 08:19 Consult Palliative Care Routine Diagnostic Imagining Performed 01/17/25 17:04 CT abd pelvis IV con only Stat 01/18/25 IR paracentesis abd w/img US Stat 01/23/25 IR paracentesis abd w/img US Routine 01/27/25 07:00 IR paracentesis abd w/img US Routine 01/30/25 09:04 IR paracentesis abd w/img US Routine 02/03/25 09:58 IR paracentesis abd w/img US Routine 02/05/25 04:08 CT head/brain wo con Stat 02/05/25 06:14 US Renal Bladder [US renal/blad retro comp] Stat 02/06/25 03:27 CT Abd and Pelvis [CT abd pelvis wo con] Stat 02/06/25 09:30 IR paracentesis abd w/img US Urgent 02/09/25 10:00 FL video swallow Routine Discharge Instructions Given to Patient (Per Discharging Provider) You have been hospitalized for cirrhosis/volume overload as well as bacterial peritonitis (likely caused by having the needed paracentesis's done) and have had treatment with diuretics, antibiotics and consultation with gastroentrology as well as nephrology for low sodium level (which is likely from the cirrhosis of your liver itself). You underwent repeat paracentesis TWICE while inpatient. Culture grew bacteria and you have been on antibiotics and at discharge . For diuretics, your Lasix has been increased to 80mg daily and your spironolactone has been increased to 200mg daily and your kidney function has remained stable and tolerating the increased diuretics. You will need GI follow up/hepatology at discharge for management of your cirrhosis. Continue to AVOID alcohol. Continue B12/folate/thiamine replacement at discharge. Ammonia levels can elevate with cirrhosis and if not moving bowels this is higher risk and have started you on a medication called LACTULOSE to help prevent build up of these toxins and can increase as needed to make sure moving bowels 2-3 times/daily. Rifaximin NEW med, twice daily. Sent and nassar is ____ MIDODRINE has been started to help maintain your blood pressure and at discharge . You have been on metoprolol for blood pressure but really this will be more for heart rate control and should consider switching to medication called NADOLOL which is better for cirrhosis. You should also have screening with EGD for varices if not already done which can be scheduled in follow up. You will need follow up with PCP, GI/hepatology at discharge. Please take medications as prescribed and monitor your weights and alert provider for significant weight gain (ie 3lb in 24 hours or 5lb in a week) and you may need additional paracentesis arranged as outpatient pending follow up. Please return to the ER with any worsening edema/weight gain/abdominal pain, bleeding, fever, or for any other symptoms concerning for you. It has been a pleasure being a part of the medical team providing for you while you have been in the hospital. Take care! Coding Diagnoses Comfort measures only status Z51.5 Hepatorenal syndrome K76.7 Acute kidney failure N17.9 Alcoholic cirrhosis of liver with ascites K70.31 Spontaneous bacterial peritonitis K65.2 RLL pneumonia J18.9 Hyponatremia E87.1 Decompensated cirrhosis K72.90; K74.60 Left inguinal hernia K40.90 Hypertension I10 Elevated INR R79.1 Dysphagia R13.10 Acute hepatic encephalopathy K76.82 Severe protein-calorie malnutrition E43
--- NOTE | 2025-02-16 12:48 | Coding Query ---
CODING QUERY To promote full compliance with coding requirements relating to patient care, provider participation is requested in all cases of death surveys coder uncertainty. Please assist us with the question(s) below: Coding Question(s): There is documentation of Spontaneous bacterial peritonitis: 2 episodes of SBP this admission, and the Discharge Summary documents, "You have been hospitalized for cirrhosis/volume overload as well as bacterial peritonitis (likely caused by having the needed paracentesis's done)". Please specify below, in your clinical opinion, regarding Bacterial Peritonitis treated during this admission: ( ) SBP, Bacterial Peritonitis likely due to Complication from Paracentesis procedure. Please specify below, to determine POA (present on admission) status: ( ) POA ( ) Not POA ( ) unknown if POA ( ) SBP, Bacterial Peritonitis NOT due to Complication from Paracentesis procedure. Please specify below, to determine POA (present on admission) status: ( ) POA ( ) Not POA ( ) unknown if POA Physician's Response(s): 1st episode of SBP was PRESENT on admission. 1st episode of SBP was NOT due to a complication from paracentesis. 2nd episode of SBP was NOT present on admission. 2nd episode of SBP was likely due to complication from prior paracentesis procedure. Hope this makes sense! Thanks, Eliud Thank you Sidra Rouse Principal Diagnosis: "that condition established after study, to be chiefly responsible for occasioning the admission of the patient to the hospital for care." Co-Existing Principal Diagnosis: "when two or more diagnoses equally meet the criteria for principal diagnosis as determined by the circumstances of admission, diagnostic work up, and/or therapy provided, and the Alphabetic Index, Tabular List, or another coding guideline does not provide sequencing direction, any one of the diagnoses may be sequenced first." "When the physician has documented what appears to be a current diagnosis in the body of the record, but has not included the diagnosis in the final diagnostic statement, the physician should be asked whether the diagnosis should be added." (Source [facility]oding [facility] 2 QTR90. p3-4) MEAGHAN
== END 2025-02-13 05:55 | disposition expired | DRG 432 ==
LOC: ED 14:38 → EDINP 18:15 → SUATTDRO 18:15 → 3E 22:58 → 2S 02-05 06:40 → 3W 02-09 21:07